=== PATIENT | female | born 1970 | race Caucasian/White ===

== ENCOUNTER → 2020-04-07 15:33 | Outpatient (CLI) | payer MEDICARE, MEDICAID, SELFPAY ==
--- NOTE | ~2020-04-07 | MM_ITS ---
EXAMINATION: MM screening andrew BI w cristine HISTORY: Screening mammogram TECHNIQUE: Craniocaudal and mediolateral oblique 3-D tomosynthesis images were obtained and synthetic 2-D images were generated. CAD analysis was submitted and interpreted. COMPARISON: 12/15/2018, 09/2017 bilateral digital screening mammogram examinations BREAST PARENCHYMAL COMPOSITION: There are scattered areas of fibroglandular density. FINDINGS: There are bilateral calcified microhematomas. There is no evidence of suspicious mass, hema cification, or architectural distortion to suggest malignancy in either breast. There has been no sarika picious interval change. IMPRESSION: 1. No mammographic evidence of malignancy. 2. Recommend routine screening mammography in one year. BI-RADS Category 2: Benign finding(s). Reviewed, dictated and finalized at location A.
== END ==
PROVIDERS: PCP Internal Medicine; Visit Provider Obstetrics & Gynecology
DX: Z12.31 Encounter for screening mammogram for malignant neoplasm of breast (principal)
CPT/HCPCS: 77063; 77067

== ENCOUNTER → 2021-05-31 14:22 | Outpatient (CLI) | payer MEDICARE, SELFPAY ==
--- NOTE | ~2021-05-31 | DEXA_ITS ---
Bone Density Report Name: JALEESA FELIZ Age: 50 Sex: Female Ethnicity: White Date of : 1970 Indication: monitoring treatment; height loss; history of glucocorticoids; prior fracture; asthma or emphysema; hysterectomy; Referring Provider: LAUREL, MAGALYS Study: Bone densitometry was performed. Exam Date: May 31, 2021 Accession number: [id number] Bone Density: Region BMD T-score Z-score Classification AP Spine (L1-L4) 0.970 -0.7 0.1 Normal Femoral Neck (Left) 0.696 -1.4 -0.5 Osteopenia Total Hip (Left) 0.857 -0.7 -0.2 Normal Femoral Neck (Right) 0.687 -1.5 -0.6 Osteopenia Total Hip (Right) 0.824 -1.0 -0.4 Normal Total Hip Mean 0.841 -0.9 -0.3 Normal World Health Organization criteria for BMD impression classify patients as: Normal (T-score at or above -1.0), Osteopenia (T-score between -1.0 and -2.5), or Osteoporosis (T-score at or below -2.5). 10-year Fracture Risk: FRAX not reported because: Treated for osteoporosis Previous Exams: Region Exam Age BMD T-score BMD Change BMD Change Date g/cm2 vs Baseline vs Previous AP Spine(L1-L4) 05/31/2021 50 0.970 -0.7 -0.029* -0.029* 09/18/2017 46 0.998 -0.4 Total Hip(Left) 05/31/2021 50 0.857 -0.7 -0.072* -0.072* 09/18/2017 46 0.929 -0.1 Total Hip(Right) 05/31/2021 50 0.824 -1.0 -0.086* -0.086* 09/18/2017 46 0.909 -0.3 *Denotes significance at 95% confidence level, LSC for AP Spine = 0.022 g/cm2, LSC for Total Hip = 0.027 g/cm2 Clinical Information Provided by Patient: Has had a low trauma fracture Has taken Glucocorticoids Is being treated for osteoporosis Has used the following medications: Vitamin D, Calcium Has the following medical conditions: Asthma or Emphysema, Hysterectomy Patient maximum height was 63 Menopause Age: 26 No regular weight bearing exercise Drinks caffeinated beverages Onset of menses at age 11 Number of children 2 Impression: The patient has low bone mass, based on the Right Femoral Neck T-score. The patient has risk factors, including: previous fracture, history of glucocorticoid therapy. The BMD for the AP Spine(L1-L4) decreased, changing by -0.029 since the last DXA exam. The BMD for the Total Hip(Left) decreased, changing by -0.072 since the last DXA exam. The BMD for the Total Hip(Right) decreased, changing by -0.086 since the last DXA exam. Discussion: SIGNIFICANT BONE LOSS OBSERVED. Adh
--- NOTE | ~2021-05-31 | MM_ITS ---
EXAMINATION: MM screening andrew BI w cristine HISTORY: Screening mammogram TECHNIQUE: Craniocaudal and mediolateral oblique 3-D tomosynthesis images were obtained and synthetic 2-D images were generated. CAD analysis was submitted and interpreted. COMPARISON: 04/07/2020, 12/15/2018, 09/18/2017 bilateral screening mammogram examinations BREAST PARENCHYMAL COMPOSITION: There are scattered areas of fibroglandular density. FINDINGS: There are scattered bilateral benign calcifications. There is no evidence of suspicious mas s, calcification, or architectural distortion to suggest malignancy in either breast. There has been no suspicious interval change. IMPRESSION: 1. No mammographic evidence of malignancy. 2. Recommend routine screening mammography in one year. BI-RADS Category 2: Benign finding(s). Reviewed, dictated and finalized at location A. 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
== END ==
PROVIDERS: PCP Internal Medicine; Visit Provider Nurse Practitioner
DX: Z12.31 Encounter for screening mammogram for malignant neoplasm of breast (principal); Z78.0 Asymptomatic menopausal state; M85.851 Other specified disorders of bone density and structure, right thigh; M85.852 Other specified disorders of bone density and structure, left thigh
CPT/HCPCS: 77063; 77067; 77080

== ENCOUNTER 2021-06-16 13:54 | Emergency (ER) | payer MEDICARE, MEDICAID, SELFPAY ==
--- NOTE | 2021-06-16 13:59 | ED.URI ---
HPI - URI/Sore Throat General Chief Complaint: Upper Respiratory Infection Stated Complaint: Flu sx Time Seen by Provider: 06/16/21 14:00 Source: patient and RN notes reviewed History of Present Illness HPI Narrative: Patient is a 50-year-old female who presents the urgent care with complaints of flulike symptoms that started last night at 8 PM. Patient denies of any known exposures to Covid, flu or strep. States that she has had the Covid vaccine. Patient has been taking DayQuil and NyQuil for her symptoms. Patient denies of any nausea or vomiting. Denies of any chest pain or shortness of breath. No other acute complaints. No acute distress noted. Patient aware of the plan of care. Some parts of this dictation were generated by voice recognition software and may contain typographical and/or grammatical inaccuracies. Related Data Home Medications Medication Instructions Recorded Confirmed Tums 2 tab-cap PO HS 06/16/21 06/16/21 Vitamin B-12 1 tab-cap PO DAILY 06/16/21 06/16/21 Vitamin D3 2,000 units PO DAILY 06/16/21 06/16/21 Women's Daily Multivitamin 1 tablet PO DAILY 06/16/21 06/16/21 albuterol sulfate 2 puff INHALATION HS 06/16/21 06/16/21 aspirin [Adult Low Dose Aspirin] 81 mg PO DAILY 06/16/21 06/16/21 bimatoprost [Lumigan] 1 drp EACH EYE HS 06/16/21 06/16/21 citalopram 40 mg PO DAILY 06/16/21 06/16/21 diltiazem HCl 120 mg PO DAILY 06/16/21 06/16/21 estradiol 0.5 mg PO DAILY 06/16/21 06/16/21 fluticasone propion-salmeterol 1 inh INHALATION BID 06/16/21 06/16/21 [Wixela Inhub] gabapentin 300 mg PO BID 06/16/21 06/16/21 hydrocodone-acetaminophen 1 tablet PO Q4-6H PRN 06/16/21 06/16/21 linaclotide [Linzess] 145 mcg PO DAILY 06/16/21 06/16/21 lorazepam 1 mg PO TID 06/16/21 06/16/21 magnesium 500 mg PO DAILY 06/16/21 06/16/21 medroxyprogesterone 2.5 mg PO DAILY 06/16/21 06/16/21 montelukast 10 mg PO DAILY 06/16/21 06/16/21 omeprazole 40 mg PO DAILY 06/16/21 06/16/21 prednisone 2.5 mg PO EVERY OTHER DAY 06/16/21 06/16/21 simvastatin 40 mg PO DAILY 06/16/21 06/16/21 spironolactone 50 mg PO DAILY 06/16/21 06/16/21 trazodone 50 mg PO DAILY 06/16/21 06/16/21 Allergies Allergy/AdvReac Type Severity Reaction Status Date / Time Quinolones Allergy Mild NIGHT Verified 06/16/21 14:06 SWEATS, ANXIETY, SLEEPLESSNESS Review of Systems Review of Systems: CONSTITUTIONAL: Reports of chills and sweats with subjective fever EYES: Denies visual changes, redness, or discharge. ENT: Denies rhinorrhea, congestion, otalgia. Reports of sore throat CARDIOVASCULAR: Denies chest pain, palpitations, or edema. RESPIRATORY: Denies cough or dyspnea. GASTROINTESTINAL: Reports of suprapubic pressure GENITOURINARY: Denies dysuria or hematuria. SKIN: Denies rash or itching. MUSCULOSKELETAL: Denies back pain, joint pain, or myalgia. NEUROLOGIC: Denies headache, numbness, or weakness. All other systems reviewed are negative, except as documented in HPI. [facility] Family History Family History (Updated 01/13/16 @ 23:19 by DOCTOR UNKNOWN) Mother Depression Hypertension Family history of elevated blood lipids Family history of chronic obstructive pulmonary disease Sibling Depression Family history of diabetes mellitus in first degree relative Family history of renal failure Father Family history of diabetes mellitus in first degree relative Family history of emphysema Family history of renal failure Family history of heart disease in male family member before age 55 Other Cerebrovascular accident Family history of allergic disorder Social History Social History Smoking status: Former smoker Smoking end date: 06/17/90 Alcohol intake: never Comments At the time of my signature, I reviewed and agree with the nursing past medical, surgical, social, and family history. There is no relevant family history pertinent to the patient complaint. Exam Narrative: GENERAL: This is a well-nourished, well-develo
[2021-06-16 14:09] VITALS: BP 97/57; PULSE 86; RESP 16; TEMP 35.7; O2SAT 100
== END 2021-06-16 14:58 | disposition home or self-care (01) ==
PROVIDERS: Emergency Provider Nurse Practitioner Family; PCP Internal Medicine
DX: J06.9 Acute upper respiratory infection, unspecified (principal); Z87.891 Personal history of nicotine dependence
CPT/HCPCS: 81003; 87804; 99213; G0463

== ENCOUNTER 2022-03-14 14:10 | Outpatient (CLI) | payer MEDICARE, MEDICAID, SELFPAY ==
--- NOTE | ~2022-03-14 | US_ITS ---
EXAMINATION: US pelvic complete DATE: 03/14/2022 14:43 INDICATION: Pelvic pain Comparison:No prior studies for comparison. TECHNIQUE: Multiple transabdominal and endovaginal sonographic images of the pelvis performed. FINDINGS: The uterus is surgically absent. The ovaries are not visualized. There is no free fluid in the pelvis. There are no abnormal masses seen on either side. IMPRESSION: 1. Unremarkable pelvic ultrasound status post hysterectomy. Reviewed, dictated and finalized at location B.
== END 2022-03-14 14:11 | disposition home or self-care (01) ==
PROVIDERS: PCP Internal Medicine; Visit Provider Obstetrics & Gynecology Gynecology
DX: R10.2 Pelvic and perineal pain (principal)
CPT/HCPCS: 76856

== ENCOUNTER 2023-06-27 10:16 | Outpatient (CLI) | payer MEDICARE, MEDICAID, SELFPAY ==
[2023-06-27 11:05] LABS: Alanine Aminotransferase 49 U/L (6-35); Alkaline Phosphatase 72 U/L (38-126); Anion Gap 7 mmol/L (8-16); Aspartate Amino Transferase 58 U/L (14-36); Bilirubin,Total 0.9 mg/dL (0.2-1.3); Blood Urea Nitrogen 15 mg/dL (7-17); Calcium 9.9 mg/dL (8.4-10.2); Carbon Dioxide 29 mmol/L (22-30); Chloride 100 mmol/L (98-107); Estimated Glomerular Filt Rate > 60; Glucose 90 mg/dL (65-110); Potassium 3.9 mmol/L (3.4-5.0); Sodium 136 mmol/L (137-145)
[2023-06-27 11:34] LABS: Cortisol Baseline 7.94 ug/dL
[2023-06-27 11:42] LABS: Vitamin D 25 Hydroxy 73.8 ng/mL
[2023-06-30 12:06] LABS: DHEA-Sulfate <2 mcg/dL (8-188)
[2023-07-02 14:41] LABS: Z Score Female 0.4 SD (-2.0 - +2.0)
== END 2023-06-27 10:17 | disposition home or self-care (01) ==
PROVIDERS: PCP Internal Medicine; Visit Provider Internal Medicine Endocrinology, Diabetes & Metabolism
DX: E27.49 Other adrenocortical insufficiency (principal); E16.1 Other hypoglycemia; R79.89 Other specified abnormal findings of blood chemistry; E55.9 Vitamin D deficiency, unspecified
CPT/HCPCS: 36415; 80053; 82306; 82533; 82627; 84305; 96372; J0834

== ENCOUNTER 2023-09-16 10:11 | Outpatient (CLI) | payer MEDICARE, MEDICAID, SELFPAY ==
--- NOTE | 2023-09-16 11:46 | ECG_ITS ---
Measurements Intervals [place] Rate: 76 P: 10 IN: 161 QRS: -14 QRSD: 86 T: 7 QT: 375 QTc: 423 Interpretive Statements SINUS RHYTHM VOLTAGE CRITERIA FOR LVH [MEETS CRITERIA IN ONE OF: R(aVL), S(V1), R(V5), R(V5/V6)+S(V1)] POOR R-WAVE PROGRESSION ABNORMAL ECG NO PREVIOUS ECG AVAILABLE FOR COMPARISON Electronically Signed On 09-16-2023 13:18:41 CDT by Michele Arauz M.D.
[2023-09-16 12:43] LABS: Basophils Absolute Auto 0.1 K/mm3 (0.0-0.1); Basophils Percent Auto 0.9 % (0.2-1.2); Eosinophils Absolute Auto 0.2 K/mm3 (0-0.3); Eosinophils Percent Auto 2.3 % (0-4.4); Hematocrit 42.4 % (37.0-47.0); Hemoglobin 13.5 g/dL (12.0-15.0); Immature Granulocyte Absolute 0.03 K/mm3 (0.00-0.031); Immature Granulocyte Percent A 0.5 % (0-0.5); Lymphocytes Absolute Auto 1.23 K/mm3 (0.9-3.2); Lymphocytes Percent Auto 18.6 % (18.3-44.2); Mean Corpuscular HGB Conc 31.8 g/dl (32-36); Mean Corpuscular Hemoglobin 29.5 pg (26-34); Mean Corpuscular Volume 92.6 fl (80-100); Mean Platelet Volume 10.6 fl (7.4-10.4); Monocytes Absolute Auto 0.5 K/mm3 (0.1-0.6); Monocytes Percent Auto 7.1 % (2.6-8.5); Neutrophils Absolute Auto 4.7 K/mm3 (1.3-6.7); Neutrophils Percent Auto 70.6 % (45.5-73.1); Platelet Count Result 186 k/mm3 (150-375); Red Blood Count 4.58 M/mm3 (4.2-5.4); Red Cell Distribution Width 13.6 % (11.5-14.5); White Blood Count 6.6 K/mm3 (4.5-10.0)
[2023-09-16 12:50] LABS: Albumin Level 4.4 g/dL (3.5-5.1)
[2023-09-16 12:54] LABS: Anion Gap 4 mmol/L (4-12); Blood Urea Nitrogen 11 mg/dL (7-17); Calcium 9.8 mg/dL (8.4-10.2); Carbon Dioxide 29 mmol/L (22-30); Chloride 102 mmol/L (98-107); Estimated Glomerular Filt Rate > 60; Glucose 80 mg/dL (65-110); Potassium 4.1 mmol/L (3.4-5.0); Sodium 135 mmol/L (137-145)
[2023-09-16 12:57] LABS: Urine Cotinine NEGATIVE
[2023-09-16 13:42] LABS: Hemoglobin A1C 4.8 % (<5.7)
== END 2023-09-16 10:12 | disposition home or self-care (01) ==
PROVIDERS: Anesthesiology; PCP Internal Medicine; Visit Provider Orthopaedic Surgery
DX: M87.051 Idiopathic aseptic necrosis of right femur (principal); Z51.81 Encounter for therapeutic drug level monitoring; Z01.818 Encounter for other preprocedural examination; Z79.899 Other long term (current) drug therapy
CPT/HCPCS: 36415; 80048; 80307; 82040; 83036; 85025; 93005

== ENCOUNTER 2023-09-17 09:54 | Outpatient (CLI) | payer MEDICARE, SELFPAY ==
--- NOTE | ~2023-09-17 | MR_ITS ---
MRI of the right hip Clinical history: Avascular necrosis Technique: Coronal T1-weighted, T2-weighted, and proton-density fat-sat images, and axial T1-weighted and proton-density fat-sat images were acquired through the pelvis. Coronal T2-weighted images and c oronal, axial, and sagittal proton-density fat-sat images were acquired through the right hip. Findings: There are small focal areas of radiographic signal abnormality in the bilateral femoral hea ds, compatible small areas of avascular necrosis of the bilateral femoral heads. No subchondral fract ure articular surface collapse, or secondary osteoarthritis seen. Joint spaces are relatively well-pr eserved, probable mild diffuse chondral thinning. No joint effusion. SI joints are unremarkable. No d efinite right acetabular labral tear. Visualized musculature about the pelvis and right hip is unremarkable. No muscle atrophy or edema. Vi sually tendons are intact. No soft tissue mass or fluid collection seen. IMPRESSION: Small areas of avascular necrosis of the bilateral femoral heads. No subchondral fracture, articular surface collapse, or secondary osteoarthritis. Reviewed, dictated and finalized at location M. IMPRESSION: Small areas of avascular necrosis of the bilateral femoral heads. No subchondra l fracture, articular surface collapse, or secondary osteoarthritis.
== END 2023-09-17 09:55 ==
PROVIDERS: PCP Internal Medicine; Visit Provider Orthopaedic Surgery
DX: M87.051 Idiopathic aseptic necrosis of right femur (principal)
CPT/HCPCS: 73721

== ENCOUNTER 2023-10-01 14:20 | Observation (INO) | payer MEDICARE, MEDICAID, SELFPAY ==
--- NOTE | 2023-09-16 10:16 | PC.NURSE ---
Addendum entered by Chelsi Rowe RN 09/16/23 11:28: PATIENT INSTRUCTED TO HOLD ASPIRIN 5 DAYS PRE-OP PER DR GREER, LAST DOSE 09/24/23. SHE RELAYS UNDERSTANDING. Original Note: Report to the Outpatient Waiting Room, entrance under the green pavilion located off [facility], at time __6:00AM on date ___09/30/23____. Planned Procedure Time: ___7:30AM . Time changes happen often and if your time is changed the preop area will call you the afternoon before. - You and your visitor will be asked to self-screen and do not enter if you have any COVID symptoms. - A mask is optional within the hospital at this time. Patients may have clear liquids (water, carbonated beverages, clear teas, apple juice) until 3 hours prior to surgery with a maximum of 20 ounces. - No food from midnight until time of surgery. Take the following medications with a SIP of water the morning of surgery: ____DILTIAZEM, ADVAIR DISKUS INHALER, GABAPENTIN, LORAZEPAM, PREDNISONE. HYDROCODONE NEEDED FOR PAIN. ALBUTEROL INHALER NEEDED FOR SHORTNESS OF BREATH. ZOFRAN NEEDED FOR NAUSEA DO NOT STOP ANY OF YOUR OTHER PRESCRIPTION MEDICATIONS PRIOR TO SURGERY ?EXCEPT THE FOLLOWING Medications to discontinue per physician ___HOLD ALL VITAMINS/SUPPLEMENTS 3 DAYS PRE-OP PER ANESTHESIA Date to take last dose 06/27/23 Please no make-up, nail estonian, hairspray, perfume, deodorant, or body powder the day of surgery. No jewelry (including any body piercings) or valuables the day of surgery, leave them at home. Please take a shower or bath the night before, or the morning of, surgery with an antibacterial soap. Wear comfortable, loose fitting clothing. - Jewelry must be removed prior to entering the operating room. Rings and piercings that are not removed may be cut off. - The hospital will not accept responsibility for valuables. - Please leave all valuables, including medications, at home the day of surgery. If you are going home after surgery, a licensed solid waste truck driver must drive you home. - NO public transportation without another adult if you receive anesthesia. - We recommend that an adult stay with you for 24 hours following discharge. - We also recommend that you do not drive, make important decision, drink alcoholic beverages, or take any drugs that were not prescribed by your health care provider for at least 24 hours after your discharge time. Follow any additional instructions given to you from your surgeon. If you or anyone in your household have experienced Covid symptoms in the past week, please notify your surgeon or the nurse liaison at the phone number below for possible testing. Telephone instructions given to ____PATIENT and asked if any additional questions and then verbalized understanding. Patient advised to call surgeon office or pre surgery nurse liaison [phone] if any additional questions.
[2023-09-16 10:40] VITALS: BP 133/79; PULSE 77; RESP 16; TEMP 36.2; O2SAT 99; BMI 34.7
--- NOTE | 2023-09-19 12:47 | PM.IMHP ---
H&P: HPI History of Present Illness Date/Time: 09/19/23 12:47 Chief Complaint: Patient has complaints of right hip pain unresponsive to conservative treatment. She has pain with any manipulation and pain with daily activities of daily living. She has failed conservative treatment like to consider total hip arthroplasty on the right. Review of Systems Musculoskeletal: Musculoskeletal: Reports arthralgias and Reports joint swelling PMFSH Past Medical History Medical History (Updated 09/11/23 @ 10:56 by Leroy Workman MD) Adrenal insufficiency Anxiety Arthritis Asthma Diabetes GERD (gastroesophageal reflux disease) Glaucoma Hypertension Migraine Petit neuroma MORROW (nonalcoholic steatohepatitis) Osteoporosis Raynaud disease Sarcoidosis Stroke Surgical History Surgical History (Updated 09/11/23 @ 10:42 by Caro Tobin CMA) History of breast biopsy History of cholecystectomy History of dilatation and curettage History of eye surgery History of gastric bypass History of hemorrhoidectomy History of liver biopsy History of partial hysterectomy History of surgical removal of skin lesion History of tubal ligation Family History Family History Mother Depression Hypertension Sibling Depression Diabetes mellitus Hypertension Cerebrovascular accident Father Diabetes mellitus Hypertension Heart disease Cerebrovascular accident Grandparent Heart disease Depression Hypertension Other Family history of allergic disorder Social History Social History Smoking packs per day: 0.75 Smoking cigarettes per day: 15.0 Years smoked: 5 Smoking pack-years: 3.75 Smoking status: Former smoker Tobacco type: cigarettes Smoking end date: 12/15/90 Alcohol intake: never Do You Feel Safe in your Home?: Yes Lack of Transportation: No Lack of Food: Never True Current Housing: I Have Housing Concerned About Future Housing: No Difficulty Paying Gas/Electric Bills: No Difficulty Paying for Meds: No Currently Unemployed: No Education: High School Diploma/GED Difficulty w/ Childcare or Family Care: No Living arrangements: alone Spiritual care concerns: No Agree to blood products: Yes Meds Home Medications and Allergies Home Medications Medication Instructions Recorded Confirmed Type Vitamin B-12 1 tab-cap PO DAILY 06/16/21 09/16/23 History Vitamin D3 2,000 units PO DAILY 06/16/21 09/16/23 History Women's Daily Multivitamin 1 tablet PO DAILY 06/16/21 09/16/23 History albuterol sulfate 90 mcg/actuation 2 puff inhalation HS PRN Shortness 06/16/21 09/16/23 History aerosol inhaler Of Breath Or Wheezing bimatoprost 0.01 % eye drops 1 drp EACH EYE HS 06/16/21 09/16/23 History (Roz) citalopram 40 mg tablet 40 mg PO HS 06/16/21 09/16/23 History diltiazem HCl 120 mg 120 mg PO QAM 06/16/21 09/16/23 History capsule,extended release 24 hr estradiol 0.5 mg tablet 0.5 mg PO DAILY 06/16/21 09/16/23 History gabapentin 300 mg capsule 300 mg PO BID 06/16/21 09/16/23 History linaclotide 145 mcg capsule 145 mcg PO DAILY 06/16/21 09/16/23 History (Charlie) lorazepam 1 mg tablet 1 mg PO TID 06/16/21 09/16/23 History magnesium 500 mg tablet 500 mg PO DAILY 06/16/21 09/16/23 History montelukast 10 mg tablet 10 mg PO HS 06/16/21 09/16/23 History omeprazole 40 mg capsule,delayed 40 mg PO QAM 06/16/21 09/16/23 History release simvastatin 40 mg tablet 40 mg PO HS 06/16/21 09/16/23 History spironolactone 50 mg tablet 50 mg PO QAM 06/16/21 09/16/23 History flash glucose sensor (FreeStyle 05/23/23 05/23/23 History Caridad 2 Sensor kit) mirabegron 50 mg tablet,extended 50 mg PO DAILY 05/23/23 09/16/23 History release 24 hr (Myrbetriq) fluticasone 250 mcg-salmeterol 50 1 inh inhalation BID 09/11/23 09/16/23 History mcg/dose blistr powdr for inhala
--- NOTE | 2023-09-26 07:34 | PM.IMHP ---
H&P: HPI History of Present Illness Date/Time: 09/26/23 07:35 Chief Complaint: Patient has right hip pain with avascular necrosis. She has been unable to get relief from conservative treatment today. Her MRI demonstrates AVN. She has quite limited motion of her hips with internal rotation is 0 and external rotation to 20. Review of Systems Musculoskeletal: Musculoskeletal: Reports arthralgias and Reports joint swelling PMF Past Medical History Medical History (Updated 09/26/23 @ 07:37 by Leroy Workman MD) Adrenal insufficiency Anxiety Arthritis Asthma Diabetes GERD (gastroesophageal reflux disease) Glaucoma Hypertension Migraine Petit neuroma MORROW (nonalcoholic steatohepatitis) Osteoporosis Raynaud disease Sarcoidosis Stroke Surgical History Surgical History (Updated 09/11/23 @ 10:42 by Caro Tobin CMA) History of breast biopsy History of cholecystectomy History of dilatation and curettage History of eye surgery History of gastric bypass History of hemorrhoidectomy History of liver biopsy History of partial hysterectomy History of surgical removal of skin lesion History of tubal ligation Family History Family History Mother Depression Hypertension Sibling Depression Diabetes mellitus Hypertension Cerebrovascular accident Father Diabetes mellitus Hypertension Heart disease Cerebrovascular accident Grandparent Heart disease Depression Hypertension Other Family history of allergic disorder Social History Social History Smoking packs per day: 0.75 Smoking cigarettes per day: 15.0 Years smoked: 5 Smoking pack-years: 3.75 Smoking status: Former smoker Tobacco type: cigarettes Smoking end date: 12/15/90 Alcohol intake: never Do You Feel Safe in your Home?: Yes Lack of Transportation: No Lack of Food: Never True Current Housing: I Have Housing Concerned About Future Housing: No Difficulty Paying Gas/Electric Bills: No Difficulty Paying for Meds: No Currently Unemployed: No Education: High School Diploma/GED Difficulty w/ Childcare or Family Care: No Living arrangements: alone Spiritual care concerns: No Agree to blood products: Yes Meds Home Medications and Allergies Home Medications Medication Instructions Recorded Confirmed Type Vitamin B-12 1 tab-cap PO DAILY 06/16/21 09/16/23 History Vitamin D3 2,000 units PO DAILY 06/16/21 09/16/23 History Women's Daily Multivitamin 1 tablet PO DAILY 06/16/21 09/16/23 History albuterol sulfate 90 mcg/actuation 2 puff inhalation HS PRN Shortness 06/16/21 09/16/23 History aerosol inhaler Of Breath Or Wheezing bimatoprost 0.01 % eye drops 1 drp EACH EYE HS 06/16/21 09/16/23 History (Roz) citalopram 40 mg tablet 40 mg PO HS 06/16/21 09/16/23 History diltiazem HCl 120 mg 120 mg PO QAM 06/16/21 09/16/23 History capsule,extended release 24 hr estradiol 0.5 mg tablet 0.5 mg PO DAILY 06/16/21 09/16/23 History gabapentin 300 mg capsule 300 mg PO BID 06/16/21 09/16/23 History linaclotide 145 mcg capsule 145 mcg PO DAILY 06/16/21 09/16/23 History (Charlie) lorazepam 1 mg tablet 1 mg PO TID 06/16/21 09/16/23 History magnesium 500 mg tablet 500 mg PO DAILY 06/16/21 09/16/23 History montelukast 10 mg tablet 10 mg PO HS 06/16/21 09/16/23 History omeprazole 40 mg capsule,delayed 40 mg PO QAM 06/16/21 09/16/23 History release simvastatin 40 mg tablet 40 mg PO HS 06/16/21 09/16/23 History spironolactone 50 mg tablet 50 mg PO QAM 06/16/21 09/16/23 History flash glucose sensor (FreeStyle 05/23/23 05/23/23 History Caridad 2 Sensor kit) mirabegron 50 mg tablet,extended 50 mg PO DAILY 05/23/23 09/16/23 History release 24 hr (Myrbetriq) fluticasone 250 mcg-salmeterol 50 1 inh inhalation BID 09/11/23 09/16/23 History mcg/dose blistr powdr for inhalation (Advair D
[2023-09-30] VITALS (17 sets, daily range): BP systolic 99–133; BP diastolic 41–87; PULSE 70–103; RESP 16–20; TEMP 36.1–36.9; O2SAT 94–100
[2023-09-30] MEDS: VANCOMYCIN 1,250 MG/NS 250 ML BAG 166.67 MG IVPB (06:30)
[2023-09-30] MEDS: LACTATED RINGERS 1,000 ML 30 ML IV CONT ×3 (06:30→10:20)
[2023-09-30] MEDS: TRANEXAMIC ACID 1,000MG/ISO100 1,000 MG/100 ML BAG 200 MG IVPB (06:35)
[2023-09-30] MEDS: ACETAMINOPHEN 500 MG TABLET 1000 MG PO (06:40)
[2023-09-30 06:51] LABS: INR 0.9; Partial Thromboplastin Time 27.7 Seconds (22.3-36.8); Prothrombin Time 12.2 Seconds (11.1-14.7)
[2023-09-30 06:51] LABS: Glucose Point of Care 88 mg/dl (65-105)
[2023-09-30] MEDS: HYDROCORTISONE SODIUM SUCCINATE 100 MG/2 ML VIAL IV PUSH (06:59)
--- NOTE | 2023-09-30 07:00 | WPDHPUPDATE1 ---
History and Physical Update Update Date/Time: 09/30/23 07:00 History and Physical has been reviewed, including an updated exam of the patient. There are NO changes in the patient's condition. Risks, benefits, and alternatives have been discussed and questions answered. Patient agrees to proceed with procedure. Discussed options again. Pain is significant. Strongly desires NIKITA.
--- NOTE | 2023-09-30 07:14 | WPDANESEPPF ---
Anes - Initial Pre Proc Eval Procedure: Operation Date: 09/30/23 07:30 Proposed Procedures p Right Total Hip Arthroplasty - Leroy Workman MD Date/Time: 09/30/23 07:14 Surgeon: Leroy Workman MD Pre Op Diagnosis: avn right hip Patient Data Age: 52 Gender: F Height: 1.52 m Weight: 80.4 kg Last Vital Signs Temp 36.2 C L 09/16/23 10:40 Pulse 77 09/16/23 10:40 Resp 16 09/16/23 10:40 BP 133/79 09/16/23 10:40 Pulse Ox 99 09/16/23 10:40 O2 Del Method Room Air 09/16/23 10:40 Allergies Allergy/AdvReac Type Severity Reaction Status Date / Time cephalexin [From Keflex] Allergy FACIAL Verified 09/30/23 07:07 SWELLING ofloxacin [From Floxin] AdvReac Mild INSOMNIA, Verified 09/30/23 07:07 SWEATING, SHAKINESS Home Medications Medication Instructions Recorded Confirmed Type Vitamin B-12 1 tab-cap PO DAILY 06/16/21 09/30/23 History Vitamin D3 2,000 units PO DAILY 06/16/21 09/30/23 History Women's Daily Multivitamin 1 tablet PO DAILY 06/16/21 09/30/23 History albuterol sulfate 90 mcg/actuation 2 puff inhalation HS PRN Shortness 06/16/21 09/30/23 History aerosol inhaler Of Breath Or Wheezing bimatoprost 0.01 % eye drops 1 drp EACH EYE HS 06/16/21 09/30/23 History (Lumigan) citalopram 40 mg tablet 40 mg PO HS 06/16/21 09/30/23 History diltiazem HCl 120 mg 120 mg PO QAM 06/16/21 09/30/23 History capsule,extended release 24 hr estradiol 0.5 mg tablet 0.5 mg PO DAILY 06/16/21 09/30/23 History gabapentin 300 mg capsule 300 mg PO BID 06/16/21 09/30/23 History linaclotide 145 mcg capsule 145 mcg PO DAILY 06/16/21 09/30/23 History (Charlie) lorazepam 1 mg tablet 1 mg PO TID 06/16/21 09/30/23 History magnesium 500 mg tablet 500 mg PO DAILY 06/16/21 09/30/23 History montelukast 10 mg tablet 10 mg PO HS 06/16/21 09/30/23 History omeprazole 40 mg capsule,delayed 40 mg PO QAM 06/16/21 09/30/23 History release simvastatin 40 mg tablet 40 mg PO HS 06/16/21 09/30/23 History spironolactone 50 mg tablet 50 mg PO QAM 06/16/21 09/30/23 History flash glucose sensor (FreeStyle 05/23/23 05/23/23 History Caridad 2 Sensor kit) mirabegron 50 mg tablet,extended 50 mg PO DAILY 05/23/23 09/30/23 History release 24 hr (Myrbetriq) fluticasone 250 mcg-salmeterol 50 1 inh inhalation BID 09/11/23 09/30/23 History mcg/dose blistr powdr for inhalation (Advair Diskus) hydrocodone 10 mg-acetaminophen 1 tablet PO Q4H PRN Pain 09/11/23 09/30/23 History 325 mg tablet prednisone 5 mg tablet 5 mg PO DAILY 09/11/23 09/30/23 History trazodone 50 mg tablet 150 mg PO HS 09/11/23 09/30/23 History aspirin 81 mg tablet,delayed 81 mg PO DAILY 09/16/23 09/30/23 History release (Adult Low Dose Aspirin) azelastine 137 mcg (0.1 %) nasal 2 spray intranasal BID PRN Nasal 09/16/23 09/16/23 History spray aerosol Congestion fluticasone propionate 50 1 spray intranasal BID PRN Nasal 09/16/23 09/30/23 History mcg/actuation nasal Congestion spray,suspension ondansetron HCl 4 mg tablet 4 mg PO BID PRN Nausea And Vomiting 09/16/23 09/30/23 History rivaroxaban 10 mg tablet (Xarelto) 10 mg PO DAILY PE prophylaxis s/p 09/27/23 Rx joint replacement surgery 21 days #21 tabs Laboratory Tests 09/30/23 09/30/23 06:26 06:34 PT 12.2 Seconds (11.1-14.7) INR 0.9 APTT 27.7 Seconds (22.3-36.8) POC Capillary Glucose 88 mg/dl (65-105) Patient hx anesthesia problems: none Family hx anesthesia problems: none Results Review: All pre-operative results and documents have been reviewed as part of the pre-operative evaluation. [facility] Past Medical History Medical History Adrenal insufficiency Anxiety Arthritis Asthma Diabetes GERD (gastroesophageal reflux disease) Glaucoma Hypertension Migraine Petit neuroma MORROW (nonalcoholic steatohepatitis) Osteoporosis Raynaud disease Sarcoidosis S
[2023-09-30] MEDS: CLINDAMYCIN 900 MG/D5W 50 ML 900 MG/50 ML PIGGYBACK 50 MG IVPB (07:28)
[2023-09-30] MEDS: ceFAZolin SODIUM 1 GM VIAL 2 GM IV PUSH (08:09)
[2023-09-30] MEDS: ceFAZolin SODIUM 1 GM VIAL IV PUSH (09:27)
--- NOTE | 2023-09-30 09:28 | W.PM.PROC2 ---
Procedure Note - Detailed Date of Procedure 09/30/23 Pre-op Diagnosis AVN right hip with osteoarthriti Post-op Diagnosis Same Procedure Performed RIGHT total hip arthroplasty Surgeon Leroy Workman MD Anesthesia General Description of Procedure Patient was brought to the operating room #9, and an anesthetic was administered. The patient was placed with the RIGHT side up and steriley prepped and draped in the usual manner. Longitudinal incision was done, dissection carried down to the fascia. A Hardinge type approach was used and the femoral head was dislocated anteriorly. Femoral head was removed a finger breath above the lesser trochanter. The acetabulum was serially reamed to accept a 48mm component. This was impacted into place and secured with 2 25mm screws. A high wall liner was placed. The femur was reamed and broached to accept a 7 component which was impacted into place. A minus 3 head and neck were placed and the hip was put through full range of motion. The hip was noted to be stable. The wounds were then closed in a layered fashion using #5 ethibond, 2 vicryl, 2-0 vicryl and tiburcio. Patient left the operating room in satisfactory condition. Of note the patient had more degenerative change than seen on x-ray. Implants Biomet Femur Flaco Multihole cup Estimated Blood Loss 600 Drains No Packing No Pathology None sent Complications No immediate complications Condition Stable Disposition PACU [facility] Billing Surgery - Charge Forward: Surgery Billing ([id number] Total Hip)
[2023-09-30] MEDS: TRANEXAMIC ACID 1,000 MG/10 ML AMPUL 1000 MG IV PUSH (09:34)
[2023-09-30] MEDS: fentaNYL CITRATE INJ (*CRX) 100 MCG/2 ML VIAL 25 MCG IV PUSH ×8 (10:13→10:42)
[2023-09-30 10:43] LABS: Glucose Point of Care 128 mg/dl (65-105)
[2023-09-30 10:44] LABS: Hematocrit 37.3 % (37.0-47.0); Hemoglobin 11.9 g/dL (12.0-15.0)
[2023-09-30] MEDS: HYDROmorphone HCL INJ (*CRX) 1 MG/ML SYR 0.5 MG IV PUSH ×4 (10:48→11:14)
[2023-09-30] MEDS: HYDROcodone/acetaminophen (*CRX) 10-325 MG TABLET 1 TAB PO ×3 (13:53→23:31)
[2023-09-30] MEDS: CYCLOBENZAPRINE HCL 10 MG TABLET PO (13:54)
--- NOTE | 2023-09-30 15:12 | PM.IMCN ---
Assessment and Plan Assessment and plan (1) Osteoarthritis of right hip: Code(s): M16.11 - Unilateral primary osteoarthritis, right hip Status: Acute Assessment and Plan: Patient underwent right total hip arthroplasty on 09/30/23. Pain medication, DVT prophylaxis, and PT/OT per orthopedic team. (2) Avascular necrosis of bone of right hip: Code(s): M87.051 - Idiopathic aseptic necrosis of right femur Status: Acute Assessment and Plan: See above. (3) Hypertension: Code(s): I10 - Essential (primary) hypertension Status: Acute Assessment and Plan: Continue home medication. (4) Reactive hypoglycemia: Code(s): E16.1 - Other hypoglycemia Status: Acute Assessment and Plan: Hypoglycemia protocol initiated. Not currently on diabetic medication. Order HgbA1C (5) Hyperlipemia: Code(s): E78.5 - Hyperlipidemia, unspecified Status: Acute Assessment and Plan: Simvastatin 40 mg discontinued due to interaction with Coreg. Pravastatin 20 mg started (does not interact) HPI Date of Consult Consult date: 09/30/23 Requesting Physician: Leroy Workman MD Primary Care Provider: Nacho Oglesby, Consult Narrative Reason for consult: Medical Management Narrative: Leelee Medina is a 52 year old female with a PMH of avascular necrosis of right hip, CVA, Raynaud disease, Sarcoidosis, MORROW, HTN, DMII, adrenal insufficiency, and glaucoma. patient has avascular necrosis of the right hip due to over use of steroids. Patient use of steroids from her sarcoidosis. Patient also has diabetes due to adrenal insufficiency but does not need medication to control it. Patient underwent elective right total hip arthroplasty. Patient underwent surgery on 09/30/23. Patient tolerated surgery well. Pre op labs with H&H of 13.5/42.4. Post op labs H&H 11.9/37.3. Hospitalist team consulted for medical management. [facility] Past Medical History Medical History (Updated 09/30/23 @ 15:52 by Yamilet Castillo PA-C) Adrenal insufficiency Anxiety Arthritis Asthma Diabetes GERD (gastroesophageal reflux disease) Glaucoma Hypertension Migraine Petit neuroma MORROW (nonalcoholic steatohepatitis) Osteoporosis Raynaud disease Sarcoidosis Stroke Surgical History Surgical History History of breast biopsy History of cholecystectomy History of dilatation and curettage History of eye surgery History of gastric bypass History of hemorrhoidectomy History of liver biopsy History of partial hysterectomy History of surgical removal of skin lesion History of tubal ligation Family History Family History Mother Depression Hypertension Sibling Depression Diabetes mellitus Hypertension Cerebrovascular accident Father Diabetes mellitus Hypertension Heart disease Cerebrovascular accident Grandparent Heart disease Depression Hypertension Other Family history of allergic disorder Social History Social History Smoking packs per day: 0.5 Smoking cigarettes per day: 10.0 Years smoked: 5 Smoking pack-years: 2.50 Smoking status: Former smoker Alcohol intake: never Substance use: never Do You Feel Safe in your Home?: Yes Lack of Transportation: YES Lack of Food: Never True Current Housing: I Have Housing Concerned About Future Housing: No Difficulty Paying Gas/Electric Bills: No Difficulty Paying for Meds: No Currently Unemployed: No Education: High School Diploma/GED Difficulty w/ Childcare or Family Care: No Living arrangements: alone Spiritual care concerns: No Agree to blood products: Yes Meds Home Medications and Allergies Home Medications Medication Instructio
--- NOTE | 2023-09-30 15:14 | PCOTNOTE ---
Attempted to see pt. for occupational therapy evaluation. Pt. in bed and drowsy, falling asleep while speaking, and requesting to sleep at this time. Nursing aware all needs met.
[2023-09-30] MEDS: DEXTROSE 5%/0.45% SOD CHL 1,000 ML 80 ML IV CONT (17:28)
[2023-09-30] MEDS: ceFAZolin 2 GM/D5W 50 ML 2 GM/50 ML BAG IVPB ×2 (17:29→23:30)
[2023-09-30] MEDS: RIVAROXABAN 10 MG TABLET PO (17:29)
[2023-09-30] MEDS: SENNA/DOCUSATE SODIUM TABLET 2 TAB PO (17:29)
[2023-09-30] MEDS: ONDANSETRON INJ 4 MG/2 ML VIAL IV PUSH (17:41)
[2023-09-30 17:49] LABS: Glucose Point of Care 119 mg/dl (65-105)
[2023-09-30] MEDS: FAMOTIDINE 20 MG TABLET PO (19:51)
[2023-09-30] MEDS: MONTELUKAST SODIUM 10 MG TABLET PO (19:51)
[2023-09-30] MEDS: traZODone HCL 50 MG TABLET 150 MG PO (19:51)
[2023-09-30] MEDS: ALBUTEROL SULFATE (*SP) AEROSOL 1 PUFF 2 PUFF INHALATION (20:07)
[2023-09-30] MEDS: FLUTICASONE/SALMETEROL 115-21 MCG INHALER 1 PUFF 2 PUFF INHALATION (20:08)
[2023-09-30 21:01] LABS: Glucose Point of Care 166 mg/dl (65-105)
[2023-09-30] MEDS: MORPHINE SULFATE (*CRX) 4 MG/ML INJ 3 MG IV PUSH (21:21)
[2023-10-01] VITALS (9 sets, daily range): BP systolic 114–129; BP diastolic 56–69; PULSE 85–113; RESP 14–18; TEMP 36.3–37.5; O2SAT 91–99
--- NOTE | ~2023-10-01 | XR_ITS ---
EXAMINATION: XR surgery orthopedic DATE: 09/30/2023 09:33 INDICATION: Left hip arthroplasty TECHNIQUE: 4 views left hip FINDINGS: There is a left total hip arthroplasty in expected position. Subcutaneous gas with soft ti ssue swelling are consistent with recent surgery. IMPRESSION: 1. Recent left total hip arthroplasty. Reviewed, dictated and finalized at location A.
[2023-10-01] MEDS: MORPHINE SULFATE (*CRX) 4 MG/ML INJ 3 MG IV PUSH ×2 (00:38→03:34)
[2023-10-01] MEDS: HYDROcodone/acetaminophen (*CRX) 10-325 MG TABLET 1 TAB PO ×4 (05:15→17:55)
[2023-10-01 05:55] LABS: Basophils Percent Auto 0.3 % (0.2-1.2); Eosinophils Absolute Auto 0.1 K/mm3 (0-0.3); Eosinophils Percent Auto 0.7 % (0-4.4); Hematocrit 31.8 % (37.0-47.0); Immature Granulocyte Absolute 0.03 K/mm3 (0.00-0.031); Immature Granulocyte Percent A 0.4 % (0-0.5); Lymphocytes Absolute Auto 1.14 K/mm3 (0.9-3.2); Lymphocytes Percent Auto 16.2 % (18.3-44.2); Mean Corpuscular HGB Conc 31.4 g/dl (32-36); Mean Corpuscular Hemoglobin 29.8 pg (26-34); Mean Corpuscular Volume 94.6 fl (80-100); Mean Platelet Volume 10.9 fl (7.4-10.4); Monocytes Absolute Auto 0.8 K/mm3 (0.1-0.6); Monocytes Percent Auto 11.1 % (2.6-8.5); Neutrophils Percent Auto 71.3 % (45.5-73.1); Platelet Count Result 124 k/mm3 (150-375); Red Blood Count 3.36 M/mm3 (4.2-5.4); Red Cell Distribution Width 14.2 % (11.5-14.5)
[2023-10-01 06:09] LABS: Anion Gap 1 mmol/L (4-12); Blood Urea Nitrogen 9 mg/dL (7-17); Calcium 8.5 mg/dL (8.4-10.2); Carbon Dioxide 31 mmol/L (22-30); Chloride 101 mmol/L (98-107); Estimated CRCL calculation 102 ml/min; Estimated Glomerular Filt Rate > 60; Glucose 126 mg/dL (65-110); Potassium 3.5 mmol/L (3.4-5.0); Sodium 133 mmol/L (137-145)
[2023-10-01 06:25] LABS: Hemoglobin A1C 4.9 % (<5.7)
--- NOTE | 2023-10-01 06:36 | PM.PNORT ---
Progress Note: A&P Assessment and Plan (1) Osteoarthritis of right hip: Code(s): M16.11 - Unilateral primary osteoarthritis, right hip Status: Acute (2) History of right hip replacement: Code(s): Z96.641 - Presence of right artificial hip joint Status: Acute Assessment and Plan: patient is S/P Right NIKITA for AVN and osteoarthritis. Doing well. Will Ambulate and dismiss is doing well. Subjective Subjective Date/Time Seen: 10/01/23 06:36 Post Op day: 1 Principal diagnosis: Right Total Hip Review of Systems Musculoskeletal: Musculoskeletal: Reports arthralgias and Reports joint swelling Exam Narrative: Wiggles toes. Dressing intact. Objective Data Vital Signs Vital Signs: Vital Signs - 24 hr 09/30/23 10:03 09/30/23 10:30 09/30/23 10:45 Temperature 97.0 F L Pulse Rate 88 89 81 Respiratory Rate 20 18 18 Blood Pressure 99/41 L 99/49 L 105/65 Pulse Oximetry 100 98 100 Oxygen Delivery Simple Face Mask Simple Face Mask Simple Face Mask Oxygen Flow Rate 6 6 6 09/30/23 11:00 09/30/23 10:15 09/30/23 11:15 Temperature Pulse Rate 79 88 78 Respiratory Rate 18 18 18 Blood Pressure 112/65 103/80 115/78 Pulse Oximetry 95 100 94 Oxygen Delivery Nasal Cannula Simple Face Mask Nasal Cannula Oxygen Flow Rate 2 6 2 09/30/23 11:30 09/30/23 12:11 09/30/23 12:26 Temperature 97.1 F L 97.1 F L Pulse Rate 80 71 72 Respiratory Rate 16 16 16 Blood Pressure 108/65 100/50 L 118/74 Pulse Oximetry 96 99 96 Oxygen Delivery Nasal Cannula Oxygen Flow Rate 2 09/30/23 12:56 09/30/23 13:47 09/30/23 13:56 Temperature 97.6 F 98.0 F Pulse Rate 72 74 Respiratory Rate 16 18 Blood Pressure 113/48 L 133/55 L Pulse Oximetry 98 98 Oxygen Delivery Room Air Oxygen Flow Rate 09/30/23 17:50 09/30/23 12:00 09/30/23 19:39 Temperature 98.4 F Pulse Rate 90 Respiratory Rate 18 Blood Pressure 118/51 L Pulse Oximetry 96 97 Oxygen Delivery Nasal Cannula Room Air Oxygen Flow Rate 2 09/30/23 19:58 09/30/23 20:08 10/01/23 01:28 Temperature 98.0 F 98.3 F Pulse Rate 103 H 74 108 H Respiratory Rate 18 16 18 Blood Pressure 126/66 127/69 Pulse Oximetry 98 97 Oxygen Delivery Oxygen Flow Rate 10/01/23 05:17 09/30/23 12:41 Temperature 97.7 F Pulse Rate 113 H 72 Respiratory Rate 17 Blood Pressure 114/62 118/74 Pulse Oximetry 95 96 Oxygen Delivery Oxygen Flow Rate Intake/Output Intake/Output: Intake & Output 09/28/23 09/29/23 09/30/23 10/01/23 23:59 23:59 23:59 23:59 Intake Total 970 1246.7 Balance 970 1246.7 Meds/Results Medications: Active Medications Generic Name Dose Route Start Last Admin Trade Name Freq PRN Reason Stop Dose Admin Hydrocodone Bitart/Acetaminophen 1 tab 09/30/23 11:43 10/01/23 05:15 Hydrocodone/Acetaminophen (*Crx) 10-325 Mg Tablet PO 1 tab Q4H PRN Administration Pain Rated 4-6 Albuterol 2 puff 09/30/23 20:00 09/30/23 20:07 Albuterol Sulfate (*Sp) Aerosol 1 Puff INHALATION 2 puff DAILY@2000 [facility] Administration Albuterol 2 puff 09/30/23 11:51 Albuterol Sulfate (*Sp) Aerosol 1 Puff INHALATION Q6H PRN Shortness Of Breath Aspirin 81 mg 10/01/23 09:00 Aspirin 81 Mg Enteric Tablet PO DAILY [facility] Cyclobenzaprine HCl 10 mg 09/30/23 11:43 09/30/23 13:54 Cyclobenzaprine Hcl 10 Mg Tablet PO 10 mg Q8H PRN Administration Muscle Spasm Dextrose 12.5 gm 09/30/23 15:18 Dextrose 50% 25 Gm/50 Ml Syringe IV PUSH PRN PRN Hypoglycemia Protocol Diltiazem HCl 120 mg 10/01/23 09:00 Diltiazem Hcl Cd 120 Mg Cap.24hr PO QAM [facility] Estradiol 0.5 mg 10/01/23 09:00 Estradiol 0.5 Mg Tablet PO DAILY [facility] Famotidine 20 mg 09/30/23 21:00 09/30/23 19:51 Famotidine 20 Mg Tablet PO 20 mg Q12HR MANNY Administration Glucagon 1 mg 09/30/23 15:18 Glucagon For Inj 1 Mg Vial IM PRN PRN Hypoglycemi
[2023-10-01] MEDS: FLUTICASONE/SALMETEROL 115-21 MCG INHALER 1 PUFF 2 PUFF INHALATION ×2 (07:00→20:36)
[2023-10-01 08:21] LABS: Glucose Point of Care 131 mg/dl (65-105)
--- NOTE | 2023-10-01 08:25 | PM.DS ---
DS: Admitting Diagnosis Discharge Date 10/01/2023 Admitting Diagnosis Arthritis right hip with avascular necrosis DS: Discharge Diagnosis Discharge Diagnosis (1) History of right hip replacement: Code(s): Z96.641 - Presence of right artificial hip joint Status: Acute Assessment and Plan: Patient underwent Total Hip for arthroplasty for AVN and arthritis of the right hip. (2) Osteoarthritis of right hip: Code(s): M16.11 - Unilateral primary osteoarthritis, right hip Status: Acute DS: Summary Hospital Course Hospital Course: Patient went total hip arthroplasty right. She has done reasonably well postoperatively. We will dismiss her today pending therapy. If she has any changes or problems she will call discussed. Time Spent with Patient Time attestation: Total time spent providing and/or coordinating discharge services: DS: Data Data Completed and Pending Labs on day of discharge: Labs from last 24 hours 10/01/23 10/01/23 09/30/23 08:11 04:57 19:55 WBC 7.0 RBC 3.36 L Hgb 10.0 L Hct 31.8 L MCV 94.6 MCH 29.8 MCHC 31.4 L RDW 14.2 Plt Count 124 L MPV 10.9 H Immature Gran % (Auto) 0.4 Neut % (Auto) 71.3 Lymph % (Auto) 16.2 L [place] % (Auto) 11.1 H Eos % (Auto) 0.7 Baso % (Auto) 0.3 Lymph # (Auto) 1.14 [place] # (Auto) 0.8 H Eos # (Auto) 0.1 Baso # (Auto) 0.0 Abs Immat Gran (auto) 0.03 Absolute Neuts (auto) 5.0 Absolute Nucleated RBC 0.000 Nucleated RBC % 0.0 Sodium 133 L Potassium 3.5 Chloride 101 Carbon Dioxide 31 H Anion Gap 1 L BUN 9 Creatinine 0.50 L Estim Creat Clear Calc 102 Estimated GFR > 60 Glucose 126 H POC Capillary Glucose 131 H 166 H Hemoglobin A1c 4.9 Calcium 8.5 Blood Type Antibody Screen 09/30/23 09/30/23 09/30/23 17:46 10:37 10:36 WBC RBC Hgb 11.9 L Hct 37.3 MCV MCH MCHC RDW Plt Count MPV Immature Gran % (Auto) Neut % (Auto) Lymph % (Auto) [place] % (Auto) Eos % (Auto) Baso % (Auto) Lymph # (Auto) [place] # (Auto) Eos # (Auto) Baso # (Auto) Abs Immat Gran (auto) Absolute Neuts (auto) Absolute Nucleated RBC Nucleated RBC % Sodium Potassium Chloride Carbon Dioxide Anion Gap BUN Creatinine Estim Creat Clear Calc Estimated GFR Glucose POC Capillary Glucose 119 H 128 H Hemoglobin A1c Calcium Blood Type Antibody Screen 09/30/23 07:14 WBC RBC Hgb Hct MCV MCH MCHC RDW Plt Count MPV Immature Gran % (Auto) Neut % (Auto) Lymph % (Auto) [place] % (Auto) Eos % (Auto) Baso % (Auto) Lymph # (Auto) [place] # (Auto) Eos # (Auto) Baso # (Auto) Abs Immat Gran (auto) Absolute Neuts (auto) Absolute Nucleated RBC Nucleated RBC % Sodium Potassium Chloride Carbon Dioxide Anion Gap BUN Creatinine Estim Creat Clear Calc Estimated GFR Glucose POC Capillary Glucose Hemoglobin A1c Calcium Blood Type O Negative Antibody Screen Negative Discharge Plan Discharge Patient Disposition: Home Health Service Discharge Instructions: Dr. Leroy Workman M.D [address] [address] POST-OPERATIVE DISCHARGE INSTRUCTIONS TOTAL HIP ARTHROPLASTY 1. Move toes/feet up and down every hour while awake. 2. Be up walking every hour while awake. 3. Use walker computer trainer if instructed to use walker computer trainer.When you are allowed to use the cane, use the cane in the opposite hand. 4. When resting, do not rest in the chair. Rather, lie on your back, with back flat, and the leg elevated above heart to minimize swelling. You may put a pillow under your head. Do not rest in a chair. Resting in the chair results in swelling in the leg. Significant swelling could indicate a blood clot and if this occurs, call the office (or go to the
[2023-10-01] MEDS: HYDROCORTISONE SODIUM SUCCINATE 100 MG/2 ML VIAL IV PUSH (08:39)
[2023-10-01] MEDS: CYCLOBENZAPRINE HCL 10 MG TABLET PO (08:46)
[2023-10-01] MEDS: ceFAZolin 2 GM/D5W 50 ML 2 GM/50 ML BAG IVPB (08:46)
[2023-10-01] MEDS: polyethylene glycoL 3350 17 GM POWD.PACK PO (08:47)
[2023-10-01] MEDS: dilTIAZem HCL CD 120 MG CAP.24HR PO (08:47)
[2023-10-01] MEDS: estradioL 0.5 MG TABLET PO (08:47)
[2023-10-01] MEDS: MIRABEGRON 50 MG ER TABLET PO (08:47)
[2023-10-01] MEDS: SENNA/DOCUSATE SODIUM TABLET 2 TAB PO ×2 (08:47→17:55)
[2023-10-01] MEDS: PRAVASTATIN SODIUM 20 MG TABLET PO (08:47)
[2023-10-01] MEDS: SPIRONOLACTONE 50 MG TABLET PO (08:47)
[2023-10-01] MEDS: ASPIRIN 81 MG ENTERIC TABLET PO (08:47)
[2023-10-01] MEDS: FAMOTIDINE 20 MG TABLET PO ×2 (08:47→20:15)
[2023-10-01 11:52] LABS: Glucose Point of Care 139 mg/dl (65-105)
--- NOTE | 2023-10-01 12:10 | PM.IMPN ---
Progress Note: A&P Assessment and Plan (1) Osteoarthritis of right hip: Code(s): M16.11 - Unilateral primary osteoarthritis, right hip Status: Acute Assessment and Plan: Patient underwent right total hip arthroplasty on 09/30/23. Pain medication, DVT prophylaxis, and PT/OT per orthopedic team. PT/OT recommending one more day in the hospital before discharge. Hemoglobin dropped from 13.5 on 09/16/23 to 10.0 postoperatively. Continue to monitor H&H (2) Avascular necrosis of bone of right hip: Code(s): M87.051 - Idiopathic aseptic necrosis of right femur Status: Acute Assessment and Plan: Due to over use of steroids. See above. (3) Hypertension: Code(s): I10 - Essential (primary) hypertension Status: Acute Assessment and Plan: Continue home medication. (4) Reactive hypoglycemia: Code(s): E16.1 - Other hypoglycemia Status: Acute Assessment and Plan: Hypoglycemia protocol initiated. Not currently on diabetic medication. Order HgbA1C (5) Hyperlipemia: Code(s): E78.5 - Hyperlipidemia, unspecified Status: Acute Assessment and Plan: Simvastatin 40 mg discontinued due to interaction with Coreg. Pravastatin 20 mg started (does not interact) Subjective Date/time seen: 10/01/23 12:10 Interval history: Patient doing well today and pain is well controlled. Discussed with PT and OT and they recommended patient stable more day in hospital. Exam Narrative: GENERAL: Comfortable, no acute distress HENMT: moist mucous membranes EYES: EOM intact b/l NECK: no lymphadenopathy RESPIRATORY: clear to auscultation, no increased respiratory effort CARDIO: Regular rate and rhythm GI: soft, nontender, bowel sounds present SKIN/EXTREMITIES: right hip Tegaderm dry and intact. No hematoma noted. NEURO: PROM intact, answers questions appropriately, A&O x4 Objective Data Vital Signs Vital Signs: Vital Signs - 24 hr 09/30/23 12:11 09/30/23 12:26 09/30/23 12:56 Temperature 97.1 F L 97.1 F L 97.6 F Pulse Rate 71 72 72 Respiratory Rate 16 16 16 Blood Pressure 100/50 L 118/74 113/48 L Pulse Oximetry 99 96 98 Oxygen Delivery 09/30/23 13:47 09/30/23 13:56 09/30/23 17:50 Temperature 98.0 F 98.4 F Pulse Rate 74 90 Respiratory Rate 18 18 Blood Pressure 133/55 L 118/51 L Pulse Oximetry 98 96 Oxygen Delivery Room Air 09/30/23 19:39 09/30/23 19:58 09/30/23 20:08 Temperature 98.0 F Pulse Rate 103 H 74 Respiratory Rate 18 16 Blood Pressure 126/66 Pulse Oximetry 98 Oxygen Delivery Room Air 10/01/23 01:28 10/01/23 05:17 10/01/23 07:00 Temperature 98.3 F 97.7 F Pulse Rate 108 H 113 H 105 H Respiratory Rate 18 17 18 Blood Pressure 127/69 114/62 Pulse Oximetry 97 95 91 Oxygen Delivery Room Air 10/01/23 07:00 10/01/23 08:46 10/01/23 08:00 Temperature 99.5 F Pulse Rate 105 H 108 H Respiratory Rate 18 14 Blood Pressure 129/65 Pulse Oximetry 96 Oxygen Delivery Room Air 09/30/23 12:41 Temperature Pulse Rate 72 Respiratory Rate Blood Pressure 118/74 Pulse Oximetry 96 Oxygen Delivery Intake/Output Intake/Output: Intake & Output 09/28/23 09/29/23 09/30/23 10/01/23 23:59 23:59 23:59 23:59 Intake Total 970 1606.7 Balance 970 1606.7 Meds/Results Medications: Active Medications Generic Name Dose Route Start Last Admin Trade Name Freq PRN Reason Stop Dose Admin Hydrocodone Bitart/Acetaminophen 1 tab 09/30/23 11:43 10/01/23 08:46 Hydrocodone/Acetaminophen (*Crx) 10-325 Mg Tablet PO 1 tab Q4H PRN Administration Pain Rated 4-6 Albuterol 2 puff 09/30/23 20:00 09/30/23 20:07 Albuterol Sulfate (*Sp) Aerosol 1 Puff INHALATION 2 puff DAILY@2000 MANNY Administration Albuterol 2 puff 09/30/23 11:51 Albuterol Sulfate (*Sp) Aerosol 1 Puff INHALATION Q6H PRN Shortness Of
--- NOTE | 2023-10-01 12:24 | P.PNAN_ITS ---
Anes - Prog Note Post-Op Date/Time: 10/01/23 12:24 Cardiovascular status: normal Respiratory status: normal Airway patency: baseline Mental status: baseline Post-Op hydration status: normal Vital Signs: Last Vital Signs Temp 37.5 C 10/01/23 08:46 Pulse 108 H 10/01/23 08:46 Resp 14 10/01/23 08:46 BP 129/65 10/01/23 08:46 Pulse Ox 96 10/01/23 08:46 O2 Del Method Room Air 10/01/23 08:00 O2 Flow Rate 2 09/30/23 12:00 Pain Score (VAS): 09/24 I/O: Intake & Output 09/30/23 10/01/23 10/01/23 23:59 07:59 15:59 Intake Total 570 1246.7 360 Balance 570 1246.7 360 Laboratory Tests 10/01/23 04:57 10/01/23 04:57 09/30/23 09/30/23 10/01/23 17:46 19:55 04:57 WBC 7.0 RBC 3.36 L Hgb 10.0 L Hct 31.8 L MCV 94.6 MCH 29.8 MCHC 31.4 L RDW 14.2 Plt Count 124 L MPV 10.9 H Immature Gran % (Auto) 0.4 Neut % (Auto) 71.3 Lymph % (Auto) 16.2 L [place] % (Auto) 11.1 H Eos % (Auto) 0.7 Baso % (Auto) 0.3 Lymph # (Auto) 1.14 [place] # (Auto) 0.8 H Eos # (Auto) 0.1 Baso # (Auto) 0.0 Abs Immat Gran (auto) 0.03 Absolute Neuts (auto) 5.0 Absolute Nucleated RBC 0.000 Nucleated RBC % 0.0 Sodium 133 L Potassium 3.5 Chloride 101 Carbon Dioxide 31 H Anion Gap 1 L BUN 9 Creatinine 0.50 L Estim Creat Clear Calc 102 Estimated GFR > 60 Glucose 126 H POC Capillary Glucose 119 H 166 H Hemoglobin A1c 4.9 Calcium 8.5 10/01/23 10/01/23 08:11 11:50 WBC RBC Hgb Hct MCV MCH MCHC RDW Plt Count MPV Immature Gran % (Auto) Neut % (Auto) Lymph % (Auto) [place] % (Auto) Eos % (Auto) Baso % (Auto) Lymph # (Auto) [place] # (Auto) Eos # (Auto) Baso # (Auto) Abs Immat Gran (auto) Absolute Neuts (auto) Absolute Nucleated RBC Nucleated RBC % Sodium Potassium Chloride Carbon Dioxide Anion Gap BUN Creatinine Estim Creat Clear Calc Estimated GFR Glucose POC Capillary Glucose 131 H 139 H Hemoglobin A1c Calcium Post-procedural complaints: none Patient Feedback: Patient satisfied with anesthetic care.
[2023-10-01] MEDS: HYDROCORTISONE SODIUM SUCCINATE 100 MG/2 ML VIAL 50 MG IV PUSH ×2 (13:59→20:15)
[2023-10-01 16:56] LABS: Glucose Point of Care 131 mg/dl (65-105)
[2023-10-01] MEDS: RIVAROXABAN 10 MG TABLET PO (17:55)
[2023-10-01] MEDS: MONTELUKAST SODIUM 10 MG TABLET PO (20:15)
[2023-10-01] MEDS: traZODone HCL 50 MG TABLET 150 MG PO (20:15)
[2023-10-01] MEDS: ALBUTEROL SULFATE (*SP) AEROSOL 1 PUFF 2 PUFF INHALATION (20:36)
[2023-10-01 21:11] LABS: Glucose Point of Care 139 mg/dl (65-105)
[2023-10-02] MEDS: HYDROcodone/acetaminophen (*CRX) 10-325 MG TABLET 1 TAB PO ×2 (05:02→09:06)
[2023-10-02] MEDS: HYDROCORTISONE SODIUM SUCCINATE 100 MG/2 ML VIAL 50 MG IV PUSH (05:03)
[2023-10-02 05:07] LABS: Hematocrit 29.6 % (37.0-47.0); Hemoglobin 9.4 g/dL (12.0-15.0); Immature Platelet Fraction Pct 3.8 % (0.9-11.2); Mean Corpuscular HGB Conc 31.8 g/dl (32-36); Mean Corpuscular Volume 94.6 fl (80-100); Mean Platelet Volume 10.4 fl (7.4-10.4); Platelet Count Result 120 k/mm3 (150-375); Red Blood Count 3.13 M/mm3 (4.2-5.4); Red Cell Distribution Width 14.2 % (11.5-14.5)
[2023-10-02 05:12] VITALS: BP 125/56; PULSE 86; RESP 17; TEMP 37; O2SAT 97
[2023-10-02 05:14] LABS: Anion Gap -1 mmol/L (4-12); Blood Urea Nitrogen 7 mg/dL (7-17); Calcium 9.3 mg/dL (8.4-10.2); Carbon Dioxide 34 mmol/L (22-30); Chloride 104 mmol/L (98-107); Estimated CRCL calculation 124 ml/min; Estimated Glomerular Filt Rate > 60; Glucose 108 mg/dL (65-110); Potassium 3.6 mmol/L (3.4-5.0); Sodium 137 mmol/L (137-145)
[2023-10-02] MEDS: FLUTICASONE/SALMETEROL 115-21 MCG INHALER 1 PUFF 2 PUFF INHALATION (08:16)
[2023-10-02 08:17] VITALS: O2SAT 95
[2023-10-02 08:20] LABS: Glucose Point of Care 151 mg/dl (65-105)
[2023-10-02] MEDS: SENNA/DOCUSATE SODIUM TABLET 2 TAB PO (09:05)
[2023-10-02] MEDS: FAMOTIDINE 20 MG TABLET PO (09:05)
[2023-10-02] MEDS: ASPIRIN 81 MG ENTERIC TABLET PO (09:05)
[2023-10-02] MEDS: MIRABEGRON 50 MG ER TABLET PO (09:05)
[2023-10-02] MEDS: SPIRONOLACTONE 50 MG TABLET PO (09:05)
[2023-10-02] MEDS: dilTIAZem HCL CD 120 MG CAP.24HR PO (09:05)
[2023-10-02] MEDS: estradioL 0.5 MG TABLET PO (09:05)
[2023-10-02] MEDS: PRAVASTATIN SODIUM 20 MG TABLET PO (09:05)
[2023-10-02] MEDS: polyethylene glycoL 3350 17 GM POWD.PACK PO (09:06)
[2023-10-02] MEDS: ONDANSETRON INJ 4 MG/2 ML VIAL IV PUSH (09:09)
[2023-10-02] MEDS: ONDANSETRON HCL ODT 4 MG TABLET PO (09:45)
[2023-10-02 12:13] LABS: Glucose Point of Care 80 mg/dl (65-105)
== END 2023-10-02 13:10 | disposition home or self-care (01) ==
LOC: ANHSURGERY 14:59 → ANH2MED 14:59
PROVIDERS: Anesthesiology; Internal Medicine Critical Care Medicine; Admitting Provider Orthopaedic Surgery; PCP Internal Medicine; Visit Provider Orthopaedic Surgery
PROC: (CPT 27130; principal; 2023-09-30 07:30)
DX: M87.051 Idiopathic aseptic necrosis of right femur (principal); M16.11 Unilateral primary osteoarthritis, right hip; F41.9 Anxiety disorder, unspecified; J45.909 Unspecified asthma, uncomplicated; E11.649 Type 2 diabetes mellitus with hypoglycemia without coma; E27.40 Unspecified adrenocortical insufficiency; K75.81 Nonalcoholic steatohepatitis (NASH); K21.9 Gastro-esophageal reflux disease without esophagitis; I10 Essential (primary) hypertension; E16.1 Other hypoglycemia; M81.0 Age-related osteoporosis without current pathological fracture; H40.9 Unspecified glaucoma; Z90.49 Acquired absence of other specified parts of digestive tract; Z98.84 Bariatric surgery status; Z87.891 Personal history of nicotine dependence; Z79.51 Long term (current) use of inhaled steroids; Z79.82 Long term (current) use of aspirin; Z79.52 Long term (current) use of systemic steroids; Z79.891 Long term (current) use of opiate analgesic; Z79.890 Hormone replacement therapy; Z79.899 Other long term (current) drug therapy
CPT/HCPCS: 27130; 36415; 80048; 80307; 82040; 82948; 83036; 85014; 85018; 85025; 85027; 85055; 85610; 85730; 86850; 86900; 86901; 93005; 94640; 97110; 97161; 97166; 97530; 97535; 99199; A9270; C1713; C1776; G0378; J0171; J0690; J1170; J1200; J1596; J1720; J2250; J2270; J2371; J2405; J2704; J3010; J3370; J7120

== ENCOUNTER 2024-05-26 17:15 | Emergency (ER) | payer MEDICARE, MEDICAID, SELFPAY ==
--- NOTE | 2024-05-26 17:37 | ED_ITS ---
HPI - Wound/Laceration General Chief Complaint: Skin/Abscess/Foreign Body <Janey Parson PA-C - Last Filed: 05/27/24 12:27> Stated Complaint: neck wound <Janey Parson PA-C - Last Filed: 05/27/24 12:27> Time Seen by Provider: 05/26/24 17:37 <Janey Parson PA-C - Last Filed: 05/27/24 12:27> Focused HPI: This is a 53 year old female that presents to the ER for an area of redness and swelling to the left side her neck. Reports she has had a cyst there for a while, but it started to become inflamed last night. The area is painful. Denies fevers or drainage. GENERAL: Well-appearing, well-nourished, and in no acute distress. HEAD: Normocephalic, atraumatic. CHEST: Clear to auscultation. ?No respiratory distress. HEART: Regular rate and rhythm.? NEURO: ?Alert and oriented x3. Patient screened in triage and initial orders placed.? ?Additional care and disposition to be based upon?diagnostic testing and treatment. <Janey Parson PA-C - Last Filed: 05/27/24 12:27> History of Present Illness HPI narrative: Agree with the HPI above <Florin Capellan MD - Last Filed: 05/26/24 20:04> Related Data Home Medications: Home Medications ?Medication ?Instructions ?Recorded ?Confirmed ?Last Taken ?Type Vitamin B-12 1 tab-cap PO DAILY 06/16/21 11/12/23 09/24/23 History Vitamin D3 2,000 units PO DAILY 06/16/21 11/12/23 09/24/23 History Women's Daily Multivitamin 1 tablet PO DAILY 06/16/21 11/12/23 09/24/23 History albuterol sulfate 90 mcg/actuation 2 puff inhalation HS PRN Shortness 06/16/21 11/12/23 Unknown History aerosol inhaler Of Breath Or Wheezing bimatoprost 0.01 % eye drops 1 drp EACH EYE HS 06/16/21 11/12/23 Unknown History (Roz) citalopram 40 mg tablet 40 mg PO HS 06/16/21 11/12/23 Unknown History diltiazem HCl 120 mg 120 mg PO QAM 06/16/21 11/12/23 Unknown History capsule,extended release 24 hr estradiol 0.5 mg tablet 0.5 mg PO DAILY 06/16/21 11/12/23 09/29/23 History gabapentin 300 mg capsule 300 mg PO BID 06/16/21 11/12/23 Unknown History linaclotide 145 mcg capsule 145 mcg PO DAILY 06/16/21 11/12/23 Unknown History (Linzesroxann) lorazepam 1 mg tablet 1 mg PO TID 06/16/21 11/12/23 09/30/23 History magnesium 500 mg tablet 500 mg PO DAILY 06/16/21 11/12/23 09/24/23 History montelukast 10 mg tablet 10 mg PO HS 06/16/21 11/12/23 09/29/23 History omeprazole 40 mg capsule,delayed 40 mg PO QAM 06/16/21 11/12/23 09/29/23 History release simvastatin 40 mg tablet 40 mg PO HS 06/16/21 11/12/23 09/29/23 History spironolactone 50 mg tablet 50 mg PO QAM 06/16/21 11/12/23 09/29/23 History flash glucose sensor (FreeStyle 05/23/23 11/12/23 Unknown History Caridad 2 Sensor kit) mirabegron 50 mg tablet,extended 50 mg PO DAILY 05/23/23 11/12/23 09/29/23 History release 24 hr (Myrbetriq) fluticasone 250 mcg-salmeterol 50 1 inh inhalation BID 09/11/23 11/12/23 Unknown History mcg/dose blistr powdr for inhalation (Advair Diskus) hydrocodone 10 mg-acetaminophen 1 tablet PO Q4H PRN Pain 09/11/23 11/12/23 Unknown History 325 mg tablet prednisone 5 mg tablet 5 mg PO DAILY 09/11/23 11/12/23 09/30/23 History trazodone 50 mg tablet 150 mg PO HS 09/11/23 11/12/23 09/29/23 History aspirin 81 mg tablet,delayed 81 mg PO DAILY 09/16/23 11/12/23 Unknown History release (Adult Low Dose Aspirin) azelastine 137 mcg (0.1 %) nasal 2 spray intranasal BID PRN Nasal 04/01/24 05/28/24 Unknown History spray Congestion fluticasone propionate 50 1 spray intranasal BID PRN Nasal 09/16/23 11/12/23 Unknown History mcg/actuation nasal Congestion spray,suspension ondansetron HCl 4 mg tablet 4 mg PO BID PRN Nausea And Vomiting 09/16/23 11/12/23 09/30/23 History <Janey Parson PA-C - Last Filed: 05/27/24 12:27> Allergies/Adverse Reactions: Allergies Allergy/AdvReac Type Severity Reaction Status Date / Time cephalexin (From Keflex) Allergy FACIAL Verified 05/26/24 19:29 SWELLING ofloxacin (From Floxin) AdvReac Mild INSOMNIA, Verified 05/26/24 19:29 SWEATING, SHAKINESS <Janey Parson PA-C - Last Filed: 05/27/24 12:27> Review of Systems Review of Systems: As reviewed above in the HPI <Florin Capellan MD - Last Filed: 05/26/24 20:04> [facility] Past Medical History Medical History: Medical History Adrenal insufficiency Glaucoma Petit neuroma Raynaud disease Sarcoidosis Stroke Osteoporosis Hypertension MORROW (nonalcoholic steatohepatitis) Migraine GERD (gastroesophageal reflux disease) Diabetes Arthritis Anxiety Asthma <Janey Parson PA-C - Last Filed: 05/27/24 12:27> Surgical History Surgical History: Surgical History History of liver biopsy History of cholecystectomy History of surgical removal of skin lesion History of gastric bypass History of hemorrhoidectomy History of eye surgery History of breast biopsy History of partial hysterectomy History of tubal ligation History of dilatation and curettage <Janey Parson PA-C - Last Filed: 05/27/24 12:27> Family History Family History: Family History Mother Depression Hypertension Sibling Depression Diabetes mellitus Hypertension Cerebrovascular accident Father Diabetes mellitus Hypertension Heart disease Cerebrovascular accident Grandparent Heart disease Depression Hypertension Other Family history of allergic disorder <Janey Parson PA-C - Last Filed: 05/27/24 12:27> Social History Social History: Social History Smoking packs per day: 0.5 Smoking cigarettes per day: 10.0 Years smoked: 5 Smoking pack-years: 2.50 Smoking status: Former smoker Alcohol intake: never Substance use: never Do You Feel Safe in your Home?: Yes Lack of Transportation: No Lack of Food: Never True Current Housing: I Have Housing Concerned About Future Housing: No Difficulty Paying Gas/Electric Bills: No Difficulty Paying for Meds: No Currently Unemployed: No Education: High School Diploma/GED Difficulty w/ Childcare or Family Care: No Living arrangements: alone Occupation/Education: unemployed Additional occupation/education comments: disabled Spiritual care concerns: No Agree to blood products: Yes <Janey Parson PA-C - Last Filed: 05/27/24 12:27> Exam Narrative: GENERAL: [Well-appearing, well-nourished, and in no acute distress.] HEAD: [Normocephalic, atraumatic.] EYES: [PERRLA and EOMI.] ENT: Nares clear, no rhinorrhea or epistaxis. Mucous membranes moist. NECK: On the left side lateral aspect of the neck there is a area of induration with pustule formation with indurated skin. Some tenderness with palpation and movement. Mild fluctuance with palpation. Does not cross the midline. No cervical spinal tenderness. No bruit on auscultation CHEST: [Clear to auscultation. No respiratory distress.] HEART: [Regular rate and rhythm]. No murmur heard. [Normal peripheral pulses.] ABDOMEN: [Soft, nondistended], [nontender], [No rigidity or guarding] EXTREMITIES: Normal range of motion. [No edema.] SKIN: Warm, dry, no rash. NEURO: [No focal deficits]. Alert and oriented [x3.] PSYCH: [Normal mood and affect.] <Florin Capellan MD - Last Filed: 05/26/24 20:04> Course Vital Signs Vital signs: Vital Signs Temperature 97.9 F 05/26/24 17:40 Pulse Rate 88 05/26/24 17:40 Respiratory Rate 18 05/26/24 17:40 Blood Pressure 127/76 05/26/24 17:40 Pulse Oximetry 98 05/26/24 17:40 Oxygen Delivery Room Air 05/26/24 17:40 Temperature 98.0 F 05/26/24 20:34 Pulse Rate 66 05/26/24 20:34 Respiratory Rate 14 05/26/24 20:34 Blood Pressure 130/89 05/26/24 19:27 Pulse Oximetry 99 05/26/24 20:34 Oxygen Delivery Room Air 05/26/24 17:40 <Janey Parson PA-C - Last Filed: 05/27/24 12:27> Vital Signs Temperature 97.9 F 05/26/24 17:40 Pulse Rate 88 05/26/24 17:40 Respiratory Rate 18 05/26/24 17:40 Blood Pressure 127/76 05/26/24 17:40 Pulse Oximetry 98 05/26/24 17:40 Oxygen Delivery Room Air 05/26/24 17:40 Temperature 98.0 F 05/26/24 20:34 Pulse Rate 66 05/26/24 20:34 Respiratory Rate 14 05/26/24 20:34 Blood Pressure 130/89 05/26/24 19:27 Pulse Oximetry 99 05/26/24 20:34 Oxygen Delivery Room Air 05/26/24 17:40 <Florin Capellan MD - Last Filed: 05/26/24 20:04> Procedures Abscess I/D neck: Date of Incision: 05/26/24 <Florin Capellan MD - Last Filed: 05/26/24 20:04> Time of Incision: 19:58 <Florin Capellan MD - Last Filed: 05/26/24 20:04> Side (if applicable): left <Florin Capellan MD - Last Filed: 05/26/24 20:04> Sedation/analgesia: none <Florin Capellan MD - Last Filed: 05/26/24 20:04> Local Anesthetic: lidocaine 2% <Florin Capellan MD - Last Filed: 05/26/24 20:04> Amount of anesthesia used (mL): 2 <Florin Capellan MD - Last Filed: 05/26/24 20:04> Technique: incised with #11 blade <Florin Capellan MD - Last Filed: 05/26/24 20:04> Amount of fluid expressed (mL): 5 <Florin Capellan MD - Last Filed: 05/26/24 20:04> Irrigation: Yes <Florin Capellan MD - Last Filed: 05/26/24 20:04> Packing used?: none <Florin Capellan MD - Last Filed: 05/26/24 20:04> I&D Results: Pus and Blood <Florin Capellan MD - Last Filed: 05/26/24 20:04> Abcess I&D Additional Comments: No complications, used US guidance. <Florin Capellan MD - Last Filed: 05/26/24 20:04> MDM - Wound/Laceration MDM Narrative Medical decision making narrative: 53-year-old female presenting for a potential cyst on her left side posterior neck. Has been bothering her for several days and today became more inflamed and red. She does have a pustule in this area that is irritated indurated with some fluctuance concerning for an abscess but very superficial. Given the sensitive nature of the area in close proximity to the vessels in her neck as well as her spine we did do an ultrasound to confirm our suspicions of a cutaneous abscess versus cutaneous cyst. Ultrasound bedside with linear probe shows clear pocket of fluid and debris that measures approximately 1 cm x 1.5 cm in size and does not extend down into the deep musculature and definitely avoid any of the vessels in the more proximal anterior area of the neck. At this time will use ultrasound guidance for incision and drainage for relief of her cutaneous abscess. Patient agreed in verbally consented to procedure. Lidocaine 2% was used to instill and anesthetized the area with success. A single stab incision with an 11 blade was used with immediate return of pus and blood/debris. Was able to express a total of 5 cc of purulent material mixed in with creamy sebaceous type material and some blood. Patient had immediate relief of her pain in this area after the procedure and she tolerated well without any complications. A sterile bandage was applied over top and she was prescribed Bactrim and given a tetanus update here in the emergency department. Prescription of Bactrim sent to her preferred local pharmacy and she was given return precautions including developing any fevers, worsening pain in this area, persistent drainage or bleeding and she was instructed to get repeat evaluation otherwise she can safely see her PCP on outpatient basis. She was counseled on the possibility of recurrence given the cystic structure and signs to watch out for that time. <Florin Capellan MD - Last Filed: 05/26/24 20:04> Medical Records Attestation: I reviewed the patient's medical records. <Florin Capellan MD - Last Filed: 05/26/24 20:04> Critical Care Time Critical Care Time Critical Care Time: No <Janey Parson PA-C - Last Filed: 05/27/24 12:27> Discharge Plan Discharge Clinical Impression: Abscess of skin of neck <Janey Parson PA-C - Last Filed: 05/27/24 12:27> Patient Disposition: Home, Self-Care <Janey Parson PA-C - Last Filed: 05/27/24 12:27> Condition: Stable <Janey Parson PA-C - Last Filed: 05/27/24 12:27> Instructions: Antibiotic Form, Abscess (ED) <Janey Parson PA-C - Last Filed: 05/27/24 12:27> Additional Instructions: Continue taking the antibiotics that we prescribed to you. Keep area covered and dry. Return with any new or worsening concerns at any time. Follow-up with regular doctor outpatient. <Janey Parson PA-C - Last Filed: 05/27/24 12:27> Patient Language: Eritrean <Janey Parson PA-C - Last Filed: 05/27/24 12:27> Prescriptions: New sulfamethoxazole-trimethoprim [Bactrim DS] 800-160 mg tablet 1 tablet PO Q12H Qty: 14 0RF No Action magnesium 500 mg Tablet 500 mg PO DAILY citalopram 40 mg tablet 40 mg PO HS omeprazole 40 mg capsule,delayed release(DR/EC) 40 mg PO QAM simvastatin 40 mg tablet 40 mg PO HS gabapentin 300 mg capsule 300 mg PO BID diltiazem HCl 120 mg capsule,extended release 24hr 120 mg PO QAM montelukast 10 mg tablet 10 mg PO HS estradiol 0.5 mg tablet 0.5 mg PO DAILY lorazepam 1 mg tablet 1 mg PO TID albuterol sulfate 90 mcg/actuation HFA aerosol inhaler 2 puff INHALATION HS PRN (Reason: Shortness Of Breath Or Wheezing) Rx Instructions: TAKES HS AND PRN spironolactone 50 mg tablet 50 mg PO QAM Lumigan 0.01 % drops 1 drp EACH EYE HS Linzess 145 mcg capsule 145 mcg PO DAILY Vitamin B-12 1 tab-cap PO DAILY Vitamin D3 2,000 units PO DAILY Women's Daily Multivitamin 1 tablet PO DAILY trazodone 50 mg tablet 150 mg PO HS Myrbetriq 50 mg tablet extended release 24 hr 50 mg PO DAILY (DME) FreeStyle Caridad 2 Sensor Kit See Rx Instructions .Route Rx Instructions: As directed fluticasone propion-salmeterol [Advair Diskus] 250-50 mcg/dose blister with device 1 inh inhalation BID hydrocodone-acetaminophen 10-325 mg tablet 1 tablet PO Q4H PRN (Reason: Pain) prednisone 5 mg tablet 5 mg PO DAILY azelastine 137 mcg (0.1 %) aerosol,spray 2 spray INTRANASAL BID PRN (Reason: Nasal Congestion) fluticasone propionate 50 mcg/actuation spray,suspension 1 spray intranasal BID PRN (Reason: Nasal Congestion) ondansetron HCl 4 mg tablet 4 mg PO BID PRN (Reason: Nausea And Vomiting) aspirin [Adult Low Dose Aspirin] 81 mg Tablet,Delayed Release (Dr/Ec) 81 mg PO DAILY hydrocodone-acetaminophen 10-325 mg tablet 1 tablet PO Q4H PRN (Reason: pain) Qty: 40 0RF <Janey Parson PA-C - Last Filed: 05/27/24 12:27> Follow-up/Referrals: Mendel,Nacho Barrera MD [Primary Care Provider] - <Janey Parson PA-C - Last Filed: 05/27/24 12:27> Time of Disposition: 20:02 <Janey Parson PA-C - Last Filed: 05/27/24 12:27> 20:02 <Florin Capellan MD - Last Filed: 05/26/24 20:04>
[2024-05-26 17:40] VITALS: BP 127/76; PULSE 88; RESP 18; TEMP 36.6; O2SAT 98
[2024-05-26 19:27] VITALS: BP 130/89; PULSE 80; RESP 20; O2SAT 100
[2024-05-26] MEDS: TETANUS,DIPHTHERIA,AC PERTUSSIS ADULT (0.5 ML) BOOSTRIX IM (20:02)
[2024-05-26] MEDS: SULFAMETHOXAZOLE/TRIMETHOPRIM 800/160 MG DS TABLET 1 TAB PO (20:02)
[2024-05-26 20:34] VITALS: PULSE 66; RESP 14; TEMP 36.7; O2SAT 99
== END 2024-05-26 20:35 | disposition home or self-care (01) ==
LOC: ANHED 20:07
PROVIDERS: Emergency Provider Student in an Organized Health Care Education/Training Program; PCP Internal Medicine
DX: L02.11 Cutaneous abscess of neck (principal); I73.00 Raynaud's syndrome without gangrene; M81.0 Age-related osteoporosis without current pathological fracture; I10 Essential (primary) hypertension; K21.9 Gastro-esophageal reflux disease without esophagitis; E11.9 Type 2 diabetes mellitus without complications; J45.909 Unspecified asthma, uncomplicated; K75.81 Nonalcoholic steatohepatitis (NASH); Z87.891 Personal history of nicotine dependence; Z23 Encounter for immunization
CPT/HCPCS: 10060; 90471; 90715; 99283; A9270

== ENCOUNTER 2024-07-07 14:58 | Outpatient (CLI) | payer MEDICARE, MEDICAID, SELFPAY ==
--- NOTE | ~2024-07-07 | XR_ITS ---
EXAMINATION: XR chest 2V 07/07/2024 15:25 INDICATION: Cough PROCEDURE: 2 view chest COMPARISON: 11/03/2005 FINDINGS: The lungs are clear. The cardiomediastinal silhouette is within normal limits. There are no pleural effusions. There is no pneumothorax suspected. There is a skinfold overlying the right l ateral chest. Mild thoracic spondylosis with accentuated kyphosis. IMPRESSION: 1: NO ACUTE CARDIOPULMONARY DISEASE. Reviewed, dictated and finalized at location [facility]
--- OUTSIDE RECORDS SUMMARY | 2024-07-09 19:27 | XMS_ITS | Data Portability ---
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 She is miserable states she needs something done. We talked about total hip arthroplasty in detail today this is really only her last option she has had previous cortisone injections into the hip joints which did not give her much relief. Today I brought in the model and went over in detail the surgical procedure itself including postoperative recovery what to expect and risks benefits limitations and alternatives. She would like to see Dr. Leija in the near future we will get her set up to see him for consideration of total hip arthroplasty. She was given a booklet on total hip arthroplasty as well today. She is aware that she is at increased risk of infection and complications due to the fact that she has adrenal insufficiency and issues with her blood sugars. This would have to be managed carefully preop and postoperatively as well. Today we talked about managing her pain she was wondering about a walker we will get her prescription for rolling walker to help limit her weight particular on the right hip as this is causing her a lot of pain. She voiced understanding agrees above plan she will call for any further problems difficulties or questions. [email or web address] Not available 09/03/2023 15:43:12 Plan of Treatment Reminders Order Date Submit Date Provider Last Modified By Organization Details Last Modified Time Details Appointments None recorded. Lab None recorded. Referral None recorded. Procedures None recorded. Surgeries None recorded. Imaging XR, hip + pelvis, unilateral 2023 024 [email or web address] [facility], [address], [place], [address], 16:09:44 Medication Orders None recorded. Patient TargetsNo targets recorded. Patient Instructions Encounter Date Encounter Id Patient Instructions Last Modified By Organization Details Last Modified Time 05/02/2023 [id number] Essential hypertension, hyperlipidemia, type 2 diabetes, adrenal cortical insufficiency and sarcoidosis. Plan to continue on current Rx recheck back in four months. Is scheduled to see a new food service supervisor in several weeks. Will hold off on doing any blood work at this time will allow them to perform most of those diagnostic studies. Portions of the record may have been created with voice recognition software. Occasional wrong-word or ? cucfa-f-qzzi? substitutions may have occurred due to the inherent limitations of voice recognition software. Read the chart carefully and recognize, using context, where substitutions have occurred. [email or web address] Not available 05/02/2023 12:30:11 08/28/2023 [id number] Follow-up hypertension, adrenal cortical hypofunction, GERD, type 2 diabetes and sarcoidosis all clinically stable. Instructed patient on the reflux symptomatology to raise the head of her bed or get a foam wedge so he she can raise the chest tired see if there is improvement. Is bothered by persistent discomfort at nighttime particularly in the retrosternal area as well as the throat area. She is on so many medications how much of these may be aggravating situations very difficult to assess. Is scheduled to see Endocrinology in the next few weeks. Will let them perform any additional testing. Continue on current Rx follow-up in four months. Instruct patient to increase the trazodone to 150 mg HS by taking 1/2 tablets. This seems work will give 150 mg tablet one refill. Portions of the record may have been created with voice recognition software. Occasional wrong-word or ? cjfjm-j-jrjl? substitutions may have occurred due to the inherent limitations of voice recognition software. Read the chart carefully and recognize, using context, where substitutions have occurred. [email or web address] Not available 08/28/2023 12:33:27 01/01/2024 [id number] dementia rating scale-2* [email or web address] Not available 01/01/2024 12:36:34 alcohol misuse* Not available 01/01/2024 12:36:34 depression screening* [email or web address] Not available 01/01/2024 12:36:34 Timed Up and Go test (TUG)* Not available 01/01/2024 12:36:34 multi-dimensiona l health assessment questionnaire* [email or web address] Not available 01/01/2024 12:36:34 Personalized Hea lt Plan and Screening Recommendations Advance Directives - Do you have one? Advance Directives - Do we have your advance directive on file in your health record? Primary Prevention/Interven tion (prevents or decreases the chance of common diseases from occurring) Smoking Risk: Non Smoker Alcohol Misuse Screening: Negative Weight: Appropriate Overwei ght continue your current weight loss efforts try to lose 5% of your body weight try to lose 10% of your body weight Physical activity: Nutrition: Good Average Fall Risk (screened today): Low Vaccines Pneumococcal: Ordered Recommended today Recommended today, but you have declined No further needed Influenza: Chronic Disease Risks Stroke: Low Risk Intermediate Risk I have no recommendations Act keke diagnosis, Continue current treatment plan Heart Attack: Low risk Intermediate Risk I have no recommendations Act keke diagnosis, Continue current treatment plan Clogging of the Arteries: Low risk Intermediate Risk I have no recommendations Act keke diagnosis, Continue current treatment plan Diabetes: Low Risk Intermediate Risk Secondary Prevention/Interven tion (detects treatable diseases before they may cause symptoms, disability, or ) Breast Cancer Screening with mammogram: Cervical/Uterine/Ov bobby Cancer Screening: Osteoporosis Screening: Date Screening Last Performed: Colon Cancer Screening: Colonoscopy Date Screening Last Performed: __2021____ Eye Disease Screening: Dementia Risk: Low I have no recommendations Depression Screening: Negative Not available 01/01/2024 12:25:10 [facility] risk assessment stable. Follow-up for hypertension, hypopituitarism, type 2 diabetes, GERD all clinically stable at this time although has had several bouts of hypoglycemia probably more resulting from her adrenal insufficiency. He is currently on no medications per se for diabetic status. Is clinically doing well otherwise. Is followed on a regular basis by endocrinology. See no reason doing any other testing at this time since all other screening studies up-to-date. Will follow-up in four months Next Appointment: 4 Months Approximate Date: 04/30/2024 Portions of the record may have been created with voice recognition software. Occasional wrong-word or ? iprru-y-jpbf? substitutions may have occurred due to the inherent limitations of voice recognition software. Read the chart carefully and recognize, using context, where substitutions have occurred. [email or web address] Not available 01/01/2024 12:36:14 05/04/2024 [id number] Follow-up essent ial hypertension, hypopituitarism, hyperlipidemia, type 2 diabetes, sarcoidosis and obesity all clinically stable. No need for additional blood work at this time since being followed by Endocrinology on a regular basis. Will continue on current Rx stay on medications the same way. Recheck back in four months Follow Up: 4 Months Approximate Date: 09/01/2024 [email or web address] Not available 05/04/2024 15:07:27 Reason for Referral None Reported. Results Created Date Observation Date Name Description Value Unit Range Abnormal Flag Note LastModifiedBy Organization Detail LastModifiedTime 09/03/19 24 XR, hip + pelvi s, unila teral No observ ation record ed. [email or web address] [facility] [address] [facility] [address], [place], [address], 09/03/2023 15:42:32 09/17/19 24 09/17/2023 MRI, hip, w/wo contr ast No observ ation record ed. [address], [place], [address], 09/17/2023 14:31:03 09/19/19 24 09/17/2023 MRI, pitui tary, w/wo contr ast No observ ation record ed. [address], [place], [address], 09/20/2023 07:48:29 09/30/19 24 09/30/2023 XR, hip + pelvi s, unila teral No observ ation record ed. [address], [place], [address], 09/30/2023 12:16:20 12/30/19 24 12/30/2023 DEXA, axial skele ton [facility] [address] [facility] [place] [address] Patien t Name: LEELEE MCCALL ion #: [id number] Sex: F : 1970 3 Dictat ed By: Laine Baer Attend ing Physic kevin: JAILENE OGLESBY CE Orderi Physic kevin: JAILENE OGLESBY CE Exam Date: 2023 14:23 PM Exam Name: XR DEXA-H IPS PELVIS SPINE Admitt ing Diagno sis(es ): INDICA TION: Encoun ter for osteop enia. Postme nopaus al osteop orosis . TECHNI QUE: DEXA SCAN BONE DENSIT Y REPORT : AP SPINE (L1-L4 ) : T Score: -0.6 LEFT HIP TOTAL : T Score: -1.3 IMPRES PIERCE: Osteop enia left hip ------ ------ ------ ------ ------ ------ ------ ------ ----- *FRAX versio n 3.08. Fractu re probab ility calcul ated for an untrea anita patien t. Fractu re probab ility may be lower if the patien t has receiv ed treatm ent. T-scor e: compar sakshi by lashae leong deviat ion (SD) to a young adult popula tion, matche d for sex and ethnic ity (used for postme nopaus al women and men >50 years) and classi fied by WHO criter ia. -1.0: normal <-1.0 to >-2.5: osteop enia -2.5: osteop orosis -2.5 plus fragil ity fractu re: severe osteop orosis Z-scor e: compar ed by SD to an age, sex, and ethnic ity popula tion (used for Page 1 [facility] [address] [place] [address] Patien t Name: LEELEE MCCALL Access ion #: [id number] Sex: F : 1970 3 Dictat ed By: Laine Baer Attend ing Physic kevin: RODRIGUEZ MEDEL Orderi ng Physic kevin: JAILENE OGLESBY Exam Date: 2023 14:23 PM Exam Name: XR DEXA-H IPS PELVIS SPINE Admitt ing Diagno sis(es ): premen opausa l women, men <50 years, and childr en instea d of T-scor e WHO criter ia 4) <-2.0: below expect ed range/ low bone densit y for age, and a cause should be sought Electr onical ly Signed by: Laine Baer at 2023 14:46: 11 PM Page [email or web address] [place] [address] (Imaging) [address] [place], [place], [facility], 12/30/2023 17:50:12 12/30/19 24 12/30/2023 scree rip breelmer t sherry, bilat [facility] [address] [place] [address] Patien t Name: LEELEE MCCALL Access ion #: [id number] Sex: F : 1970 3 Dictat ed By: Brooklyn Menon Attend ing Physic kevin: JAILENE OGLESBY Orderi ng Physic kevin: JAILENE OGLESBY Exam Date: 2023 14:06 PM Exam Name: MG SCRN BREAST SHERRY BILAT Admitt ing Diagno sis(es ): SCREEN ING MAMMOG NARESH WITH TOMOSY NTHESI S: REASON FOR EXAM: Encoun ter screen ing for malign ant neopla sm COMPAR SAKSHI: MG SCRN BREAST SHERRY BILAT 3D on DOS: 3 TECHNI QUE: Bilate ral CC and MLO views obtain ed. Images were obtain ed using a Digita l Tomosy nthesi s Unit. Standa rd 2D and 3D Tomosy nthesi s images were review ed. FINDIN GS: BREAST COMPOS ITION: There are scatte red areas of fibrog landul ar densit y in the bilate ral breast s. In the right breast , no asymme trical parenc hymal patter n, kristopher ectura l distor tion, pleomo rphic microc alcifi cation s or masses . In the left breast , no asymme trical parenc hymal patter n, kristopher ectura l distor tion, pleomo rphic microc alcifi cation s or masses . IMPRES PIERCE: No findin gs of malign melo. FOLLOW UP RECOMM ENDATI ON: Recomm end annual mammog naresh. BIRADS : 2 - Benign Electr onical ly Signed by: Brooklyn Menon at 2023 15:14: 46 PM Page 1 [email or web address] [facility] (Imaging) [address] [place], [address], 12/30/2023 17:50:31 01/22/20 24 12/30/2023 DEXA, axial skele ton [facility] [address] [place] [address] Patien t Name: LEELEE MCCALL [facility] ion #: [id number] Sex: F : 1970 3 Dictat ed By: Laine Baer Attend ing Physic kevin: JAILENE OGLESBY CE Orderi Physic kevin: JAILENE OGLESBY CE Exam Date: 2023 14:23 PM Exam Name: XR DEXA-H IPS PELVIS SPINE Admitt ing Diagno sis(es ): ADDEND UM # 1 INDICA TION: Encoun ter for osteop enia. Postme nopaus al osteop orosis . TECHNI QUE: DEXA SCAN BONE DENSIT Y REPORT : AP SPINE (L1-L4 ) : T Score: -0.6 LEFT FEMORA L NECK : T Score: -1.3 LEFT HIP TOTAL : T Score: -1.3 IMPRES PIERCE: Osteop enia left femora l neck and left hip ------ ------ ------ ------ ------ ------ ------ ------ ----- *FRAX versio n 3.08. Fractu re probab ility calcul ated for an untrea anita patien t. Fractu re probab ility may be lower if the patien t has receiv ed treatm ent. T-scor e: compar sakshi by standa rd deviat ion (SD) to a young adult popula tion, matche d for sex and ethnic ity (used for postme nopaus al women and men >50 years) and classi fied by WHO criter ia. -1.0: normal <-1.0 to >-2.5: osteop enia -2.5: osteop orosis Page 1 [facility] [address] [place] [address] Patien t Name: LEELEE MCCALL Access ion #: [id number] Sex: F : 1970 3 Dictat ed By: Laine Baer Attend ing Physic kevin: RODRIGUEZ [facility]EL[facility] Physic kevin: JAILENE OGLESBY Exam Date: 2023 14:23 PM Exam Name: XR DEXA-H IPS PELVIS SPINE Admitt ing Diagno sis(es ): -2.5 plus fragil ity fractu re: severe osteop orosis Z-scor e: compar ed by SD to an age, sex, and ethnic ity popula tion (used for premen opausa l women, men <50 years, and childr en instea d of T-scor e WHO criter ia 4) <-2.0: below expect ed range/ low bone densit y for age, and a cause should be sought Electr onical ly Signed by: Laine Baer at 2023 11:54: 32 AM ORIGIN AL REPORT INDICA TION: Encoun ter for osteop enia. Postme nopaus al osteop orosis . TECHNI QUE: DEXA SCAN BONE DENSIT Y REPORT : AP SPINE (L1-L4 ) : T Score: -0.6 LEFT HIP TOTAL : T Score: -1.3 IMPRES PIERCE: Osteop enia left hip ------ ------ ------ ------ ------ ------ ------ ------ ----- *FRAX versio n 3.08. Fractu re probab ility calcul ated for an untrea anita patien t. Fractu re probab ility may be lower if the patien t has receiv ed treatm ent. T-scor e: compar sakshi by lashae leong deviat ion (SD) to a young adult popula tion, matche d for sex and ethnic ity (used for postme nopaus al women and men >50 years) and classi fied by WHO criter ia. -1.0: normal <-1.0 to >-2.5: osteop enia -2.5: osteop orosis -2.5 plus fragil ity fractu re: severe osteop orosis Z-scor e: compar ed by SD to an age, sex, and ethnic ity popula tion (used for premen opausa l women, men <50 years, and childr en instea d of T-scor e WHO criter ia 4) <-2.0: below expect ed range/ low bone densit y for age, and a cause should be Page 2 [facility] [address] [place] [address] Patien t Name: LEELEE MCCALL Access ion #: [id number] Sex: F : 1970 3 Dictat ed By: Laine Baer Attend [facility] Physic kevin: RODRIGUEZ MEDEL [facility] Physic kevin: JAILENE OGLESBY Exam Date: 2023 14:23 PM Exam Name: XR DEXA-H IPS PELVIS SPINE Admitt ing Diagno sis(es ): sought Electr onical ly Signed by: Laine Baer at 2023 11:54: 32 AM Page [address] (Imaging) [address], [place], [address], 01/22/2024 13:57:36 07/07/19 25 07/07/2024 XR, chest , 2 view No observ ation record ed. [address] [facility] [address], [place], [address], 07/07/2024 16:53:59 Result Notes None recorded. Problems Name Problem SNOMED Code Status Onset Date Resolution Date Notes Provider Name and Address Organization Details Recorded Time Edema of lower extremity 167842501 Active 2021 Not Available [facility] 3 06:47:55 Renewal of prescript ion Active 2021 Not Available [facility] 3 06:47:55 Acute bronchiti s 52333607 Active Ann Dar, CCM null, [place] [facility] 4 11:35:03 Closed fracture of fifth metacarpa l bone of right hand 21538014056 151606 Active 2021 Ann Dar, CCM null[place] [facility] 4 11:35:03 Closed fracture of neck of fifth metacarpa l bone of right hand 37868009215 188532 Active 2021 Ann Dar, CCM null[place] [facility] 4 11:35:03 Bilateral trochante brigitte bursitis 60618766671 080837 Active 2022 Not Available [facility] 3 06:47:55 Bilateral hip joint pain 54048091528 825772 Active 2022 Ann Dar, CCM null[place] [facility] 4 11:36:42 Hyperchol esterolem ia 97205151 Active Not Available [facility] 3 06:47:55 Senile osteoporo sis 33713022 Active 2021 Ann Dodge, CCM null[place] [facility] 4 11:36:42 Asthma 101859909 Active Ann Galindot, CCM [place] [facility] 4 11:36:42 Osteonecr osis of head of femur 346526504 Active 2022 Ann Dodge, CCM null[place] [facility] 4 11:36:42 Abdominal pain 91578457 Active 2022 Not Available [facility] 3 06:47:55 Gastroeso phageal reflux disease 591489219 Active 2016 Ann Dodge, CCM null[place] [facility] 4 11:36:42 Morbid obesity 067625043 Active Not Available [facility] 3 06:47:55 Glaucoma 70641293 Active Ann Dodge, CCM null[place] [facility] 4 11:36:42 Screening mammograp hy Active 2021 Not Available [facility] 3 06:47:55 Esophagea l reflux finding 739804846 Completed Not Available [facility] 3 02:53:31 Transient cerebral ischemia 023195309 Active Not Available [facility] 3 06:47:55 Gastroeso phageal reflux disease without esophagit is 486335458 Active 2021 Not Available [facility] 3 06:47:55 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 9108 Active 2019 Not Available [facility] 3 06:47:55 Petit's neuroma of left foot 88695147628 9105 Active 2019 Not Available [facility] 3 06:47:56 Sarcoidos is 85011380 Active 2018 Not Available [facility] 3 06:47:56 Pain in right foot 95029550058 9107 Active 2018 Not Available [facility] 3 06:47:56 Pain in right hand 91405932016 9109 Active 2021 Not Available [facility] 3 06:47:56 Depressiv e disorder 26875469 Active 2018 Ann Dodge CCM null[place] [facility] 4 11:36:42 Sinusitis 74940137 Active 2017 Not Available [facility] 3 06:47:56 Chronic pain syndrome 719027460 Active 2019 Ann Dodge CCM null[place] [facility] 4 11:36:42 Migraine 34583854 Active Not Available [facility] 3 06:47:56 Hypertens keke disorder 78820957 Completed Not Available [facility] 3 02:53:32 Chronic sinusitis 45959705 Active 2019 Ann Dodge CCM null[place] [facility] [place] [facility] 4 11:36:42 Obesity 244010123 Active Not Available [facility] 3 06:47:56 Insomnia with sleep apnea 55641152 Active 2018 Not Available [facility] 3 06:47:56 Type 2 diabetes mellitus 95060673 Active Not Available [facility] 3 06:47:56 Nonalcoho lic steatohep atitis 754618162 Active Not Available [facility] 3 06:47:56 Long-term current use of opiate analgesic drug 22592740841 4108 Active 2021 Ann Dodge CCM null[place] [facility] 4 11:36:42 Foot pain 17717322 Active 2021 Not Available [facility] 3 06:47:56 Anxiety 98230657 Active 2016 Ann Dodge CCM null[place] [facility] 4 11:36:42 Talipes planus 42023492 Active 2018 Not Available [facility] 3 06:47:56 Acute upper respirato ry infection 95379750 Active 2021 Ann Dar, CCM null[place] [facility] 4 11:35:03 Essential hypertens ion 42783129 Active Ann Dodge, CCM null[place] [facility] 4 11:36:42 Liver enzymes level above reference range 680224603 Active 2021 Not Available [facility] 3 06:47:56 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 98283043 Active 2021 Ann Galindot, CCM null[place] [facility] 4 11:35:03 Diabetes mellitus 65091903 Active Ann Dodge, CCM null[place] [facility] 4 11:36:42 Obstructi ve sleep apnea syndrome 75855999 Active 2018 Ann Dodge, CCM null[place] [facility] 4 11:36:42 Congestio n of nasal sinus 75102957 Active 2021 Not Available [facility] 3 06:47:56 Fatigue 25785764 Active Not Available [facility] 3 06:47:56 Cough 90002574 Active 2022 Ann Dodge, CCM null[place] [facility] 4 11:35:03 Trochante rbigitte bursitis of right hip 22920869901 9100 Active 2022 Not Available [facility] 3 06:47:56 Hypoglyce padmini 801734057 Active 2022 Not Available [facility] 3 06:47:56 Type 2 diabetes mellitus without complicat ion 836585504 Active 2022 Not Available [facility] 3 06:47:56 Hypopitui tarism 36616100 Active 2022 Ann Galindot, CCM null[place] [facility] 4 11:36:42 Acute adrenal insuffici ency 615134983 Active 2022 Not Available [facility] 3 06:47:56 Severe adrenal insuffici ency 66422870 Active 2022 Not Available [facility] 3 06:47:55 Adrenal cortical hypofunct ion 861611063 Active 2022 Ann Dodge CCM null[place] [facility] 4 11:36:42 Insomnia 381309582 Active 2022 Not Available [facility] 3 06:47:55 Iatrogeni c adrenal insuffici ency 157192065 Active 2022 nAn Dodge CCM null[place] [facility] 4 11:36:42 Pituitary function test outside reference range 115588727 Active 2022 Not Available [facility] 3 06:47:55 Reactive hypoglyce padmini 567167 Active 2022 Not Available [facility] 3 06:47:56 Skin lesion 64380749 Active 2022 Not Available [facility] 3 06:47:56 Epidermoi d cyst of skin of neck 991187280 Active 2022 Not Available [facility] 3 06:47:56 Sebaceous cyst of skin 668245225 Active 2022 Not Available [facility] 3 06:47:56 Epidermoi d cyst of skin 327904831 Active 2022 Not Available [facility] 3 06:47:56 Pituitary adenoma 931132438 Active 2022 Not Available [facility] 3 06:47:55 Osteoarth ritis of hip 899735168 Active 2022 Ann Dodge CCM null[place] [facility] 4 11:36:42 Acute sinusitis 03805067 Active 2024 Shreya Oglesby MD [address] [place] [address], [address] , [place] [facility] 5 12:10:45 Notes:Some problems listed i n Documents: #[id number], #[id number] could not be added to this patient's chart. Please review these documents and add these problems to the patient's chart manually as needed. Problem Notes None recorded. Procedures Surgical History Date Name Laterality Status Provider Name and Address Organization Details Recorded Time 01/01/20 24 Medicare Wellness CPT Code, subsequent completed Antonella Clark RN [place] [facility] [employer] 01/01/2024 12:17:16 12/26/19 23 Excision Cyst Multilayer completed Will pearl MD [address] [address], [place], [address], [employer] 12/25/2022 13:34:53 12/21/19 23 Medicare Wellness CPT Code, subsequent completed Antonella Clark RN [place] [employer] 12/20/2022 12:10:47 06/21/19 21 panniculectomy completed Not Available [facility] 08/15/2022 02:47:46 05/25/20 14 Most Recent Bone Density completed Not Available [facility] 08/15/2022 02:47:44 Imaging Results Imaging Date Name Status LastModified by Organiz ation Details LastModified Time 09/03/2023 XR, hip + pelvis, unilateral completed [id number] [place] [address] [facility] [address], [place], [address], 09/03/2023 15:42:32 09/17/2023 MRI, hip, w/wo contrast completed [address] [place] [address], [address], 09/17/2023 14:31:03 09/17/2023 MRI, pituitary, w/wo contrast completed [address], [place], [address], 09/20/2023 07:48:29 09/30/2023 XR, hip + pelvis, unilateral completed [address], [place], [address], 09/30/2023 12:16:20 12/30/2023 DEXA, axial skeleton completed [address] (Imaging) [address] [place], [address], 12/30/2023 17:50:12 12/30/2023 screening breast sherry, bilat completed [address] (Imaging) [address] [place], [address], 12/30/2023 17:50:31 12/30/2023 DEXA, axial skeleton completed [address] (Imaging) [address] [place], [address], 01/22/2024 13:57:36 07/07/2024 XR, chest, 2 view completed [place] [id number] [facility] [address], [place], [address], 07/07/2024 16:53:59 Procedure Notes None recorded. Medical Equipment None Reported. Allergies Allergen ID Allergen Name Allergen Category Reaction Reaction Severity Criticality Documentation Date Start Date Code Code System Note Provider Name and Address Organization Details Recorded Time 4797 Floxin medicatio n other Not available Not available 08/15/202254641 8 [facility] Medications Name Sig Start Date Stop Date Status Note LastModified by Organization Details LastModified Time multivita min tablet Take 1 tablet every day by oral route. 02/01 completed Not Available Not Available Not Available hydrocort isone 5 mg tablet Take 1 tablet every day by oral route at dinner. 11/07 completed Not Available Not Available Not Available fluoxetin e 40 mg capsule Take 1 capsule every day by oral route. 12/05 completed Not Available Not Available Not Available amoxicill in 500 mg capsule Take 1 capsule 3 times a day by oral route for 10 days. 2024 active Not Available Not Available Not Avai lable latanopro st 0.005 % eye drops active Not Available Not Available Not Available fluticaso ne 250 mcg-salme terol 50 mcg/dose blistr powdr for inhalatio n INHALE 1 PUFF BY MOUTH TWICE DAILY. RINSE MOUTH WITH WATER AFTER USE. DO NOT SWALLOW active Not Available Not Available No t Available prednison e 10 mg tablet Take 1 tablet every day by oral route. 10/03 completed Not Available Not Available Not Available clindamyc in HCl 300 mg capsule TAKE 1 CAPSULE BY MOUTH EVERY 8 HOURS FOR 7 DAYS 04/25 completed Not Available Not Available Not Available albuterol sulfate 2.5 mg/3 mL (0.083 %) solution for nebulizat ion INHALE 3 ML THREE TIMES DAILY A DAY BY NEBULIZA TION FOR 90 DAYS. active Not Available Not Available No t Available Glucophag e 500 mg tablet Take 1 tablet twice a day by oral route. 2012 active Not Available Not Available Not Avai lable citalopra m 40 mg tablet TAKE 1 TABLET BY MOUTH DAILY 2023 active Not Available Not Available Not Avai lable trazodone 50 mg tablet TAKE 1 TABLET BY MOUTH EVERY DAY 11/29 completed Not Available Not Available Not Available azithromy marielena 250 mg tablet TAKE 2 TABLETS (500 MG) BY ORAL ROUTE ONCE DAILY FOR 1 DAY THEN 1 TABLET (250 MG) BY ORAL ROUTE ONCE DAILY FOR 4 DAYS active Not Available Not Available No t Available ofloxacin 0.3 % eye drops INSTILL 1 DROP INTO AFFECTED EYES TID UTD. BEGIN 2 DAYS PRIOR TO SURGERY 12/11 completed Not Available Not Available Not Available fluconazo le 150 mg tablet Take 1 tablet every day by oral route. active Not Available Not Available No t Available benzonata te 200 mg capsule TAKE 1 CAPSULE BY MOUTH THREE TIMES DAILY active Not Available Not Available No t Available ampicilli n 500 mg capsule TAKE ONE CAPSULE BY MOUTH FOUR TIMES DAILY UNTIL ALL TAKEN 03/15 completed Not Available Not Available Not Available valacyclo vir 1 gram tablet TK 1 T PO BID FOR 3 DAYS PRN 10/14 completed Not Available Not Available Not Available medroxypr ogesteron e 2.5 mg tablet TAKE 1 TABLET BY MOUTH EVERY DAY 03/15 completed Not Available Not Available Not Available ondansetr on HCl 4 mg tablet TAKE 1 TABLET BY MOUTH EVERY 8 HOURS active Not Available Not Available No t Available prednison e 20 mg tablet TAKE 1 TABLET BY MOUTH TWICE DAILY FOR 5 DAYS 01/30 completed Not Available Not Available Not Available Prilosec 20 mg capsule,d elayed release qd active Not Available Not Available Not Available prednison e 5 mg tablet TAKE 1 TABLET BY MOUTH DAILY active Not Available Not Available No t Available acarbose 50 mg tablet TAKE 1 TABLET BY MOUTH THREE TIMES DAILY BEFORE MEALS active Not Available Not Available No t Available clobetaso l 0.05 % topical cream APPLY TO THE AFFECTED AREA NEEDED 11/07 completed Not Available Not Available Not Available Lantus U-100 Insulin 100 unit/mL subcutane ous solution 45 untis at bedtime 10/02 completed Not Available Not Available Not Available clindamyc in HCl 150 mg capsule 08/27 completed Not Available Not Available Not Available cyanocoba kristie (vit B-12) 1,000 mcg tablet Take by oral route. 02/01 completed Not Available Not Available Not Available promethaz ine 6.25 mg-codein e 10 mg/5 mL syrup Take 5 ML EVERY 6 HOURS by oral route PRN for cough 06/19 completed Not Available Not Available Not Available valacyclo vir 500 mg tablet TAKE 1 TABLET BY MOUTH DAILY active Not Available Not Available No t Available estradiol -norethin drone acet 1 mg-0.5 mg tablet TK 1 T PO EVERY DAY 03/15 completed Not Available Not Available Not Available ciproflox acin 500 mg tablet TAKE 1 TABLET BY MOUTH EVERY 12 HOURS FOR 7 DAYS 03/15 completed Not Available Not Available Not Available sulfameth oxazole 800 mg-trimet hoprim 160 mg tablet TAKE 1 TABLET BY MOUTH EVERY 12 HOURS FOR 5 DAYS active Not Available Not Available No t Available hydrocodo ne 10 mg-acetam inophen 325 mg tablet ONE TABLET FOUR TIMES A DAY NEEDED FOR MIGRAINE S AND HIP AND LEG PAIN 2024 active Not Available Not Available Not Avai lable omeprazol e 40 mg capsule,d elayed release TAKE 1 CAPSULE BY MOUTH EVERY DAY active Not Available Not Available No t Available aspirin 81 mg tablet,de layed release Take 1 tablet every day by oral route. 02/01 completed Not Available Not Available Not Available amoxicill in 500 mg tablet 06/29 completed Not Available Not Available Not Available diazoxide 50 mg/mL oral suspensio n TAKE 1 ML BY MOUTH EVERY 8 HOURS active Not Available Not Available No t Available simvastat in 40 mg tablet TAKE 1 TABLET BY MOUTH EVERY NIGHT AT BEDTIME active Not Available Not Available No t Available ketorolac 0.5 % eye drops 12/06 completed Not Available Not Available Not Available Nexium 20 mg capsule,d elayed release Take 1 capsule every day by oral route. active Not Available Not Available No t Available oxycodone -acetamin ophen 5 mg-325 mg tablet TK 1 T PO Q 4 TO 6 H PRN 06/27 completed Not Available Not Available Not Available prednisol one acetate 1 % eye drops,sarika pension 06/29 completed Not Available Not Available Not Available lorazepam 0.5 mg tablet Take 2 tablets 3 times a day by oral route. 06/29 completed Not Available Not Available Not Available Aldactone 25 mg tablet Take 1 tablet every day by oral route. 2012 active Not Available Not Available Not Avai lable Diflucan 100 mg tablet Take 1 tablet every day by oral route for 3 days. 06/05 completed Not Available Not Available Not Available oxycodone -acetamin ophen 10 mg-325 mg tablet Take 1 tablet every 6 hours by oral route. active Not Available Not Available No t Available trazodone 100 mg tablet TAKE 1 TABLET BY MOUTH EVERY DAY AT BEDTIME 09/18 completed Not Available Not Available Not Available OneTouch Ultra Test strips TEST BLOOD SUGAR DAILY active Not Available Not Available No t Available Kenalog 10 mg/mL suspensio n for injection In office injectio n administ ered by the provider 12/20 completed [facility]: [id number] 10-04 Not Available Not Available Not Available benzonata te 100 mg capsule TAKE 1 CAPSULE BY MOUTH EVERY 8 HOURS NEEDED FOR COUGH AND CONGESTI ON 01/30 completed Not Available Not Available Not Available hydrocodo ne 7.5 mg-acetam inophen 325 mg tablet TAKE 1 TABLET BY MOUTH FOUR TIMES DAILY 06/06 completed Not Available Not Available Not Available bisacodyl 10 mg rectal supposito ry UNW AND I 1 SUP REC ONCE D PRF CONSTIPA TION active Not Available Not Available No t Available prednison e 2.5 mg tablet TAKE 1 TABLET BY MOUTH DAILY active Not Available Not Available No t Available cephalexi n 500 mg capsule TAKE 1 CAPSULE BY MOUTH FOUR TIMES DAILY 04/25 completed Not Available Not Available Not Available trazodone 150 mg tablet TAKE 1 TABLET BY MOUTH EVERY DAY AT BEDTIME 2024 active Not Available Not Available Not Avai lable metformin 1,000 mg tablet one twice a day active Not Available Not Available No t Available esomepraz ole magnesium 40 mg capsule,d elayed release Take 1 capsule every day by oral route. 08/09 completed Not Available Not Available Not Available clotrimaz ole-betam ethasone 1 %-0.05 % topical cream APPLY TO THE AFFECTED AND SURROUND ING AREAS OF SKIN BY TOPICAL ROUTE 2 TIMES PER DAY IN THE MORNING AND EVENING FOR 2 WEEKS 06/27 completed Not Available Not Available Not Available lisinopri l 10 mg tablet once daily 2012 active on hold per kidney doctor Not Available Not Available Not Available glimepiri de 4 mg tablet one twice a day active Not Available Not Available No t Available prednison e 50 mg tablet Take 1 tablet every day by oral route as directed for 5 days. active Not Available Not Available No t Available ursodiol 300 mg capsule Take by oral route. 03/15 completed Not Available Not Available Not Available hydrocort isone 20 mg tablet Take 1 tablet every day by oral route in the morning. 11/07 completed Not Available Not Available Not Available nystatin- triamcino lone 100,000 unit/g-0. 1 % topical cream APPLY TO AFFECTED AREA TWICE DAILY IN THE MORNING AND EVENING active Not Available Not Available No t Available Advair Diskus 500 mcg-50 mcg/dose powder for inhalatio n Inhale 1 puff twice a day by inhalati on route. 10/14 completed Not Available Not Available Not Available magnesium 500 mg (as magnesium oxide) tablet Take 1 tablet every day by oral route. active Not Available Not Available No t Available gabapenti n 300 mg capsule TAKE 1 CAPSULE BY MOUTH TWICE DAILY active Not Available Not Available No t Available diclofena c sodium 75 mg tablet,de layed release Take 1 tablet twice a day by oral route. 11/07 completed Not Available Not Available Not Available diltiazem CD 120 mg capsule,e xtended release 24 hr TAKE 1 CAPSULE BY MOUTH EVERY NIGHT 2023 active Not Available Not Available Not Avai lable monteluka st 10 mg tablet TAKE 1 TABLET BY MOUTH EVERY DAY DIRECTED active Not Available Not Available No t Available hydroxyzi ne HCl 25 mg tablet active Not Available Not Available No t Available magnesium 250 mg tablet Take by oral route. 02/01 completed Not Available Not Available Not Available aspirin 81 mg tablet Take by oral route. 09/08 completed Not Available Not Available Not Available Levaquin 500 mg tablet Take 1 tablet every 24 hours by oral route. 10/16 completed Not Available Not Available Not Available gabapenti n 100 mg capsule TK 2 CS PO TID 11/17 completed Not Available Not Available Not Available estradiol 0.5 mg tablet TAKE 1 TABLET BY MOUTH EVERY DAY active Not Available Not Available No t Available lorazepam 1 mg tablet TAKE 1 TABLET BY MOUTH THREE TIMES DAILY NEEDED DX: F41.9 active Not Available Not Available No t Available azelastin e 137 mcg (0.1 %) nasal spray USE 2 SPRAYS IN EACH NOSTRIL TWICE DAILY DIRECTED active Not Available Not Available No t Available Cheratuss in AC 10 mg-100 mg/5 mL oral liquid Take 10 mL every 4 hours by oral route. 10/16 completed Not Available Not Available Not Available ibuprofen 600 mg tablet active Not Available Not Available Not Available zolpidem 10 mg tablet TAKE 1 TABLET BY MOUTH EVERY NIGHT AT BEDTIME 08/09 completed Not Available Not Available Not Available methylpre dnisolone 4 mg tablets in a dose pack FOLLOW PACKAGE DIRECTIO NS 10/17 completed Not Available Not Available Not Available albuterol sulfate HFA 90 mcg/actua tion aerosol inhaler INHALE 2 PUFFS BY MOUTH EVERY 6 HOURS NEEDED FOR WHEEZING active Not Available Not Available No t Available oxybutyni n chloride 5 mg tablet TAKE 1 TABLET BY MOUTH DAILY 12/27 completed Not Available Not Available Not Available ondansetr on 4 mg disintegr ating tablet Place 1 tablet twice a day by translin gual route. 11/07 completed Not Available Not Available Not Available cefdinir 300 mg capsule Take 1 capsule every 12 hours by oral route for 10 days. active Not Available Not Available No t Available fluticaso ne propionat e 50 mcg/actua tion nasal spray,sarika pension SHAKE LIQUID AND USE 2 SPRAYS IN EACH NOSTRIL DAILY active Not Available Not Available No t Available fludrocor tisone 0.1 mg tablet TAKE 1 TABLET BY MOUTH EVERY DAY IN THE MORNING 02/19 completed Not Available Not Available Not Available Ambien 5 mg tablet Take 1 tablet every day by oral route. 03/28 completed Not Available Not Available Not Available doxycycli ne hyclate 100 mg tablet TAKE 1 TABLET BY MOUTH DAILY active Not Available Not Available No t Available phentermi ne 37.5 mg capsule TK ONE C PO ONCE A DAY 09/16 completed Not Available Not Available Not Available spironola ctone 50 mg tablet TAKE 1 TABLET BY MOUTH EVERY DAY active Not Available Not Available No t Available amoxicill in 875 mg-potass ium clavulana te 125 mg tablet Take 1 tablet every 12 hours by oral route as directed for 7 days. active Not Available Not Available No t Available acarbose 25 mg tablet 08/27 completed Not Available Not Available Not Available magnesium 200 mg tablet Take 2 tablets twice a day by oral route. 02/19 completed Not Available Not Available Not Available azithromy marielena 500 mg tablet TAKE 1 TABLET BY MOUTH DAILY UNTIL ALL TAKEN 05/04 completed Not Available Not Available Not Available cyclobenz aprine 5 mg tablet active Not Available Not Available No t Available clobetaso l-emollie nt 0.05 % topical cream active Not Available Not Available Not Available Spiriva with HandiHale r 18 mcg and inhalatio n capsules INHALE 1 CAPSULE BY MOUTH VIA HANDIHAL ER EVERY DAY 06/27 completed Not Available Not Available Not Available nitrofura ntoin monohydra te/macroc rystals 100 mg capsule 06/27 completed Not Available Not Available Not Available magnesium 08/27 completed Not Available Not Available Not Available lancets 02/01 completed Not Available Not Available Not Available prednison e 7.5 mg daily 05/22 completed decrease to 5mg q day 05/22/13 Not Available Not Available Not Available Vitamin D3 1 softgel daily active Not Available Not Available No t Available multivita min once daily 02/19 completed Not Available Not Available Not Available Lumigan one drop each eye hs 10/02 completed Not Available Not Available Not Available Prilosec OTC once daily 2012 active Not Available Not Available Not Avai lable Horizon Nasal Cpap System 14cm 2012 active Provider Plus Not Available Not Available Not Available Spiriva with [employer]iH[employer] r one inhalati on daily 10/02 completed Not Available Not Available Not Available OneTouch Ultra2 Meter kit 2022 active Not Available Not Available Not Avai lable Travatan Z one drop each eye at bedtime 2012 active Not Available Not Available Not Avai lable Lantus Solostar U-100 Insulin 100 unit/mL (3 mL) subcutane ous pen active Not Available Not Available Not Available Vitamin D3 50 mcg (2,000 unit) tablet Take 1 tablet every day by oral route. 02/01 completed Not Available Not Available Not Available BD Ultra-Fin e Roseanne Pen Needle 32 gauge x active Not Available Not Available Not Available Dulera 200 mcg-5 mcg/actua tion HFA aerosol inhaler INHALE 2 PUFFS BY MOUTH TWICE DAILY active Not Available Not Available No t Available Lumigan 0.01 % eye drops INSTILL 1 DROP IN BOTH EYES AT BEDTIME active Not Available Not Available No t Available Vitamin D3 50 mcg (2,000 unit) capsule Take by oral route. 10/14 completed Not Available Not Available Not Available Xarelto 10 mg tablet TAKE 1 TABLET BY MOUTH DAILY FOR 21 DAYS BEGINNIN G DAY AFTER SURGERY active Not Available Not Available No t Available ropivacai ne (PF) 5 mg/mL (0.5 %) injection solution In office injectio n administ ered by the provider 12/20 completed [facility] [address]-39 09-15 Not Available Not Available Not Available Myrbetriq 50 mg tablet,ex tended release TAKE 1 TABLET BY MOUTH EVERY DAY active Not Available Not Available No t Available Linzess 145 mcg capsule TAKE 1 CAPSULE BY MOUTH DAILY active Not Available Not Available No t Available Multi Vitamin 12/06 completed Not Available Not Available Not Available Levemir FlexTouch U-100 Insulin 100 unit/mL (3 mL) subcutane ous pen Inject 15 units every day by subcutan eous route at bedtime. active Not Available Not Available No t Available Trulicity 1.5 mg/0.5 mL subcutane ous pen injector ADMINIST ER 1.5 MG UNDER THE SKIN EVERY WEEK AT DINNER active Not Available Not Available No t Available Trulicity 0.75 mg/0.5 mL subcutane ous pen injector ADMINIST ER 0.75 MG UNDER THE SKIN EVERY WEEK AT DINNER 02/19 completed Not Available Not Available Not Available Lopreeza 0.5 mg-0.1 mg tablet Take 1 tablet every day by oral route. 03/15 completed Not Available Not Available Not Available Incruse Ellipta 62.5 mcg/actua tion powder for inhalatio n Inhale 1 puff every day by inhalati on route. 06/27 completed Not Available Not Available Not Available Vitamin B12 1,000mcg tablets active Not Available Not Available No t Available OneTouch Ultra Blue Test Strip USE TO TEST DAILY 02/19 completed Not Available Not Available Not Available Imvexxy Maintenan ce Pack 10 mcg vaginal insert INSERT 1 INSERT VAGINALL Y TWICE A WEEK active Not Available Not Available No t Available OneTouch Ultra2 Meter USE DIRECTED active Not Available Not Available No t Available OneTouch Delica Plus Lancet 33 gauge USE 1 LANCET ONCE DAILY active Not Available Not Available No t Available Gvoke HypoPen 2-Pack 1 mg/0.2 mL subcutane ous auto-inje ctor INJECT 1 MG UNDER THE SKIN ONCE NEEDED FOR SUGARS UNDER 50 MG/DL WHEN UNABLE TO TAKE GLUCOSE BY MOUTH active Not Available Not Available No t Available FreeStyle Caridad 2 Sensor kit 08/27 completed Not Available Not Available Not Available Afluria Qd 2019- (36 mos up)(PF)60 mcg (15 mcg x4)/0.5 mL IM syringe ADM 0.5ML IM UTD 10/26 completed Not Available Not Available Not Available Sutab 1.479-0.1 88-0.225 gram tablet DIRECTED 02/19 completed Not Available Not Available Not Available BinaxNOW COVID-19 Ag Self Test kit TEST DIRECTED TODAY 09/17 completed Not Available Not Available Not Available Wegovy 0.25 mg/0.5 mL subcutane ous pen injector Inject by subcutan eous route for 30 days. 02/19 completed Not Available Not Available Not Available Wegovy 0.5 mg/0.5 mL subcutane ous pen injector Inject by subcutan eous route for 84 days. 02/19 completed Not Available Not Available Not Available Mounjaro 5 mg/0.5 mL subcutane ous pen injector INJECT 5 MG UNDER THE SKIN ONCE A WEEK active Not Available Not Available No t Available Mounjaro 2.5 mg/0.5 mL subcutane ous pen injector ADMINIST ER 2.5 MG UNDER THE SKIN 1 TIME A WEEK active Not Available Not Available No t Available Vitals Date Recorded Body height Body mass index (BMI) Body weight Heart rate Body temperature Oxygen saturation Oxygen saturation in Arterial blood by Pulse oximetry Systolic blood pressure Diastolic blood pressure Provider Name and Address Organization Details Last Updated DateTime 3 154.94 cm 33.6 kg/m2 15811.4 4 g 94 /min 97 [degF] 98 % 98 % 124 mm[Hg] 80 mm[Hg] Elisha [employer] 3 12:23:47 Date Recorded Body height Body mass index (BMI) Body weight Heart rate Body temperature Oxygen saturation Oxygen saturation in Arterial blood by Pulse oximetry Systolic blood pressure Diastolic blood pressure Provider Name and Address Organization Details Last Updated DateTime 4 160.02 cm 31.4 kg/m2 68321.8 5 g 94 /min 97 [degF] 96 % 96 % 124 mm[Hg] 84 mm[Hg] Elisha [employer] 4 12:20:34 Date Recorded Body height Body mass index (BMI) Body weight Provider Name and Address Organization Details Last Updated DateTime 09/03/2023 154.94 cm 33.3 kg/m2 23011.26 g 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 [employer] 09/03/2023 15:00:52 Date Recorded Body height Body mass index (BMI) Body weight Heart rate Body temperature Oxygen saturation Oxygen saturation in Arterial blood by Pulse oximetry Systolic blood pressure Diastolic blood pressure Provider Name and Address Organization Details Last Updated DateTime 4 160.02 cm 32.9 kg/m2 73313.1 8 g 78 /min 97.4 [degF] 97 % 97 % 120 mm[Hg] 80 mm[Hg] Yun Sauer Francisco J [facility] [employer] [facility] 4 12:11:01 Date Recorded Body height Body weight Heart rate Body temperature Oxygen saturation Oxygen saturation in Arterial blood by Pulse oximetry Systolic blood pressure Diastolic blood pressure Provider Name and Address Organization Details Last Updated DateTime 4 160.02 cm 87915.4 g 96 /min 97 [degF] 97 % 97 % 128 mm[Hg] 82 mm[Hg] Yun Sauer Francisco J [facility] [employer] [facility] 4 14:40:29 Social History Question Answer Notes LastModified by Organizat ion Details LastModified Time Tobacco Smoking Status Former Smoker [facility] [employer] [facility] 05/02/2023 12:07:58 Do You Have An Advance Directive? No [id number] Information not available 08/15/2022 What Is Your Level Of Alcohol Consumption? None [id number] Information not available 08/15/2022 What Is Your Level Of Caffeine Consumption? Moderate [id number] Information not available 08/15/2022 How Much Tobacco Do You Chew? None [id number] Information not available 08/15/2022 In The 14 Days Before Symptom Onset, Have You Had Close Contact With A Laboratory-confir med COVID-19 While That Case Was Ill? No [email or web address] Information not available 05/02/2023 In The 14 Days Before Symptom Onset, Have You Had Close Contact With A Person Who Is Under Investigation For COVID-19 While That Person Was Ill? No [email or web address] Information not available 05/02/2023 What Type Of Diet Are You Following? DIABETIC [id number] Information not available 08/15/2022 Do You Or Have You Ever Used E-cigarettes Or Vape? Never Used Electronic Cigarettes [email or web address] Information not available 05/02/2023 Do You Have An Electrostatic Air Filter? No [email or web address] Information not available 05/02/2023 What Is Your Occupation? Disabled [email or web address] Information not available 05/02/2023 Have There Been Any Changes To Your Family Or Social Situation? No Information no t available 05/02/2023 What Is The Fluoride Status Of Your Home? Unknown [email or web address] Information not available 05/02/2023 When Did You Quit Smoking? 16+yearssincel astcigarette [email or web address] Information not available 05/02/2023 Are There Any Guns Present In Your Home? No [email or web address] Information not available 05/02/2023 Do You Have A Humidifier? No [email or web address] Information not available 05/02/2023 Do You Use Insect Repellent Routinely? Yes [email or web address] Information not available 05/02/2023 Where Do You Live? [address]ld[address] Information not available 01/01/2024 Guns Present In The Home? No [email or web address] Information not available 12/20/2022 Are You Able To Care For Yourself? Yes Information not available 12/20/2022 Are You Blind Or Do Yo Have Difficulty Seeing? Yes [email or web address] Information not available 12/20/2022 Are You Deaf Or Do You Have Serious Difficulty Hearing? No [email or web address] Information not available 12/20/2022 Live Alone Of With Others? Alone [email or web address] Information not available 12/20/2022 Do You Have A Medical Power Of Parker? No [email or web address] Information not available 05/02/2023 Do You Have Moisture Problems In Your Home? No [email or web address] Information not available 05/02/2023 What Was The Date Of Your Most Recent Tobacco Screening? 01/01/2024 [email or web address] Information not available 01/01/2024 How Many Children Do You Have? 2 [email or web address] Information not available 05/02/2023 Do You Have Any Pets? No [email or web address] Information not available 05/02/2023 Do You Use Your Seat Belt Or Car Seat Routinely? Yes [email or web address] Information not available 05/02/2023 Do You Have Smoke And Carbon Monoxide Detectors In Your Home? Yes Information not available 05/02/2023 At What Age Did You Start Smoking Tobacco? 15 [email or web address] Information not available 05/02/2023 Are You Passively Exposed To Smoke? No [email or web address] Information no t available 05/02/2023 Do You Or Have You Ever Used Smokeless Tobacco? Never Used Smokeless Tobacco [id number] Information not available 08/15/2022 Are There Any Smokers In Your House? No Information not available 05/02/2023 Do You Use Any Illicit Or Recreational Drugs? No [email or web address] Information not available 05/02/2023 Do You Use Sunscreen Routinely? Yes [email or web address] Information not available 05/02/2023 Have You Recently Traveled Abroad? No [email or web address] Information not available 05/02/2023 Do You Have Any Dietary Restrictions? Yes [email or web address] Information not available 05/02/2023 Sex: Female Functional Status Question Answer Note LastModified by Organization D etails LastModified Time What is your exercise level? None [email or web address] Information not available 01/01/2024 Mental Status None recorded. Family History Relationship Description Onset Age of this Age Resolved Age Notes LastModified by Organization Details LastModified Time Father No current problems or disability [email or web address] Not available 09/02 14:57:54 Father Family history of stroke [email or web address] Not available 2023 14:57:54 Father Heart disease [id number] Not available 08/15/2022 02:47:50 Father Hypertensive disorder [id number] Not available 08/15/2022 02:47:50 Mother No current problems or disability Mother Living 76 years old Father Deceas ed 64 years old 6 Sister s 6 Living Mother Hx HTN Father Hx CRF, ASHD, COPD, DM, HTN Sister Hx CRF (1) , DM (1) , HTN (2), MS [email or web address] Not available 09/03/2023 14:57:54 Mother Hypertensive disorder [id number] Not available 08/15/2022 02:47:50 Sister Diabetes mellitus [id number] Not available 08/15/2022 02:47:50 Medical History Condition Response NERVE DISEASE N BLINDNESS N RHEUMATIC FEVER N KIDNEY STONES N BLADDER PROBLEMS N MRSA N OTHER # 1 N POLIO N LUNG DISEASE/DISORDER N HISTORY OF DRUG ABUSE N COPD N RADIATION / CHEMOTHERAPY N Other # 2 N BLOOD DISEASES N SURGERY N EAR OR HEARING PROBLEMS N MUMPS N SHINGLES N BOWEL PROBLEMS N DEPRESSION (INCLUDING POST ) N STROKE/TIA Y ULCERS N BENIGN PROSTATIC HYPERPLASIA N MEASLES N HYPOTENSION N MYOCARDIAL INFARCTION N OBESITY N GERD/NAUSEA N ANEURYSM N URINARY/BLADDER/KIDNEY PROBLEMS N CORONARY ARTERY DISEASE (CAD) N ADDICTION CONCERNS N ENDOMETRIOSIS N Impotence N USE OF BLOOD THINNERS N SKIN PROBLEMS N GASTROINTESTINAL DISORDER N PARATHYROID DISEASE N PERIPHERAL VASCULAR DISEASE N MUSCLE,JOINT OR BONE PROBLEMS N GASTROINTESTINAL BLEEDING N BLOOD CLOTS N ASTHMA Y CATARACTS N ERECTILE DYSFUNCTION N VARICOSITIES N GI PROBLEMS N CHF N Low Testosterone N INFERTILITY N AIDS/HIV N FRACTURES N CHEMOTHERAPY / RADIATION N LIVER DISEASE N MALE HYPOGONADISM N HYPERTENSION Y Deficiency N TOURETTE'S N ANXIETY DISORDER N BLOOD TRANSFUSION N ANEMIA/BLOOD DISORDER N CHRONIC EAR INFECTIONS N BRONCHITIS N TUBERCULOSIS N GLAUCOMA N FOOT PROBLEM N DIVERTICULITIS N CHICKENPOX N SLEEP APNEA N ALLERGIES/HAYFEVER N INFECTIOUS DISEASE N HEART ARRHYTHMIA N PROSTATE N INSOMNIA N HIGH CHOLESTEROL / HYPERLIPIDEMIA Y HYPERTHYROIDISM N EYE PROBLEMS N NEUROLOGICAL PROBLEMS N EDEMA N CHRONIC PAIN SYNDROME N HYPOTHYROIDISM N CAROTID BLOCKAGE N CONSTIPATION N BACK / NECK PROBLEMS N HAVE YOU BEEN HOSPITALIZED OR SEEN IN [facility] IN THE PAST YEAR ? N ATHEROSCLEROSIS N BREAST PROBLEMS N DIALYSIS N ECZEMA N HISTORY WITH COMPLICATIONS WITH ANESTHES IA ? N OSTEOPOROSIS N ARTHRITIS Y NO SIGNIFICANT PAST MEDICAL HISTORY N APPENDICITIS N DIABETES, TYPE Y BAD TEETH N ENT N SEASONAL ALLERGIES Y HEARTBURN / REFLUX Y AUTISM SPECTRUM DISORDER (ASD) N HEPATITIS / LIVER DISEASE Y GOUT N SLEEP DISORDER N ALZHEIMER'S DISEASE N Brain Problems N HERPES N DEMENTIA N HEADACHES/MIGRAINES N SEIZURES/EPILEPSY N VASCULAR DISEASE N PACEMAKER N Blood Disorder N DIZZINESS N HEART DISEASE/HEART PROBLEMS N KIDNEY DISEASE N MULTIPLE SCLEROSIS N CARDIAC ARRHYTHMIA N CANCER: SPECIFY N ANESTHESIA COMPLICATIONS N ATRIAL FIBRILLATION N Gall Stones N PULMONARY EMBOLISM N AUTOIMMUNE DISEASE N Gynecological History Statement/Question Response Date of Last Mammogram 05/31/2021 Most Recent Bone Density 05/25/2014 Obstetrics History GPAL:G 0 P 0 0 0 0 Immunizations Vaccine Type Date Status Note Provider Nam e and Address Organization Details Recorded Time Influenza, split virus, trivalent, preservative 4 completed Not Available [facility] 05/23/2023 06:47:57 Influenza, split virus, trivalent, preservative 3 completed Not Available [facility] 05/23/2023 06:47:57 COVID-19, mRNA, LNP-S, PF, 30 mcg/0.3 mL dose 1 completed Not Available [facility] 05/23/2023 06:47:57 COVID-19, mRNA, LNP-S, PF, 30 mcg/0.3 mL dose 1 completed Not Available [facility] 05/23/2023 06:47:57 Influenza, split virus, quadrivalent, preservative 8 completed Not Available [facility] 05/23/2023 06:47:57 Influenza, split virus, quadrivalent, preservative 2 completed Not Available [facility] 05/23/2023 06:47:57 Influenza, split virus, quadrivalent, preservative 1 completed Not Available [facility] 05/23/2023 06:47:57 SARS-COV-2 (COVID-19) vaccine, UNSPECIFIED 1 completed Not Available [facility] 05/23/2023 06:47:57 pneumococcal polysaccharide PPV23 6 completed Not Available [facility] 05/23/2023 06:47:57 Influenza, split virus, quadrivalent, PF 7 completed Not Available [facility] 05/23/2023 06:47:57 pneumococcal polysaccharide PPV23 6 completed Not Available [facility] 05/23/2023 06:47:57 Influenza, split virus, quadrivalent, PF 6 completed Not Available [facility] 05/23/2023 06:47:57 Influenza, split virus, quadrivalent, preservative 8 completed Not Available [facility] 05/23/2023 06:47:57 Influenza, split virus, quadrivalent, preservative 5 completed Not Available [facility] 05/23/2023 06:47:57 Pneumococcal conjugate PCV 13 4 completed Not Available [facility] 05/23/2023 06:47:57 Influenza, split virus, quadrivalent, PF 3 completed ZUNILDA Jacobson [facility] 05/02/2023 12:31:40 Past Encounters Encounter ID Performer Location Encounter Start Date Encounter Closed Date Diagnosis/Indication Diagnosis SNOMED-CT Code Diagnosis ICD10 Code Diagnosis Note [id number] [facility] [place] [address] [place] [address] 09/08/2020 00:00:00 09/08/2020 12:55:33 [id number] [facility] Pulmon[facility] [place] [address] [facility] [address] [place] [address] 10/14/2020 00:00:00 10/14/2020 16:27:09 [id number] [facility] Internal Med [facility] 24 2043 [facility] [address] [place] [address] 10/26/2020 00:00:00 10/26/2020 15:18:21 [id number] _ATHENA_M IGRATION_ DEFAULT_1 _1 , 12/02/2020 00:00:00 12/08/2020 09:42:26 [id number] [facility] Pul[facility] [place] [address] [place] [address] 02/09/2021 00:00:00 02/09/2021 17:13:53 [id number] [facility]iat[facility] [place] [address] [facility] [address] [place] [address] 03/13/2021 00:00:00 03/13/2021 15:06:10 [id number] [facility] Internal Med [facility] [address] [address] 03/15/2021 00:00:00 03/15/2021 11:59:06 [id number] [facility] [place] [address] [place] [address] 07/24/2021 00:00:00 07/24/2021 17:07:16 [id number] [facility] Internal Med [facility] [address] [address] 08/09/2021 00:00:00 08/09/2021 15:03:24 [id number] [facility] [place] [address] [place] [address] 11/21/2021 00:00:00 11/21/2021 16:55:22 [id number] [facility] Internal Med [place] [address], [facility] [address] [place] [address] 12/06/2021 00:00:00 12/06/2021 15:27:21 [id number] [facility] [place] [address] [place] [address] 12/07/2021 00:00:00 12/07/2021 15:35:05 [id number] _ATHENA_M IGRATION_ DEFAULT_1 _1 , 12/27/2021 00:00:00 12/27/2021 12:18:10 [id number] [facility] [address] [address] 01/30/2022 00:00:00 01/30/2022 10:10:47 [id number] [facility] [address] [address] 02/06/2022 00:00:00 02/06/2022 10:09:48 [id number] [facility] [address] [address] 02/20/2022 00:00:00 02/20/2022 11:26:33 [id number] [facility] [address] [address] 03/06/2022 00:00:00 03/06/2022 10:38:13 [id number] [facility] [place] [address] [place] [address] 03/23/2022 00:00:00 03/23/2022 16:36:53 [id number] [facility] [address] [address] 03/27/2022 00:00:00 03/27/2022 09:50:13 [id number] [facility] Internal Med [address] [place], [facility] [address] [place] [address] 04/25/2022 00:00:00 04/25/2022 15:05:22 [id number] [facility] [place] [address] [place] [address] 04/26/2022 00:00:00 04/26/2022 11:46:55 [id number] [facility] Internal Med [facility] [address] [place] [address] [address] 07/19/2022 00:00:00 07/19/2022 11:48:05 [id number] [facility] [address] [address] 07/31/2022 00:00:00 07/31/2022 14:01:11 [id number] [facility] Orth[facility] [place] [address] [place] [address] 08/07/2022 00:00:00 08/07/2022 15:54:29 [id number] Leroy Workman MD [facility] [address] [address] 09/11/2022 09:25:15 09/11/2022 09:45:00 Trochanteric bursitis of right hip [id number] 74771 M70.61 Osteonecro sis of head of femur 933718973 M87.859 [id number] Shreya Oglesby MD [facility] Internal Med [facility] [address] [place] [address] [address] 09/13/2022 10:56:55 09/13/2022 17:45:14 Abdominal pain 87559140 R10.0 Essential hypertension 52068083 I10 Sarcoidosis 05254909 D86 .9 Hypoglycemia 145938789 E 16.2 Hypercholesterolemia 136 80078 E78.00 [id number] Shreya Oglesby MD [facility] Internal Med [facility] [address] [address] 10/17/2022 15:17:19 10/17/2022 15:55:42 Adrenal cortical hypofunction 948004571 E27.40 Asthma 244965407 J45.90 9 Essential hypertension 82334118 I10 Hypercholesterolemia 136 48149 E78.00 Sarcoidosis 50105533 D86 .9 [id number] [facility] [place] [place] [address] [place] [address] 11/02/2022 14:28:08 11/02/2022 16:25:41 Sarcoidosis 77933248 D86.9 On no prednisone PFT 09/2022 WNLCT chest results 03/23/21 with NADHas not repeatedSh e has the order and will scheduleYe oneal eye and cardiology exam, she is aware to schedule thisDiscus sed reportable signs and symptoms Obstructiv e sleep apnea syndrome 36370342 G47.33 Mild on home study with AHI 5.Does not qualify for Inspire.No need for CPAP use. Congestion of nasal sinus 28770005 R09.81 Continue Azelastine [id number] Jessie Barney MD [facility] [place] [place] [address] [place] [address] 11/07/2022 16:00:43 11/07/2022 17:02:44 Iatrogenic adrenal insufficiency 229075798 E27.3 Patient on prednisone for over 15 years for management of sarcoidosi s. 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 ACTH is also low secondary to pituitary suppressio n. She is not tolerating hydrocorti sone as this is causing increased bloating and GI upset along with facial swelling. will transition back to prednisone 7.5 mg daily as this is equivalent to hydrocorti sone 25 mg daily. Continue florinef for now but patient recently started on spironolac tone- may need to stop florinef if potassium levels elevated. She is complainin g of leg and facial swelling. Mineraloco rticoid replacemen t necessary in addisons disease but typically mineraloco rticoid axis spared in iatrogenic causes. She was advised to get a medic alert bracelet to notate his diagnosis of adrenal insufficie ncy to protect and advise medical providers/ first alert responders of her diagnosis so she can be given adequate support in initial resuscitat keke measures that may be necessary to maintain life. She voiced understand ing. Reminded patient of stress dosing on sick days, procedures days etc which means to double up on all dosing to avoid hypotensio n/adrenal crisis. Pituitary function test outside reference range 395929884 R94.7 Send for full pituitary panel to screen for any underlying thyroid disorder and to assess growth hormone / prolactin and hormones. Reactive hypoglycemia 31 7006 E16.1 Patient appears to be having an element of reactive hypoglycem ia especially following gastric bypass surgery. She is having a cup of coffee only in the morning and is not really eating for 3-4 hours after her first intake. This is typical of reactive hypoglycem ia and coffee with creamer is a simple sugar so broken down metabolica lly leading to risk of hypoglycem ia. She was encouraged to add protein with her coffee along with a dairy or fruit for a total intake of 15-20 grams of carbs. She was advised to eat 5 to 6 small meals a day consisting of adequate protein and nonstarchy carbs and to attempt to avoid simple sugars such as sweet beverages, candies, pastries and try to take in low fat dairy, beans, nuts, meats and greens. Will also send in ACTH and cortisol just to screen for adrenal insufficie ncy. Will send for A1C and fasting insulin to assess for resistance in which at that point an insulin acrylic fabricator may be of benefit for patient. Spent up to 45 minutes preparing to see the patient (eg, review of tests), obtaining and/or reviewing separately obtained history, performing a medically appropriat e examinatio n and evaluation , counseling and educating the patient, ordering medication s, tests, along with documentin g clinical informatio n in the electronic health record, independen tly interpreti ng results and communicat ing results to the patient. RTC in 2-3 months. Patient was provided a handwritte n lab order which contains our fax number. If she chooses to go outside of the [facility] system to obtain labwork she was advised to provide our fax number and my informatio n to the lab she will be obtaining labwork from in order to have her labs properly forwarded over for me to review so there is no loss of follow up due to use of outside network. She was also advised to contact our clinic informing us that she has completed her labwork so we are aware we will need to reach out to the appropriat e laboratory to request her results be forwarded to us so I might have the ability to review and make further medical decision making in her case. She voiced understand ing. Thank you for this consultati on. [id number] Shreya Oglesby MD [facility] Internal Med [facility] 2043 [facility], [address] [address] 12/20/2022 11:51:04 12/20/2022 12:32:02 Adult health examination 296225100 Z00.00 Screening for disorder 639082812 Z13.9 Acute adre nal insufficiency 060697382 E27.2 Essential hypertension 84802777 I10 Gastroesop hageal reflux disease 188637896 K21.9 Nonalcohol ic steatohepatitis 348021728 K75.81 Sarcoidosis 68228606 D86 .9 [id number] Will gale MD [facility] General Surgery 2043 [facility]., [address] [address] 12/20/2022 12:35:28 12/20/2022 15:27:09 Epidermoid cyst of skin of neck 099304132 L72.0 [id number] Will gale MD [facility] General Surgery 2043 [facility]., [address] [address] 12/25/2022 12:49:42 12/25/2022 14:28:24 Sebaceous cyst of skin 800256957 L72.3 post neck [id number] Will gale MD [facility] General Surgery 2043 [facility]., [address] [address] 01/01/2023 11:35:48 01/02/2023 15:25:00 Removal of suture 54311043 Z48.02 Epidermoid cyst of skin 874381364 L72.0 post neck [id number] Jessie Barney MD [facility]o [place] [address] [place] [address] 01/29/2023 14:04:51 01/29/2023 14:54:21 Iatrogenic adrenal insufficiency 625240403 E27.3 Patient on prednisone for over 15 years for management of sarcoidosi s. Patient recently failed a cortrosyn stimulatio n test on 09/28 as she did not raise at all on cortisol and actually dropped at 60 minute lilian- this indicates overt adrenal insufficie ncy secondary to nursing home glucocorti coid administra tion not addisons disease. ACTH is also low secondary to pituitary suppressio n. Since her last visit patient has weaned down to 2.5 mg of prednisone daily- she is aware to continue to wean off slowly over the next 4-6 weeks as tolerated. Recommende d she repeat another cortrosyn stimulatio n test 2-3 months off therapy to reassess HPA axis. She was advised to get a medic alert bracelet to notate his diagnosis of adrenal insufficie ncy to protect and advise medical providers/ first alert responders of her diagnosis so she can be given adequate support in initial resuscitat keke measures that may be necessary to maintain life. She voiced understand ing. Reminded patient of stress dosing on sick days, procedures days etc which means to double up on all dosing to avoid hypotensio n/adrenal crisis. Refer to endocrinol ogy per request and will need repeat cortrosyn stimulatio n testing. Reactive hypoglycemia 31 3616 E16.1 Patient appears to be having an element of reactive hypoglycem ia especially following gastric bypass surgery. Recommende d acarbose for postprandi al hypoglycem ia. She was encouraged to add protein with her coffee along with a dairy or fruit for a total intake of 15-20 grams of carbs. She was advised to eat 5 to 6 small meals a day consisting of adequate protein and nonstarchy carbs and to attempt to avoid simple sugars such as sweet beverages, candies, pastries and try to take in low fat dairy, beans, nuts, meats and greens. Will also send in ACTH and cortisol just to screen for adrenal insufficie ncy. Will send for A1C and fasting insulin to assess for resistance in which at that point an insulin acrylic fabricator may be of benefit for patient. Spent up to 25 minutes preparing to see the patient (eg, review of tests), obtaining and/or reviewing separately obtained history, performing a medically appropriat e examinatio n and evaluation , counseling and educating the patient, ordering medication s, tests, along with documentin g clinical informatio n in the electronic health record, jing persaud interpreti ng results and communicat ing results to the patient. Patient can be followed by PCP - she/he is aware of my resignatio n and last day of March 29. If needed his/her PCP can refer patient to another endocrinol ogist in the area. All questions /concerns answered and refills necessary at visit today. [id number] Leroy Workman MD [facility] [place] [address] [place] [address] 02/19/2023 09:50:16 02/19/2023 10:28:40 Trochanteric bursitis of right hip 7219246986 86034 M70.61 M70.62 Osteonecro sis of head of femur 586533987 M87.859 Osteoarthritis of hip 23 1278343 M16.0 M16.10 M16.11 M16.12 [id number] Janey Ochoa, [facility] [place] [place] [address] [place] [address] 04/05/2023 14:30:26 04/05/2023 15:37:04 Sarcoidosis 08871628 D86.9 supervisor intermediates prednisone , this is now managed by endocrinol ogyPFT 09/2022 WNLCT chest results 03/23/21 with NADHas not repeated, she has the order and will scheduleYe oneal eye and cardiology exam, she has had these appointmen ts.Nati burger follow up as appropriat eDiscussed reportable signs and symptoms Obstructiv e sleep apnea syndrome 34167131 G47.33 Mild on home study with AHI 5.Does not qualify for Inspire.No need for CPAP use at that timeRecent weight gainEncour aged repeat study, she will consider. Congestion of nasal sinus 09973997 R09.81 Continue Azelastine Asthma 128757325 J45.90 9 Continue current inhaled therapyDis cussed reportable signs and symptoms [id number] Shreya Oglesby MD [facility] [place] [address] [facility], [place] [address] [place] [address] 05/02/2023 12:07:20 05/02/2023 12:34:11 Administration of influenza vaccine 37383850 Z23 Adrenal co rtical hypofunction 369834724 E27.40 Diabetes mellitus 195279 09 E11.9 Essential hypertension 87436432 I10 Hypercholesterolemia 136 83328 E78.00 Sarcoidosis 94718425 D86 .9 [id number] Shreya Oglesby MD [facility] Internal Med [facility] [address] [address] 08/28/2023 12:08:37 08/28/2023 12:45:54 Essential hypertension 74733446 I10 Gastroesop hageal reflux disease without esophagitis 645163719 K21.9 Adrenal co rtical hypofunction 412786601 E27.40 Type 2 edwin betes mellitus 50499857 E11.9 Sarcoidosis 03262580 D86 .9 [id number] YOHAN Hernández [facility] [place] 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 Diabetes mellitus 549905 09 E11.9 Gastroesop hageal reflux disease 683326812 K21.9 [id number] Shreya Oglesby MD [facility] [place] Med [facility] [address] [address] 05/04/2024 14:29:00 05/04/2024 15:11:01 Essential hypertension 96379358 I10 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 Hypercholesterolemia 136 04594 E78.00 Type 2 edwin betes mellitus without complication 287324087 E11.9 Sarcoidosis 51200425 D86 .9 Obesity 129686450 E66.9 Health Concerns Section Related Observation LastModified by Organization Detai ls LastModified Time None Recorded Concern Status LastModified by Organization Details LastModified Time None Recorded Advance Directives Directive N: Payers Encounter Date Sequence Insurance Name Policy Number Policy Liang Covered Member ID Liang Member ID Guarantor Name 05/02/2023 1 [facility] (MEDICARE REPLACEMENT/A DVANTAGE - PPO) [id number] Leelee Maki [id number] Leelee Maki 05/02/2023 2 [place] [facility] Leelee Maki [id number] Leelee Maki 08/28/2023 1 [facility] (MEDICARE REPLACEMENT/A DVANTAGE - PPO) [id number] Leelee Maki [id number] Leelee Maki 08/28/2023 2 [place] [facility] Leelee Maki [id number] Leelee Maki 09/03/2023 1 [facility] (MEDICARE REPLACEMENT/A DVANTAGE - PPO) [id number] Leelee Maki [id number] Leelee Maki 09/03/2023 2 [place] [facility] Leelee Maki [id number] Leelee Maki 01/01/2024 1 [facility] (MEDICARE REPLACEMENT/A DVANTAGE - PPO) [id number] Leelee Maki [id number] Leelee Maki 05/04/2024 1 [facility] (MEDICARE REPLACEMENT/A DVANTAGE - PPO) [id number] Leelee Maki [id number] Leelee Maki Notes Date Note Type Note Provider Name and Address Organization Details Recorded Time 3 text/html Patient Name: Leelee Hamiltonate Of Service: April ( 05.02.2023 ): 1970 Age: 52 There has been approximately a 6.5 lb weight loss since 12/20/2022. This represents approximately a 3.5% change in weight. Weight change attributable to lifestyle changes. Vital Signs:Blood Pressure: Sitting Rt. Arm 124/80Pulse: Sitting 94 /min and RegularRespiratory Rate: 12Height 63 in or 1.6 mWeight 178 lb or 80.7 kgBMI 31.5Temperature: 97 F or 36.1 CPulse Oximetry: 98 % at rest on no oxygen Chief Complaint: Addressed in HPI Problems or conditions discussed in the HPI were the only ones reviewed during the encounter.Only social and family history addressed in the HPI were reviewed during this encounter. Attendant(s): NoneConstitutional and Systemic Symptoms:none Medication Reconciliation: from medication list. Nhmsrjjiwap24/03/2023: CT scan of abdomen and pelvis.Postoperative changes from cholecystectomy, gastric bypass and hysterectomy. Increase interstitial infiltrates in the left lung base may be due to pneumonia or more likely secondary to underlying sarcoidosis. Splenic and bilateral renal cysts are noted. Mild hepatosplenomegaly.Fecal retention suggesting constipation. 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 Small pericardial effusion. Small nonobstructing left renal calculus. No other acute findings noted02/01/2023: Echocardiogram demonstrated an estimated ejection fraction of 60%. Normal systolic function is noted of the left ventricle. Tricuspid valve is normal in appearance and function. There is trace physiological tricuspid regurgitation.02/14/2023: Holter monitor demonstrated sinus rhythm with rare ventricular ectopic beats. Give average heart rate was 83 beats per minute with a maximum 141 beats per minute and minimum of 63 beats per minute. SVE documented as couplets and isolated beats History of Present Illness #1. Essential Hypertension: Stage: Stage I Interval Neurological Complaints no headaches, dizziness, weakness, visual changes, ataxia, aphasia and apraxia. No shortness of breath, orthopnea or cardiovascular symptoms. No other symptoms related to end organ damage. Pressure has been under excellent control. Currently normal. No other end organ symptoms or findings. Therapy reviewed regarding management of hypertension and includes salt restriction and Aldactone and Cartia Xt. #2. Type II Hypercholesterolaemia: Currently taking medication and tolerating well. No interval complaints of any muscle pain or arthralgia. No significant liver changes with medications. Last lipid panel: fair control. Therapy reviewed regarding treatment of cholesterol management and include diet and Zocor. #3. Type II Diabetes: Has had no polyuria polyphagia or polydipsia. Has had Several likely secondary to her adrenal insufficiency hypoglycemic like responses. No new history of any numbness, tingling, weakness or visual problems. No nausea, anorexia or other constitutional symptoms. There has been no foot problems or non healing lesions. The last HAIC was done by food service supervisor. Average blood sugars 100-115 mg%. Checking sugars : approximately twice daily Medication Types Include: GLP-1 Secondary complications include none. Macro-vascular complications include none. Therapy reviewed regarding diabetic management and include Medication Compliance: good Renal Protection: calcium blockers Lipid management: statins Urinary microalbumin: not performed recently . Ophthalmological: has seen eye doctor within the last year #4. History of adrenal insufficiency likely secondary to sarcoid involvement of the adrenal glands. Currently is stable is being followed on a regular basis by endocrinology.: #5. Sarcoidosis: Hx of sarcoidosis. Involvement: lung, liver and brain There has been no interval deterioration in exercise tolerance or problems with shortness of breath. No constitutional symptoms. Denies any history of headache, nausea, vomiting or other gastrointestinal symptoms.Medication List Reviewed and Reconciled 3Ativan 1 MG (TABLET - ORAL) One Tid Prn For AnxietyAldactone 50 MG (TABLET - ORAL) DailyNorco 325; 10 MG; MG TABLET One Four Times DailyZocor 40 MG (TABLET - ORAL) One DailyPrednisone 5 MG TABLET Once Daily Along With A 2.5mg Total 7.5 MgPrednisone 2.5 MG TABLET Once Daily Along With A 5 Mg Total 7.5 MgMyrbetriq 50 MG TABLET, FILM COATED, EXTENDED RELEASE Once DailyAzelastine Hydrochloride 1.5 MG/ML SPRAY, METERED 2 Sparys Each Nostril DailyAdvair Diskus 0.5 MG/INH- 0.05 MG /INH (POWDER - INHALATION) One Puff BidVitamin D 2000 UNITS One Daily For Vitamin D ReplacementTrazodone 100 MG (TABLET - ORAL) One HsVitamin B12 500 MCG DailyMultivitamin DailyProventil-hfa 2 Puffs Four Times A DayMagnesium Oxide 500 MGQ Once DailySingulair 10 MG (TABLET - ORAL) Once DailyOmeprazole 40 MG (CAPSULE, DELAYED REL PELLETS - ORAL) Once DailyAspirin 81 MG Once DailyFlonase 2 Puffs Each Nostril DailyCartia Xt 120 MG (CAPSULE, EXTENDED RELEASE - ORAL) One DailyLumigan 0.01% (SOLUTION/DROPS - OPHTHALMIC) DailyNeurontin 300 MG (CAPSULE - ORAL) One Twice A DayLinzess 145MCG (CAPSULE - ORAL) DailyCelexa 40 MG (TABLET - ORAL) Once DailyFludrocortisone Acetate .1 MG TABLET One DailyADRs List Reviewed 05/02/2023Floxin AnxietyVaccination and Oriaeqdpbwri0495-93 Kzqpkdhig2144-83 Covid Booster Opsnxo2043-44 Covid Aafvft4038-31 Oxqf0154-16 Ruorezjbv7041-53 Prevnar 13 GcSurgical HistoryFat Apron Surgery, Lap Cholecystectomy, Gastric Bypass, Left Cataract, Renal Stone Removal, Partial Hysterectomy, Tubal LigationPreventative Testing Confirmed by Our Xbaenoh3907/19/2022 ALBUMIN 4.2 G/DL N107/02/2021 DEXA SCAN01/01/2022 UPPER CRQYWUAIV72/18/2022 COLONOSCOPY ( 10 YEARS ) / HAIC08/01/2021 LETTER WMEZOJXLVVPZT98/15/2021 MAMMOGRAM / MICRO ALBUMIN 6.4 MG/L N1 CT THORAXSocial HistoryDoes not smoke cigarettes. 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 She is having severe groin pain right worse than left she has had a previous MRI scan which showed early avascular necrosis. She has severe pain on the right but a 9 on a scale 1-10 about half that on the left. Her x-rays and MRI scan show worse problems on the right than the left she has been on chronic steroids due to adrenal insufficiency she also has diabetes and sarcoidosis. She states she has gotten medical clearance from her primary doctor about total hip arthroplasty she is to the point where she is so miserable all the time she could hardly get around she walks with severe limp. She cannot sleep at night she has aching pain worse with activity and even at rest. She notes any motion or weight-bearing particularly the right hip causes severe groin pain. She has limited motion and function she would like to talk about total hip arthroplasty for right hip today. YOHAN Hernández [address] [facility], [address], [place], [address], [place] - [facility] 09/03/2023 15:43:32 4 text/html Patient Name: Leelee Guzman Of Service: Saturday ( 01.01.2024 ): 1970 Age: 53 There has been approximately a 9 lb weight gain since 08/28/2023. This represents approximately a 5.1% change in weight. Weight change attributable to lifestyle changes. Vital Signs:Blood Pressure: Sitting Rt. Arm 120/80Pulse: Sitting 78 /min and RegularRespiratory Rate: 14Height 63 in or 1.6 mWeight 186 lb or 84.4 kgBMI 32.9Temperature: 97.4 F or 36.3 CPulse Oximetry: 97 % at rest on no oxygen Chief Complaint: Addressed in HPI Problems or conditions discussed in the HPI were the only ones reviewed during the encounter.Only social and family history addressed in the HPI were reviewed during this encounter. A significant, separate E/M service was performed to evaluate the current and new problems. Attendant(s): NoneConstitutional and Systemic Symptoms:none Medication Reconciliation: from medication list. Qwfzyvlghvv05/03/2023: CT scan of abdomen and pelvis.Postoperative changes from cholecystectomy, gastric bypass and hysterectomy. Increase interstitial infiltrates in the left lung base may be due to pneumonia or more likely secondary to underlying sarcoidosis. Splenic and bilateral renal cysts are noted. Mild hepatosplenomegaly.Fecal retention suggesting constipation. 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 08/16/2022: Arterial Doppler lower extremity showed no evidence of any vascular obstruction. 01/01/2023: CT scan of the abdomen pelvis revealed hepatic steatosis -subcentimeter low-attenuation lesions in the liver likely small cysts. Small pericardial effusion. Small nonobstructing left renal calculus. No other acute findings noted 02/01/2023: Echocardiogram demonstrated an estimated ejection fraction of 60%. Normal systolic function is noted of the left ventricle. Tricuspid valve is normal in appearance and function. There is trace physiological tricuspid regurgitation. 02/14/2023: Holter monitor demonstrated sinus rhythm with rare ventricular ectopic beats. Give average heart rate was 83 beats per minute with a maximum 141 beats per minute and minimum of 63 beats per minute. SVE documented as couplets and isolated beats History of Present Illness Reviewed the findings of the preventative health visit. Addressed all areas with the patient, patient's family or caregivers. Preventative examinations and testing immunizations - vaccinations, colonic neoplasm screening and mammograms all reviewed and ordered where patient was amenable to the recommendations. Cognitive function was normal. Depression addressed and where necessary medications were adjusted or instituted. End of life and living will briefly discussed with patient and where these can be filled out and legally executed. Other blood and imaging studies were ordered if considered necessary. Other recommendations may be found in the encounter note. #1. Essential Hypertension: Stage: Stage I Interval Neurological Complaints no headaches, dizziness, weakness, visual changes, ataxia, aphasia and apraxia. No shortness of breath, orthopnea or cardiovascular symptoms. No other symptoms related to end organ damage. Pressure has been under excellent control. Currently normal. No other end organ symptoms or findings. Therapy reviewed regarding management of hypertension and includes salt restriction and Cartia Xt. #2. Type II Hypercholesterolaemia: Currently taking medication and tolerating well. No interval complaints of any muscle pain or arthralgia. No significant liver changes with medications. Last lipid panel: fair control. Therapy reviewed regarding treatment of cholesterol management and include diet and Zocor. #3. Hx of hypothyroidism currently stable. Heat intolerance: no Fatigue: no Weight gain: no Difficulty concentrating: no Muscle Symptoms: none Skin Texture: normal Skin Color: normal Currently taking synthroid. #4. Hx of esophageal reflux currently stable. Hx of Complications: none The severity, duration and intensity of symptoms have improved. Frequency: most meals Treatment consists medications taken on intermittent basis. Current therapy includes Omeprazole. There has been no nausea, vomiting, hematemesis, dysphagia, velopharyngeal insufficiency and odynophagia. No change in he frequency or intensity of symptoms. Has had no melena. Has had no . Discussed use of H2 antagonists and the possibility of trying to reduce the frequency of the use of any PPI inhibitors and try H2 antagonists to see if symptoms can be controlled with lease intensive therapy since a number of complications are associated with chronic prolonged use of PPI inhibitors. Active Medication ListAtivan 1 MG (TABLET - ORAL) One Tid Prn For AnxietyAldactone 50 MG (TABLET - ORAL) DailyNorco 325; 10 MG; MG TABLET One Four Times DailyZocor 40 MG (TABLET - ORAL) One DailyPrednisone 5 MG TABLET Once Daily Along With A 2.5mg Total 7.5 MgPrednisone 2.5 MG TABLET Once Daily Along With A 5 Mg Total 7.5 MgMyrbetriq 50 MG TABLET, FILM COATED, EXTENDED RELEASE Once DailyAzelastine Hydrochloride 1.5 MG/ML SPRAY, METERED 2 Sparys Each Nostril DailyAdvair Diskus 0.5 MG/INH- 0.05 MG /INH (POWDER - INHALATION) One Puff BidVitamin D 2000 UNITS One Daily For Vitamin D ReplacementTrazodone 150 MG TABLET One HsVitamin B12 500 MCG DailyMultivitamin DailyProventil-hfa 2 Puffs Four Times A DayMagnesium Oxide 500 MGQ Once DailySingulair 10 MG (TABLET - ORAL) Once DailyOmeprazole 40 MG (CAPSULE, DELAYED REL PELLETS - ORAL) Once DailyAspirin 81 MG Once DailyFlonase 2 Puffs Each Nostril DailyCartia Xt 120 MG (CAPSULE, EXTENDED RELEASE - ORAL) One DailyLumigan 0.01% (SOLUTION/DROPS - OPHTHALMIC) DailyNeurontin 300 MG (CAPSULE - ORAL) One Twice A DayLinzess 145MCG (CAPSULE - ORAL) DailyCelexa 40 MG (TABLET - ORAL) Once DailyFludrocortisone Acetate .1 MG TABLET One Daily Adverse Drug Reactions ReviewedFloxin Anxiety Vaccination and Otuxtkxcdkfl9957-12 Ukttzetkw6037-08 Covid Booster Lfxids8870-18 Covid Xlwatn2286-05 Ylsn3254-96 Twzhmhetx6090-65 Prevnar 13 Gc Surgical Exxibvo2124-55 Rt. BCU2931-27 Fat Apron Mreduoy3592-04 Lap Mxzktlxdnbyprsr5016-88 Gastric Uprpol9636-36 Left Nyyofdhv7152-20 Renal Stone Dpdhlyw1253-84 Partial Tukjfbqrrpxo0166-35 Tubal Ligation Preventative Qwwslqv3312/30/2023 MAMMOGRAM 5012/30/2023 DEXA SCAN07/19/2022 ALBUMIN 4.2 G/DL N001/01/2022 UPPER TCXHTRCLM07/18/2022 COLONOSCOPY ( 10 YEARS ) / HAIC08/01/2021 JRLZUMPGISVKJ55/16/2019 MICRO ALBUMIN 6.4 MG/L N1 CT THORAX Social HistoryDoes not smoke cigarettes. 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 This represents approximately a 1.6% change in weight. Weight change attributable to lifestyle changes. Vital Signs:Blood Pressure: Sitting Rt. Arm 128/82Pulse: Sitting 96 /min and RegularRespiratory Rate: 16Height 63 in or 1.6 mWeight 183 lb or 83.0 kgBMI 32.4Temperature: 97 F or 36.1 CPulse Oximetry: 97 % at rest on no oxygen Chief Complaint: Addressed in HPI Problems or conditions discussed in the HPI were the only ones reviewed during the encounter.Only social and family history addressed in the HPI were reviewed during this encounter. Attendant(s): NoneConstitutional and Systemic Symptoms:none Medication Reconciliation: by patient. Sqirtxoelmq70/03/2023: CT scan of abdomen and pelvis.Postoperative changes from cholecystectomy, gastric bypass and hysterectomy. Increase interstitial infiltrates in the left lung base may be due to pneumonia or more likely secondary to underlying sarcoidosis. Splenic and bilateral renal cysts are noted. Mild hepatosplenomegaly.Fecal retention suggesting constipation. 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 08/16/2022: Arterial Doppler lower extremity showed no evidence of any vascular obstruction. 01/01/2023: CT scan of the abdomen pelvis revealed hepatic steatosis -subcentimeter low-attenuation lesions in the liver likely small cysts. Small pericardial effusion. Small nonobstructing left renal calculus. No other acute findings noted 02/01/2023: Echocardiogram demonstrated an estimated ejection fraction of 60%. Normal systolic function is noted of the left ventricle. Tricuspid valve is normal in appearance and function. There is trace physiological tricuspid regurgitation. 02/14/2023: Holter monitor demonstrated sinus rhythm with rare ventricular ectopic beats. Give average heart rate was 83 beats per minute with a maximum 141 beats per minute and minimum of 63 beats per minute. SVE documented as couplets and isolated beats History of Present Illness #1. Essential Hypertension: Stage: Stage I Interval Neurological Complaints no headaches, dizziness, weakness, visual changes, ataxia, aphasia and apraxia. No shortness of breath, orthopnea or cardiovascular symptoms. No other symptoms related to end organ damage. Pressure has been under excellent control. Currently normal. No other end organ symptoms or findings. Therapy reviewed regarding management of hypertension and includes salt restriction and Aldactone. #2. Type II Hypercholesterolaemia: Currently taking medication and tolerating well. No interval complaints of any muscle pain or arthralgia. No significant liver changes with medications. Last lipid panel: fair control. Therapy reviewed regarding treatment of cholesterol management and include diet and Zocor. #3. Type II Diabetes: Has had no polyuria polyphagia or polydipsia. Has had no hypoglycemic like responses. No new history of any numbness, tingling, weakness or visual problems. No nausea, anorexia or other constitutional symptoms. There has been no foot problems or non healing lesions. The last HAIC was done by food service supervisor. CGM: No. Average blood sugars 100-115 mg%. Checking sugars : several times a week. Medication Types Include: diet Secondary complications include none. Macro-vascular complications include none. Therapy reviewed regarding diabetic management and include diet only Compliance: good Renal Protection: not required at this stage Lipid management: statins Urinary microalbumin: A1 . Ophthalmological: has seen eye doctor within the last year. 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 No interval complaints of any headaches, dizziness, visual disturbances or any other cerebrovascular symptomatology. Currently is doing well from this standpoint. Is followed by endocrinology on a regular basis: #5. Sarcoidosis: Hx of sarcoidosis. Involvement: lung, heart and brain There has been no interval deterioration in exercise tolerance or problems with shortness of breath. No constitutional symptoms. Denies any history of headache, nausea, vomiting or other gastrointestinal symptoms. #6. Hx of obesity. Currently Class 1 Obesity BMI 30-34.99. Has tried numerous dietary support and supplements with no benefit. Instructed on the health consequences of the obese status particularly cancer - diabetes and heart disease. Discussed other modalities of weight loss no . Potential candidate for bariatric surgery: No. Wishes to be evaluated by Dietary: No and was offered to be evaluated and instructed by nuisance wildlife specialist on weight loss diet. Active Medication ListAtivan 1 MG (TABLET - ORAL) One Tid Prn For AnxietyAldactone 50 MG (TABLET - ORAL) DailyNorco 325; 10 MG; MG TABLET One Four Times DailyZocor 40 MG (TABLET - ORAL) One DailyPrednisone 5 MG TABLET Once Daily Along With A 2.5mg Total 7.5 MgPrednisone 2.5 MG TABLET Once Daily Along With A 5 Mg Total 7.5 MgMyrbetriq 50 MG TABLET, FILM COATED, EXTENDED RELEASE Once DailyAzelastine Hydrochloride 1.5 MG/ML SPRAY, METERED 2 Sparys Each Nostril DailyAdvair Diskus 0.5 MG/INH- 0.05 MG /INH (POWDER - INHALATION) One Puff BidVitamin D 2000 UNITS One Daily For Vitamin D ReplacementTrazodone 150 MG TABLET One HsVitamin B12 500 MCG DailyMultivitamin DailyProventil-hfa 2 Puffs Four Times A DayMagnesium Oxide 500 MGQ Once DailySingulair 10 MG (TABLET - ORAL) Once DailyOmeprazole 40 MG (CAPSULE, DELAYED REL PELLETS - ORAL) Once DailyAspirin 81 MG Once DailyFlonase 2 Puffs Each Nostril DailyCartia Xt 120 MG (CAPSULE, EXTENDED RELEASE - ORAL) One DailyLumigan 0.01% (SOLUTION/DROPS - OPHTHALMIC) DailyNeurontin 300 MG (CAPSULE - ORAL) One Twice A DayLinzess 145MCG (CAPSULE - ORAL) DailyCelexa 40 MG (TABLET - ORAL) Once Daily Adverse Drug Reactions ReviewedFloxin Anxiety Vaccination and Immunization(X) 2022- INFLUENZA( ) 2013- PREVNAR 13 GC(X) 2015-06 PNEUMOVAX PREVNAR 20 Needed( ) 2015-06 TDAP( ) 2020- COVID PFIZER(X) 2020- COVID BOOSTER PFIZER Surgical Zrdfhit1946-66 Rt. RUB2011-27 Fat Apron Cxxetui8220-09 Lap Jajfafyjiywqslo0969-48 Gastric Alafdv8229-18 Left Kttnvhdt9198-33 Renal Stone Mplqvkz1771-34 Partial Kprmhthaulwd2801-35 Tubal Ligation Preventative Testing( ) 12/30/2023 Mammogram 12/29/2024( ) 12/30/2023 DEXA Scan 12/29/2025( ) 07/19/2022 Albumin 4.2 G/DL N( ) 01/01/2022 Upper Endoscopy( ) 01/01/2022 Colonoscopy ( 10 Years ) 01/02/2032( ) 08/09/2021 HAIC( ) 08/01/2021 Ophthalmology( ) 10/30/2018 Micro Albumin 6.4 MG/L N( ) 06/14/2017 CT Thorax Social HistoryDoes not smoke cigarettes. 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
--- OUTSIDE RECORDS SUMMARY | 2024-07-09 19:27 | XMS_ITS | Data Portability ---
Author Organization [facility]uel[facility] Address [address] [place] [address] Assessment No assessment recorded. Plan of Treatment Reminders Order Date Submit Date Provider Last Modified By Organization Details Last Modified Time Details Appointments None recorded. Lab urinalysi s, dipstick 2015 Nicki mckeon In-Office Order, Internal Use Only DO Not Attach Compendium DO Not Attach Compendium, Do Not Delete/merge, [id number] 16:27:45 FSH (follicle -stimulat ing hormone), serum 2015 016 [facility], [facility] [facility], [address], [place], [address], 6 07:11:51 estradiol , serum 2015 016 [facility], [address] [facility], [address], [place], [address], 6 07:11:51 Referral None recorded. Procedures None recorded. Surgeries None recorded. Imaging None recorded. Medication Orders Activella 1 mg-0.5 mg tablet 2015 016 [id number], [address] , [place], [place], [id number], 6 16:29:06 Patient TargetsNo targets recorded. Patient Instructions Encounter Date Encounter Id Patient Instructions Last Modified By Organization Details Last Modified Time 12/06/2015 [id number] learning about menopause linda Not available 12/06/2015 16:27:46 Reason for Referral None Reported. Results Created Date Observation Date Name Description Value Unit Range Abnormal Flag Note LastModifiedBy Organization Detail LastModifiedTime 12/06/19 16 12/06/2015 urina lysis , dipst ick Leukocytes Negati ve Not Available In-Office Order Internal Use Only DO Not Attach Compendium DO Not Attach Compendium, Do Not Delete/merge, [id number] 12/06/2015 16:08:52 12/06/19 16 12/06/2015 urina lysis , dipst ick Nitrite negati ve Not Available In-Office Order Internal Use Only DO Not Attach Compendium DO Not Attach Compendium, Do Not Delete/merge, [id number] 12/06/2015 16:08:52 12/06/19 16 12/06/2015 urina lysis , dipst ick Urobilinogen 1 Not Available In-Of fice Order Internal Use Only DO Not Attach Compendium DO Not Attach Compendium, Do Not Delete/merge, 12/06/2015 16:08:52 12/06/19 16 12/06/2015 urina lysis , dipst ick Protein Negati ve Not Available In-Office Order Internal Use Only DO Not Attach Compendium DO Not Attach Compendium, Do Not Delete/merge, 12/06/2015 16:08:52 12/06/19 16 12/06/2015 urina lysis , dipst ick pH 6.5 Not Available In-Office Order Internal Use Only DO Not Attach Compendium DO Not Attach Compendium, Do Not Delete/merge, 12/06/2015 16:08:52 12/06/19 16 12/06/2015 urina lysis , dipst ick Blood Negati ve Not Available In-Office Order Internal Use Only DO Not Attach Compendium DO Not Attach Compendium, Do Not Delete/merge, 12/06/2015 16:08:52 12/06/19 16 12/06/2015 urina lysis , dipst ick Specific [place] 1.010 Not Available In-Off ice Order Internal Use Only DO Not Attach Compendium DO Not Attach Compendium, Do Not Delete/merge, 12/06/2015 16:08:52 12/06/19 16 12/06/2015 urina lysis , dipst ick Ketone Negati ve Not Available In-Office Order Internal Use Only DO Not Attach Compendium DO Not Attach Compendium, Do Not Delete/merge, [id number] 12/06/2015 16:08:52 12/06/19 16 12/06/2015 urina lysis , dipst ick Bilirubin Negati ve Not Available In-Office Order Internal Use Only DO Not Attach Compendium DO Not Attach Compendium, Do Not Delete/merge, 12/06/2015 16:08:52 12/06/19 16 12/06/2015 urina lysis , dipst ick Glucose Negati ve Not Available In-Office Order Internal Use Only DO Not Attach Compendium DO Not Attach Compendium, Do Not Delete/merge, 12/06/2015 16:08:52 12/06/19 16 12/07/2015 FSH (foll icle- stimu latin g hormo ne), serum FSH 10.4 mIU/m L FOLLI CULAR PHASE 3.5 - 12.5 OVULA TION PHASE 4.7 - 21.5 LUTEA L PHASE 1.7 - 7.7 POSTM ENOPA USAL 25.8 - 134.8 Not Available [facility] ([facility]) [address], [place], [address], 12/07/2015 07:11:51 12/06/19 16 12/07/2015 estra diol, serum estradiol 36.1 pg/mL ADULT FEMAL E: FOLLI CULAR PHASE 12.5 - 166.0 OVULA TION PHASE 85.8 - 498.0 LUTEA L PHASE 43.8 - 211.0 POSTM ENOPA USAL <6.0 - 54.7 PREGN ROSEMARY 1ST TRIME STER 215.0 - >4300 .0 GIRLS (1-10 YEARS ) 6.0 - 27.0 TISH ECLIA METHO DOLOG Y Not Available [facility] ([facility]) [address], [place], [address], 12/07/2015 07:11:51 12/07/19 16 11/23/2015 ultra sound , pelvi c trans vagin al No observ ation record ed. [facility] Not Available 2015 17:05:28 Result Notes None recorded. Problems Name Problem SNOMED Code Status Onset Date Resolution Date Notes Provider Name and Address Organization Details Recorded Time Perimenopausal disorder 418767281 Active Mendel dumont, [facility] 6 16:27:45 Cyst of ovary 58664754 Active Mendel dumont, [facility] 6 16:27:45 Problem Notes None recorded. Procedures Surgical History Date Name Laterality Status Provider Name and Address Organization Details Recorded Time 11/16/19 15 Most Recent Mammogram completed Maren Condon MA [facility] 12/06/2015 15:51:31 06/17/19 14 Date of Last Pap Smear completed Maren Condon MA [facility] 12/06/2015 15:43:44 Other completed Maren Condon [facility] 12/06/2015 15:39:55 Gastric Bypass completed Maren Condon [facility] 12/06/2015 15:39:55 Hysterectomy completed Maren Condon [facility] 12/06/2015 15:39:55 Other completed Maren Condon [facility] 12/06/2015 15:51:31 Tubal Ligation completed Maren Condon [facility] 12/06/2015 15:51:31 Other completed Maren Condon [facility] 12/06/2015 15:51:31 Breast Biopsy completed Maren Condon [facility] 12/06/2015 15:51:31 Imaging Results Imaging Date Name Status LastModified by Organization Details LastModified Time 11/23/2015 ultrasound, pelvic transvaginal completed [facility] Information not available 12/07/2015 17:05:28 Procedure Notes None recorded. Medical Equipment None Reported. Allergies Allergen ID Allergen Name Allergen Category Reaction Reaction Severity Criticality Documentation Date Start Date Code Code System Note Provider Name and Address Organization Details Recorded Time [id number] ciproflox acin medicatio n other moderate Not available 12/06/2015 2551 RxNorm The shake s, insom shahab, sweat s Not Available Not Available Not Available Medications Name Sig Start Date Stop Date Status Note LastModified by Organization Details LastModified Time citalopram 40 mg tablet active Not Available Not Available Not Available azithromycin 250 mg tablet active Not Available Not Available No t Available fluconazole 150 mg tablet active Not Available Not Available No t Available prednisone 5 mg tablet active Not Available Not Available Not Available hydrocodone 10 mg-acetaminophen 325 mg tablet active Not Available Not Availabl e Not Available omeprazole 40 mg capsule,delayed release active Not Available Not Available Not Available simvastatin 40 mg tablet active Not Available Not Available No t Available Cartia XT 120 mg capsule,extended release active Not Available Not Available Not Available ursodiol 300 mg capsule active Not Available Not Available Not Available Advair Diskus 250 mcg-50 mcg/dose powder for inhalation active Not Available Not Availab le Not Available nystatin-triamci nolone 100,000 unit/g-0.1 % topical cream active Not Available Not Availabl e Not Available montelukast 10 mg tablet active Not Available Not Available No t Available gabapentin 100 mg capsule active Not Available Not Available N ot Available lorazepam 1 mg tablet active Not Available Not Available Not Available zolpidem 10 mg tablet active Not Available Not Available Not Available fluticasone propionate 50 mcg/actuation nasal spray,suspension active Not Available Not Avail able Not Available spironolactone 50 mg tablet active Not Available Not Available Not Available Ventolin HFA 90 mcg/actuation aerosol inhaler active Not Available Not Availa ble Not Available Spiriva with HandiHaler 18 mcg and inhalation capsules active Not Available Not Available Not Available Lumigan 0.01 % eye drops active Not Available Not Available No t Available Lopreeza 1 mg-0.5 mg tablet TAKE 1 TABLET BY MOUTH EVERY DAY active Not Available Not Available No t Available Vitals Date Recorded Body weight Body height Body mass index (BMI) Provider Name and Address Organization Details Last Updated DateTime 12/06/2015 10975.79428 g 160.02 cm 30.3 kg/m2 Maren Condon MA [facility] 12/06/2015 15:47:52 Date Recorded Systolic blood pressure Diastolic blood pressure Provider Name and Address Organization Details Last Updated DateTime 12/06/2015 116 mm[Hg] 72 mm[Hg] Maren Condon MA [facility] 12/06/2015 15:57:54 Social History Question Answer Notes LastModified by Organizat ion Details LastModified Time Tobacco Smoking Status Never Smoker Maren Condon MA null, [facility] 12/06/2015 15:56:30 Do You Have An Advance Directive? No Information not available 12/06/2015 What Is Your Level Of Alcohol Consumption? None Information not available 12/06/2015 Is Blood Transfusion Acceptable In An Emergency? Yes Information not available 12/06/2015 What Is Your Level Of Caffeine Consumption? Moderate Information not available 12/06/2015 How Much Tobacco Do You Chew? None Information not available 12/06/2015 Are You Currently Employed? No Information not available 12/06/2015 What Type Of Diet Are You Following? DIABETIC Information not available 12/06/2015 Education 12 Information no t available 12/06/2015 What Is Your Occupation? Disabled Information not available 12/06/2015 Live Alone Or With Others? Alone Information not available 12/06/2015 How Many Children Do You Have? 2 Information not available 12/06/2015 Performs Monthly Self-breast Exam? Yes Information no t available 12/06/2015 Do You Use Protection During Sex? No Information not available 12/06/2015 What Is Your Relationship Status? Information not available 12/06/2015 Seat Belts Used Routinely Yes Information not available 12/06/2015 Are You Sexually Active? Yes Information not available 12/06/2015 How Much Tobacco Do You Smoke? No Information not available 12/06/2015 General Stress Level High Information not available 12/06/2015 Do You Use Sunscreen Routinely? Yes Information not available 12/06/2015 How Many Years Have You Smoked Tobacco? 0 [email or web address] Information not available 12/06/2015 Sex: Unknown Functional Status Question Answer Note LastModified by Organizat ion Details LastModified Time What is your exercise level? Occasional Information not available 12/06/2015 Mental Status None recorded. Family History Nothing Reported. Medical History Condition Response Other N High Blood Pressure Y MRSA N Breast Cancer N Hernia N Head Trauma/Injury N Lung Disease N Depression Y Blood Clots N Breast Problem N Anesthesia Complications N Headaches/Migraines Y Anxiety Disorder N Muscle, Joint, or Bone Problems Y Autoimmune disease Y Head Injury/Concussion N Infertility N Polyps N Acid Reflux (GERD) Y Hematuria N Cancer N Leg or Foot Ulcers N ADHD N Endometriosis N High Cholesterol N Liver Disease Y Headaches Y Abdominal Aortic Aneurysm Repair N Heart Problems N Hyperparathyroidism N Migraines Y Thyroid Problems N Kidney or Bladder Problems Y GI Problems N Acne N Eating Disorder N Anemia N Diabetes Y Ovarian Cancer N Blood Transfusions N Heart Problems/Murmur N Seizures/Epilepsy N AIDS/HIV N Abuse/Domestic Violence N Asthma N Hepatitis B N Hepatitis Y Heart Disease N Pre-Eclampsia N Osteoporosis N Hematologic Disease N Gynecological History Statement/Question Response Abnormal Pap N On BCP's at Conception? N STIs/STDs N HPV Vaccine N Most Recent Mammogram 11/15/2014 Age at Menarche 11 Current Control Method Tubal Ligat ion Age at First Child 18 Sexually Active? Y Menses Monthly N Date of Last Pap Smear 06/17/2013 Sexual Problems? 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) [address] [place] [address] 12/06/2015 14:55:05 12/06/2015 17:07:26 Perimenopausal disorder 206094383 N95.9 Cyst of ovary 87758803 N 83.20 Menopausal syndrome 1237 37253 N95.9 Health Concerns Section Related Observation LastModified by Organization Detai ls LastModified Time None Recorded Concern Status LastModified by Organization Details LastModified Time None Recorded Advance Directives Directive N: Payers Encounter Date Sequence Insurance Name Policy Number Policy Liang Covered Member ID Liang Member ID Guarantor Name 12/06/2015 2 [place] WHEN MEDICARE OR MEDICARE REPLACEMENT PRIMARY) Leelee Maki [id number] Leelee Maki 12/06/2015 2 [place] Leelee Maki [id number] Leelee Maki Notes Date Note Type Note Provider Name and Address Organization Details Recorded Time 12/06/2015 text/html Menopausal SymptomsReported bypatient.Quality:no change in libido; no problems with sleep; normal menses;hot flashes >8 times/day;night sweats >8 times/night;mood changes;affects quality of life Aggravating Factors:none Associated Symptoms:no abdominal pain; no pelvic pain; no abnormal bleeding; no vaginal discharge; no dysuria; no dyspareunia; no changes in bowel function; no fever; no vaginal dryness; no irritability; no depression; no anxiety; no skin changes; no loss of libido; no changes in urination Mendel dumont [place] - [place] 12/06/2015 17:06:59 OBGyn Episode Ob Episode Information Episode Created Date Number of Fetuses Patient Bloodtype Patient rh Status Prepregnancy Weight lbs Domestic Partner Domestic Partner Phone Father Name Devulcanizer Loader Status 12/06/19 16 1 CLOSED Fetus Data First Name Last Name Admitted to NICU Weight (g) Sex Living Outcome Pediatric Complications Fetus ID Race Codes Race Delivery Type 2721.55 2 F Full Term [id number] Vaginal Wili Calculation Initial Wili Date Initial Exam Date Initial Exam Provider Initial Ultrasound Date Last Menstrual Period Date Ultra Sound Weeks Gestation 0 Eighteen To Twenty Week Wili Update Ultra Sound Date Fundal Height At Umbil Quickening Date Ultra Sound Latest Weeks Gestation Final Wili Confirmed By Final Wili Confirmed Date Final Wili Date Ultra Sound Latest Days Gestation 0 0 Menstrual History Last Menstrual Date Menses Monthly On Bcp Conception Prior Menses Frequency Hcg Plus Date Menarche Onset Age Delivery Information Delivery Date Delivery Type Labor Anesthesia Weeks Gestation Incision Type Labor Labor Length Hrs Delivered By Post Complications Tubal Sterilization Discharge Date Comments 6 [facility] idural 37 24 Discharge Information Feeding Method Contraceptive Method Maternal HG B and HCT Levels Ob Episode Information Episode Created Date Number of Fetuses Patient Bloodtype Patient rh Status Prepregnancy Weight lbs Domestic Partner Domestic Partner Phone Father Name Devulcanizer Loader Status 12/06/19 16 1 CLOSED Fetus Data First Name Last Name Admitted to NICU Weight (g) Sex Living Outcome Pediatric Complications Fetus ID Race Codes Race Delivery Type 3288.54 2 F Full Term [id number] Vaginal Wili Calculation Initial Wili Date Initial Exam Date Initial Exam Provider Initial Ultrasound Date Last Menstrual Period Date Ultra Sound Weeks Gestation 0 Eighteen To Twenty Week Wili Update Ultra Sound Date Fundal Height At Umbil Quickening Date Ultra Sound Latest Weeks Gestation Final Wili Confirmed By Final Wili Confirmed Date Final Wili Date Ultra Sound Latest Days Gestation 0 0 Menstrual History Last Menstrual Date Menses Monthly On Bcp Conception Prior Menses Frequency Hcg Plus Date Menarche Onset Age Delivery Information Delivery Date Delivery Type Labor Anesthesia Weeks Gestation Incision Type Labor Labor Length Hrs Delivered By Post Complications Tubal Sterilization Discharge Date Comments 0 None 42 false 29 Discharge Information Feeding Method Contraceptive Method Maternal HG B and HCT Levels
--- OUTSIDE RECORDS SUMMARY | 2024-07-09 19:28 | XMS_ITS | Continuity of Care Document ---
Author Organization [facility] Address [address] [place] [address] Phone Care Team Providers Care Church Worker Name Role Phone Nacho Coleman MD, FACS Unavailable Unavailab le Procedures Procedure Date Special Reports Or Forms Special Reports Or Forms Special Reports Or Forms Vision Svcs Frames Purchases SV Plastic Sph D[place] To +/- 4 0 Scratch Resistant Coating Eye Exam, New Patient Refraction Advance Directives Directive Yes / No Effective Date File Name No Information Encounters Encounter Description Practice Location Reason(s) For Visit Diagnoses Date Provider Providers Copied on Encounter [facility], [address], [place], [place], [id number], [place] tel:[phone] SEC Shannan Archer No Information 1 Jared Griffith. [address], [address], [place], [place], [id number], [place]. tel:[phone] [facility], [address], [place], [place], [id number], [place] tel:[phone] SEC [facility] No Information 1 Joao Gann. [address] , [address], [place], [address], [place]. tel:[phone] [facility], [address], [place], [place], [id number], [place] tel:[phone] [facility] No Information 1 Joao Gann. [address] , [address], [place], [address], . tel:[phone] [facility], [address], [place], [place], [address], [place] tel:[phone] [facility] No Information 0 [facility] . [address], [address], [place], [place], [address], [place]. tel:[phone] Referring Provider: Azeem Marx, [address] [place], [place] [address]ate [place] [address], [place], [place], [facility]. tel:[phone] [facility], [address], [place], [place], [address], [place] tel:[phone] [facility] No Information 0 Joao Gann. [address] [place] [address] , [address], [place], [address], . tel:[phone] Family History Family Member Type Diagnosis Age At Onset No Information Payers Payer name Insurance type Covered republican ID Authoriza tion(s) No Information Social History Type Description Quantity Date Captured Comments Sex Female Smoking Status No Information Chief Complaint And Reason For Visit No Information Reason For Referral Reason For Referral No Information History Of Present Illness Encounter Date Complaint History Of Prese nt Illness No Information Functional Status Date Functional Assessmen t No Information Instructions Date Instruction Additional Infor mation No Information Assessments Type Assessment Date No Information Patient Care Teams Name Effective Dates (start - stop) Status Members No Information
--- OUTSIDE RECORDS SUMMARY | 2024-07-09 19:28 | XMS_ITS | Referral Summary ---
Author Organization [facility] Address [address] [place] [address] Care Team Providers Care Copier Repair Technician Name Role Phone Nacho Oglesby MD Primary Care Provider Janey Ochoa OPTOMETRY PROFESSOR Unavailable [phone] Encounters Date Type Department Care Team Description 07/08/2024 Telephone [facility] Pulmonary at [address] [place] [phone] Yaquelin French LPN Lab Results 07/08/2024 11:30 AM SENIOR FORMULATION SCIENTIST Lab [address] Pulmonary sarcoidosis (HCC) 07/08/2024 Orders Only [facility] Pulmonary at [address] [place] [phone] Janey Ochoa NP Pulmonary sarcoidosis (HCC) (Primary Dx) 07/08/2024 11:00 AM SENIOR FORMULATION SCIENTIST Office Visit [facility] Pulmonary at [address] [place] [phone] Janey Ochoa NP Viral upper respiratory tract infection (Primary Dx); Pulmonary sarcoidosis (HCC); Mild intermittent asthma without complication 07/07/2024 3:20 PM SENIOR FORMULATION SCIENTIST Ancillary Procedure [facility] Outside Films Arrived 07/07/2024 Telephone [facility] Pulmonary at [address] [place] [phone] Yareli Raphael LPN F/U CXR 05/22/2024 11:00 AM SENIOR FORMULATION SCIENTIST Infusion [facility] - Infusion [address] [facility] Floor [address] [place] [address] Iron deficiency anemia, unspecified iron deficiency anemia type (Primary Dx) 05/19/2024 Orders Only [facility] Hematology [address] [place] [address] Bambi Gutierrez RN Iron deficiency anemia, unspecified iron deficiency anemia type (Primary Dx) 05/12/2024 1:45 PM SENIOR FORMULATION SCIENTIST Lab [facility] - Lab Collection [address] [facility] Floor 6 [place] [address] Iron deficiency anemia, unspecified iron deficiency anemia type 05/12/2024 2:00 PM SENIOR FORMULATION SCIENTIST Lab [facility] Oncology Lab [address] [facility] Floor 6 [place] [address] 05/12/2024 1:00 PM SENIOR FORMULATION SCIENTIST Office Visit [facility] Hematology [facility] 6 [place] [address] Deena David MD Iron deficiency anemia, unspecified iron deficiency anemia type (Primary Dx); Other iron deficiency anemia; Bariatric surgery status; Other specified intestinal malabsorption 05/05/2024 Telephone [facility] Hematology [facility] Floor [address] [place] [address] Una Small from Last 3 Months Allergies Active Allergy Reactions Criticality Noted Date Comments Ciprofloxacin Other (See comments) Medium 12/03/2023 Floxin I.V. In D5w Unknown 11/16/2009 Sweats and irritability, nervous Ofloxacin Agitation,Other (See comments) Low 03/26/2008 Reaction: Other Reaction: shaky, sweaty Floxin Medications aspirin (ASPIR-81) 81 mg tabletIndication s:prevention of thrombosis Take 1 tablet (81 mg total) by mouth every morning Active cyanocobalamin (Vitamin B-12) 1,000 mcg tabletIndication s:Prevention of Vitamin B12 Deficiency Take 0.5 tablets (500 mcg total) by mouth daily Active dilTIAZem CD/XR/XT (CARTIA XT) 120 mg 24 hr capsuleIndicatio ns:hypertension Take 1 capsule (120 mg total) by mouth every morning Active gabapentin (NEURONTIN) 300 mg capsuleIndicatio ns:Neuropathic Pain Take 1 capsule (300 mg total) by mouth 2 (two) times a day Active LORazepam (ATIVAN) 1 mg tablet Take 1 tablet (1 mg total) by mouth 3 (three) times a day 0 8 Active bimatoprost (LUMIGAN) 0.01 % ophthalmic dropsIndications :ocular hypertension Administer 1 drop into both eyes nightly Active magnesium oxide (MAG-OX) 400 mg (241.3 mg elemental magnesium) tabletIndication s:hypomagnesemia Take 500 mg by mouth nightly 500mg every day Active multivitamin tabletIndication s:Vitamin Deficiency Prevention Take 1 tablet by mouth telecom specialist before breakfast Active omeprazole (PriLOSEC) 40 mg capsuleIndicatio ns:gerd Take 1 capsule (40 mg total) by mouth every morning Active simvastatin (ZOCOR) 40 mg tabletIndication s:hyperlipidemia Take 1 tablet (40 mg total) by mouth nightly 0 Active spironolactone (ALDACTONE) 50 mg tabletIndication s:hypertension Take 1 tablet (50 mg total) by mouth telecom specialist before breakfast Active calcium carbonate (TUMS) 500 mg calcium (200 mg of elemental calcium) chewable tabletIndication s:Hypocalcemia Prevention Take 2 tablet/chew tab (1,000 mg total) by mouth nightly Active cholecalciferol (VITAMIN D-3) 2,000 unit tabletIndication s:Vitamin D Deficiency Take 1 tablet (2,000 Units total) by mouth every morning Active citalopram (CeleXA) 40 mg tabletIndication s:Anxiety with Depression Take 1 tablet (40 mg total) by mouth nightly 8 Active LINZESS 145 mcg capsuleIndicatio ns:chronic idiopathic constipation Take 1 capsule (145 mcg total) by mouth every morning 8 Active estradioL (ESTRACE) 0.5 mg tabletIndication s:hormone replacement Take 1 tablet (0.5 mg total) by mouth telecom specialist before breakfast 0 Active valACYclovir (VALTREX) 500 mg tabletIndication s:herpes Take 1 tablet (500 mg total) by mouth as needed 0 Active HYDROcodone-acet aminophen (HYCET) 10-325 mg/15 mL(15 mL) solutionIndicati ons:Pain Take 1 tablet by mouth every 6 (six) hours as needed for pain Active docusate sodium (COLACE) 100 mg capsuleIndicatio ns:constipation Take 1 capsule (100 mg total) by mouth 2 (two) times a day 20 capsule 1 Active predniSONE (DELTASONE) 2.5 mg tablet Take 3 tablets (7.5 mg) by mouth every other day Saturday and Saturday07/08/2024Pati ent says that she is taking 2.5mg daily at this time. TC 1 Active SPO Medical Ultra Blue Test Strip strip USE TO TEST DAILY 1 Active fluticasone propionate (FLONASE) 50 mcg/actuation nasal spray Administer into each nostril daily 1 Active azelastine (ASTELIN) 137 mcg (0.1 %) nasal spray 2 sprays daily as needed Active Myrbetriq 50 mg tablet extended release 24 hr Take 1 tablet (50 mg total) by mouth daily Active predniSONE (DELTASONE) 5 mg tablet Take 1 tablet (5 mg) by mouth daily 3 Active fluticasone propion-salmeter oL (ADVAIR DISKUS) 250-50 mcg/dose diskus inhalerIndicatio ns:Maintenance Therapy for Asthma Inhale 1 puff 2 (two) times a day Rinse mouth with water after use. Do not swallow. 60 each 4 Active albuterol HFA (Proventil HFA) 90 mcg/actuation inhaler Inhale 2 puffs every 6 (six) hours as needed for wheezing 1 each 4 Active montelukast (Singulair) 10 mg tabletIndication s:Maintenance Therapy for Asthma Take 1 tablet (10 mg total) by mouth nightly 90 tablet 3 4 Active Mounjaro 5 mg/0.5 mL pen injector INJECT 5 MG UNDER THE SKIN ONCE A WEEK 4 Active traZODone (DESYREL) 150 mg tablet Take 1 tablet (150 mg total) by mouth nightly at bedtime 5 Active Imvexxy Maintenance Pack 10 mcg insert vaginal insert INSERT 1 INSERT VAGINALLY TWICE A WEEK 4 Active ondansetron (ZOFRAN) 4 mg tablet Take 1 tablet (4 mg total) by mouth every 8 (eight) hours 4 Active amoxicillin 500 mg capsule Take 1 capsule 3 times a day by oral route for 10 days. 5 Active benzonatate (TESSALON) 200 mg capsule Take 1 capsule (200 mg total) by mouth 3 (three) times a day as needed for cough 30 capsule 1 5 025 Active levoFLOXacin (LEVAQUIN) 750 mg tablet Take 1 tablet (750 mg total) by mouth daily for 7 days 7 tablet 5 025 Active albuterol-budeso nide 90-80 mcg/actuation HFA aerosol inhaler Inhale 2 puffs 2 (two) times a day 1 g 3 5 Active traZODone (DESYREL) 100 mg tablet Take 1 tablet (100 mg total) by mouth nightly 025 Discontin ued(Alter onelia therapy) azithromycin (ZITHROMAX) 250 mg tablet Take 1 tablet (250 mg total) by mouth daily 4 025 Discontin ued(Thera py completed ) Active Problems Problem Noted Date Diagnosed Date Viral upper respiratory tract infection 07/08/19 25 Assessment & Plan (07/08/2024 3:09 PM SENIOR FORMULATION SCIENTIST): Chest x-ray does not demonstrate any acute infiltrate or consolidation. It is likely that despite negative testing she did contract COVID around the same time her mother was positive We have discussed viral illness and supportive therapies We will change her antibiotics today I have ordered airsupra for rescue therapy and benzonatate to use with her Robitussin for persistent coughing She has a history of sarcoidosis I will check a CT chest Iron deficiency anemia 05/12/2024 Pulmonary sarcoidosis 04/02/2024 Assessment & Plan (07/08/2024 3:09 PM SENIOR FORMULATION SCIENTIST): Previous chest imaging does not demonstrate any concerns for active disease She has had sick symptoms that wax and wane since April, I will check a CT chest Assessment & Plan (04/02/2024 4:06 PM CDT): Chest imaging does not demonstrate any concerns for active disease Mild intermittent asthma without complication Assessment & Plan (07/08/2024 3:10 PM SENIOR FORMULATION SCIENTIST): Continue Wixela 250 twice daily at this time Albuterol or airsupra as needed only, we have discussed indications for use We have discussed signs and symptoms that would require earlier evaluation or change to her plan of care Assessment & Plan (04/02/2024 4:07 PM CDT): Continue Wixela 250 twice daily at this time I would consider repeat PFT in deescalation to Wixela 100 at her next office visit, she is currently weaning her prednisone Albuterol as needed only, we have discussed indications for use Abnormal LFTs 12/10/2022 Assessment & Plan (12/13/2022 7:11 PM CDT): Most likely secondary to non-alcoholic steatohepatitis. The gastric bypass surgery led to significant weight loss, however, her subsequent weight gain has likely resulted in an increase in hepatic steatosis and hepatic inflammation. The evidence of hepatic fibrosis on the FibroSure study is not overly surprising, however, I am not convinced this is at a high level. I ordered an ultrasound to see if there is any evidence of liver nodularity to suggest advanced hepatic fibrosis. Clearly weight loss will stabilize and even lead to a decrease in hepatic steatosis, decreasing the risk of progressive hepatic fibrosis. I suggested ongoing efforts at weight loss. Obviously, her medical comorbidities may make this a challenge. Exercise will also be difficult in light of her painful hips. She will return in 1 year or when clinically indicated. BEVERLEY (obstructive sleep apnea) 11/17/2020 Overview (11/17/2020): Added automatically from request for surgery [id number] Abdominal pannus 05/11/2020 Overview (05/11/2020): Added automatically from request for surgery [id number] Status post bariatric surgery 03/06/2019 Immunizations Name Administration Dates Next Due Influenza, Quadrivalent, Spl it, Intramuscular 04/04/2022,04/16/2021,03/19/2018,03/12,04/04/2015 Influenza, Quadrivalent, Spl it, Preservative Free, Intramuscular 05/02/2023,03/11/2020,04/18/2017,04/18 Influenza, Trivalent, IM (MDV) 4,04/12/2014,03/25/2013,03/25 Pneumococcal Conjugate PCV 13 05/03/2014, 014 Pneumococcal Polysaccharide PPV23 06/22/2015,11/2015,06/21/2015 Sars-CoV-2, Unspecified 03/11/2021 Social History Tobacco Use Types Packs/Day Years Used Date Smoking Tobacco: Former Cigarettes 1 5 1 986 - 1990 Smokeless Tobacco: Never Tobacco Cessation:Counseling Given: Not Answered Alcohol Use Standard Drinks/Week Comments Not Currently 0 (1 standard drink = 0.6 oz pur e alcohol) AUDIT-C Answer Date Recorded Q1: How often do you have a drink containing alc ohol? Never 11/29/2020 Average Number of Drinks Not on file 021 Q3: How often do you have si x or more drinks on one occasion? Never 11/29/2020 Comments No Sex and Gender Information Value Date Recorded Sex Assigned at Not on file Legal Sex Female 3:21 AM SENIOR FORMULATION SCIENTIST Gender Identity Female 04/09/2021 10:59 PM CDT Sexual Orientation Straight 03/01/2020 2: 52 PM CDT Last Filed Vital Signs Vital Sign Reading Time Taken Comments Blood Pressure 102/90 07/08/2024 11:06 AM SENIOR FORMULATION SCIENTIST Pulse 74 07/08/2024 11:06 AM SENIOR FORMULATION SCIENTIST Temperature 35.6 ??C (96.1 ??F) 07/08/2024 11:[address] Respiratory Rate 18 05/22/2024 10:55 AM SENIOR FORMULATION SCIENTIST Oxygen Saturation 97% 07/08/2024 11:06 AM SENIOR FORMULATION SCIENTIST Inhaled Oxygen Concentration - - Weight 81.8 kg (180 lb 4.8 oz) 07/08/2024 11:06 AM SENIOR FORMULATION SCIENTIST Height 154.9 cm (5' 1 ) 07/08/2024 11:06 AM SENIOR FORMULATION SCIENTIST Body Mass Index 34.07 07/08/2024 11:06 AM SENIOR FORMULATION SCIENTIST Plan of Treatment Not on file Medical Devices Implanted Type Area Drapery Examiner Device Identifier Shelf Expiration Date Model / Serial / Lot Shunt Left: Eye Procedures Procedure Name Priority Date/Time Associated Diagnosis Comments EGFR Routine 07/08/2024 10:54 AM SENIOR FORMULATION SCIENTIST Pulmonary sarcoidosis (HCC) DIFFERENTIAL AUTO Routine 07/08/2024 10: 54 AM SENIOR FORMULATION SCIENTIST Pulmonary sarcoidosis (HCC) CBC WITH AUTO DIFFERENTIAL Routine 07/08/2024 10:54 AM SENIOR FORMULATION SCIENTIST Pulmonary sarcoidosis (HCC) BASIC METABOLIC PANEL Routine 07/08/2024 10:54 AM SENIOR FORMULATION SCIENTIST Pulmonary sarcoidosis (HCC) PRO B-TYPE NATRIURETIC PEPTIDE Routine 07/08/2024 10:54 AM SENIOR FORMULATION SCIENTIST Pulmonary sarcoidosis (HCC) XR TRANSFER OF OUTSIDE FILMS Routine 07/07/2024 3:20 PM SENIOR FORMULATION SCIENTIST DIFFERENTIAL AUTO Routine 05/12/2024 2:0 7 PM SENIOR FORMULATION SCIENTIST Iron deficiency anemia, unspecified iron deficiency anemia type CBC WITH AUTO DIFFERENTIAL Routine 05/12/2024 2:07 PM SENIOR FORMULATION SCIENTIST Iron deficiency anemia, unspecified iron deficiency anemia type RETICULOCYTES Routine 05/12/2024 2:07 PM SENIOR FORMULATION SCIENTIST Iron deficiency anemia, unspecified iron deficiency anemia type FERRITIN Routine 05/12/2024 2:03 PM SENIOR FORMULATION SCIENTIST Iron deficiency anemia, unspecified iron deficiency anemia type IRON PROFILE W/ IBC Routine 05/12/2024 2 :03 PM SENIOR FORMULATION SCIENTIST Iron deficiency anemia, unspecified iron deficiency anemia type VITAMIN B12 Routine 05/12/2024 2:03 PM SENIOR FORMULATION SCIENTIST Iron deficiency anemia, unspecified iron deficiency anemia type from Last 3 Months Results * eGFR (07/08/2024 10:54 AM SENIOR FORMULATION SCIENTIST) eGFR >90 >=60 mL/min/1. 73 m2 Comment: Interpretive Data Reference Interval Normal ?>/= 90 mL/min/1.73m2 Mildly decreased* ? 60 - 89 mL/min/1.73m2 Mildly to moderately decreased ?45 - 59 mL/min/1.73m2 Moderately to severely decreased ??30 - 44 mL/min/1.73m2 Severely decreased ?15 - 29 mL/min/1.73m2 Kidney Failure ?< 15 ??mL/min/1.73m2 *Relative to young adult level Estimated glomerular filtration rate is determined by the 2020 CKD-EPI equation recommended by the National Kidney Foundation (A Unifying Approach to GFR Estimation: Recommendations of the NKF-ASK Task Force on Reassessing the Inclusion of Race in Diagnosing Kidney Disease, JASN 2020). The CKD-EPI equation should not be used for patients with unstable renal function and has not been validated in children and those over 70. Current interpretive data was last reviewed 2021. Blood 07/08/2024 10:5 4 AM SENIOR FORMULATION SCIENTIST 07/08/2024 1:33 PM SENIOR FORMULATION SCIENTIST us Janey Ochoa OPTOMETRY PROFESSOR LAB BLOOD ORDERABLES Final Result [facility] ([place]) 1 [facility] Department [place] [address] * Differential, auto (07/08/2024 10:54 AM SENIOR FORMULATION SCIENTIST) Neutrophil abs 3.5 1.5 - 6.5 K/cumm Imm gran abs 0.0 0.0 - 0.1 K/cumm [facility] ([place]) Lymphocyte abs 1.1 0.8 - 3.3 K/cumm [facility] ([place]) Monocyte abs 0.4 0.2 - 0.8 K/cumm [facility] ([place]) Eosinophil abs 0.1 0.0 - 0.5 K/cumm [facility] ([place]) Basophil abs 0.0 0.0 - 0.1 K/cumm [facility] ([place]) Neutrophil pct 67.7 % [facility] ([place]) Comment: Interpretive Data Percent cell count reference ranges are not reported, since discordance with absolute values may lead to misinterpretation of CBC data. Current Interpretive Data was last revised on 2017. Imm gran pct 0.4 % [facility] ([place]) Comment: Interpretive Data Percent cell count reference ranges are not reported, since discordance with absolute values may lead to misinterpretation of CBC data. Current Interpretive Data was last revised on 2017. Lymphocyte pct 21.2 % [facility] ([place]) Comment: Interpretive Data Percent cell count reference ranges are not reported, since discordance with absolute values may lead to misinterpretation of CBC data. Current Interpretive Data was last revised on 2017. Monocyte pct 7.6 % [facility] ([place]) Comment: Interpretive Data Percent cell count reference ranges are not reported, since discordance with absolute values may lead to misinterpretation of CBC data. Current Interpretive Data was last revised on 2017. Eosinophil pct 2.3 % [facility] ([place]) Comment: Interpretive Data Percent cell count reference ranges are not reported, since discordance with absolute values may lead to misinterpretation of CBC data. Current Interpretive Data was last revised on 2017. Basophil pct 0.8 % [facility] ([place]) Comment: Interpretive Data Percent cell count reference ranges are not reported, since discordance with absolute values may lead to misinterpretation of CBC data. Current Interpretive Data was last revised on 2017. Blood 07/08/2024 10:5 4 AM SENIOR FORMULATION SCIENTIST 07/08/2024 1:33 PM SENIOR FORMULATION SCIENTIST us Janey Ochoa OPTOMETRY PROFESSOR LAB BLOOD ORDERABLES Final Result [facility] ([place]) 1 [facility] Department [place] [address] * Pro B-type natriuretic peptide (07/08/2024 10:54 AM SENIOR FORMULATION SCIENTIST) NT-proBNP <36 <=300 pg/mL Comment: Interpretive Comments: A. Dyspnea in Acute Care Setting All Ages: ?< 300 pg/ml, acute heart failure unlikely. < 50 yrs: ?300 - 450 pg/ml, further investigation warranted. ? > 450 pg/ml, acute heart failure likely. 50 - 74 yrs: ? 300 - 900 pg/ml, further investigation warranted. ? > 900 pg/ml, acute heart failure likely . > or = 75 yrs: ? 450 - 1800 pg/ml, further investigation warranted. ? > 1800 pg/ml, acute heart failure likely. B. Non-acute Setting < 75 yrs ? < 125 pg/ml, rules out heart failure. ? > or = 125 pg/ml, further investigation warranted. > or = 75 yrs ?< 450 pg/ml, rules out heart failure. ? > or = 450 pg/ml, further investigation warranted. - Knowledge of each individual patient's NT-proBNP range may be more useful than using similar cut-points for every patient. Please note that marked elevations in NT-proBNP levels may be observed in state other than Left Ventricular Congestive Failure, including: acute coronary syndromes, right heart strain/failure (including pulmonary embolism and cor pulmonale), critical illness, renal failure, as well as advanced age. - References: 1. Franc ESTRELLA et.al. Eur Heart J. 2006:27:330-337. 2. Simon RW, Esperanza AM. J. AM Maurilio Cardiol: Cardiovasc Imag. 2009;2: 216- 225. Interpretive Data Last Revised Date: 2018. Blood 07/08/2024 10:5 4 AM SENIOR FORMULATION SCIENTIST 07/08/2024 1:33 PM SENIOR FORMULATION SCIENTIST us Janey Ochoa OPTOMETRY PROFESSOR LAB BLOOD ORDERABLES Final Result [facility] ([place]) 1 [facility] [place] [address] * (ABNORMAL) CBC with auto differential (07/08/2024 10:54 AM SENIOR FORMULATION SCIENTIST) [facility] WBC 5.2 3.8 - 9.9 K/cumm Hgb 12.0 11.9 - 15.5 g/dL [facility] ([place]) Hct 37.9 35.6 - 45.5 % [facility] ([place]) Plt 144(L) 150 - 400 K/cumm [facility] ([place]) MPV 11.2 9.1 - 12.3 fL [facility] ([place]) RBC 4.21 3.90 - 5.20 M/cumm [facility] ([place]) MCV 90.0 81.3 - 96.4 fL [facility] ([place]) MCH 28.5 27.1 - 33.3 pg [facility] ([place]) MCHC 31.7(L) 32.3 - 35.7 g/dL [facility] ([place]) RDW CV 18.8(H) 11.1 - 14.9 % [facility] ([place]) RDW SD 62.4(H) 35.7 - 48.1 fL [facility] ([place]) NRBC abs 0.00 0.00 - 0.01 K/cumm [facility] ([place]) Blood 07/08/2024 10:5 4 AM SENIOR FORMULATION SCIENTIST 07/08/2024 1:33 PM SENIOR FORMULATION SCIENTIST us Janey Ochoa OPTOMETRY PROFESSOR LAB BLOOD ORDERABLES Final Result [facility] ([place]) 1 [facility] [place] [address] * (ABNORMAL) Basic metabolic panel (07/08/2024 10:54 AM SENIOR FORMULATION SCIENTIST) [facility] Sodium 134(L) 135 - 145 mmol/L Potassium, pl 3.7 3.3 - 4.9 mmol/L [facility] ([place]) Chloride 98 97 - 110 mmol/L [facility] ([place]) CO2 25 22 - 32 mmol/L [facility] ([place]) Anion gap 11 2 - 15 mmol/L [facility] ([place]) BUN 10 6 - 25 mg/dL [facility] ([place]) Creatinine 0.65 0.60 - 1.10 mg/dL [facility] ([place]) Glucose 132 70 - 199 mg/dL [facility] ([place]) Comment: Interpretive Data Fasting glucose >/= 126 mg/dl is diagnostic for diabetes. ?? Fasting is defined as no caloric intake for at least 8 hours. Fasting glucose between 100 mg/dl to 125 mg/dl is diagnostic of prediabetes. In a patient with classic symptoms of hyperglycemia or hyperglycemic crisis, a random glucose >/= 200 mg/dl is diagnostic for diabetes. In the absence of unequivocal hyperglycemia, results should be confirmed by repeat testing. The classification and Diagnosis of Diabetes Diabetes Care 2021; 46: S19-S40. Current interpretive data was last revised 2022. Calcium 9.7 8.5 - 10.3 mg/dL [facility] ([place]) Blood 07/08/2024 10:5 4 AM SENIOR FORMULATION SCIENTIST 07/08/2024 1:33 PM SENIOR FORMULATION SCIENTIST us Janey Ochoa OPTOMETRY PROFESSOR LAB BLOOD ORDERABLES Final Result [facility] ([place]) 1 [facility] Department [place] [address] * XR Outside Reference (07/07/2024 3:20 PM SENIOR FORMULATION SCIENTIST) Narrative [facility] - 07/08/2024 9:28 AM SENIOR FORMULATION SCIENTIST This order has been auto-finalized and does not contain a result. us Not In File Miscellaneous IMG XR PROCEDURES Lynn l Result [facility] * Differential, auto (05/12/2024 2:07 PM SENIOR FORMULATION SCIENTIST) Neutrophil abs 4.4 1.5 - 6.5 K/cumm Comment:Testing performed by : [facility], [address] [place] [phone] Lymphocyte abs 1.4 0.8 - 3.3 K/cumm [facility] Comment:Testing performed by : [facility], [address] [place] [phone] Monocyte abs 0.4 0.2 - 0.8 K/cumm [facility] Comment:Testing performed by : [facility], [address] [place] [phone] Eosinophil abs 0.1 0.0 - 0.5 K/cumm [facility] Comment:Testing performed by : [facility], [address] [place], [place] [phone] Basophil abs 0.1 0.0 - 0.1 K/cumm [facility] Comment:Testing performed by : [facility], [address] [place] [phone] Neutrophil pct 69.1 % [facility] Comment: Interpretive Data Percent cell count reference ranges are not reported, since discordance with absolute values may lead to misinterpretation of CBC data. Current Interpretive Data was last revised on 2017. Testing performed by: [facility], [address] [place] [phone] Lymphocyte pct 21.6 % [facility] Comment: Interpretive Data Percent cell count reference ranges are not reported, since discordance with absolute values may lead to misinterpretation of CBC data. Current Interpretive Data was last revised on 2017. Testing performed by: [facility], [address] [place] [phone] Monocyte pct 6.5 % [facility] Comment: Interpretive Data Percent cell count reference ranges are not reported, since discordance with absolute values may lead to misinterpretation of CBC data. Current Interpretive Data was last revised on 2017. Testing performed by: [facility], [address] [place] [phone] Eosinophil pct 1.9 % [facility] Comment: Interpretive Data Percent cell count reference ranges are not reported, since discordance with absolute values may lead to misinterpretation of CBC data. Current Interpretive Data was last revised on 2017. Testing performed by: [facility], [address] [place] [address] Basophil pct 0.9 % DARINEL SANDERS Comment: Interpretive Data Percent cell count reference ranges are not reported, since discordance with absolute values may lead to misinterpretation of CBC data. Current Interpretive Data was last revised on 2017. Testing performed by: [facility], [address] [place] [address] Blood 05/12/2024 2:07 PM SENIOR FORMULATION SCIENTIST 05/12/2024 2:08 PM SENIOR FORMULATION SCIENTIST us Deena David MD LAB BLOOD ORDERABLES Final Result [facility] [place] [address] * (ABNORMAL) CBC with auto differential (05/12/2024 2:07 PM SENIOR FORMULATION SCIENTIST) WBC 6.3 3.8 - 9.9 K/cumm Comment:Testing performed by : [facility], [address] [place] [address] Hgb 11.8(L) 11.9 - 15.5 g/dL DARINEL SANDERS Comment:Testing performed by : [facility], [address] [place] [address] Hct 37.9 35.6 - 45.5 % DARINEL SANDERS Comment:Testing performed by : [facility], [address] [place] [address] Plt 208 150 - 400 K/cumm DARINEL SANDERS Comment:Testing performed by : [facility], [address] [place] [address] MPV 8.8 6.8 - 10.4 fL DARINEL SANDERS Comment:Testing performed by : [facility], [address] [place] [address] RBC 4.77 3.90 - 5.20 M/cumm DARINEL SANDERS Comment:Testing performed by : [facility], [address] [place], [place] [phone] MCV 79.5(L) 81.3 - 96.4 fL DARINEL SANDERS Comment:Testing performed by : [facility], [address] [place] [address] MCH 24.8(L) 27.1 - 33.3 pg DARINEL [facility] Comment:Testing performed by : [facility], [address] [place] [address] MCHC 31.1(L) 32.3 - 35.7 g/dL DARINEL [facility] Comment:Testing performed by : [facility], [address] [place] [address] RDW CV 17.4(H) 11.1 - 14.9 % DARINEL [facility] Comment:Testing performed by : [facility], [address] [place] [address] NRBC abs 0.00 0.00 - 0.01 K/cumm DARINEL [facility] Comment:Testing performed by : [facility], [address] [place] [address] Blood 05/12/2024 2:07 PM SENIOR FORMULATION SCIENTIST 05/12/2024 2:08 PM SENIOR FORMULATION SCIENTIST us Deena David MD LAB BLOOD ORDERABLES Final Result [facility] Department [place] [address] * (ABNORMAL) Reticulocyte Count (05/12/2024 2:07 PM SENIOR FORMULATION SCIENTIST) Retics, absolute 0.118(H) 0.020 - 0.100 M/cumm Comment:Testing performed by : [facility], [address] [place] [address] Retics 2.5(H) 0.5 - 1.8 % DARINEL [facility] Comment:Testing performed by : [facility], [address] [place] [phone] Blood 05/12/2024 2:07 PM SENIOR FORMULATION SCIENTIST 05/12/2024 2:08 PM SENIOR FORMULATION SCIENTIST Deena David MD LAB BLOOD ORDERABLES Final Result [facility] [place] [address] * (ABNORMAL) Iron profile w/ IBC (05/12/2024 2:03 PM SENIOR FORMULATION SCIENTIST) Iron 59 35 - 145 mcg/dL TIBC >509(H) 250 - 400 mcg/dL [facility] Transferrin saturation <12(L) 20 - 50 % [facility] Blood 05/12/2024 2:03 PM SENIOR FORMULATION SCIENTIST 05/12/2024 2:14 PM SENIOR FORMULATION SCIENTIST Deena David MD LAB BLOOD ORDERABLES Edited Result - Final [facility] [place] [address] * Ferritin (05/12/2024 2:03 PM SENIOR FORMULATION SCIENTIST) Ferritin 13 13 - 150 ng/mL Blood 05/12/2024 2:03 PM SENIOR FORMULATION SCIENTIST 05/12/2024 2:14 PM SENIOR FORMULATION SCIENTIST Deena David MD LAB BLOOD ORDERABLES [place] [address] * Vitamin B12 (05/12/2024 2:03 PM SENIOR FORMULATION SCIENTIST) Vitamin B12 851 230 - 1,250 pg/mL Blood 05/12/2024 2:03 PM SENIOR FORMULATION SCIENTIST 05/12/2024 3:08 PM SENIOR FORMULATION SCIENTIST us Deena David MD LAB BLOOD ORDERABLES Final Result [facility] Department [place] [address] from Last 3 [place] [address] MED[employer]ARE [employer] MED[employer] [place] [address] Care Teams Copier Repair Technician Relationship Specialty Start Date End Date Nacho Oglesby MD PCP - General 02/08/17 Janey Ochoa NP Nurse Practitioner Nurse Practitioner 11/23/20
--- OUTSIDE RECORDS SUMMARY | 2024-07-09 19:28 | XMS_ITS | Referral Summary ---
Author Organization [facility] Address [address] [place] [address] Care Team Providers Care Acid Conditioner Name Role Phone Nacho Oglesby MD Primary Care Provider [phone] Source Comments [facility],non-owned Affiliates and Associated Physician Practices is amultiple site organization consisting of ambulatory clinics and hospital sitesin [place], [place], [place]. This disclosure is being madepursuant to the Care Everywhere program and may not contain all information available regarding this patient. Last updated 18.[facility] Allergies Active Allergy Reactions Criticality Noted Date Comments Ocuflox Other Low 02/12/2012 Nervous sweating could not sleep. Ofloxacin Other Low 03/26/2008 Reaction: shaky, sweaty Floxin Medications * Be aware that medications may not be up to date on this document. Alwaysverify current medications with the patient. Medication Sig Dispensed Refills Start Date End Date Status aspirin EC (Ecotrin) 81 MG tablet Take 1 (one) tablet by mouth every morning Active azelastine (Astelin) 0.1 % nasal spray Debary 2 (two) sprays into each nostril 2 times daily Active bimatoprost (Lumigan) 0.01 % ophth solution Instill 1 (one) drop into both eyes at bedtime Active calcium carbonate (Calci-Chew) 1250 (500 Ca) MG chew tablet Take 2 (two) tablets by mouth at bedtime Active Cholecalciferol 50 MCG (1999 UT) Take 1 (one) tablet by mouth every morning Active citalopram (CeleXA) 40 MG tablet Take 1 (one) tablet by mouth once daily 03/23/2022 Active vitamin B-12 (Cyanocobalamin) 500 MCG tablet Take 1 (one) tablet by mouth at bedtime Active estradiol (Estrace) 0.5 MG tablet Take 1 (one) tablet by mouth once daily 02/25/2022 Active gabapentin (Neurontin) 300 MG capsule Take 1 (one) capsule by mouth 2 times daily 03/29/2022 Active HYDROcodone-acetamino phen (Natural Bridge) 7.5-325 MG tablet Take 1 (one) tablet by mouth 4 times daily 04/01/2022 Active Linzess 145 MCG capsule Take 1 (one) capsule by mouth once daily 01/22/2022 Active LORazepam (Ativan) 1 MG tablet Take 1 (one) tablet by mouth 3 times daily 03/26/2022 Active magnesium oxide (Mag-Ox) 400 MG tablet Take 1.5 (one and one-half) tablets by mouth at bedtime Active montelukast (Singulair) 10 MG tablet Take 1 (one) tablet by mouth once daily as directed. 02/25/2022 Active Multiple Vitamin (Multi-Vitamins) TABS Take 1 (one) tablet by mouth once daily Active nystatin-triamcinolon e (Mycolog) 631485-3.1 UNIT/GM-% cream 4 times daily Active omeprazole (PriLOSEC) 40 MG capsule Take 1 (one) capsule by mouth once daily 01/23/2022 Active predniSONE (Deltasone) 2.5 MG tablet Take 1 (one) tablet by mouth every 2 days 03/23/2022 Active simvastatin (Zocor) 40 MG tablet Take 1 (one) tablet by mouth at bedtime 03/23/2022 Active spironolactone (Aldactone) 50 MG tablet Take 1 (one) tablet by mouth once daily 03/23/2022 Active traZODone (Desyrel) 100 MG tablet Take 1 (one) tablet by mouth at bedtime Active fluticasone-salmetero l (Wixela Inhub) 100-50 MCG/ACT inhaler Inhale 1 (one) puff by mouth 2 times daily Active albuterol HFA (Ventolin HFA) 108 (90 Base) MCG/ACT inhaler Inhale 2 (two) puffs by mouth nightly as needed Active dilTIAZem coated beads 24hr (Cartia XT) 120 MG capsule Take 1 (one) capsule by mouth once daily Do not crush or chew. Active mirabegron ER 24hr (Myrbetriq) 50 MG tablet Take 1 (one) tablet by mouth once daily 28 tablet 04/14/2022 Active Active Problems Problem Noted Date Diagnosed Date Acute bronchitis 04/14/2022 Chest pain, unspecified 04/14/2022 Fatigue 04/14/2022 Migraine 04/14/2022 Nonalcoholic steatohepatitis 04/14/2022 Transient ischemic attack 04/14/2022 Congestion of nasal sinus 03/23/2022 Closed fracture of neck of f ifth metacarpal bone of right hand 01/30/2022 Pain in right hand 01/30/2022 Edema of lower extremity 12/06/2021 Candidiasis of vagina 10/09/2021 Encounter for medication refill 08/18/2021 Long-term current use of opiate analgesic 2021 Abdominal pannus 05/11/2020 Overview (04/14/2022): Added automatically from request for surgery [id number] Petit's neuroma of left foot 12/17/2019 Chronic pain disorder 08/05/2019 Status post bariatric surgery 03/06/2019 Pain in right foot 11/20/2018 Pes planus 11/20/2018 Cardiac arrhythmia, unspecified 07/17/2018 Iron deficiency 07/17/2018 Overview (04/14/2022): folate ok and b12 ok on rx Neuropathy 07/17/2018 Overview (04/14/2022): b12 ok on rx Raynaud's syndrome 07/17/2018 Renal stone 07/17/2018 Screening for other and unsp ecified cardiovascular conditions 07/17/2018 Insomnia with sleep apnea 06/30/2018 Chronic sinusitis 08/09/2017 Anxiety 10/17/2016 Hepatomegaly, not elsewhere classified 3 Overview (09/16/2017): MRI 06/24/12: hepatosplenomegaly, severe steatosis, multiple arterially enhancing liver lesions and spleen lesions c/w sarcoidosis Fatty (change of) liver, not elsewhere classifie d 08/25/2012 Overview (09/16/2017): 07/15/12 liver biopsy: NAFLD with ballooning, dense zone 3 PSF, stage 2, scattered portal granulomas Glaucoma 08/25/2012 Overview (09/16/2017): No useful vision in left eye Uncomplicated asthma 06/23/2012 Obstructive sleep apnea 06/23/2012 Gastro-esophageal reflux disease without esophag itis 06/23/2012 Sarcoidosis 06/23/2012 Overview (09/16/2017): Requiring steroids since 2009, positive lung biopsy Involving joints, lungs and peripheral nerves causing numbness Received azathioprine and MTX in 2010 but stopped because of elevated LFTs Chronic kidney disease, stage II (mild) 06/23/19 13 Cataract 06/23/2012 Hyperlipidemia 06/23/2012 Major depressive disorder, single episode 2012 Type 2 diabetes mellitus without complications 0 06/23/2012 Essential (primary) hypertension 06/23/2012 Obesity 06/23/2012 Cataracts, bilateral 06/23/2012 Depression 06/23/2012 NAFLD (nonalcoholic fatty liver disease) 013 Overview (04/14/2022): Overview: 07/15/12 liver biopsy: NAFLD with ballooning, dense zone 3 PSF, stage 2, scattered portal granulomas Resolved Problems Problem Noted Date Diagnosed Date Resolved Date Acute upper respiratory infection 11/21/2021 04/28/2022 Social History Tobacco Use Types Packs/Day Years Used Date Smoking Tobacco: Former Cigarettes Q uit: 1989 Smokeless Tobacco: Never Tobacco Cessation:Counseling Given: Not Answered Alcohol Use Standard Drinks/Week Comments Not Currently 0 (1 standard drink = 0.6 oz pur e alcohol) Sex and Gender Information Value Date Recorded Sex Assigned at Not on file Gender Identity Not on file Sexual Orientation Not on file Last Filed Vital Signs Vital Sign Reading Time Taken Comments Blood Pressure 100/70 04/09/2022 1:47 PM CDT Pulse - - Temperature 36.2 ??C (97.2 ??F) 04/09/2022 1:47 PM CD T Respiratory Rate - - Oxygen Saturation - - Inhaled Oxygen Concentration - - Weight 71.2 kg (157 lb) 04/09/2022 1:47 PM CDT Height 154.9 cm (5' 1 ) 04/09/2022 1:47 PM CDT Body Mass Index 29.66 04/09/2022 1:47 PM CDT Plan of Treatment Not on file Procedures Procedure Name Priority Date/Time Associated Diagnosis Comments COMPREHENSIVE METABOLIC PANEL Routine 06/23/2012 11:32 AM CERTIFIED PHYSICIAN ASSISTANT HEPATITIS C ANTIBODY Routine 06/23/2012 11:32 AM CERTIFIED PHYSICIAN ASSISTANT from Last 3 Months or Most Recently Relevant to Health Maintenance Results * (ABNORMAL) COMPREHENSIVE METABOLIC PANEL (06/23/2012 11:32 AM CERTIFIED PHYSICIAN ASSISTANT) BUN 13 7 - 26 mg/dL [facility] Creatinine 0.6 0.6 - 1.2 mg/dL [facility] eGFR by MDRD > 60 ML/MIN [facility] Comment: Chronic kidney disease: ??<60 ml/min Kidney failure: ?<15 ml/min Based on BSA of 1.73m2. Sodium 139 136 - 145 mmol/L [facility] Potassium 4.1 3.5 - 4.5 mmol/L [facility] Chloride 102 98 - 107 mmol/L [facility] CO2 22 22 - 29 mmol/L [facility] Glucose 127(H) 70 - 115 mg/dL [facility] Calcium 9.4 8.4 - 10.2 mg/dL [facility] Protein Total 7.1 6.0 - 8.3 g/dL [facility] Albumin 4.2 3.4 - 5.0 g/dL [facility] Bilirubin Total 1.5(H) 0.2 - 1.2 mg/dL [facility] Alkaline Phosphatase 65 40 - 150 Units/L [facility] ALT 89(H) 0 - 55 Units/L [facility] AST 56(H) 5 - 34 Units/L [facility] Anion Gap 19(H) 8 - 18 [facility] BUN/Creatinine Ratio 21 7 - 23 [facility] Osmolality Calculation 275 270 - 300 mOsm/kg [facility] Albumin/Globulin Ratio 1.4 1.1 - 2.3 [facility] Serum 06/23/2012 11:3 2 AM CERTIFIED PHYSICIAN ASSISTANT 06/23/2012 12:18 PM CERTIFIED PHYSICIAN ASSISTANT Gary Gilmore MD LAB - [place] [address], [facility] [phone] * HEPATITIS C ANTIBODY (06/23/2012 11:32 AM CERTIFIED PHYSICIAN ASSISTANT) Hepatitis C Antibody NONREACTIVE NONREACTIVE [facility] Comment: Anti-HCV screen indicates no serologic evidence of past or current infection with Hepatitis C Virus. Patients with unexplained liver disease who are immunocompromised or suspected of having acute Hepatitis C infection may benefit from Nucleic Acid Test (LIANNE) for Hepatitis C Viral RNA to confirm Hepatitis C status. 06/23/2012 11:3 2 AM CERTIFIED PHYSICIAN ASSISTANT 06/23/2012 12:19 PM CERTIFIED PHYSICIAN ASSISTANT Gary Gilmore MD LAB - [place] [address], [facility] [phone] from Last 3 Months or Most Recently Relevant to Health Maintenance Care Teams Acid Conditioner Relationship Specialty Start Date End Date Nacho Oglesby MD [address] [place] [address] [address] [place] [address] [facility] - General 01/25/12
--- OUTSIDE RECORDS SUMMARY | 2024-07-09 19:28 | XMS_ITS | Clinical Summary ---
Author Organization [facility] Address [address] [place] [address] Care Team Providers Care Parts Counter Representative Name Role Phone Nacho Oglesby MD Primary Care Provider Janey Ochoa NP Unavailable [phone] Allergies Active Allergy Reactions Criticality Noted Date [...] Deficiency Prevention Take 1 tablet by mouth custom garment designer before breakfast Active omeprazole (PriLOSEC) 40 mg capsuleIndicatio ns:gerd Take 1 capsule (40 mg total) by mouth every morning Active simvastatin (ZOCOR) 40 mg tabletIndication s:hyperlipidemia Take 1 tablet (40 mg total) by mouth nightly 0 Active spironolactone (ALDACTONE) 50 mg tabletIndication s:hypertension Take 1 tablet (50 mg total) by mouth custom garment designer before breakfast Active calcium carbonate (TUMS) 500 [...] 1 tablet (0.5 mg total) by mouth custom garment designer before breakfast 0 Active valACYclovir (VALTREX) 500 [...] by mouth every other day Saturday and Anjel 01/22/2025Pati ent says that she is taking 2.5mg daily at this time. TC 1 Active OneTouch Ultra Blue Test Strip strip USE TO [...] hours as needed for wheezing 1 each 11 4 Active montelukast (Singulair) 10 mg tabletIndication [...] daily for 7 days 7 tablet 5 Active albuterol-budeso nide 90-80 mcg/actuation HFA aerosol inhaler Inhale 2 puffs 2 (two) times a day 1 g 3 5 Active traZODone (DESYREL) 100 mg tablet Take 1 tablet (100 mg total) by mouth nightly Discontin ued(Alter onelia therapy) azithromycin (ZITHROMAX) 250 mg tablet Take 1 tablet (250 mg total) by mouth daily 4 Discontin ued(Thera py completed ) Active Problems Problem Noted Date Diagnosed Date Viral upper respiratory tract infection 07/08/19 25 Assessment & Plan (07/08/2024 3:09 PM MOLTEN IRON POURER): Chest x-ray does not demonstrate any acute [...] 04/02/2024 Assessment & Plan (07/08/2024 3:09 PM MOLTEN IRON POURER): Previous chest imaging does not demonstrate any concerns for active disease She has had sick symptoms that wax and wane since April, I will check a CT chest Assessment & Plan (04/02/2024 4:06 PM CDT): Chest imaging does not demonstrate any concerns for active disease Mild intermittent asthma without complication Assessment & Plan (07/08/2024 3:10 PM MOLTEN IRON POURER): Continue Wixela 250 twice daily at this [...] (11/17/2020): Added automatically from request for surgery [id number] Abdominal pannus 05/11/2020 Overview (05/11/2020): Added automatically from request for surgery [id number] Status post bariatric surgery 03/06/2019 Encounters Date Type Department Care Team Description 07/08/2024 11:30 AM MOLTEN IRON POURER Lab [address] Pulmonary sarcoidosis (HCC) 07/08/2024 11:00 AM MOLTEN IRON POURER Office Visit [facility] Pulmonary at [address] [place] [phone] Janey Ochoa NP Viral upper respiratory tract infection (Primary Dx); Pulmonary sarcoidosis (HCC); Mild intermittent asthma without complication 07/08/2024 Telephone [facility] Pulmonary at [address] [place] [phone] Yaquelin French LPN Lab Results 07/08/2024 Orders Only [facility] Pulmonary at [address] [place] [phone] Janey Ochoa NP Pulmonary sarcoidosis (HCC) (Primary Dx) 07/07/2024 3:20 PM MOLTEN IRON POURER Ancillary Procedure [facility] Arrived 07/07/2024 Telephone [facility] Pulmonary at [address] [place] [phone] Yareli Raphael LPN F/U CXR 05/22/2024 11:00 AM MOLTEN IRON POURER Infusion [facility] - Infusion [address] [place] [address] Iron deficiency anemia, unspecified iron deficiency anemia type (Primary Dx) 05/19/[address] [facility] Hematology [address] 2nd [address] [place] [address] Bambi Gutierrez RN Iron deficiency anemia, unspecified iron deficiency anemia type (Primary Dx) 05/12/2024 2:00 PM MOLTEN IRON POURER Lab [facility] Oncology Lab [address] [facility] Floor [address] [place] [address] 05/12/2024 1:45 PM MOLTEN IRON POURER Lab [facility] - Lab Collection [address] [facility] Floor [address] [place] [address] Iron deficiency anemia, unspecified iron deficiency anemia type 05/12/2024 1:00 PM MOLTEN IRON POURER Office Visit [facility] Hematology [address] [facility] Floor 6 [place] [address] Deena David MD Iron deficiency anemia, unspecified iron deficiency anemia type (Primary Dx); Other iron deficiency anemia; Bariatric surgery status; Other specified intestinal malabsorption 05/05/[address] [facility] Hematology [address] [facility] Floor [address] [place] [address] Una Small from Last 3 Months Immunizations Name Administration Dates Next Due Influenza, Quadrivalent, Spl it, Intramuscular 04/04/2022,04/16/2021,03/19/2018,03/12,04/04/2015 Influenza, Quadrivalent, Spl it, Preservative Free, Intramuscular 05/02/2023,03/11/2020,04/18/2017,04/18 Influenza, Trivalent, IM (MDV) 4,04/12/2014,03/25/2013,03/25 Pneumococcal Conjugate PCV 13 05/03/2014, 014 Pneumococcal Polysaccharide PPV23 06/22/2015,11/2015,06/21/2015 Sars-CoV-2, Unspecified 03/11/2021 Surgical History Surgery Date Site/Laterality Comments NC [facility] INCL FLUOR GDNCE DX W/CELL WASHG SPX Bronchoscopy (Diagnostic) - (Added by TW Conv) [place] ESOPHAGOGASTRODUODENOSCOP Y TRANSORAL DIAGNOSTIC Diagnostic Esophagogastroduodenoscopy - (Added by TW Conv) NC TOTAL ABDOMINAL HYSTERECT W/WO RMVL TUBE OVARY Hysterectomy - (Added by TW Conv) NC LIG/TRNSXJ FLP TUBE ABDL/ VAG APPR UNI/BI Tubal Ligation - (Added by TW Conv) NC LITHOTRIPSY XTRCORP SHOCK WAVE Lithotripsy - Whole Body (Extracorporeal Shock Wave) - 2006 (Added by TW Conv) HYSTERECTOMY CHOLECYSTECTOMY BREAST SURGERY GASTRIC BYPASS NOSE SURGERY Medical History Medical History Date Comments Personal history of arthritis Ar thritis - (Added by TW Conv) Personal history of urinary calculi Nephrolithiasis - (Added by TW Conv) Anxiety disorder Anxiety - (Adde d by TW Conv) Personal history of other di seases of the nervous system and sense organs History of glaucoma - (Added by TW Conv) Personal history of other di seases of the circulatory system History of hypertension - (A dded by TW Conv) Personal history of other di seases of the digestive system History of esophageal reflux - (Added by TW Conv) Personal history of other endocrine, nutritional and metabolic disease History of hyperlipidemia - (Added by TW Conv) Personal history of other me ntal and behavioral disorders History of depression - (Add ed by TW Conv) Personal history of other di seases of the respiratory system Personal history of asthma - (Added by TW Conv) Personal history of other sp ecified conditions History of shortness of delvis th - (Added by TW Conv) Obstructive sleep apnea Obstruct keke sleep apnea - (Added by TW Conv) Stroke (HCC) 2012 mini Pulmonary sarcoidosis (HCC) 04/02/2024 Viral upper respiratory trac t infection 07/08/2024 Family History Medical History Relation Name Comments Diabetes Father FHx: diabetes m ellitus - (Added by TW Conv) Heart disease Father Family history of cardiovascular disease - (Added by TW Conv) Hypertension Father Family history of hypertension - (Added by TW Conv)/Hypertension - (Added by TW Conv) Hypertension Mother Family history of hypertension - (Added by TW Conv) Hypertension Sister 1 Hypertension - (Added by TW Conv) Multiple sclerosis Sister 2 Multiple Sclerosis - (Added by TW Conv) Diabetes Sister 3 FHx: diabetes m ellitus - (Added by TW Conv) Anesthesia problems Neg Hx Relation Name Status Comments Father Mother Sister 1 Sister 2 Sister 3 Social History Tobacco Use Types Packs/Day Years Used Date Smoking Tobacco: Former Cigarettes 1 1990 Smokeless Tobacco: Never Tobacco Cessation:Counseling Given: [...] on file Legal Sex Female 3:21 AM MOLTEN IRON POURER Gender Identity Female 04/09/2021 10:59 PM CDT Sexual Orientation Straight 03/01/2020 2: 52 PM CDT Obstetrics History Last Filed Vital Signs Vital Sign Reading Time Taken Comments Blood Pressure 102/90 07/08/2024 11:06 AM MOLTEN IRON POURER Pulse 74 07/08/2024 11:06 AM MOLTEN IRON POURER Temperature 35.6 ??C (96.1 ??F) 07/08/2024 11:[address] Respiratory Rate 18 05/22/2024 10:55 AM MOLTEN IRON POURER Oxygen Saturation 97% 07/08/2024 11:06 AM MOLTEN IRON POURER Inhaled Oxygen Concentration - - Weight 81.8 kg (180 lb 4.8 oz) 07/08/2024 11:06 AM MOLTEN IRON POURER Height 154.9 cm (5' 1 ) 07/08/2024 11:06 AM MOLTEN IRON POURER Body Mass Index 34.07 07/08/2024 11:06 AM MOLTEN IRON POURER Plan of Treatment Health Maintenance Due Date Last Done Comments Breast Cancer Screening-Mammogram 1969 Colon Cancer Screening-Colonoscopy 1969 Depression Screening 1969 Hepatitis C Screening 1969 DTaP/Tdap/Td Vaccine (1 - Tdap) 1980 Hepatitis B Screening 12/20/1987 Regular Well Visit/Exam 18-64 12/20/1987 Zoster Vaccine (1 of 2) 12/20/2019 Covid-19 Vaccine (4 - 2023-2 5 season) 2024 03/11/2021, 09/08/2020, 08/18/2020 Pneumococcal vaccine <65 (3 of 3 - PPSV23 or PCV20) 2034 06/22/2015, 06/22/2015, 06/21/2015, Additional history exists Influenza Vaccine Completed 05/04/2024, , 04/04/2022, Additional history exists Medical Devices Implanted Type Area Automatic Nailing Machine Operator Device Identifier Shelf Expiration Date Model / Serial / Lot Shunt Left: Eye Procedures Procedure Name Priority Date/Time Associated Diagnosis Comments EGFR Routine 07/08/2024 10:54 AM MOLTEN IRON POURER Pulmonary sarcoidosis (HCC) DIFFERENTIAL AUTO Routine 07/08/2024 10: 54 AM MOLTEN IRON POURER Pulmonary sarcoidosis (HCC) CBC WITH AUTO DIFFERENTIAL Routine 07/08/2024 10:54 AM MOLTEN IRON POURER Pulmonary sarcoidosis (HCC) BASIC METABOLIC PANEL Routine 07/08/2024 10:54 AM MOLTEN IRON POURER Pulmonary sarcoidosis (HCC) PRO B-TYPE NATRIURETIC PEPTIDE Routine 07/08/2024 10:54 AM MOLTEN IRON POURER Pulmonary sarcoidosis (HCC) XR TRANSFER OF OUTSIDE FILMS Routine 07/07/2024 3:20 PM MOLTEN IRON POURER DIFFERENTIAL AUTO Routine 05/12/2024 2:0 7 PM MOLTEN IRON POURER Iron deficiency anemia, unspecified iron deficiency anemia type CBC WITH AUTO DIFFERENTIAL Routine 05/12/2024 2:07 PM MOLTEN IRON POURER Iron deficiency anemia, unspecified iron deficiency anemia type RETICULOCYTES Routine 05/12/2024 2:07 PM MOLTEN IRON POURER Iron deficiency anemia, unspecified iron deficiency anemia type FERRITIN Routine 05/12/2024 2:03 PM MOLTEN IRON POURER Iron deficiency anemia, unspecified iron deficiency anemia type IRON PROFILE W/ IBC Routine 05/12/2024 2 :03 PM MOLTEN IRON POURER Iron deficiency anemia, unspecified iron deficiency anemia type VITAMIN B12 Routine 05/12/2024 2:03 PM MOLTEN IRON POURER Iron deficiency anemia, unspecified iron deficiency anemia type from Last 3 Months Results * eGFR (07/08/2024 10:54 AM MOLTEN IRON POURER) eGFR >90 >=60 mL/min/1. 73 m2 Comment: [...] reviewed 2021. Blood 07/08/2024 10:5 4 AM MOLTEN IRON POURER 07/08/2024 1:33 PM MOLTEN IRON POURER us Janey Ochoa PHARMACEUTICAL ENGINEER LAB BLOOD ORDERABLES Final Result DARINEL AMAYA ([place]) 1 [facility] Department [place] [address] * Differential, auto (07/08/2024 10:54 AM MOLTEN IRON POURER) Neutrophil abs 3.5 1.5 - 6.5 K/cumm Imm gran abs 0.0 0.0 - 0.1 K/cumm [facility] ([place]) Lymphocyte abs 1.1 0.8 - 3.3 K/cumm [facility] ([place]) Monocyte abs 0.4 0.2 - 0.8 K/cumm [facility] ([place]) Eosinophil abs 0.1 0.0 - 0.5 K/cumm [facility] ([place]) Basophil abs 0.0 0.0 - 0.1 K/cumm [facility] ([place]) Neutrophil pct 67.7 % [facility]NE R [facility] ([place]) Comment: Interpretive Data Percent cell count reference [...] revised on 2017. Basophil pct 0.8 % DARINEL AMAYA ([place]) Comment: Interpretive Data Percent cell count reference ranges are not reported, since discordance with absolute values may lead to misinterpretation of CBC data. Current Interpretive Data was last revised on 2017. Blood 07/08/2024 10:5 4 AM MOLTEN IRON POURER 07/08/2024 1:33 PM MOLTEN IRON POURER us Janey Ochoa PHARMACEUTICAL ENGINEER LAB BLOOD ORDERABLES Final Result DARINEL AMAYA ([place]) 1 [facility] Department [place] [address] * Pro B-type natriuretic peptide (07/08/2024 10:54 AM MOLTEN IRON POURER) NT-proBNP <36 <=300 pg/mL Comment: Interpretive Comments: [...] Heart J. 2006:27:330-337. 2. Simon RW, Esperanza BARROS. J. AM Maurilio Cardiol: Cardiovasc Imag. 2009;2: 216- 225. Interpretive Data Last Revised Date: 2018. Blood 07/08/2024 10:5 4 AM MOLTEN IRON POURER 07/08/2024 1:33 PM MOLTEN IRON POURER Janey Ochoa PHARMACEUTICAL ENGINEER LAB BLOOD ORDERABLES Final Result [facility] ([place]) 1 [facility] Department [place] [address] * (ABNORMAL) CBC with auto differential (07/08/2024 10:54 AM MOLTEN IRON POURER) WBC 5.2 3.8 - 9.9 K/cumm Hgb [...] [facility] ([place]) Blood 07/08/2024 10:5 4 AM MOLTEN IRON POURER 07/08/2024 1:33 PM MOLTEN IRON POURER us Janey Ochoa PHARMACEUTICAL ENGINEER LAB BLOOD ORDERABLES Final Result [facility] ([place]) 1 [facility] Department [place] [address] * (ABNORMAL) Basic metabolic panel (07/08/2024 10:54 AM MOLTEN IRON POURER) Sodium 134(L) 135 - 145 mmol/L Potassium, pl 3.7 3.3 - 4.9 mmol/L [facility] ([place]) Chloride 98 97 - 110 mmol/L [facility] ([place]) CO2 25 22 - 32 mmol/L [facility] ([place]) Anion gap 11 2 - 15 mmol/L [facility] ([place]) BUN 10 6 - 25 mg/dL [facility] ([place]) Creatinine 0.65 0.60 - 1.10 mg/dL [facility] ([place]) Glucose 132 70 - 199 mg/dL [facility] ([place]) Comment: Interpretive Data Fasting glucose [...] classification and Diagnosis of Diabetes Diabetes Care 202; 46: S19-S40. Current interpretive data was last revised 2022. Calcium 9.7 8.5 - 10.3 mg/dL [facility] ([place]) Blood 07/08/2024 10:5 4 AM MOLTEN IRON POURER 07/08/2024 1:33 PM MOLTEN IRON POURER us Janey Ochoa PHARMACEUTICAL ENGINEER LAB BLOOD ORDERABLES Final Result DARINEL AMAYA ([place]) 1 [facility] Department [place] [address] * XR Outside Reference (07/07/2024 3:20 PM MOLTEN IRON POURER) Narrative [facility]_PACS_[facility] - 07/08/2024 9:28 AM MOLTEN IRON POURER This order has been auto-finalized and does not contain a result. us Not In File Miscellaneous IMG XR PROCEDURES Lynn l Result Performing Organization Address City/[facility] Co de Phone Number [facility] * Differential, auto (05/12/2024 2:07 PM MOLTEN IRON POURER) Neutrophil abs 4.4 1.5 - 6.5 K/cumm Comment:Testing performed by : [facility], [address] [place], [place] [phone] Lymphocyte abs 1.4 0.8 - 3.3 K/cumm [facility] Comment:Testing performed by : [facility], [address] [place] [phone] Monocyte abs 0.4 0.2 - 0.8 K/cumm [facility] Comment:Testing performed by : [facility], [address] [place], [place] [phone] Eosinophil abs 0.1 0.0 - 0.5 K/cumm [facility] Comment:Testing performed by : [facility], [address] [place] [phone] Basophil abs 0.1 0.0 - 0.1 K/cumm [facility] Comment:Testing performed by : [facility], [address] [place] [phone] Neutrophil pct 69.1 % [facility] Comment: Interpretive Data Percent cell count reference ranges are not reported, since discordance with absolute values may lead to misinterpretation of CBC data. Current Interpretive Data was last revised on 2017. Testing performed by: [facility], [address] [place] [phone] Lymphocyte pct 21.6 % CERNER [facility] Comment: Interpretive Data Percent cell count reference ranges are not reported, since discordance with absolute values may lead to misinterpretation of CBC data. Current Interpretive Data was last revised on 2017. Testing performed by: [facility], [address] [place] [phone] Monocyte pct 6.5 % CERNER [facility] Comment: Interpretive Data Percent cell count reference ranges are not reported, since discordance with absolute values may lead to misinterpretation of CBC data. Current Interpretive Data was last revised on 2017. Testing performed by: [facility], [address] [place] [phone] Eosinophil pct 1.9 % CERNER [facility] Comment: Interpretive Data Percent cell count reference ranges are not reported, since discordance with absolute values may lead to misinterpretation of CBC data. Current Interpretive Data was last revised on 2017. Testing performed by: [facility], [address] [place] [phone] Basophil pct 0.9 % [facility] Comment: Interpretive Data Percent cell count reference ranges are not reported, since discordance with absolute values may lead to misinterpretation of CBC data. Current Interpretive Data was last revised on 2017. Testing performed by: [facility], [address] [place] [phone] Blood 05/12/2024 2:07 PM MOLTEN IRON POURER 05/12/2024 2:08 PM MOLTEN IRON POURER us Deena David MD LAB BLOOD ORDERABLES Final Result DARINEL SANDERS [facility] Department [place] [address] * (ABNORMAL) CBC with auto differential (05/12/2024 2:07 PM MOLTEN IRON POURER) WBC 6.3 3.8 - 9.9 K/cumm Comment:Testing performed by : [facility], [address] [place] [address] Hgb 11.8(L) 11.9 - 15.5 g/dL CERNER [facility] Comment:Testing performed by : [facility], [address] [place], [place] [phone] Hct 37.9 35.6 - 45.5 % CERNER [facility] Comment:Testing performed by : [facility], [address] [place], [place] [phone] Plt 208 150 - 400 K/cumm C[facility]ER [facility] Comment:Testing performed by : [facility], [address] [place], [place] [phone] MPV 8.8 6.8 - 10.4 fL CERNER [facility] Comment:Testing performed by : [facility], [address] [place], [place] [phone] RBC 4.77 3.90 - 5.20 M/cumm CERNER [facility] Comment:Testing performed by : [facility], [address] [place] [address] MCV 79.5(L) 81.3 - 96.4 fL CERNER [facility] Comment:Testing performed by : [facility], [address] [place], [place] [phone] MCH 24.8(L) 27.1 - 33.3 pg CERNER [facility] Comment:Testing performed by : [facility], [address] [place] [address] MCHC 31.1(L) 32.3 - 35.7 g/dL CERNER [facility] Comment:Testing performed by : [facility], [address] [place] [address] RDW CV 17.4(H) 11.1 - 14.9 % CERNER [facility] Comment:Testing performed by : [facility], [address] [place] [address] NRBC abs 0.00 0.00 - 0.01 K/cumm CERNER [facility] Comment:Testing performed by : [facility], [address] [place] [phone] Blood 05/12/2024 2:07 PM MOLTEN IRON POURER 05/12/2024 2:08 PM MOLTEN IRON POURER Result [facility] Deena David MD LAB BLOOD ORDERABLES Final Result Performing Organization Address [facility]/ZIP Co de Phone Number [facility] [place] [address] * (ABNORMAL) Reticulocyte Count (05/12/2024 2:07 PM MOLTEN IRON POURER) Retics, absolute 0.118(H) 0.020 - 0.100 M/cumm Comment:Testing performed by : [facility], [address] [place] [phone] Retics 2.5(H) 0.5 - 1.8 % [facility] Comment:Testing performed by : [facility], [address] [place] [phone] Blood 05/12/2024 2:07 PM MOLTEN IRON POURER 05/12/2024 2:08 PM MOLTEN IRON POURER Result [facility] Deena David MD LAB BLOOD ORDERABLES Final Result Performing Organization Address [facility] Co de Phone Number [facility] [place] [address] * (ABNORMAL) Iron profile w/ IBC (05/12/2024 2:03 PM MOLTEN IRON POURER) Iron 59 35 - 145 mcg/dL TIBC >509(H) 250 - 400 mcg/dL [facility] Transferrin saturation <12(L) 20 - 50 % [facility] Blood 05/12/2024 2:03 PM MOLTEN IRON POURER 05/12/2024 2:14 PM MOLTEN IRON POURER Deena David MD LAB BLOOD ORDERABLES Edited Result - [facility] [place] [address] * Ferritin (05/12/2024 2:03 PM MOLTEN IRON POURER) Ferritin 13 13 - 150 ng/mL Blood 05/12/2024 2:03 PM MOLTEN IRON POURER 05/12/2024 2:14 PM MOLTEN IRON POURER Deena David MD LAB BLOOD ORDERABLES Edited Result - Final Performing Organization Address [facility] Co de Phone Number [facility] [place] [address] * Vitamin B12 (05/12/2024 2:03 PM MOLTEN IRON POURER) Vitamin B12 851 230 - 1,250 pg/mL Blood 05/12/2024 2:03 PM MOLTEN IRON POURER 05/12/2024 3:08 PM MOLTEN IRON POURER Deena David MD LAB BLOOD ORDERABLES Final Result Performing Organization Address [facility] de Phone Number [facility] [place] [address] from Last 3 Months Insurance IDPA [employer] [facility] Address: [place] [address] [employer] [facility] [facility] [employer] Address: [place] [address] [employer] [facility] [employer] Address: [place] [address] IDPA Care Teams Parts Counter Representative Relationship Specialty Start Date End Date Nacho Oglesby MD PCP - General 02/08/17 Janey Ochoa NP Nurse Practitioner Nurse Practitioner 11/23/20
--- OUTSIDE RECORDS SUMMARY | 2024-07-09 19:28 | XMS_ITS | Clinical Summary ---
Author Organization [facility] Address [address] [place] [address] Care Team Providers Care Business Solutions Director Name Role Phone Nacho Oglesby MD Primary Care Provider [phone] Source Comments [facility],non-owned Affiliates and Associated Physician Practices is amultiple site organization consisting of ambulatory clinics and hospital sitesin [place], [place], [place] and [place]. This disclosure is being madepursuant to the Care Everywhere program and may not contain all information available regarding this patient. 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 Chronic [...] Date Acute upper respiratory infection 11/21/2021 04/28/2022 Family History Medical History Relation Name Comments CAD (Coronary Artery Disease) Father CVA Father Diabetes - Type 2 Father Glaucoma Father Heart Failure Father High Cholesterol Father Hypertension Father Status: d Cancer - Breast Maternal Aunt Depression Mother Glaucoma Mother High Cholesterol Mother Hypertension Mother Status: Alive CAD (Coronary Artery Disease) Paternal Grandfather Cancer Paternal Grandfather of lung cancer Cancer - Lung Paternal Grandfather Hypertension Paternal Grandfather Cancer Paternal Grandmother of brain cancer Cancer - Other Paternal Grandmother brain CAD (Coronary Artery Disease) Sister CVA Sister Cancer - Other Sister cervical Diabetes - Type 2 Sister Heart Failure Sister High Cholesterol Sister Hypertension Sister Osteoporosis Sister Cancer - Colon Neg Hx Colon polyps Neg Hx Relation Name Status Comments Father Maternal Aunt Alive Mother Paternal Grandfather Paternal Grandmother Sister Social History Tobacco Use Types Packs/Day Years [...] 04/09/2022 1:47 PM CDT Plan of Treatment Health Maintenance Due Date Last Done Comments COLOGUARD (AGES 45-75) - COLON CA SCREENING 1969 COLON MONITORING 1969 COLONOSCOPY - COLON CA SCREENING 1969 CT COLONOGRAPHY - COLON CA SCREENING 1969 Colorectal Cancer Screening 1969 FIT - COLON CA SCREENING 1969 FLEX SIG - COLON CA SCREENING 1969 MAMMOGRAM 1969 PAP SMEAR 1969 HIV SCREENING 1984 DTAP/TDAP/TD VACCINES (1 - Tdap) 1988 HEPATITIS B VACCINE (1 of 3 - 19+ 3-dose series) 1988 PNEUMOCOCCAL VACCINE 50+ (1 of 2 - PCV) 1988 PNEUMOCOCCAL VACCINE (1 of 2 - PCV) 1988 DIABETES-SERUM CREATININE 06/23/2013 06/23/2012 ZOSTER VACCINE (1 of 2) 12/20/2019 DIABETES RETINOPATHY SCREENING 04/09/2022 02/12/2012, 02/12/2012 DIABETES-FOOT EXAM WITH MONOFILAMENT 04/09/2022 DIABETES-HGB A1C 04/09/2022 COVID-19 VACCINE (3 - 2023- season) 2024 09/08/2020, 08/18/2020 INFLUENZA VACCINE (#1) 2024 1, 03/11/2020, 03/19/2018, Additional history exists DEPRESSION SCREENING 06/17/2024 DIABETES - URINE PROTEIN SCREENING 06/17/2024 MEDICARE AWV ? CALENDAR YEAR 2024 HEPATITIS C SCREENING Completed 06/23/2012 HIB VACCINE Aged Out No longer eligi ble based on patient's age to complete this topic HPV VACCINE Aged Out No longer eligi ble based on patient's age to complete this topic MENINGOCOCCAL (Group B) VACCINE Aged Out No longer eligible based on patient's age to complete this topic MENINGOCOCCAL VACCINE Aged Out No ramy kirsten eligible based on patient's age to complete this topic Procedures Procedure Name Priority Date/Time Associated Diagnosis Comments COMPREHENSIVE METABOLIC PANEL Routine 06/23/2012 11:32 AM STAFF ATTORNEY HEPATITIS C ANTIBODY Routine 06/23/2012 11:32 AM STAFF ATTORNEY from Last 3 Months or Most Recently Relevant to Health Maintenance Results * (ABNORMAL) COMPREHENSIVE METABOLIC PANEL (06/23/2012 11:32 AM STAFF ATTORNEY) BUN 13 7 - 26 mg/dL [facility] Creatinine 0.6 0.6 - 1.2 mg/dL [facility] eGFR by MDRD > 60 ML/MIN [facility] Comment: Chronic kidney disease: ??<60 ml/min Kidney failure: ?<15 ml/min Based on BSA of 1.73m2. Sodium 139 136 - 145 mmol/L [facility] Potassium 4.1 3.5 - 4.5 mmol/L [facility] Chloride 102 98 - 107 mmol/L [facility] CO2 22 22 - 29 mmol/L [facility] Glucose 127(H) 70 - 115 mg/dL [facility] Calcium 9.4 8.4 - 10.2 mg/dL [facility] Protein Total 7.1 6.0 - 8.3 g/dL [facility] Albumin 4.2 3.4 - 5.0 g/dL [facility] Bilirubin Total 1.5(H) 0.2 - 1.2 mg/dL [facility] Alkaline Phosphatase 65 40 - 150 Units/L [facility] ALT 89(H) 0 - 55 Units/L [facility] AST 56(H) 5 - 34 Units/L [facility] Anion Gap 19(H) 8 - 18 [facility] BUN/Creatinine Ratio 21 7 - 23 [facility] Osmolality Calculation 275 270 - 300 mOsm/kg [facility] Albumin/Globulin Ratio 1.4 1.1 - 2.3 [facility] Serum 06/23/2012 11:3 2 AM STAFF ATTORNEY 06/23/2012 12:18 PM STAFF ATTORNEY Gary Gilmore MD LAB - CHEM ISTRY ORDERABLES [address] [phone] * HEPATITIS C ANTIBODY (06/23/2012 11:32 AM STAFF ATTORNEY) Hepatitis C Antibody NONREACTIVE NONREACTIVE [facility] Comment: Anti-HCV screen indicates no serologic evidence of past or current infection with Hepatitis C Virus. Patients with unexplained liver disease who are immunocompromised or suspected of having acute Hepatitis C infection may benefit from Nucleic Acid Test (LIANNE) for Hepatitis C Viral RNA to confirm Hepatitis C status. 06/23/2012 11:3 2 AM STAFF ATTORNEY 06/23/2012 12:19 PM STAFF ATTORNEY Gary Gilmore MD LAB - CHEM ISTRY ORDERABLES [address] [phone] from Last 3 Months or Most Recently Relevant to Health Maintenance Care Teams Business Solutions Director Relationship Specialty Start Date End Date Nacho Oglesby MD [address] [place] [address] [address] [place] [address] PCP - General 01/25/12
--- OUTSIDE RECORDS SUMMARY | 2024-07-09 19:28 | XMS_ITS | Patient Health Summary ---
Author Organization [facility] Address [address] [place] [address] Care Team Providers Care Fisher Eel Name Role Phone Nacho Oglesby MD Primary Care Provider [phone] Note from [facility],non-owned Affiliates and Associated Physician Practices is amultiple site organization consisting of ambulatory clinics and hospital sitesin [place], [place], [place] and [place]. This disclosure is being madepursuant to the Care Everywhere program and may not contain all information available regarding this patient. Last updated 18.[facility] Allergies * Ocuflox(Other) -Low Criticality * Ofloxacin(Other) -Low Criticality Medications * Be aware that medications may not be up to date on this document. Alwaysverify current medications with the patient. * aspirin EC (Ecotrin) 81 MG tablet Take 1 (one) tablet by mouth every morning * azelastine (Astelin) 0.1 % nasal spray Homeland 2 (two) sprays into each nostril 2 times daily * bimatoprost (Lumigan) 0.01 % ophth solution Instill 1 (one) drop into both eyes at bedtime * calcium carbonate (Calci-Chew) 1250 (500 Ca) MG chew tablet Take 2 (two) tablets by mouth at bedtime * Cholecalciferol 50 MCG (2000 UT) Take 1 (one) tablet by mouth every morning * citalopram (CeleXA) 40 MG tablet(Started 03/23/2022) Take 1 (one) tablet by mouth once daily * vitamin B-12 (Cyanocobalamin) 500 MCG tablet Take 1 (one) tablet by mouth at bedtime * estradiol (Estrace) 0.5 MG tablet(Started 02/25/2022) Take 1 (one) tablet by mouth once daily * gabapentin (Neurontin) 300 MG capsule(Started 03/29/2022) Take 1 (one) capsule by mouth 2 times daily * HYDROcodone-acetaminophen (Ensign) 7.5-325 MG tablet(Started 04/01/2022) Take 1 (one) tablet by mouth 4 times daily * Linzess 145 MCG capsule(Started 01/22/2022) Take 1 (one) capsule by mouth once daily * LORazepam (Ativan) 1 MG tablet(Started 03/26/2022) Take 1 (one) tablet by mouth 3 times daily * magnesium oxide (Mag-Ox) 400 MG tablet Take 1.5 (one and one-half) tablets by mouth at bedtime * montelukast (Singulair) 10 MG tablet(Started 02/25/2022) Take 1 (one) tablet by mouth once daily as directed. * Multiple Vitamin (Multi-Vitamins) TABS Take 1 (one) tablet by mouth once daily * nystatin-triamcinolone (Mycolog) 338005-8.1 UNIT/GM-% cream 4 times daily * omeprazole (PriLOSEC) 40 MG capsule(Started 01/23/2022) Take 1 (one) capsule by mouth once daily * predniSONE (Deltasone) 2.5 MG tablet(Started 03/23/2022) Take 1 (one) tablet by mouth every 2 days * simvastatin (Zocor) 40 MG tablet(Started 03/23/2022) Take 1 (one) tablet by mouth at bedtime * spironolactone (Aldactone) 50 MG tablet(Started 03/23/2022) Take 1 (one) tablet by mouth once daily * traZODone (Desyrel) 100 MG tablet Take 1 (one) tablet by mouth at bedtime * fluticasone-salmeterol (Wixela Inhub) 100-50 MCG/ACT inhaler Inhale 1 (one) puff by mouth 2 times daily * albuterol HFA (Ventolin HFA) 108 (90 Base) MCG/ACT inhaler Inhale 2 (two) puffs by mouth nightly as needed * dilTIAZem coated beads 24hr (Cartia XT) 120 MG capsule Take 1 (one) capsule by mouth once daily Do not crush or chew. * mirabegron ER 24hr (Myrbetriq) 50 MG tablet(Started 04/14/2022) Take 1 (one) tablet by mouth once daily Active Problems Problem Noted Date Diagnosed Date [...] of opiate analgesic 2021 Abdominal pannus 05/11/2020 Petit's neuroma of left foot 12/17/2019 Chronic pain disorder 08/05/2019 Status post bariatric surgery 03/06/2019 Pain in right foot 11/20/2018 Pes planus 11/20/2018 Cardiac arrhythmia, unspecified 07/17/2018 Iron deficiency 07/17/2018 Neuropathy 07/17/2018 Raynaud's syndrome 07/17/2018 Renal stone 07/17/2018 Screening for other and unsp ecified cardiovascular conditions 07/17/2018 Insomnia with sleep apnea 06/30/2018 Chronic sinusitis 08/09/2017 Anxiety 10/17/2016 Hepatomegaly, not elsewhere classified 3 Fatty (change of) liver, not elsewhere classifie d 08/25/2012 Glaucoma 08/25/2012 Uncomplicated asthma 06/23/2012 Obstructive sleep apnea 06/23/2012 Gastro-esophageal reflux disease without esophag itis 06/23/2012 Sarcoidosis 06/23/2012 Chronic kidney disease, stage II (mild) 06/23/19 13 Cataract 06/23/2012 Hyperlipidemia 06/23/2012 Major depressive disorder, single episode 2012 Type 2 diabetes mellitus without complications 0 06/23/2012 Essential (primary) hypertension 06/23/2012 Obesity 06/23/2012 Cataracts, bilateral 06/23/2012 Depression 06/23/2012 NAFLD (nonalcoholic fatty liver disease) 013 Resolved Problems Problem Noted Date Diagnosed Date [...] Mass Index 29.66 04/09/2022 1:47 PM CDT Procedures * URINALYSIS AUTO - POINT OF CARE (AMB) [facility](Performed 04/09/2022) Performed for Mixed stress and urge urinary incontinence * NM INSERT NON-INDWELLING BLADDER(Performed 04/09/2022) Performed for Mixed stress and urge urinary incontinence * GLUCOSE ACCUCHECK(Performed 07/15/2012) * MRI ABDOMEN WWO CONTRAST(Performed 06/24/2012) * CREATININE BLOOD - POCT (IP) [facility](Performed 06/24/2012) * [id number] BLOOD PHENOTYPING PANEL(Performed 06/23/2012) * MITOCHONDRIAL ANTIBODY SCREEN(Performed 06/23/2012) * ROSA BLOOD SCREEN(Performed 06/23/2012) * SMOOTH MUSCLE ANTIBODY(Performed 06/23/2012) * HEPATITIS C ANTIBODY(Performed 06/23/2012) * HEPATITIS B SURFACE ANTIBODY(Performed 06/23/2012) * HEPATITIS B CORE ANTIBODY TOTAL(Performed 06/23/2012) * HEPATITIS B SURFACE ANTIGEN W RFLX CONFIRMATION(Performed 06/23/2012) * CBC W AUTO DIFFERENTIAL(Performed 06/23/2012) * COMPREHENSIVE METABOLIC PANEL(Performed 06/23/2012) * PT-INR [facility](Performed 06/23/2012) Results * URINALYSIS AUTO - POINT OF CARE (AMB) [facility] (04/09/2022 2:15 PM CDT) Glucose UA neg Bilirubin UA POCT neg Ketones UA POCT neg Specific [place] UA 1.010 Blood Urine POCT neg pH UA 7.5 Protein UA neg Urobilinogen UA neg Nitrite UA neg WBC UA neg Urine URINE / Unknown 04/09/2022 2 :15 PM CDT Leidy Iqbal MD LAB - POINT OF CARE ORDERABLES * NM INSERT NON-INDWELLING BLADDER (04/09/2022 2:03 PM CDT) Narrative Leidy Iqbal MD - 04/09/2022 2:03 PM CDT Leidy Iqbal MD ? 04/14/2022 ??4:34 PM Procedure note: Straight catheterization was performed after swabbing the urethra with betadine. A 14 Fr urethral catheter was inserted without difficulty and the bladder was drained for 20 mL. The patient tolerated the procedure well. ?? Leidy Iqbal MD PROCEDURE/MINOR JORDAN GICAL ORDERABLES * (ABNORMAL) GLUCOSE ACCUCHECK (07/15/2012 1:12 PM CARE AID) Glucose, Fingerstick 175(H) 70 - 110 MG/DL [facility] Comment:PERFORMED BY: JALEESA RODRIGUEZ 07/15/2012 1:12 PM CARE AID 07/15/2012 1:26 PM CARE AID Gary Gilmore MD LAB - CHEM ISTRY ORDERABLES [facility] [address] [place] [address] * MRI ABDOMEN WWO CONTRAST (06/24/2012 11:27 AM CARE AID) Anatomical Region Laterality Modality Abdomen Other Impressions 06/24/2012 3:22 PM CARE AID Impression: 1. Hepatosplenomegaly with severe diffuse steatosis. 2. Multiple mildly arterial enhancing lesions throughout the liver as described above. These are nonspecific but most likely represent hepatic sarcoidosis. Needle biopsy could be considered for confirmation. 3. Multiple splenic granulomas consistent with sarcoidosis. 4. No significant abdominal lymphadenopathy. This report was approved ??by Benjie Ladd M.D. ?? on 06/24/2012 3:22 PM . I, Dr. SHERRELL LEO M.D. have personally reviewed and interpreted this examination/study. This report was electronically signed by SHERRELL LEO M.D. ??on 06/24/2012 3:22 PM . Narrative 06/24/2012 3:22 PM CARE AID MRI abdomen with and without contrast History: ??Sarcoidosis, hepatomegaly, elevation of hepatic function tests Technique: Single shot fast spin-echo T2: Coronal, axial. Single shot fast spin-echo T2 fat-sat: Axial. Diffusion: Axial. In phase and out of phase: Axial. Dynamic axial. Contrast: 20 ml Multihance Findings: The liver is markedly enlarged measuring 29 cm craniocaudally at its greatest dimension. There is marked diffuse hepatic steatosis. The intrahepatic and extrahepatic bile ducts are not dilated. There is a 1.1 cm arterial enhancing focus in hepatic segment 4A (image 14 series 9) which fades to isointensity on delayed sequences. There is a 1.4 x 1.8 cm in hepatic segment 5 (image 51 series 9) T1 hyperintense lesion with mild enhancement that persists throughout the delayed sequences. There is a 9 mm focus of arterial enhancement in hepatic segment 5 adjacent to the gallbladder (image 76 series 9) which fades to isointensity on 10 minute delayed sequence. There is a 2.2 x 1.5 cm T1 heterogeneous focus in the hepatic segment 5 (image 84 series 9) which partially enhances. There are numerous other small T1 hyperintense foci throughout the liver which enhance in a similar manner to the liver parenchyma. The portal vein and its major branches are patent. The gallbladder is unremarkable without evidence of wall thickening, pericholecystic fluid or stones. The pancreas has normal signal intensity without evidence of peripancreatic fluid. The spleen is enlarged. Numerous small T1 hypointensities which enhance likely represent sarcoid granulomas. The adrenal glands are normal. Multiple bilateral renal cysts are seen. Otherwise, the kidneys are normal in size, shape, position and contour. The bowel loops are normal. No significant abdominal lymphadenopathy is seen. No free intraperitoneal fluid is visible. The vascular structures are normal. Cysts are seen in the bilateral adnexa which are normal for a premenopausal woman. A hemangioma is seen in L3. Procedure Note Benjie Ladd MD - 09/15/2017 MRI abdomen with and without contrast History: Sarcoidosis, hepatomegaly, elevation of hepatic function tests Technique: Single shot fast spin-echo T2: Coronal, axial. Single shot fast spin-echo T2 fat-sat: Axial. Diffusion: Axial. In phase and out of phase: Axial. Dynamic axial. Contrast: 20 ml Multihance Findings: The liver is markedly enlarged measuring 29 cm craniocaudally at itsgreatest dimension. There is marked diffuse hepatic steatosis. Theintrahepatic and extrahepatic bile ducts are not dilated. There is a 1.1 cm arterial enhancing focus in hepatic segment 4A (image 14series 9) which fades to isointensity on delayed sequences. There is a 1.4 x 1.8 cm in hepatic segment 5 (image 51 series 9) F7kwelcdcvyrew lesion with mild enhancement that persists throughout thedelayed sequences. There is a 9 mm focus of arterial enhancement in hepatic segment 5adjacent to the gallbladder (image 76 series 9) which fades toisointensity on 10 minute delayed sequence. There is a 2.2 x 1.5 cm T1 heterogeneous focus in the hepatic segment 5(image 84 series 9) which partially enhances. There are numerous other small T1 hyperintense foci throughout the liverwhich enhance in a similar manner to the liver parenchyma. The portal vein and its major branches are patent. The gallbladder is unremarkable without evidence of wall thickening,pericholecystic fluid or stones. The pancreas has normal signal intensitywithout evidence of peripancreatic fluid. The spleen is enlarged. Numeroussmall T1 hypointensities which enhance likely represent sarcoid granulomas. The adrenal glands arenormal. Multiple bilateral renal cysts are seen. Otherwise, the kidneys are normalin size, shape, position and contour. The bowel loops are normal. No significant abdominal lymphadenopathy isseen. No free intraperitoneal fluid is visible. The vascular structuresare normal. Cysts are seen in the bilateral adnexa which are normal for apremenopausal woman. A hemangioma is seen in L3. IMPRESSION Impression: 1. Hepatosplenomegaly with severe diffuse steatosis. 2. Multiple mildly arterial enhancing lesions throughout the liver asdescribed above. These are nonspecific but most likely represent hepaticsarcoidosis. Needle biopsy could be considered for confirmation. 3. Multiple splenic granulomas consistent with sarcoidosis. 4. No significant abdominal lymphadenopathy. This report was approved by Benjie Ladd M.D. on 06/24/2012 3:22 PM. I, Dr. SHERRELL LEO M.D. have personally reviewed and interpreted thisexamination/study. This report was electronically signed by SHERRELL LEO M.D. on 06/24/20123:22 PM . Gary Gilmore MD MR ORDERAB LES * CREATININE BLOOD - POCT (IP) [facility] (06/24/2012 11:00 AM CARE AID) Creatinine POCT 0.88 0.3 - 1.3 mg/dL [facility] eGFR POCT 60 60 ml/min [facility] 06/24/2012 11:0 0 AM CARE AID Gary Gilmore MD LAB - POIN T OF CARE ORDERABLES [facility] * PT-INR [facility] (06/23/2012 11:32 AM CARE AID) PT 12.4 12.1 - 14.8 SECONDS [facility] INR 0.9 [facility] Comment: SUGGESTED THERAPEUTIC RANGE FOR LOW-INTENSITY COUMADIN THERAPY FOR VENOUS THROMBOEMBOLISM IS INR 2.0-3.0. ??FOR HIGH RISK PATIENTS (MITRAL VALVE PROSTHESIS, ATRIAL FIBRILLATION, HISTORY OF TIA/STROKE), SUGGESTED THERAPEUTIC RANGE IS INR 2.5-3.5. Plasma specimen (specimen) 06/23/2012 11:32 AM CARE AID 06/23/2012 12:18 PM CARE AID Narrative [facility] - 06/23/2012 1:01 PM CARE AID Is patient on Heparin, Argatroban or Dabigatran?->N Gary Gilmore MD LAB - COAG ULATION ORDERABLES Performing Organization Address City/[facility]/ZIP Co de Phone Number [facility] [address] [phone] * ROSA BLOOD SCREEN (06/23/2012 11:32 AM CARE AID) ROSA NONE DETECTED NONE DETECT [facility] Venous blood specimen (specimen) 06/23/2012 11:32 AM CARE AID 06/23/2012 12:18 PM CARE AID Gary Gilmore MD LAB - CHEM ISTRY ORDERABLES Performing Organization Address [facility] de Phone Number [address] [phone] * (ABNORMAL) MITOCHONDRIAL ANTIBODY SCREEN (06/23/2012 11:32 AM CARE AID) Pathologist [facility] [place] Mitochondrial M2 Antibody 26.8(H) 0.0 - 20 UNITS [facility] Comment: Interpretation/Reference Range Negative: ?< 20.1 Units Equivocal: ?20.1 - 24.9 Units Positive: ?> 24.9 Units 06/23/2012 11:3 2 AM CARE AID 06/23/2012 12:18 PM CARE AID Gary Gilmore MD LAB - CHEM ISTRY ORDERABLES Performing Organization Address [facility] de Phone Number [address] [phone] * [id number] BLOOD PHENOTYPING PANEL (06/23/2012 11:32 AM CARE AID) Pathologist [facility] [place] Xduec-6-Ubdmpxqfin n 93 90 - 200 mg/dL [facility] Cwhma-7-Lkvyszwing n Phenotype MM . [facility] Comment: Phenotype ?? Population ? A-1-AT Concentration* ?Incidence % ? % of MM ??Ref. Range ??Mean MM ?86.5% ?100% ? (90-200) ?145 MS ? 8.0% ? 81% ? (73-162) ?118 MZ ? 3.9% ? 60% ? (54-120) ? 87 FM ? 0.4% ? 97% ? (87-194) ?141 SZ ? 0.3% ? 39% ? (35- 78) ? 57 SS ? 0.1% ? 71% ? (64-142) ?103 ZZ ? 0.05% ? 7% ? ( 6- 14) ? 10 FS ? 0.05% ?66% ? (59-132) ? 96 FZ ?Unknown ? Unknown FF ?Unknown ? Unknown *A-1-AT concentration in the homozygous MM phenotype is taken as the reference normal. ??Deficiency in phenotypes is reported relative to this reference. Performed at: ??CB - [facility] [address] [facility], [place], [place] ??[id number] Apartment Maintenance Manager: Benito Hanley PhD, Phone: ??[phone] Performed at: ??BN - [facility] [address] ??[id number] Apartment Maintenance Manager: Juice Johnson MD, Phone: ??[phone] 06/23/2012 11:3 2 AM CARE AID 06/23/2012 12:18 PM CARE AID Gary Gilmore MD LAB - CHEM ISTRY ORDERABLES Performing Organization Address [facility] de Phone Number [address] [phone] * SMOOTH MUSCLE ANTIBODY (06/23/2012 11:32 AM CARE AID) [facility] Actin Antibody IgG 4.2 0.0 - 19.9 UNITS [facility] Comment: Interpretation/Reference Range Negative: ?< 20.0 Units Weak Positive: ?20.0 - 30.0 Units Moderate to Strong Positive: > 30.0 Units 06/23/2012 11:3 2 AM CARE AID 06/23/2012 12:18 PM CARE AID Gary Gilmore MD LAB - SERO LOGY ORDERABLES Performing Organization Address [facility] de Phone Number [address] [phone] * (ABNORMAL) CBC W AUTO DIFFERENTIAL (06/23/2012 11:32 AM CARE AID) Pathologist [facility] [place] WBC 12.1(H) 3.5 - 10.5 10^3/uL [facility] RBC 4.25 3.90 - 5.00 10^6/uL [facility] Hemoglobin 12.9 12.0 - 15.5 g/dL [facility] Hematocrit 38.9 35.0 - 45.0 % [facility] MCV 91.5 81.0 - 97.0 FL [facility] MCH 30.4 28.0 - 34.0 PG [facility] MCHC 33.2 32.0 - 36.0 G/DL [facility] Platelet 197 150 - 400 10^3/uL [facility] RDW 15.8(H) 11.2 - 14.8 % [facility] RDW-SD 52.8(H) 36 - 50 FL [facility] MPV 10.4 9.3 - 12.8 FL [facility] Differential Type MANUAL [facility] Neutrophils Absolute Manual 9.68(H) 1.7 - 7.0 10^3/uL [facility] Comment:(BANDS AND SEGS) X W BC = NEUT # (ANC) Lymphocytes Absolute Manual 0.85(L) 0.9 - 2.9 10^3/uL [facility] Monocyte Absolute Manual 0.73 0.3 - 0.9 10^3/uL [facility] Eosinophils Absolute Manual 0.36 0.05 - 0.50 10^3/uL [facility] Basophil Manual 0.24(H) 0.00 - 0.10 10^3/uL [facility] Band % Manual 4 0 - 10 % [facility] Neutrophils % manual 76(H) 30 - 60 % [facility] Lymphocytes % manual 7(L) 20 - 45 % [facility] Monocytes % Manual 6 2 - 10 % [facility] Eosinophils % Manual 3 1 - 6 % [facility] Basophil % Manual 2 1 - 6 % [facility] Metamyelocytes % Manual 1(H) 0 % [facility] Myelocytes % Manual 1(H) 0 % [facility] Platelet Estimate ADQ,RBC MORPH NORMAL [facility] Venous blood specimen (specimen) 06/23/2012 11:32 AM CARE AID 06/23/2012 12:18 PM CARE AID Gary Gilmore MD LAB - IRLANDA TOLOGY ORDERABLES [address] [phone] * (ABNORMAL) COMPREHENSIVE METABOLIC PANEL (06/23/2012 11:32 AM CARE AID) BUN 13 7 - 26 mg/dL [facility] Creatinine 0.6 0.6 - 1.2 mg/dL [facility] eGFR by MDRD > 60 ML/MIN [facility] Comment: Chronic kidney disease: ??<60 ml/min Kidney failure: ?<15 ml/min Based on BSA of 1.73m2. Sodium 139 136 - 145 mmol/L [facility] Potassium 4.1 3.5 - 4.5 mmol/L [facility] Chloride 102 98 - 107 mmol/L [facility] CO2 22 22 - 29 mmol/L [facility] Glucose 127(H) 70 - 115 mg/dL [facility] Calcium 9.4 8.4 - 10.2 mg/dL [facility] Protein Total 7.1 6.0 - 8.3 g/dL [facility] Albumin 4.2 3.4 - 5.0 g/dL [facility] Bilirubin Total 1.5(H) 0.2 - 1.2 mg/dL [facility] Alkaline Phosphatase 65 40 - 150 Units/L [facility] ALT 89(H) 0 - 55 Units/L [facility] AST 56(H) 5 - 34 Units/L [facility] Anion Gap 19(H) 8 - 18 [facility] BUN/Creatinine Ratio 21 7 - 23 [facility] Osmolality Calculation 275 270 - 300 mOsm/kg [facility] Albumin/Globulin Ratio 1.4 1.1 - 2.3 [facility] Serum 06/23/2012 11:3 2 AM CARE AID 06/23/2012 12:18 PM CARE AID Gary Gilmore MD LAB - CHEM ISTRY ORDERABLES Performing Organization Address City/State/[facility] Co de Phone Number [address] [phone] * (ABNORMAL) HEPATITIS B SURFACE ANTIBODY (06/23/2012 11:32 AM CARE AID) Hepatitis B Surface Antibody Quantitative 67.85 <8.00 mIU/mL [facility] Hepatitis B Virus Surface Antibody REACTIVE( A) NONREACTIVE [facility] Comment: > 12 mIU/mL anti-HBs. Reactive for anti-HBs and individual is considered immune to HBV infection. Venous blood specimen (specimen) 06/23/2012 11:32 AM CARE AID 06/23/2012 12:19 PM CARE AID Gary Gilmore MD LAB - CHEM ISTRY ORDERABLES Performing Organization Address [facility] Co de Phone Number [address] [phone] * HEPATITIS B CORE ANTIBODY (06/23/2012 11:32 AM CARE AID) Hepatitis B Core Virus Antibody Total NONREACTIVE NONREACTIVE [facility] 06/23/2012 11:3 2 AM CARE AID 06/23/2012 12:19 PM CARE AID Gary Gilmore MD LAB - CHEM ISTRY ORDERABLES Performing Organization Address [facility] Co de Phone Number [address] [phone] * HEPATITIS B SURFACE ANTIGEN W RFLX CONFIRMATION (06/23/2012 11:32 AM CARE AID) Hepatitis B Virus Surface Antigen NONREACTIVE NONREACTIVE [facility] Venous blood specimen (specimen) 06/23/2012 11:32 AM CARE AID 06/23/2012 12:19 PM CARE AID Gary Gilmore MD LAB - CHEM ISTRY ORDERABLES Performing Organization Address [facility] Co de Phone Number [address] [phone] * HEPATITIS C ANTIBODY (06/23/2012 11:32 AM CARE AID) Hepatitis C Antibody NONREACTIVE NONREACTIVE [facility] Comment: Anti-HCV screen indicates no serologic evidence of past or current infection with Hepatitis C Virus. Patients with unexplained liver disease who are immunocompromised or suspected of having acute Hepatitis C infection may benefit from Nucleic Acid Test (LIANNE) for Hepatitis C Viral RNA to confirm Hepatitis C status. 06/23/2012 11:3 2 AM CARE AID 06/23/2012 12:19 PM CARE AID Gary Gilmore MD LAB - CHEM ISTRY ORDERABLES [address] [phone] Care Teams Fisher Eel Relationship Specialty Start Date End Date Nacho Oglesby MD [address] [place] [address] [address] [place] [address] PCP - General 01/25/12
--- OUTSIDE RECORDS SUMMARY | 2024-07-09 19:28 | XMS_ITS | CONTINUITY OF CARE DOCUMENT ---
Author Name mary, mary Address Unknown Organization [facility] Address [address] [place] [address] Phone [phone] Care Team Providers Care Dry House Wheeler Name Role Phone Kevin RUDD, Janelle Unavailable [phone] RODRIGUEZ RUDD, SHREYA Unavailable RODRIGUEZ RUDD, SHREYA Unavailable [phone] PROBLEMS Condition Status Date Provider Notes Palpitations active Artie Felton Adrenal disorder active Artie Felton Non-alcoholic fatty liver active Artie edwards PVD active Artie Felton Raynaud's syndrome active Gopal Trejo MD Asthma active Gopal Trejo MD see lung renal stone active Gopal Trejo MD IRON DEFICIENCY active Gopal Trejo MD fol ate ok and b12 ok on rx Neuropathy active Gopal Trejo MD b12 ok o n rx Arrhythmia;nl tsh active Gopal Trejo MD Sarcoidosis active Gopal Trejo MD Hyperlipidemia active Gopal Trejo MD Screening active Gopal Trejo MD HTN essential;neg duplex active Gopal terry MD OBESITY active Regino Dillon MD SLEEP APNEA;on rx active Gopal Trejo MD HTN-03/23 VIC DUP-NEG completed - Gopal grossman MD CHEST PAIN-03/23 ECHO NEG completed - Gopal leonard MD ENCOUNTERS Date Type Provider Location Encounter Diag nosis - In-person encounter Office Visit Janelle Brown MD [facility] Non-alcoholic fatty liverAdrenal disorderPalpitations - In-person encounter Office Visit Janelle Brown MD [facility] PVDNon-alcoholic fatty liver - In-person encounter Office Visit Janelle Brown MD [facility] - In-person encounter Office Visit Janelle Brown MD [facility] - In-person encounter Office Visit Gopal Trejo MD [facility] CHEST PAIN-03/23 ECHO NEGHTN-03/23 VIC DUP-NEGSLEEP APNEA;on rxHTN essential;neg duplexScreeningHyperlipidem iaSarcoidosisArrhythmia;nl tshNeuropathyIRON DEFICIENCYrenal stoneAsthmaRaynaud's syndrome - In-person encounter Office Visit Regino Dillon MD [facility] SLEEP APNEA;on rxOBESITY VITAL SIGNS Date Observation Value Provider Body Mass Index (Ratio) 32.13 kg/m2 Artie Felton pulse rate 77 /min Veronicayoana Oneill weight E&M 187.2 [lb_av] Veronica Mai respiratory rate E&M 18 /min Veronica Mai blood pressure, diastolic 84 mm[Hg] sobia Mai blood pressure, systolic 116 mm[Hg] She vinnie Oneill oxygen saturation, oximetry 96 % Veronica Oneill blood pressure, cuff size regular eddeiangeles Mai height E&M 64 [in_i] Veronica Mai Body Mass Index (Ratio) 27.46 kg/m2 Artie Felton blood pressure, cuff size large Ke rri Katherynnenfelder blood pressure, diastolic 80 mm[Hg] Ke rri Katherynnenfelder blood pressure, systolic 120 mm[Hg] Sola ri Edwinaelder oxygen saturation, oximetry 96 % Muna Blandelder respiratory rate E&M 14 /min Muna medleyenesalelder pulse rate 71 /min Muna Adame lder weight E&M 160 [lb_av] Muna Edwinae lder height E&M 64 [in_i] Muna Adame er Body Mass Index (Ratio) 26.60 kg/m2 Artie Felton blood pressure, diastolic 78 mm[Hg] Joselyn sue Mejia blood pressure, systolic 111 mm[Hg] Paco rodolfoaurora Mejia oxygen saturation, oximetry 97 % Laurie Mejia pulse rate 79 /min Laurie bee weight E&M 155 [lb_av] Laurie bee respiratory rate E&M 16 /min Rossi Mejia height E&M 64 [in_i] Laurie bee Body Mass Index (Ratio) 28.32 kg/m2 Edward Singh blood pressure, diastolic 91 mm[Hg] To nsha Blake blood pressure, systolic 132 mm[Hg] Ton sha Blake pulse rate 91 /min Tonsha Blake respiratory rate E&M 18 /min Tonsha Blake oxygen saturation, oximetry 98 % Tonsha Blake blood pressure, resting Yes Tons weiner Blake weight E&M 165 [lb_av] Tonsha Blake height E&M 64 [in_i] Tonsha Blake Body Mass Index (Ratio) 30.21 kg/m2 Lenore King blood pressure, cuff size regular Je ssica N Fernando blood pressure, diastolic 60 mm[Hg] Je ssica N Fernando blood pressure, systolic 120 mm[Hg] Valarie kiera N Fernando oxygen saturation, oximetry 99 % Radha N Fernando respiratory rate E&M 18 /min Radha N Fernando pulse rate 79 /min Radha N Wilso n weight E&M 176 [lb_av] Radha N Wilso n Body Mass Index (Ratio) 30.38 kg/m2 Lenore ica N Fernando blood pressure, cuff size regular caitlin Demecs RN blood pressure, diastolic 88 mm[Hg] caitlin Demecs RN blood pressure, systolic 150 mm[Hg] [facility] sta Demsan [facility] RN oxygen saturation, oximetry 97 % Suzy Demecs RN respiratory rate E&M 18 /min Salina Demecs RN pulse rate 111 /min Suzy Demecs R N weight E&M 177 [lb_av] Salina Demecs R N Body Mass Index (Ratio) 30.38 kg/m2 Fátima Trejo MD blood pressure, cuff size regular Ke rri Min blood pressure, diastolic 80 mm[Hg] Ke rri Eugeneueneayanna blood pressure, systolic 136 mm[Hg] Sola ri Min oxygen saturation, oximetry 98 % Muna Copeland respiratory rate E&M 20 /min Muna moses pulse rate 86 /min Muna bonner weight E&M 177 [lb_av] Muna castellanoser height E&M 64 [in_i] Muna bonner blood pressure, diastolic 79 mm[Hg] Te jose r Dye blood pressure, systolic 121 mm[Hg] Kamara pulse rate 67 /min Ema Dye oxygen saturation, oximetry 100 % Ema Dye respiratory rate E&M 20 /min Ema De lyubov weight E&M 228 [lb_av] Ema Dye ALLERGIES Allergy Name Onset Date Reaction Criticality Status FLOXIN Low Criticality active RESULTS Date Observation Value Provider Reference Range Interpretation Location 0 ferritin, serum 447 ng/mL [facility] 15-150 High 0 iron saturation percent, serum 43 % [facility] 15-55 0 iron, serum 146 ug/dL [facility] 27-159 0 iron binding capacity, unsaturated 197 ug/dL [facility] 531-033 6346/03/2 0 iron binding capacity, total 343 ug/dL [facility] 614-765 8208/03/2 0 basophil count, absolute 0.0 x10E3/uL [facility] 0.0-0.2 0 Eosinophil Absolute Count 0.1 X10E3/UL [facility] 0.0-0.4 0 monocyte count, blood, automated 0.3 X10E3/UL [facility] 0.1-0.9 0 lymphocyte count, blood, automated 1.3 X10E3/UL [facility] 0.7-3.1 0 Absolute Neutrophils 4.1 X10E3/UL [facility] 1.4-7.0 0 basophils as percent of blood leukocytes 1 % [facility] Not Estab. 0 eosinophils as percent of blood leukocytes 2 % [facility] Not Estab. 0 monocytes as percent of blood leukocytes 6 % [facility] Not Estab. 0 lymphocytes as percent of blood leukocytes 23 % [facility] Not Estab. 0 neutrophils as percent of blood leukocytes 67 % [facility] Not Estab. 0 platelet count 184 X10E3/UL [facility] 439-333 6036/03/2 0 red blood cell distribution width 16.1 % [facility] 12.3-15.4 High 0 mean corpuscular hemoglobin concentration, RBC 34.0 G/DL [facility] 31.5-35.7 0 mean corpuscular hemoglobin, RBC 30.9 pg [facility] 26.6-33.0 0 mean corpuscular volume, RBC 91 fL [facility] 79-97 0 hematocrit, blood 41.5 % [facility] 34.0-46.6 0 hemoglobin, blood 14.1 g/dL [facility] 11.1-15.9 0 erythrocyte (RBC) count 4.57 X10E6/UL [facility] 3.77-5.28 0 leukocyte count, blood 5.9 X10E3/UL [facility] 3.4-10.8 1 ferritin, serum 16 ng/mL [facility] 15-150 1 rapid plasma reagin antibody screen Non Reactive [facility] Non Reactive 1 iron saturation percent, serum 13 % [facility] 15-55 Low 1 iron, serum 60 ug/dL [facility] 27-159 1 iron binding capacity, unsaturated 390 ug/dL [facility] 739-688 4671/02/0 1 iron binding capacity, total 450 ug/dL [facility] 250-450 HISTORY OF MEDICATION USE Medication Status Instructions Dates Provider Indications Com ments trazodone 100 mg tablet active at bedtime Leidy James NP Adipex-P 37.5 mg capsule completed once a day - Lediy James NP hydrocodone-aceta minophen 7.5-325 mg tablet active 1 every four hours as needed Leidy James NP Flonase Allergy Relief 50 mcg/actuation spray,suspension active as directed Muna Copeland Calcium Antacid 200 mg calcium (500 mg) tablet,chewable active 2 every night Muna Copeland magnesium oxide 400 mg (241.3 mg magnesium) tablet active once a day Muna Copeland MULTIVITAMINS ORAL CAPSULE active 1 tablet once a day Muna Copeland Ambien 10 mg tablet completed Take 1 every night - Leidy James NP LORAZEPAM 1 MG TABS active Take 1 three times a day Muna Copeland prednisone 2.5 mg tablet active every other day Leidy James NP VITAMIN D TABLET active once a day Muna Copeland cyanocobalamin (vitamin B-12) 1,000 mcg tablet active 1 tablet once a day Muna Copeland Cartia XT 120 mg capsule,extended release 24hr active 1 tablet once a day Muna Copeland gabapentin 300 mg capsule active 1 twice a day Leidy James NP spironolactone 50 mg tablet active 1 tablet once a day Muna Copeland Singulair 10 mg tablet active 1 tablet once a day Muna Copeland omeprazole 40 mg capsule,delayed release(DR/EC) active once a day Muna Copeland aspirin 81 mg tablet,delayed release (DR/EC) active 1 tablet by mouth once a day Muna Copeland Linzess 145 mcg capsule active once a day Muna Copeland Lumigan 0.01% drops active 1 drop into both eyes every night Muna Copeland LOPREEZA 1-0.5 MG ORAL TABLET completed once a day - Leidy James NP Ventolin HFA 90 mcg/actuation HFA aerosol inhaler active 2 puff every four to six hours Muna Copeland ADVAIR DISKUS 250-50 MCG/DOSE INHALATION AEROSOL POWDER BREATH ACTIVATED active 1 puff twice a day Muna Copeland TRIAMTERENE-HCTZ 37.5-25 MG ORAL TABLET completed ONE TAB. DAILY - Muna Copeland METOPROLOL TARTRATE 50 MG ORAL TABLET completed one tab daily - Muna Copeland Celexa 40 mg tablet active 1 tablet once a day Maxwell Rosenberg RN simvastatin 40 mg tablet active 1 tablet once a day Muna Min SOCIAL HISTORY Date Observation Value Provider social history E&M Marital Statu s: L gisela with family/friends E thnicity: Smoking History: Gee bergeron has never smoked. Artie Felton social history reviewed E&M revi ewed - no changes required Artie rishi smoking status Never smoker Veronica Oneill social history E&M Marital Statu s: L gisela with family/friends E thnicity: Smoking History: Gee bergeron is a former smoker. Artie Felton social history reviewed E&M revi ewed - no changes required [facility] physical exercise, f requency, days per week no Muna Min caffeine use, averag e drinks per day yes Muna Copeland smoking, year quit 25 Muna Knightagustin malhotra number of years as a smoker 6 a Munajose r Copeland smoking history, tot al pack/day 1 ppd Muna Copeland cigarette use yes Munajose r bain smoking status Former smoker Muna Knightkelby urena physical exercise, f requency, days per week no Laurie Mejia caffeine use, averag e drinks per day yes Laurie Mejia smoking, year quit 25 Laurie Mejia number of years as a smoker 6 a Laurie Mejia smoking history, tot al pack/day 1 ppd Laurie Mejia cigarette use yes Laurie Black nd smoking status Former smoker Laurie valencia number of grandchildren Jake Kevin Singh social history reviewed E&M revi ewed - no changes required Piero Singh physical exercise, f requency, days per week no Tonsha Blake caffeine use, averag e drinks per day yes Tonsha Blake smoking, year quit 25 Tonsha Mo ss number of years as a smoker 6 a Tonsha Blake smoking history, tot al pack/day 1 ppd Tonsha Blake cigarette use yes Tonsha Blake smoking status Former smoker Tonsha Blake social history E&M Marital Statu s: L gisela with family/friends E thnicity: Smoking History: Gee bergeron is a former smoker. Gopal Trejo MD social history reviewed E&M revi ewed - no changes required Gopal Trejo MD number of years as a smoker 6 a Muna Min smoking history, tot al pack/day 1 ppd Muna Knightjuan josé smoking, year quit 25 Muna Cedeño marya cigarette use yes Muna Bland taya smoking status Former smoker Muna Bowen ayanna drug use none Regino Dillon MD social history E&M Marital Statu s: L gisela with family/friends E thnicity: Maxwell Rosenberg RN social history reviewed E&M reviewed Maxwell Rosenberg RN physical exercise, f requency, days per week no [facility] caffeine use, averag e drinks per day yes [facility] alcohol use, average drinks per day none [facility] smoking status Non-smoker [facility] MENTAL STATUS Date Observation Value Provider assessment of judgme nt and insight E&M Alert and oriented to time, place and person. Mood and affect are normal. Maxwell Rosenberg RN FAMILY HISTORY Family Member Condition Mother Family History of Hy pertension: Mother Family History of Hy perlipidemia: Father Family History of Vivar dden Cardiac : Father Family History of Hy pertension: Father Family History of Hy perlipidemia: Father Family History of Di abetes: Father Family History of CV A or Stroke: INSURANCE PROVIDERS Payer name Policy type / Coverage type Preeti red green party ID [facility] CHRONIC COMPLETE ASSURE (PPO C-SNP) Medicare [id number] HEALTHCARE AND FAMILY SERVICES Medicaid 0 [id number] ADVANCE DIRECTIVES Name Date DISCUSSED - NO DECISION MADE TREATMENT PLAN Date Name Performer [id number],C,S he complains of palpitations on occasion, will check holter to assess further [facility] [id number],C,weight loss a dvised [facility] [id number],C, H er updated medication list for this problem includes: Simvastatin 40 Mg Tablet (Simvastatin) ..... 1 tablet once a day [facility] [id number],C,RONALD showed no rmal arterial flow [facility] [id number],C, B P today: 116/84 P rior BP: 120/80 (08/03/2022) [facility] [id number],C,F ollows Endocrine [facility] [id number],S, [facility] i [id number],S, [facility] i [id number],C, B P today: 120/80 P rior BP: 111/78 (02/02/2022) Echo EF 60% from 11/2021 [facility] [id number],C,Has [facility]. [facility] [id number],C,U nderwent MRI which showed reduced flow in her LE arteries, unspecified, do not have results. Will check RONALD to assess for PVD. Artie Teranelenazai [id number],C,follow with P CP Leidy James SHELF DRIER OPERATOR [id number],C,r ecent labs at PCP will have results sent to our office. Leidy James SHELF DRIER OPERATOR [id number],C,n ot on cpap. may need repeat sleep study Leidy James SHELF DRIER OPERATOR [id number],C, B P today: 111/78 P rior BP: 132/91 (01/08/2020) ECHO 11/2021 EF 65%, trace MR, mild TR Leidy James SHELF DRIER OPERATOR [id number],C,w ill have PCP send recent lab results to our office H er updated medication list for this problem includes: Simvastatin 40 Mg Tablet (Simvastatin) ..... 1 tablet once a day Leidy James SHELF DRIER OPERATOR Electrophysiology:Sh e complains of palpitations on occasion, will check holter to assess further Artieluis Scottzai Electrophysiology:weight loss ad vised Artie Parulmedzai Electrophysiology: H er updated medication list for this problem includes: Simvastatin 40 Mg Tablet (Simvastatin) ..... 1 tablet once a day Artie Ahmedzai Electrophysiology:RONALD showed nor mal arterial flow Artie Parulmedzai Electrophysiology: B P today: 116/84 P rior BP: 120/80 (08/03/2022) Artie Ahmedzai Electrophysiology:Fo llows Endocrine Artie Ahmedzai Electrophysiology Artie Ahmedzai Electrophysiology Artie medzai Electrophysiology: B P today: 120/80 P rior BP: 111/78 (02/02/2022) Echo EF 60% from 11/2021 Artie Ahmedzai Electrophysiology:Has [facility]. Artie medzai Electrophysiology:Un derwent MRI which showed reduced flow in her LE arteries, unspecified, do not have results. Will check RONALD to assess for PVD. Artie Teranrishi Electrophysiology:follow with PC Gee James NP Electrophysiology:re cent labs at PCP will have results sent to our office. Leidy James NP Electrophysiology:no t on cpap. may need repeat sleep study Leidy James NP Electrophysiology: B P today: 111/78 P rior BP: 132/91 (01/08/2020) ECHO 11/2021 EF 65%, trace MR, mild TR Leidy James NP Electrophysiology:wi ll have PCP send recent lab results to our office H er updated medication list for this problem includes: Simvastatin 40 Mg Tablet (Simvastatin) ..... 1 tablet once a day Leidy James NP Cardiology:sinus on EKG H er updated medication list for this problem includes: Cartia Xt 120 Mg Oral Capsule Extended Release 24 Hour (Diltiazem hcl coated beads) ..... One tab. daily Aspirin Adult Low Dose 81 Mg Oral Tablet Delayed Release (Aspirin) ..... One tab by mouth daily Piero Singh Cardiology: H er updated medication list for this problem includes: Prednisone 5 Mg Oral Tablet (Prednisone) ..... Once a day Singulair 10 Mg Oral Tablet (Montelukast sodium) ..... One tab. daily Ventolin Hfa 108 (90 Base) Mcg/act Inhalation Aerosol Solution (Albuterol sulfate) ..... 2 puffs every 4-6 hours Advair Diskus 250-50 Mcg/dose Inhalation Aerosol Powder Breath Activated (Fluticasone-salmeterol) ..... 1 puff twice daily Piero Singh Cardiology: B P today: 132/91 P rior BP: 120/60 (08/05/2018) Her updated medication list for this problem includes: Cartia Xt 120 Mg Oral Capsule Extended Release 24 Hour (Diltiazem hcl coated beads) ..... One tab. daily Spironolactone 50 Mg Oral Tablet (Spironolactone) ..... One tab. daily Aspirin Adult Low Dose 81 Mg Oral Tablet Delayed Release (Aspirin) ..... One tab by mouth daily Piero Singh Cardiology: H er updated medication list for this problem includes: Simvastatin 40 Mg Oral Tablet (Simvastatin) ..... One tab. daily Piero Singh Cardiology Follow up Gopal terry MD Cardiology Follow up Gopal terry MD Cardiology Follow up Gopal terry MD Cardiology Follow up Gopal terry MD Cardiology Follow up Gopal terry MD Cardiology Follow up : H er updated medication list for this problem includes: Simvastatin 40 Mg Oral Tablet (Simvastatin) ..... One tab. daily Gopal Trejo MD Cardiology Follow up Gopal terry MD Cardiology Follow up :fu hother neg Gopal Trejo MD Cardiology Follow up :lsot 90 lbs with bypass, will try adepaix Gopal Trejo MD Cardiology Follow up :nml a1c, tsh and echo, neg cath 08, b12 and vit d ok on rx Gopal Trejo MD no med list:WEIGHT LOSS ENCOURAG ED Regino Dillon MD no med list: H er updated medication list for this problem includes: Metoprolol Tartrate 50 Mg Tabs (Metoprolol tartrate) ..... One tab daily Triamterene-hctz 37.5-25 Mg Tabs (Triamterene-hctz) ..... One tab. daily BP today: 121/79 Regino Dillon MD no med list: H er updated medication list for this problem includes: Metoprolol Tartrate 50 Mg Tabs (Metoprolol tartrate) ..... One tab daily Orders: E KG (CPT-50946) BP today: 121/79 Prior BP: / () S HE WAS DIAGNOSED WITH MICROVASULAR ANGINA AND RECEIVED ECP. I T DID HELP FOR A WHILE BUT IT HAS COME BACK RECENTLY. Regino Dillon MD Date Name Monitor - Telemetry (Mobile Cardiac) Complete Echo Arterial Duplex Bi-L ower EX Complete Echo DLCO - 14638 FRC - 82635 FVC - 20569 Mobile Cardiac Tele Complete Echo IRON AND TOTAL IRON BINDING CAPACITY FERRITIN CBC (INCLUDES DIFF/P LT) IRON AND TOTAL IRON BINDING CAPACITY FERRITIN CBC (INCLUDES DIFF/P LT) IRON AND TOTAL IRON BINDING CAPACITY FERRITIN CBC (INCLUDES DIFF/P LT) Arterial Duplex Bi-L ower EX Arterial - SENSILASE CT, Coronary Calcium Score IRON AND TOTAL IRON BINDING CAPACITY FERRITIN RPR (MONITOR) W/REFL TITER Complete Echo Sleep Study HISTORY OF PROCEDURES Procedure Date Procedure Name Provider Procedure Notes S tatus EKG Janelle hackett MD completed Spirometry Janelle hackett MD completed FVC / MVV - 33340 Janelle thompson MD completed FRC - 77956 Janelle hackett MD completed SpO2 w/o 6min walk/titration Janelle Brown MD completed SVC - 76723 Janelle hackett MD completed DLCO - 03955 Janelle hackett MD completed EKG Janelle hakcett MD completed Schedule Followup Janelle Brown 6 months completed EKG Janelle hackett MD completed FVC / MVV - 60003 Janelle thompson MD completed FRC - 78410 Janelle hackett MD completed SpO2 w/o 6min walk/titration Janelle Brown MD completed DLCO - 35602 Janelle hackett MD completed EKG Janelle hackett MD completed Injectafer 750mg Gopal Trejo MD co mpleted Therapeutic IV Infusion up to 1 hour Gopal Treoj MD completed Injectafer 750mg Gopal Trejo MD co mpleted Therapeutic IV Infusion up to 1 hour Gopal Trejo MD completed EKG Gopal Trejo MD complete d MARIA ELENA rTejo MD c ompleted EKG Regino Dillon MD completed
--- OUTSIDE RECORDS SUMMARY | 2024-07-09 19:28 | XMS_ITS | Encounter Summary ---
Author Organization [facility] Address [address] [place] [address] Care Team Providers Care Ride Mechanic Name Role Phone Nacho Oglesby MD Primary Care Provider Janey Ochoa NP Unavailable [phone] Reason for Visit * Reason Onset Date Comments F/U CXR 07/07/2024 Encounter Details Date Type Department Care Team (Late st Contact Info) Description 07/07/2024 Telephone [facility] Pulmonary at [address] [place] [address] Yareli Raphael LPN F/U CXR Social History Tobacco Use Types Packs/Day Years Used Date Smoking Tobacco: Former Cigarettes 1 - 1990 Smokeless Tobacco: Never Alcohol Use Standard Drinks/Week Comments Not Currently [...] on file Legal Sex Female 3:21 AM COMPLIANCE MANAGER Gender Identity Female 04/09/2021 10:59 PM CDT Sexual Orientation Straight 03/01/2020 2: 52 PM CDT documented as of this encounter Miscellaneous Notes * Telephone Encounter - Yareli Raphael LPN - 07/07/2024 2:46 PM COMPLIANCE MANAGER Pt called and left a message that Dr Oglesby is sending her for a chest x-ray, and she is going to [facility], and he wants her to be seen by Janey Ochoa WEIGHT YARDAGE CHECKER immediately. Called pt and she is at [facility] currently to get CXR currently, informed to have them push images and report to [facility] Informed pt to be tested for COVID, and viral panel and would probably have to go to a [facility], pt states she has a COVID test at home. Appt made for tomorrow, and informed to wear a mask to the visit. LIANCE MANAGER documented in this encounter Plan of Treatment Not on file documented as of this encounter Visit Diagnoses Not on filedocumented in this encounter Care Teams Ride Mechanic Relationship Specialty Start Date End Date Nacho Oglesby MD PCP - General 02/08/17 Janey Ochoa NP Nurse Practitioner Nurse Practitioner 11/23/20 documented as of this encounter
== END 2024-07-07 14:59 | disposition home or self-care (01) ==
PROVIDERS: PCP Internal Medicine; Referring Provider Nurse Practitioner; Visit Provider Internal Medicine
DX: R05.9 Cough, unspecified (principal)
CPT/HCPCS: 71046

== ENCOUNTER 2024-07-24 16:26 | Outpatient (CLI) | payer MEDICARE, MEDICAID, SELFPAY ==
--- NOTE | ~2024-07-24 | CT_ITS ---
Clinical indication:Pulmonary sarcoidosis. Cough COMPARISON:06/14/2017 TECHNIQUE: Multiple contiguous axial images of the chest were performed without the administration of intravenous contrast. DLP: 181 mGy-cm FINDINGS: LUNG:The lungs are clear. MEDIASTINUM:No significant mediastinal lymphadenopathy is identified. HEART:The heart is of normal size, without large pericardial effusion. SOFT TISSUES OF THE CHEST: Unremarkable BONES OF THE CHEST: There are bridging endplate osteophytes at multiple levels in the spine, consiste nt with diffuse idiopathic skeletal hyperostosis (DISH). No acute fractures. Trace kyphosis. VISUALIZED PORTION OF THE UPPER ABDOMEN: Well-circumscribed focus of fluid attenuation is identified within spleen measuring 48 x 56 x 56 mm (anterior to posterior x medial to lateral x cranial to cauda l dimension). This splenic cyst has increased in size from previous examination in 2017 when it measu red by 46 x 41 x 41mm (anterior to posterior x medial to lateral x cranial to caudal dimension). IMPRESSION: No significant mediastinal lymphadenopathy. The lungs are clear. Increase in size of a splenic cyst, as detailed above. Reviewed, dictated and finalized at location A. ENT STEAMER
--- OUTSIDE RECORDS SUMMARY | 2024-07-24 16:30 | XMS_ITS | Data Portability ---
Author Organization PALMA Batista SIRex Banuelos Address [address] [place] [address] Assessment No assessment recorded. Plan of Treatment Reminders Order Date Submit Date Provider Last Modified By Organization Details Last Modified Time Details Appointments None recorded. Lab urinalysi s, dipstick 2015 Nicki mckeon In-Office Order, Internal Use Only DO Not Attach Compendium DO Not Attach Compendium, Do Not Delete/merge, [id number] 6 16:27:45 FSH (follicle -stimulat ing hormone), serum 2015 016 [facility], [facility] [facility], [address], [place], [address], 6 07:11:51 estradiol , serum 2015 016 [facility], [address] [facility], [address], [place], [address], 6 07:11:51 Referral None recorded. Procedures None recorded. Surgeries None recorded. Imaging None recorded. Medication Orders Activella 1 mg-0.5 mg tablet 2015 016 [id number], [address] , [place], [place], [id number], 6 16:29:06 Patient TargetsNo targets recorded. Patient Instructions Encounter Date Encounter Id Patient Instructions Last Modified By Organization Details Last Modified Time 12/06/2015 [id number] learning about menopause linda Not available 12/06/2015 16:27:46 Reason for Referral None Reported. Results Created Date Observation Date Name Description Value Unit Range Abnormal Flag Note LastModifiedBy Organization Detail LastModifiedTime 12/06/19 16 12/06/2015 urina lysis , dipst ick Leukocytes Negati ve Not Available In-Office Order Internal Use Only DO Not Attach Compendium DO Not Attach Compendium, Do Not Delete/merge, [id number] 12/06/2015 16:08:52 12/06/19 16 12/06/2015 urina lysis , dipst ick Nitrite negati ve Not Available In-Office Order Internal Use Only DO Not Attach Compendium DO Not Attach Compendium, Do Not Delete/merge, [id number] 12/06/2015 16:08:52 12/06/19 16 12/06/2015 urina lysis [...] 12/06/2015 urina lysis , dipst ick Specific [place] 1.010 Not Available In-Off ice Order Internal Use Only DO Not Attach Compendium DO Not Attach Compendium, Do Not Delete/merge, 12/06/2015 16:08:52 12/06/19 16 12/06/2015 urina lysis , dipst ick Ketone Negati ve Not Available In-Office Order Internal Use Only DO Not Attach Compendium DO Not Attach Compendium, Do Not Delete/merge, [id number] 12/06/2015 16:08:52 12/06/19 16 12/06/2015 urina lysis [...] USAL 25.8 - 134.8 Not Available [facility] ([facility]) [address], [place], [address], 12/07/2015 07:11:51 12/06/19 16 12/07/2015 estra diol, serum estradiol 36.1 pg/mL ADULT FEMAL E: FOLLI CULAR PHASE 12.5 - 166.0 OVULA TION PHASE 85.8 - 498.0 LUTEA L PHASE 43.8 - 211.0 POSTM ENOPA USAL <6.0 - 54.7 PREGN ROSEMARY 1ST TRIME STER 215.0 - >4300 .0 GIRLS (1-10 YEARS ) 6.0 - 27.0 TISH ECLIA METHO DOLOG Y Not Available [facility] ([facility]) [address] [facility] [address] [facility], [place], [address], 12/07/2015 07:11:51 12/07/19 16 11/23/2015 ultra sound , pelvi c trans vagin al No observ ation record ed. BARCODE Not Available 2015 17:05:28 Result Notes None recorded. Problems Name Problem SNOMED Code Status Onset Date Resolution Date Notes Provider Name and Address Organization Details Recorded Time Perimenopausal disorder 490649652 Active Mendel dumont, [facility] 6 16:27:45 Cyst of ovary 12158684 Active Mendel dumont, [facility] 6 16:27:45 Problem Notes None recorded. Procedures Surgical History Date Name Laterality Status Provider Name and Address Organization Details Recorded Time 11/16/19 15 Most Recent Mammogram completed Maren Condon MA [facility] 12/06/2015 15:51:31 06/17/19 14 Date of Last Pap Smear completed Maren Condon MA [facility] 12/06/2015 15:43:44 Other completed Maren Condon [facility] 12/06/2015 15:39:55 Gastric Bypass completed Maren Condon [facility] 12/06/2015 15:39:55 Hysterectomy completed Maren Condon [facility] 12/06/2015 15:39:55 Other completed Maren Condon [facility] 12/06/2015 15:51:31 Tubal Ligation completed Maren Condon [facility] 12/06/2015 15:51:31 Other completed Maren Condon [facility] 12/06/2015 15:51:31 Breast Biopsy completed Maren Condon [facility] 12/06/2015 15:51:31 Imaging Results Imaging Date Name Status LastModified by Organization Details LastModified Time 11/23/2015 ultrasound, pelvic transvaginal completed [facility] Information not available 12/07/2015 17:05:28 Procedure Notes None recorded. Medical Equipment None Reported. Allergies Allergen ID Allergen Name Allergen Category Reaction Reaction Severity Criticality Documentation Date Start Date Code Code System Note Provider Name and Address Organization Details Recorded Time 11819 ciproflox acin medicatio n other moderate Not available 12/06/2015 0489 RxNorm The shake s, insom shahab, sweat [...] weight Body height Body mass index (BMI) Systolic blood pressure Diastolic blood pressure Provider Name and Address Organization Details Last Updated DateTime 12/06/2015 91414.29 527 g 160.02 cm 30.3 kg/m2 116 mm[Hg] 72 mm[Hg] Maren Condon MA [facility] 6 15:57:54 Social History Question Answer Notes LastModified by Organizat ion Details LastModified Time Tobacco Smoking Status Never Smoker Maren oCndon MA null, [facility] 12/06/2015 15:56:30 Do You Have An Advance Directive? No [facility] Information not available 12/06/2015 What Is Your Level Of Alcohol Consumption? None [facility] Information not available 12/06/2015 Is Blood Transfusion [...] How Much Tobacco Do You Smoke? No [email or web address] Information not available 12/06/2015 General Stress Level High Information not available 12/06/2015 Do You Use Sunscreen Routinely? Yes Information not available 12/06/2015 How Many Years Have You Smoked Tobacco? 0 [email or web address] Information not available 12/06/2015 Sex: Unknown Functional Status Question Answer Note LastModified by Organizat ion Details LastModified Time What is your exercise level? Occasional Information not available 12/06/2015 Mental Status None recorded. Family History Nothing Reported. Medical History Condition Response Other N High Blood Pressure Y Breast Cancer N MRSA N Hernia N Head Trauma/Injury N Lung [...] SNOMED-CT Code Diagnosis ICD10 Code Diagnosis Note [id number] Mendel Annie Leal (C[employer] SPECIALIST) [address] [place] [address] 12/06/2015 14:55:05 12/06/2015 17:07:26 Perimenopausal disorder 521891274 N95.9 Cyst of ovary 42642159 N 83.20 Menopausal syndrome 1237 32048 N95.9 Health Concerns Section Related Observation LastModified by Organization Detai ls LastModified Time None Recorded Concern Status LastModified by Organization Details LastModified Time None Recorded Advance Directives Directive N: Payers Encounter Date Sequence Insurance Name Policy Number Policy Liang Covered Member ID Liang Member ID Guarantor Name 12/06/2015 2 [place] WHEN MEDICARE OR MEDICARE REPLACEMENT PRIMARY) Leelee Maki [id number] Leelee Maki 12/06/2015 2 [place] Leelee Maki [id number] Leelee Maki Notes Date Note Type Note [...] loss of libido; no changes in urination PALMA Barrios - SI 12/06/2015 17:06:59 OBGyn Episode Ob Episode Information Episode Created Date Number of Fetuses Patient Bloodtype Patient rh Status Prepregnancy Weight lbs Domestic Partner Domestic Partner Phone Father Name Table Worker Status 12/06/19 16 1 CLOSED Fetus Data First Name Last Name Admitted to NICU Weight (g) Sex Living Outcome Pediatric Complications Fetus ID Race Codes Race Delivery Type 2721.55 2 F Full Term 52982 Vaginal Wili Calculation Initial Wili Date Initial [...] Complications Tubal Sterilization Discharge Date Comments 6 Regional- idural 37 24 Discharge Information Feeding Method Contraceptive Method Maternal HG B and HCT Levels Ob Episode Information Episode Created Date Number of Fetuses Patient Bloodtype Patient rh Status Prepregnancy Weight lbs Domestic Partner Domestic Partner Phone Father Name Table Worker Status 12/06/19 16 1 CLOSED Fetus Data First Name Last Name Admitted to NICU Weight (g) Sex Living Outcome Pediatric Complications Fetus ID Race Codes Race Delivery Type 3288.54 2 F Full Term 33697 Vaginal Wili Calculation Initial Wili Date Initial [...]
--- OUTSIDE RECORDS SUMMARY | 2024-07-24 16:30 | XMS_ITS | CONTINUITY OF CARE DOCUMENT ---
Author Name mary, mary Address Unknown Organization [facility] Address [address] [place] [address] Phone [phone] Care Team Providers Care Management Coordinator Name Role Phone Kevin RUDD, Janelle Unavailable RODRIGUEZ RUDD, SHREYA Unavailable [phone] RODRIGUEZ RUDD, SHREYA Unavailable [phone] PROBLEMS Condition Status Date Provider Notes CHEST PAIN-03/23 ECHO NEG completed - Gopal leonard MD HTN-03/23 VIC DUP-NEG completed - Gopal grossman MD SLEEP APNEA;on rx active Gopal Trejo MD OBESITY active Regino Dillon MD HTN essential;neg duplex active Gopal terry MD Screening active Gopal Trejo MD Hyperlipidemia active Gopal Trejo MD Sarcoidosis active Gopal Trejo MD Arrhythmia;nl tsh active Gopal Trejo MD Neuropathy active Gopal Trejo MD b12 ok o n rx IRON DEFICIENCY active Gopal Trejo MD fol ate ok and b12 ok on rx renal stone active Gopal Trejo MD Asthma active Gopal Trejo MD see lung Raynaud's syndrome active Gopal Trejo MD PVD active rAtie Felton Non-alcoholic fatty liver active Artie edwards Adrenal disorder active Artie Felton Palpitations active Artie Scottzai ENCOUNTERS Date Type Provider Location Encounter Diag nosis - In-person encounter Office Visit Janelle Brown MD [facility] Non-alcoholic fatty liverAdrenal disorderPalpitations - In-person encounter Office Visit Janelle Brown MD [facility] PVDNon-alcoholic fatty liver - In-person encounter Office Visit Janelle Brown MD [facility] - In-person encounter Office Visit Janelle Brown MD [facility] - In-person encounter Office Visit Gopal Trejo MD [facility] CHEST PAIN-03/23 ECHO NEGHTN-03/23 VIC DUP-NEGSLEEP APNEA;on rxHTN essential;neg duplexScreeningHyperlipidem iaSarcoidosisArrhythmia;nl tshNeuropathyIRON DEFICIENCYrenal stoneAsthmaRaynaud's syndrome - In-person encounter Office Visit Regino Dillon MD [facility] SLEEP APNEA;on rxOBESITY VITAL SIGNS Date Observation Value Provider Body Mass Index (Ratio) 32.13 kg/m2 Artie Felton pulse rate 77 /min Veronicayoana Oneill weight E&M 187.2 [lb_av] Veronicayoana Oneill respiratory rate E&M 18 /min Veronica Mai blood pressure, diastolic 84 mm[Hg] sobia Oneill blood pressure, systolic 116 mm[Hg] She [place] Mai oxygen saturation, oximetry 96 % Veronica Oneill blood pressure, cuff size regular [place] Mai height E&M 64 [in_i] Veronica Mai [...] Demecs RN blood pressure, systolic 150 mm[Hg] [facility] oxygen saturation, oximetry 97 % Suzy Demecs RN respiratory rate E&M 18 /min [place] Demecs RN pulse rate 111 /min Suzy Demecs R N weight E&M 177 [lb_av] [place] Demecs R N Body Mass Index (Ratio) [...] iron binding capacity, unsaturated 197 ug/dL [employer] 106-808 9123/03/2 0 iron binding capacity, total 343 ug/dL [employer] 329-387 5622/03/2 0 basophil count, absolute 0.0 x10E3/uL [employer] [...] Estab. 0 platelet count 184 X10E3/UL [employer] 999-340 1065/03/2 0 red blood cell distribution width 16.1 [...] rapid plasma reagin antibody screen Non Reactive [facility] Non Reactive 1 iron saturation percent, serum 13 % [employer] 15-55 Low 1 iron, serum 60 ug/dL [employer] 27-159 1 iron binding capacity, unsaturated 390 ug/dL [employer] 455-953 7505/02/0 1 iron binding capacity, total 450 ug/dL [employer] 250-450 HISTORY OF MEDICATION USE Medication Status Instructions Dates Provider Indications Com ments trazodone 100 mg tablet active at bedtime Leidy James NP Adipex-P 37.5 mg capsule completed once a day - Leidy James NP hydrocodone-aceta minophen 7.5-325 mg tablet [...] E&M revi ewed - no changes required [facility], f requency, days per week [...] Policy type / Coverage type Preeti red alliance party ID [facility]PLETE ASSURE (PPO C-SNP) Medicare [id number] HEALTHCARE AND FAMILY SERVICES Medicaid 0 [id number] ADVANCE DIRECTIVES Name Date DISCUSSED - NO DECISION MADE TREATMENT PLAN Date Name Performer [id number],C,S he complains of palpitations on occasion, will check holter to assess further [facility] [id number],C,weight loss a dvised [facility] [id number],C, H er updated medication list for this problem includes: Simvastatin 40 Mg Tablet (Simvastatin) ..... 1 tablet once a day [facility] [id number],C,RONALD showed no rmal arterial flow [facility] [id number],C, B P today: 116/84 P rior BP: 120/80 (08/03/2022) [facility] [id number],C,F ollows Endocrine [facility] [id number],S, [facility] [id number],S, [facility] [id number],C, B P today: 120/80 P rior BP: 111/78 (02/02/2022) Echo EF 60% from 11/2021 [facility] [id number],C,Has beba [facility] specialists. [facility] [id number],C,U nderwent MRI which showed reduced flow in her LE arteries, unspecified, do not have results. Will check RONALD to assess for PVD. Artie Teranelenazai [id number],C,follow with P CP Leidy James WAREHOUSER [id number],C,r ecent labs at PCP will have results sent to our office. Leidy James WAREHOUSER [id number],C,n ot on cpap. may need repeat sleep study Leidy James WAREHOUSER [id number],C, B P today: 111/78 P rior BP: 132/91 (01/08/2020) ECHO 11/2021 EF 65%, trace MR, mild TR Leidy James WAREHOUSER [id number],C,w ill have PCP send recent lab results to our office H er updated medication list for this problem includes: Simvastatin 40 Mg Tablet (Simvastatin) ..... 1 tablet once a day Leidy James WAREHOUSER Electrophysiology:Sh e complains of palpitations on occasion, [...] Ahmedzai Electrophysiology:Fo llows Endocrine Artie Ahmedzai Electrophysiology Atrie Ahmedzai Electrophysiology Artie medzai Electrophysiology: B P [...] ..... One tab daily Orders: E KG (CPT-63547) BP today: 121/79 Prior BP: / () S HE WAS DIAGNOSED WITH MICROVASULAR ANGINA AND RECEIVED ECP. I T DID HELP FOR A WHILE BUT IT HAS COME BACK RECENTLY. Regino Dillon MD Date Name Monitor - Telemetry (Mobile Cardiac) Complete Echo Arterial Duplex Bi-L ower EX Complete Echo DLCO - 08548 FRC - 17176 FVC - 54010 Mobile Cardiac Tele Complete Echo IRON AND [...] hackett MD completed FVC / MVV - 16630 Janelle thompson MD completed FRC - 31496 Janelle hackett MD completed SpO2 w/o 6min walk/titration Janelle Brown MD completed SVC - 74792 Janelle hackett MD completed DLCO - 16962 Janelle hackett MD completed EKG Janelle hackett MD completed Schedule Followup Janelle Brown 6 months completed EKG Janelle hackett MD completed FVC / MVV - 57182 Janelle thompson MD completed FRC - 01608 Janelle hackett MD completed SpO2 w/o 6min walk/titration Janelle Brown MD completed DLCO - 65025 Janelle hackett MD completed EKG Janelle hackett MD completed Injectafer 750mg Gopal Trejo MD co mpleted Therapeutic IV Infusion up to 1 hour Gopal Trejo MD completed Injectafer 750mg Gopal Trejo MD co mpleted Therapeutic IV Infusion up to 1 hour Gopal Trejo MD completed EKG Gopal Trejo MD complete d MARIA ELENA Trejo MD c ompleted EKG Regino Dillon MD completed
--- OUTSIDE RECORDS SUMMARY | 2024-07-24 16:30 | XMS_ITS | Continuity of Care Document ---
Author Organization [facility] Address [address] [place] [address] Phone Care Team Providers Care Sizing Machine And Drier Operator Name Role Phone Nacho Coleman MD, FACS Unavailable Unavailab le Procedures Procedure Date Special Reports Or Forms Special Reports Or Forms Special Reports Or Forms Vision Svcs Frames Purchases SV Plastic Sph Etlan To +/- 4 0 Scratch Resistant Coating Eye Exam, New Patient Refraction Advance Directives Directive Yes / No Effective Date File Name No Information Encounters Encounter Description Practice Location Reason(s) For Visit Diagnoses Date Provider Providers Copied on Encounter [facility], [address], [place], [place], [address], [place] tel:[phone] SEC Shannan Archer No Information 1 Jared Griffith. [address], [address], [place], [place], [address], [place]. tel:[phone] [facility], [address], [place], [place], [address], [place] tel:[phone] SEC [facility] No Information 1 Joao Gann. [address] , [address], [place], [address], [place]. tel:[phone] [facility], [address], [place], [place], [address], [place] tel:[phone] SEC [facility] No Information 1 Joao Gann. [address] [facility] [facility] , [address], [place], [address], . tel:[phone] [facility], [address], [place], [place], [address], [place] tel:[phone] SEC [facility] No Information 0 [facility] . [address], [address], [place], [place], [address], [place]. tel:[phone] Referring Provider: Azeem Marx, [address] [place], [place] [address], [place], [place], [facility]. tel:[phone] [facility], [address], [place], [place], [address], [place] tel:[phone] SEC [facility] No Information 0 Joao Gann. [address] [place] [address] , [address], [place], [address], . tel:[phone] Family History Family Member Type Diagnosis Age At Onset No Information Payers Payer name Insurance type Covered green party ID Authoriza tion(s) No Information Social History [...]
--- OUTSIDE RECORDS SUMMARY | 2024-07-24 16:31 | XMS_ITS | Data Portability ---
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, [place], [address], 16:09:44 Medication Orders None recorded. Patient TargetsNo targets recorded. Patient Instructions Encounter Date Encounter Id Patient Instructions Last Modified By Organization Details Last Modified Time 05/02/2023 [id number] Essential hypertension, hyperlipidemia, type 2 diabetes, adrenal cortical insufficiency and sarcoidosis. Plan to continue on current Rx recheck back in four months. Is scheduled to see a new ticketing clerk in several weeks. Will hold off on doing any blood work at this time will allow them to perform most of those diagnostic studies. Portions of the record may have been created with voice recognition software. Occasional wrong-word or jgwrw-f-phql substitutions may have occurred due to the inherent limitations of voice recognition software. Read the chart carefully and recognize, using context, where substitutions have occurred. [email or web address] Not available 05/02/2023 12:30:11 08/28/2023 [id number] Follow-up hypertension, adrenal cortical hypofunction, GERD, type [...] with voice recognition software. Occasional wrong-word or exlbb-a-tnfh substitutions may have occurred due to the inherent limitations of voice recognition software. Read the chart carefully and recognize, using context, where substitutions have occurred. [email or web address] Not available 08/28/2023 12:33:27 01/01/2024 [id number] dementia rating scale-2* [email or web address] Not available 01/01/2024 12:36:34 alcohol misuse* Not available 01/01/2024 12:36:34 depression screening* [email or web address] Not available 01/01/2024 12:36:34 Timed Up and Go test (TUG)* [email or web address] Not available 01/01/2024 12:36:34 multi-dimensiona l health assessment questionnaire* [email or web address] Not available 01/01/2024 12:36:34 Personalized Hea lt Plan and Screening Recommendations Advance Directives - Do you have one? No Advance Directives - Do we have your [...] 10% of your body weight Physical activity: Need more exercise/physical activity Nutrition: Good Average Fall Risk (screened today): Low Vaccines Pneumococcal: Ordered Recommended today Recommended today, but you have declined No further needed Influenza: Your next one in the fall of this year Chronic Disease Risks Stroke: Low Risk Intermediate Risk I have no recommendations Act keke diagnosis, Continue current treatment plan Heart Attack: Low risk Intermediate Risk I have no recommendations Act keke diagnosis, Continue current treatment plan Clogging of the Arteries: Low risk Intermediate Risk I have no recommendations Act keke diagnosis, Continue current treatment plan Diabetes: Low Risk Intermediate Risk Active diagnosis, Continue current treatment plan Secondary Prevention/Interven tion (detects treatable diseases before they may cause symptoms, disability, or ) Breast Cancer Screening with mammogram: Cervical/Uterine/Ov bobby Cancer Screening: Osteoporosis Screening: Date Screening Last Performed: Colon Cancer Screening: Colonoscopy Date Screening Last Performed: __2021____ Eye Disease Screening: Dementia Risk: Low I have no recommendations Depression Screening: Negative Active diagnosis, Continue current treatment plan [email or web address] Not available 01/01/2024 12:25:10 Medicare wellnes s evaluation risk assessment stable. Follow-up for [...] with voice recognition software. Occasional wrong-word or onftz-p-lhac substitutions may have occurred due to the inherent limitations of voice recognition software. Read the chart carefully and recognize, using context, where substitutions have occurred. [email or web address] Not available 01/01/2024 12:36:14 05/04/2024 [id number] Follow-up essent ial hypertension, hypopituitarism, hyperlipidemia, type 2 diabetes, sarcoidosis and obesity all clinically stable. No need for additional blood work at this time since being followed by Endocrinology on a regular basis. Will continue on current Rx stay on medications the same way. Recheck back in four months Follow Up: 4 Months Approximate Date: 09/01/2024 [email or web address] Not available 05/04/2024 15:07:27 Reason for Referral None Reported. Results Created Date Observation Date Name Description Value Unit Range Abnormal Flag Note LastModifiedBy Organization Detail LastModifiedTime 09/03/19 24 XR, hip + pelvi s, unila teral No observ ation record ed. [email or web address] [facility] [address] [facility] [address], [place], [address], 09/03/2023 15:42:32 09/17/19 24 09/17/2023 MRI, hip, w/wo contr ast No observ ation record ed. [address], [place], [address], 09/17/2023 14:31:03 09/19/19 24 09/17/2023 MRI, pitui tary, w/wo contr ast No observ ation record ed. [address], [place], [address], 09/20/2023 07:48:29 09/30/19 24 09/30/2023 XR, hip + pelvi s, unila teral No observ ation record ed. [address], [place], [address], 09/30/2023 12:16:20 12/30/19 24 12/30/2023 DEXA, axial skele ton [facility] [address] [facility] [place] [address] Patien t Name: LEELEE MCCALL Access ion #: [id number] Sex: F : 1970 3 Dictat [...] ent. T-scor e: compar sakshi by lashae herediaat ion (SD) to a young adult popula tion, lubna bee for sex and ethnic ity (used for postme nopaus al women and men >50 years) and classi fied by WHO criter ia. -1.0: normal <-1.0 to >-2.5: osteop enia -2.5: osteop orosis -2.5 plus fragil ity fractu re: severe osteop orosis Z-scor e: compar ed by SD to an age, sex, and ethnic ity popula tion (used for Page 1 [facility] [address] [place] [address] Patien t Name: LEELEE MCCALL Access ion #: [id number] Sex: F : 1970 3 Dictat ed By: Laine Baer Attend ing Physic kevin: RODRIGUEZ MEDEL Physic kevin: JAILENE OGLESBY Exam Date: 2023 [...] at 2023 14:46: 11 PM Page 2 [facility] (Imaging) [address] [place], [place], [facility], 12/30/2023 17:50:12 12/30/19 24 12/30/2023 britni wang t sherry, bilat [facility] [address] [place] [address] Patien t Name: LEELEE MCCALL Access ion #: [id number] Sex: F : 1970 3 Dictat ed By: Brooklyn Menon Attend ing Physic kevin: JAILENE OGLESBY Orderi wendy Physic kevin: JAILENE OGLESBY Exam Date: 2023 [...] at 2023 15:14: 46 PM Page 1 [email or web address] [facility] (Imaging) [address] [place], [address], 12/30/2023 17:50:31 01/22/20 24 12/30/2023 DEXA, axial skele ton [facility] [address] [address] Patien t Name: LEELEE MCCALL [facility] ion #: [id number] Sex: F : 1970 3 Dictat [...] ent. T-scor e: compar sakshi by lashae lim ion (SD) to a young adult popula tion, matche d for sex and ethnic ity (used for postme nopaus al women and men >50 years) and classi fied by WHO criter ia. -1.0: normal <-1.0 to >-2.5: osteop enia -2.5: osteop orosis Page 1 [facility] [address] Patien t Name: LEELEE MCCALL Access ion #: [id number] Sex: F : 1970 3 Dictat ed By: Laine Baer Attend ing Physic kevin: RODRIGUEZ MEDEL [facility] Physic kevin: JAILENE OGLESBY Exam Date: [...] and a cause should be Page 2 [facility] [address] [place] [address] [phone] Patien t Name: LEELEE MCCALL Access ion #: [id number] Sex: F : 1970 3 Dictat ed By: Laine Baer Attend ing Physic kevin: JAILENE CE, OGLESBY Orderi ng Physic kevin: JAILENE OGLESBY Exam Date: 2023 14:23 PM Exam Name: XR DEXA-H IPS PELVIS SPINE Admitt ing Diagno sis(es ): sought Electr onical ly Signed by: Laine Baer at 2023 11:54: 32 AM Page [address] (Imaging) [address] [place], [address], 01/22/2024 13:57:36 07/07/1907/07/2024 XR, chest , 2 view No observ ation record ed. [address], [place], [address], 07/07/2024 16:53:59 Result Notes None recorded. Problems Name Problem SNOMED Code Status Onset Date Resolution Date Notes Provider Name and Address Organization Details Recorded Time Edema of lower extremity 519229799 Active 2021 Not Available [facility] 3 06:47:55 Renewal of prescript ion Active 2021 Not Available [facility] 3 06:47:55 Acute bronchiti s 06589053 Active Ann Dar, CCM null[place] [facility] 4 11:35:03 Closed fracture of fifth metacarpa l bone of right hand 60819052293 786860 Active 2021 Ann Dar, CCM null[place] [facility] 4 11:35:03 Closed fracture of neck of fifth metacarpa l bone of right hand 62228525312 718166 Active 2021 Ann Dar, CCM null[place] [facility] 4 11:35:03 Bilateral trochante brigitte bursitis 44183433952 161876 Active 2022 Not Available [facility] 3 06:47:55 Bilateral hip joint pain 94585805771 795775 Active 2022 Ann Dar, CCM null[place] [facility] 4 11:36:42 Hyperchol esterolem ia 86013555 Active Not Available [facility] 3 06:47:55 Senile osteoporo sis 72116265 Active 2021 Ann Galindot, CCM null[place] [facility] [place] [facility] 4 11:36:42 Asthma 286878510 Active Ann Dar, CCM null[place] [facility] 4 11:36:42 Osteonecr osis of head of femur 948118970 Active 2022 Ann Dar, CCM null[place] [facility] 4 11:36:42 Abdominal pain 60553218 Active 2022 Not Available [facility] 3 06:47:55 Gastroeso phageal reflux disease 638231724 Active 2016 Ann Galindot, CCM null[place] [facility] 4 11:36:42 Morbid obesity 526121770 Active Not Available [facility] 3 06:47:55 Glaucoma 89362069 Active Ann Galindot, CCM null[place] [facility] 4 11:36:42 Screening mammograp hy Active 2021 Not Available [facility] 3 06:47:55 Esophagea l reflux finding 095180800 Completed Not Available [facility] 3 02:53:31 Transient cerebral ischemia 631526771 Active Not Available [facility] 3 06:47:55 Gastroeso phageal reflux disease without esophagit is 087468860 Active 2021 Not Available [facility] 3 06:47:55 Petit's neuroma of right foot 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 9108 Active 2019 Not Available [facility] 3 06:47:55 Petit's neuroma of left foot 13183817229 9105 Active 2019 Not Available [facility] 3 06:47:56 Sarcoidos is 88730559 Active 2018 Not Available [facility] 3 06:47:56 Pain in right foot 01733801659 9107 Active 2018 Not Available [facility] 3 06:47:56 Pain in right hand 63106136533 9109 Active 2021 Not Available [facility] 3 06:47:56 Depressiv e disorder 86286302 Active 2018 Ann Dodge CCM null[place] [facility] [place] [facility] 4 11:36:42 Sinusitis 15190528 Active 2017 Not Available [facility] 3 06:47:56 Chronic pain syndrome 119130003 Active 2019 Ann Dodge CCM null[place] [facility] 4 11:36:42 Migraine 69512275 Active Not Available [facility] 3 06:47:56 Hypertens keke disorder 90133666 Completed Not Available [facility] 3 02:53:32 Chronic sinusitis 63461852 Active 2019 Ann Dodge CCM null, [place] [facility] 4 11:36:42 Obesity 205761645 Active Not Available [facility] 3 06:47:56 Insomnia with sleep apnea 63935160 Active 2018 Not Available [facility] 3 06:47:56 Type 2 diabetes mellitus 66587015 Active Not Available [facility] 3 06:47:56 Nonalcoho lic steatohep atitis 687810520 Active Not Available [facility] 3 06:47:56 Long-term current use of opiate analgesic drug 39717521322 4108 Active 2021 Ann Dodge CCM null[place] [facility] 4 11:36:42 Foot pain 52867664 Active 2021 Not Available [facility] 3 06:47:56 Anxiety 23085103 Active 2016 Ann Dodge CCM null[place] [facility] [place] [facility] 4 11:36:42 Talipes planus 66676268 Active 2018 Not Available [facility] 3 06:47:56 Acute upper respirato ry infection 35040422 Active 2021 Ann Galindot, CCM null[place] [facility] 4 11:35:03 Essential hypertens ion 97893754 Active Ann Galindot, CCM null[place] [facility] 4 11:36:42 Liver enzymes level above reference range 839779917 Active 2021 Not Available [facility] 3 06:47:56 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 48737376 Active 2021 Ann Galindot, CCM null[place] [facility] 4 11:35:03 Diabetes mellitus 24100937 Active Ann Galinodt, CCM null[place] [facility] 4 11:36:42 Obstructi ve sleep apnea syndrome 20540051 Active 2018 Ann Galindot, CCM null[place] [facility] 4 11:36:42 Congestio n of nasal sinus 22588780 Active 2021 Not Available [facility] 3 06:47:56 Fatigue 06221321 Active Not Available [facility] 3 06:47:56 Cough 17280104 Active 2022 Ann Galindot, CCM null[place] [facility] 4 11:35:03 Trochante brigitte bursitis of right hip 83328021440 9100 Active 2022 Not Available [facility] 3 06:47:56 Hypoglyce padmini 723644289 Active 2022 Not Available [facility] 3 06:47:56 Type 2 diabetes mellitus without complicat ion 594642099 Active 2022 Not Available [facility] 3 06:47:56 Hypopitui tarism 36415015 Active 2022 Ann Galindot, CCM null[place] [facility] 4 11:36:42 Acute adrenal insuffici ency 577116551 Active 2022 Not Available [facility] 3 06:47:56 Severe adrenal insuffici ency 24835831 Active 2022 Not Available [facility] 3 06:47:55 Adrenal cortical hypofunct ion 476361898 Active 2022 Ann Dodge, CCM null[place] [facility] 4 11:36:42 Insomnia 240059884 Active 2022 Not Available [facility] 3 06:47:55 Iatrogeni c adrenal insuffici ency 112688780 Active 2022 Annlisa Galindot, CCM null[place] [facility] 4 11:36:42 Pituitary function test outside reference range 856531045 Active 2022 Not Available [facility] 3 06:47:55 Reactive hypoglyce padmini 618182 Active 2022 Not Available [facility] 3 06:47:56 Skin lesion 78561878 Active 2022 Not Available [facility] 3 06:47:56 Epidermoi d cyst of skin of neck 847636493 Active 2022 Not Available [facility] 3 06:47:56 Sebaceous cyst of skin 038060055 Active 2022 Not Available [facility] 3 06:47:56 Epidermoi d cyst of skin 435448534 Active 2022 Not Available [facility] 3 06:47:56 Pituitary adenoma 913475353 Active 2022 Not Available [facility] 3 06:47:55 Osteoarth ritis of hip 645134085 Active 2022 Ann Dodge, CCM null[place] [facility] 4 11:36:42 Acute sinusitis 10202772 Active 2024 Shreya Oglesby MD [address] [place] [address], [address] , [place] [facility] 5 12:10:45 Notes:Some problems listed i n Documents: #[id number], #[id number] could not be added to this patient's chart. Please review these documents and add these problems to the patient's chart manually as needed. Problem Notes None recorded. Procedures Surgical History Date Name Laterality Status Provider Name and Address Organization Details Recorded Time 01/01/20 24 Medicare Wellness CPT Code, subsequent completed Antonella Clark RN [facility] 01/01/2024 12:17:16 12/26/19 23 Excision Cyst Multilayer completed Will pearl MD [address] [place] [address], [place] [address], [place], [address], [facility] [employer] 12/25/2022 13:34:53 12/21/19 23 Medicare Wellness CPT Code, subsequent completed Antonella Clark RN [facility] [employer] [facility] 12/20/2022 12:10:47 06/21/19 21 [email or web address] completed Not Available [facility] 08/15/2022 02:47:46 05/25/20 14 Most Recent Bone Density completed Not Available [facility] 08/15/2022 02:47:44 Imaging Results Imaging Date Name Status LastModified by Organiz ation Details LastModified Time 09/03/2023 XR, hip + pelvis, unilateral completed [email or web address] [facility] [address] [facility] [address], [place], [address], 09/03/2023 15:42:32 09/17/2023 MRI, hip, w/wo contrast completed [address] [place] [address], [address], 09/17/2023 14:31:03 09/17/2023 MRI, pituitary, w/wo contrast completed [address] [place] [address], [address], 09/20/2023 07:48:29 09/30/2023 XR, hip + pelvis, unilateral completed [address] [place] [address], [address], 09/30/2023 12:16:20 12/30/2023 DEXA, axial skeleton completed [address] (Imaging) [address] [place], [address], 12/30/2023 17:50:12 12/30/2023 screening breast sherry, bilat completed [address] (Imaging) [address] [place], [address], 12/30/2023 17:50:31 12/30/2023 DEXA, axial skeleton completed [address] (Imaging) [address] [place], [address], 01/22/2024 13:57:36 07/07/2024 XR, chest, 2 view completed [address] [facility] [address], [place], [address], 07/07/2024 16:53:59 Procedure Notes None recorded. Medical Equipment None Reported. Allergies Allergen ID Allergen Name Allergen Category Reaction Reaction Severity Criticality Documentation Date Start Date Code Code System Note Provider Name and Address Organization Details Recorded Time 4797 Floxin medicatio n other Not available Not available 08/15/2022 8 RxNorm Not Available [facility] 03:02:33 Medications Name Sig Start Date Stop [...] Not Available amoxicill in 500 mg capsule TAKE 1 CAPSULE BY MOUTH THREE TIMES DAILY FOR 10 DAYS active Not Available Not Available No t Available latanopro st 0.005 % eye drops active [...] ne 10 mg-acetam inophen 325 mg tablet TAKE 1 TABLET BY MOUTH FOUR TIMES DAILY NEEDED FOR MIGRAINE S OR HIP AND LEG PAIN active Not Available Not Available No t Available omeprazol e 40 mg capsule,d elayed release [...] administ ered by the provider 12/20 completed ND: [id number] Not Available Not Available Not Available benzonata [...] Available Not Available trazodone 150 mg tablet Take 1 tablet every day by oral route at bedtime. 2024 active Not Available Not Available Not [...] TAKE 1 CAPSULE BY MOUTH EVERY NIGHT active Not Available Not Available No t Available monteluka st 10 mg tablet TAKE 1 [...] TABLET BY MOUTH THREE TIMES DAILY NEEDED active Not Available Not Available No t [...] active Not Available Not Available Not Available levofloxa marielena 750 mg tablet active Not Available Not Available No t Available zolpidem 10 mg tablet TAKE 1 [...] administ ered by the provider 12/20 completed [facility] [address]167-14 09-15 Not Available Not Available Not Available [...] Not Available Not Available No t Available Airsupra 90 mcg-80 mcg/actua tion HFA aerosol inhaler INHALE 2 [...] Updated DateTime 3 154.94 cm 33.6 kg/m2 46295.4 4 g 94 /min 97 [degF] 98 % 98 % 124 mm[Hg] 80 mm[Hg] [facility] 3 12:23:47 Date Recorded Body height Body mass index (BMI) Body weight Heart rate Body temperature Oxygen saturation Oxygen saturation in Arterial blood by Pulse oximetry Systolic blood pressure Diastolic blood pressure Provider Name and Address Organization Details Last Updated DateTime 4 160.02 cm 31.4 kg/m2 95543.8 5 g 94 /min 97 [degF] 96 % 96 % 124 mm[Hg] 84 mm[Hg] [facility] 4 12:20:34 Date Recorded Body height Body mass index (BMI) Body weight Provider Name and Address Organization Details Last Updated DateTime 09/03/2023 154.94 cm 33.3 kg/m2 49708.26 g 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 [facility] 09/03/2023 15:00:52 Date Recorded Body height Body mass index (BMI) Body weight Heart rate Body temperature Oxygen saturation Oxygen saturation in Arterial blood by Pulse oximetry Systolic blood pressure Diastolic blood pressure Provider Name and Address Organization Details Last Updated DateTime 4 160.02 cm 32.9 kg/m2 69604.1 8 g 78 /min 97.4 [degF] 97 % 97 % 120 mm[Hg] 80 mm[Hg] Yun Sauer Francisco J [facility] 4 12:11:01 Date Recorded Pain severity - 0-10 verbal numeric rating [Score] - Reported Provider Name and Address Organization Details Last Updated DateTime 01/01/2024 5 Antonella Clark RN [facility] 01/01/2024 12:17:34 Date Recorded Body height Body weight Heart rate Body temperature Oxygen saturation Oxygen saturation in Arterial blood by Pulse oximetry Systolic blood pressure Diastolic blood pressure Provider Name and Address Organization Details Last Updated DateTime 4 160.02 cm 80698.4 g 96 /min 97 [degF] 97 % 97 % 128 mm[Hg] 82 mm[Hg] Yun Sauer Francisco J [facility] 4 14:40:29 Social History Question Answer Notes LastModified by Organizat ion Details LastModified Time Tobacco Smoking Status [facility] 05/02/2023 12:07:58 Do You Have An Advance Directive? No [id number] Information not available 08/15/2022 What Is Your Level Of Alcohol Consumption? None [id number] Information not available 08/15/2022 What Is Your Level Of Caffeine Consumption? Moderate [id number] Information not available 08/15/2022 How Much Tobacco Do You Chew? None [id number] Information not available 08/15/2022 In The 14 Days Before Symptom Onset, Have You Had Close Contact With A Laboratory-confir med COVID-19 While That Case Was Ill? No [email or web address] Information not available 05/02/2023 In The 14 Days Before Symptom Onset, Have You Had Close Contact With A Person Who Is Under Investigation For COVID-19 While That Person Was Ill? No [email or web address] Information not available 05/02/2023 What Type Of Diet Are You Following? DIABETIC [id number] Information not available 08/15/2022 Do You Or Have You Ever Used E-cigarettes Or Vape? Never Used Electronic Cigarettes [email or web address] Information not available 05/02/2023 Do You Have An Electrostatic Air Filter? No [email or web address] Information not available 05/02/2023 What Is Your Occupation? Disabled [email or web address] Information not available 05/02/2023 Have There Been Any Changes To Your Family Or Social Situation? No Information no t available 05/02/2023 What Is The Fluoride Status Of Your Home? Unknown Information not available 05/02/2023 When Did You Quit Smoking? 16+yearssincel astcigarette Information not available 05/02/2023 Are There Any Guns Present In Your Home? No Information not available 05/02/2023 Do You Have A Humidifier? No [email or web address] Information not available 05/02/2023 Do You Use Insect Repellent Routinely? Yes Information not available 05/02/2023 Where Do You Live? Apartment Sr Bldg [email or web address] Information not available 01/01/2024 Guns Present In The Home? No [email or web address] Information not available 12/20/2022 Are You Able To Care For Yourself? Yes [email or web address] Information not available 12/20/2022 Are You Blind Or Do Yo Have Difficulty Seeing? Yes [email or web address] Information not available 12/20/2022 Are You Deaf Or Do You Have Serious Difficulty Hearing? No [email or web address] Information not available 12/20/2022 Live Alone Of With Others? 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 No [email or web address] Information not available 05/02/2023 What Was The Date Of Your Most Recent Tobacco Screening? 01/01/2024 [email or web address] Information not available 01/01/2024 How Many Children Do You Have? 2 Information not available 05/02/2023 Do You Have Any Pets? No [email or web address] Information not available 05/02/2023 Do You Use Your Seat Belt Or Car Seat Routinely? Yes [email or web address] Information not available 05/02/2023 Do You Have Smoke And Carbon Monoxide Detectors In Your Home? Yes [email or web address] Information not available 05/02/2023 At What Age Did You Start Smoking Tobacco? 15 [email or web address] Information not available 05/02/2023 Are You Passively Exposed To Smoke? No Information no t available 05/02/2023 Do You Or Have You Ever Used Smokeless Tobacco? Never Used Smokeless Tobacco [id number] Information not available 08/15/2022 Are There Any Smokers In Your House? No [email or web address] Information not available 05/02/2023 Do You Use Any Illicit Or Recreational Drugs? No [email or web address] Information not available 05/02/2023 Do You Use Sunscreen Routinely? Yes [email or web address] Information not available 05/02/2023 Have You Recently Traveled Abroad? No [email or web address] Information not available 05/02/2023 Do You Have Any Dietary Restrictions? Yes [email or web address] Information not available 05/02/2023 Sex: Female Functional Status Question Answer Note LastModified by Organization D etails LastModified Time What is your exercise level? None [email or web address] Information not available 01/01/2024 Mental Status None recorded. Family History Relationship Description Onset Age of this Age Resolved Age Notes LastModified by Organization Details LastModified Time Father No current problems or disability [email or web address] Not available 09/02 14:57:54 Father Family history of stroke [email or web address] Not available 2023 14:57:54 Father Heart disease [id number] Not available 08/15/2022 02:47:50 Father Hypertensive disorder [email or web address] [id number] Not available 08/15/2022 02:47:50 Mother No current problems or disability Mother Living 76 years old Father Deceas ed 64 years old 6 Sister s 6 Living Mother Hx HTN Father Hx CRF, ASHD, COPD, DM, HTN Sister Hx CRF (1) , DM (1) , HTN (2), MS [email or web address] Not available 09/03/2023 14:57:54 Mother Hypertensive disorder [email or web address].451 [id number] Not available 08/15/2022 02:47:50 Sister Diabetes mellitus MIGRATION.364 [id number] Not available 08/15/2022 02:47:50 Medical History Condition Response BLINDNESS N NERVE DISEASE N RHEUMATIC FEVER N BLADDER PROBLEMS N KIDNEY STONES N MRSA N OTHER # 1 N POLIO N LUNG DISEASE/DISORDER N HISTORY OF DRUG ABUSE N RADIATION / CHEMOTHERAPY N COPD N Other # 2 N BLOOD DISEASES [...] HAVE YOU BEEN HOSPITALIZED OR SEEN IN [facility] IN THE PAST YEAR ? N ATHEROSCLEROSIS [...] preservative 4 completed Not Available [facility] 05/23/2023 06:47:57 Influenza, split virus, trivalent, preservative 3 completed Not Available [facility] 05/23/2023 06:47:57 COVID-19, mRNA, LNP-S, PF, 30 mcg/0.3 mL dose 1 completed Not Available [facility] 05/23/2023 06:47:57 COVID-19, mRNA, LNP-S, PF, 30 mcg/0.3 mL dose 1 completed Not Available [facility] 05/23/2023 06:47:57 Influenza, split virus, quadrivalent, preservative 8 completed Not Available [facility] 05/23/2023 06:47:57 Influenza, split virus, quadrivalent, preservative 2 completed Not Available [facility] 05/23/2023 06:47:57 Influenza, split virus, quadrivalent, preservative 1 completed Not Available [facility] 05/23/2023 06:47:57 SARS-COV-2 (COVID-19) vaccine, UNSPECIFIED 1 completed Not Available [facility] 05/23/2023 06:47:57 pneumococcal polysaccharide PPV23 6 completed Not Available [facility] 05/23/2023 06:47:57 Influenza, split virus, quadrivalent, PF 7 completed Not Available [facility] 05/23/2023 06:47:57 pneumococcal polysaccharide PPV23 6 completed Not Available [facility] 05/23/2023 06:47:57 Influenza, split virus, quadrivalent, PF 6 completed Not Available [facility] 05/23/2023 06:47:57 Influenza, split virus, quadrivalent, preservative 8 completed Not Available [facility] 05/23/2023 06:47:57 Influenza, split virus, quadrivalent, preservative 5 completed Not Available [facility] 05/23/2023 06:47:57 Pneumococcal conjugate PCV 13 4 completed Not Available [facility] 05/23/2023 06:47:57 Influenza, split virus, quadrivalent, PF 3 completed ZUNILDA Jacobson Shanna [place] [employer] 05/02/2023 12:31:40 Past Encounters Encounter ID Performer Location Encounter Start Date Encounter Closed Date Diagnosis/Indication Diagnosis SNOMED-CT Code Diagnosis ICD10 Code Diagnosis Note [id number] [facility] [address] [place] [address] 09/08/2020 00:00:00 09/08/2020 12:55:33 [id number] [facility] Pulmonolo gy [address] [address] 10/14/2020 00:00:00 10/14/2020 16:27:09 [id number] [facility] Internal Med [facility] [address] [place] [address] 10/26/2020 00:00:00 10/26/2020 15:18:21 [id number] _ATHENA_M IGRATION_ DEFAULT_1 _1 , 12/02/2020 00:00:00 12/08/2020 09:42:26 [id number] [facility] Pulmon[facility] [address] [place] [address] 02/09/2021 00:00:00 02/09/2021 17:13:53 [id number] [facility] Podiat[facility] [address] [place] [address] 03/13/2021 00:00:00 03/13/2021 15:06:10 [id number] [facility] Internal Med [address] [address] 03/15/2021 00:00:00 03/15/2021 11:59:06 [id number] [facility] Pul[facility] [place] [address] [place] [address] 07/24/2021 00:00:00 07/24/2021 17:07:16 [id number] [facility] Internal Med [facility] [address], [facility] [address] [place] [address] 08/09/2021 00:00:00 08/09/2021 15:03:24 [id number] [facility] Pulmon[facility] [place] [address] [place] [address] 11/21/2021 00:00:00 11/21/2021 16:55:22 [id number] [facility] Internal Med [facility] [address], [facility] [address] [place] [address] 12/06/2021 00:00:00 12/06/2021 15:27:21 [id number] [facility] [address] [place] [address] 12/07/2021 00:00:00 12/07/2021 15:35:05 [id number] _ATHENA_M IGRATION_ DEFAULT_1 _1 , 12/27/2021 00:00:00 12/27/2021 12:18:10 [id number] [facility] [address] [address] 01/30/2022 00:00:00 01/30/2022 10:10:47 [id number] [facility] [address] [address] 02/06/2022 00:00:00 02/06/2022 10:09:48 [id number] [facility] [address] [address] 02/20/2022 00:00:00 02/20/2022 11:26:33 [id number] [facility] [address] [address] 03/06/2022 00:00:00 03/06/2022 10:38:13 [id number] [facility] Pulmon[facility] [place] [address] [place] [address] 03/23/2022 00:00:00 03/23/2022 16:36:53 [id number] [facility] Ortho [address] [address] 03/27/2022 00:00:00 03/27/2022 09:50:13 [id number] [facility] Internal Med [address] [address] 04/25/2022 00:00:00 04/25/2022 15:05:22 [id number] [facility] Pod[facility] [address] [place] [address] 04/26/2022 00:00:00 04/26/2022 11:46:55 [id number] [facility] Internal Med [address] [address] 07/19/2022 00:00:00 07/19/2022 11:48:05 [id number] [facility] [address] [address] 07/31/2022 00:00:00 07/31/2022 14:01:11 [id number] [facility] [address] [facility] [address] [place] [address] 08/07/2022 00:00:00 08/07/2022 15:54:29 [id number] Leroy Workman MD [facility] [address] [address] 09/11/2022 09:25:15 09/11/2022 09:45:00 Trochanteric bursitis of right hip [id number] 98119 M70.61 Osteonecro sis of head of femur 771018796 M87.859 [id number] Shreya Oglesby MD [facility] Internal Med [address] [address] 09/13/2022 10:56:55 09/13/2022 17:45:14 Abdominal pain 20222077 R10.0 Essential hypertension 78177293 I10 Sarcoidosis 52572985 D86 .9 Hypoglycemia 206276227 E 16.2 Hypercholesterolemia 136 06316 E78.00 [id number] Shreya Oglesby MD 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 Pulmonolo gy [facility] [address] [place] [address] 11/02/2022 14:28:08 11/02/2022 16:25:41 Sarcoidosis 19707205 D86.9 On no prednisone PFT 09/2022 WNLCT chest results 03/23/21 with NADHas not repeatedSh e has the order and will scheduleYe oneal eye and cardiology exam, she is aware to schedule thisDiscus sed reportable signs and symptoms Obstructiv e sleep apnea syndrome 96032722 G47.33 Mild on home study with AHI 5.Does not qualify for Inspire.No need for CPAP use. Congestion of nasal sinus 66592047 R09.81 Continue Azelastine [id number] Jessie Barney MD [facility]o [facility] [address] [place] [address] 11/07/2022 16:00:43 11/07/2022 17:02:44 Iatrogenic adrenal insufficiency 151743581 E27.3 Patient on prednisone for over 15 years for management of sarcoidosi s. Patient recently failed a cortrosyn stimulatio n test on 09/28 as she did not raise at all on cortisol and actually dropped at 60 minute lilian- this indicates overt adrenal insufficie ncy secondary to fci glucocorti coid administra tion not addisons disease. [...] crisis. Pituitary function test outside reference range 874266071 R94.7 Send for full pituitary panel to [...] in which at that point an insulin deputy attorney general may be of benefit for patient. Spent [...] she chooses to go outside of the [facility] to obtain labwork she was [...] ing. Thank you for this consultati on. [id number] Shreya Oglesby MD [facility] Internal Med [facility] [address] [address] 12/20/2022 11:51:04 12/20/2022 12:32:02 Adult health examination 730742017 Z00.00 Screening for disorder 223016740 Z13.9 Acute adre nal insufficiency 698597850 E27.2 Essential hypertension 33529246 I10 Gastroesop hageal reflux disease 353057451 K21.9 Nonalcohol ic steatohepatitis 550848981 K75.81 Sarcoidosis 27292778 D86 .9 [id number] Will gale MD [facility] General Surgery [address] [facility] [address] [address] 12/20/2022 12:35:28 12/20/2022 15:27:09 Epidermoid cyst of skin of neck 385290271 L72.0 [id number] Will gale MD [facility] General Surgery [address] [facility] [address] [address] 12/25/2022 12:49:42 12/25/2022 14:28:24 Sebaceous cyst of skin 491607410 L72.3 post neck [id number] Will gale MD [facility] General Surgery [address] [facility] [address] [address] 01/01/2023 11:35:48 01/02/2023 15:25:00 Removal of suture 97030714 Z48.02 Epidermoid cyst of skin 714042401 L72.0 post neck [id number] Jessie Barney MD [facility] Endo [facility] [address] [place] [address] 01/29/2023 14:04:51 01/29/2023 14:54:21 Iatrogenic adrenal insufficiency 793139372 E27.3 Patient on prednisone for over 15 years for management of sarcoidosi s. Patient recently failed a cortrosyn stimulatio n test on 09/28 as she did not raise at all on cortisol and actually dropped at 60 minute lilian- this indicates overt adrenal insufficie ncy secondary to fci glucocorti coid administra tion not addisons disease. [...] avoid hypotensio n/adrenal crisis. Refer to endocrinol [place] per request and will need repeat cortrosyn stimulatio n testing. Reactive hypoglycemia 31 8021 E16.1 Patient appears to be having an [...] in which at that point an insulin deputy attorney general may be of benefit for patient. Spent [...] answered and refills necessary at visit today. [id number] Leroy Workman MD [facility] [address] [place] [address] 02/19/2023 09:50:16 02/19/2023 10:28:40 Trochanteric bursitis of right hip 1636974746 01584 M70.61 M70.62 Osteonecro sis of head of femur 074461247 M87.859 Osteoarthritis of hip 23 3759214 M16.0 M16.10 M16.11 M16.12 [id number] Janey Ochoa, [facility] Pulmonolo gy [facility] [address] [place] [address] 04/05/2023 14:30:26 04/05/2023 15:37:04 Sarcoidosis 07595348 D86.9 retirement prednisone , this is now managed by endocrinol ogyPFT 09/2022 WNLCT chest results 03/23/21 with NADHas not repeated, she has the order and will scheduleYe oneal eye and cardiology exam, she has had these appointmen tsJemima burger follow up as appropriat eDiscussed reportable signs and symptoms Obstructiv e sleep apnea syndrome 57892932 G47.33 Mild on home study with AHI 5.Does not qualify for Inspire.No need for CPAP use at that timeRecent weight gainEncour aged repeat study, she will consider. Congestion of nasal sinus 90355638 R09.81 Continue Azelastine Asthma 202301076 J45.90 9 Continue current inhaled therapyDis cussed reportable signs and symptoms [id number] Shreya Oglesby MD [facility] Internal Med [facility] [address] [address] 05/02/2023 12:07:20 05/02/2023 12:34:11 Administration of influenza vaccine 17947228 Z23 Adrenal co rtical hypofunction 604733283 E27.40 Diabetes mellitus 699086 09 E11.9 Essential hypertension 28716832 I10 Hypercholesterolemia 136 85775 E78.00 Sarcoidosis 99187851 D86 .9 [id number] Shreya Oglesby MD [facility] Internal Med [facility] [address] [address] 08/28/2023 12:08:37 08/28/2023 12:45:54 Essential hypertension 62989755 I10 Gastroesop hageal reflux disease without esophagitis 606055544 K21.9 Adrenal co rtical hypofunction 585142387 E27.40 Type 2 edwin betes mellitus 89558073 E11.9 Sarcoidosis 21926816 D86 .9 [id number] YOHAN Hernández [facility] [address] [facility] [address] [place] [address] 09/03/2023 14:56:10 09/03/2023 16:09:43 Trochanteric bursitis of right hip 7068398914 57938 M70.61 M70.62 Osteonecro sis of head of femur 581859078 M87.859 bilateral right worse than left Osteoarthritis of hip 23 0089995 M16.0 M16.10 M16.11 M16.12 [id number] Shreya Oglesby MD 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 Diabetes mellitus 368450 09 E11.9 Gastroesop hageal reflux disease 714015918 K21.9 [id number] Shreya Oglesby MD [facility] Internal Med [facility] 24 [address] [facility] 24 [place] [address] 05/04/2024 14:29:00 05/04/2024 15:11:01 Essential hypertension 55523983 I10 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 Hypercholesterolemia 136 73285 E78.00 Type 2 edwin betes mellitus without complication 719257210 E11.9 Sarcoidosis 13303234 D86 .9 Obesity 855053309 E66.9 Health Concerns Section Related Observation LastModified by Organization Detai ls LastModified Time None Recorded Concern Status LastModified by Organization Details LastModified Time None Recorded Advance Directives Directive N: Payers Encounter Date Sequence Insurance Name Policy Number Policy Liang Covered Member ID Liang Member ID Guarantor Name 05/02/2023 1 [facility] (MEDICARE REPLACEMENT/A DVANTAGE - PPO) [id number] Leelee Maki [id number] Leelee Maki 05/02/2023 2 [place] [facility] Leelee Maki [id number] Leelee Maki 08/28/2023 1 [facility] (MEDICARE REPLACEMENT/A DVANTAGE - PPO) [id number] Leelee Maki [id number] Leelee Maki 08/28/2023 2 [place] [facility] Leelee Maki [id number] Leelee Maki 09/03/2023 1 [facility] (MEDICARE REPLACEMENT/A DVANTAGE - PPO) [id number] Leelee Maki [id number] Leelee Maki 09/03/2023 2 [place] [facility] Leelee Maki [id number] Leelee Maki 01/01/2024 1 [facility] (MEDICARE REPLACEMENT/A DVANTAGE - PPO) [id number] Leelee Maki [id number] Leelee Maki 05/04/2024 1 [facility] (MEDICARE REPLACEMENT/A DVANTAGE - PPO) [id number] Leelee Maki [id number] Leelee Maki Notes Date Note Type Note Provider Name and Address Organization Details Recorded Time 3 text/html Patient Name: Leelee Guzman Of Service: April ( 05.02.2023 ): 1970 [...] Systemic Symptoms:none Medication Reconciliation: from medication list. Rpprrkflqly92/03/2023: CT scan of abdomen and pelvis.Postoperative changes [...] lesions. The last HAIC was done by ticketing clerk. Average blood sugars 100-115 mg%. Checking sugars [...] One DailyADRs List Reviewed 05/02/2023Floxin AnxietyVaccination and Tyemoklmozfx7881-19 Ctbyvxztr4590-82 Covid Booster Ldoxub2311-35 Covid Nywwcu2684-07 Xqws7859-55 Cewfvjhsy5288-13 Prevnar 13 GcSurgical HistoryFat Apron Surgery, Lap Cholecystectomy, Gastric Bypass, Left Cataract, Renal Stone Removal, Partial Hysterectomy, Tubal LigationPreventative Testing Confirmed by Our Sjuntzn6507/19/2022 ALBUMIN 4.2 G/DL N107/02/2021 DEXA SCAN01/01/2022 UPPER VMPZKMBZH00/18/2022 COLONOSCOPY ( 10 YEARS ) / HAIC08/01/2021 LETTER ORCPIJKVDCPGZ90/15/2021 MAMMOGRAM / MICRO ALBUMIN 6.4 MG/L N1 [...] HTN (2), MS Shreya Oglesby MD [address], [place], [address], [employer] 05/02/2023 12:30:34 4 text/html Patient returns she [...] for right hip today. YOHAN Hernández [address], [place], [address], [employer] MENA [employer]STIGE 09/03/2023 15:43:32 4 text/html Patient Name: Leelee [...] Systemic Symptoms:none Medication Reconciliation: from medication list. Tpgdnffknbc81/03/2023: CT scan of abdomen and pelvis.Postoperative changes [...] Adverse Drug Reactions ReviewedFloxin Anxiety Vaccination and Towstrworcah8949-52 Fxereveif8269-67 Covid Booster Gtowrq2540-55 Covid Ocfhpl9338-21 Xerb7173-09 Sskeoafym8152-85 Prevnar 13 Gc Surgical Syzvetq1998-86 Rt. ZUD8681-29 Fat Apron Hkzltzx8089-96 Lap Tmdrljzbcycytjd9265-34 Gastric Zpitqt4632-08 Left Dajphyhb3034-91 Renal Stone Mktjamm8232-35 Partial Kbbporerckec0679-29 Tubal Ligation Preventative Jfxtyta8812/30/2023 MAMMOGRAM DEXA SCAN07/19/2022 ALBUMIN 4.2 G/DL N001/01/2022 UPPER VVIYXTVFV60/18/2022 COLONOSCOPY ( 10 YEARS ) / HAIC08/01/2021 YOHXBXPPQOMFA32/16/2019 MICRO ALBUMIN 6.4 MG/L N1 CT THORAX Social HistoryDoes not smoke cigarettes. 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 [facility] 01/01/2024 12:36:40 4 text/html Patient Name: Leelee Hamiltonbrandi Of Service: Saturday ( 05.04.2024 ): 1970 [...] and Systemic Symptoms:none Medication Reconciliation: by patient. Uzdqwboasns33/03/2023: CT scan of abdomen and pelvis.Postoperative changes [...] lesions. The last HAIC was done by ticketing clerk. CGM: No. Average blood sugars 100-115 mg%. [...] offered to be evaluated and instructed by turbogenerator operator on weight loss diet. Active Medication ListAtivan [...] (POWDER - INHALATION) One Puff BidVitamin D 1999 UNITS One Daily For Vitamin D ReplacementTrazodone [...] Drug Reactions ReviewedFloxin Anxiety Vaccination and Immunization(X) 2023-04 INFLUENZA( ) 2014-04 PREVNAR 13 GC(X) 2015-06 PNEUMOVAX PREVNAR 20 Needed( ) 2015-06 TDAP( ) 2020-08 COVID PFIZER(X) 2021-02 COVID BOOSTER PFIZER Surgical Akgyefc0278-61 Rt. 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
--- OUTSIDE RECORDS SUMMARY | 2024-07-24 16:31 | XMS_ITS | Clinical Summary ---
Author Organization [facility] Address [address] [place] [address] Care Team Providers Care Gang Rider Name Role Phone Nacho Oglesby MD Primary Care Provider Janey Ochoa NP Unavailable [phone] Allergies Active Allergy Reactions Criticality Noted Date [...] mouth 3 (three) times a day 0 12/06/19 18 Active bimatoprost (LUMIGAN) 0.01 % ophthalmic dropsIndications :ocular hypertension Administer 1 drop into both eyes nightly Active magnesium oxide (MAG-OX) 400 mg (241.3 mg elemental magnesium) tabletIndication s:hypomagnesemia Take 500 mg by mouth nightly 500mg every day Active multivitamin tabletIndication s:Vitamin Deficiency Prevention Take 1 tablet by mouth side stapler before breakfast Active omeprazole (PriLOSEC) 40 mg capsuleIndicatio ns:gerd Take 1 capsule (40 mg total) by mouth every morning Active simvastatin (ZOCOR) 40 mg tabletIndication s:hyperlipidemia Take 1 tablet (40 mg total) by mouth nightly 11/17/19 10 Active spironolactone (ALDACTONE) 50 mg tabletIndication s:hypertension Take 1 tablet (50 mg total) by mouth side stapler before breakfast Active calcium carbonate (TUMS) 500 [...] tablet (40 mg total) by mouth nightly 01/28/20 18 Active LINZESS 145 mcg capsuleIndicatio ns:chronic idiopathic constipation Take 1 capsule (145 mcg total) by mouth every morning 01/24/20 18 Active estradioL (ESTRACE) 0.5 mg tabletIndication s:hormone replacement Take 1 tablet (0.5 mg total) by mouth side stapler before breakfast 02/09/20 20 Active valACYclovir (VALTREX) 500 mg tabletIndication s:herpes Take 1 tablet (500 mg total) by mouth as needed 02/08/20 20 Active HYDROcodone-acet aminophen (HYCET) 10-325 mg/15 mL(15 mL) solutionIndicati ons:Pain Take 1 tablet by mouth every 6 (six) hours as needed for pain Active docusate sodium (COLACE) 100 mg capsuleIndicatio ns:constipation Take 1 capsule (100 mg total) by mouth 2 (two) times a day 20 capsule 06/21/19 21 Active predniSONE (DELTASONE) 2.5 mg tablet Take 3 tablets (7.5 mg) by mouth every other day Saturday and Saturday07/08/2024Pati ent says that she is taking 2.5mg daily at this time. TC 06/25/19 21 Active OneTouch Ultra Blue Test Strip strip USE TO TEST DAILY 07/02/19 21 Active fluticasone propionate (FLONASE) 50 mcg/actuation nasal spray Administer into each nostril daily 04/27/20 21 Active azelastine (ASTELIN) 137 mcg (0.1 %) nasal spray 2 sprays daily as needed Active Myrbetriq 50 mg tablet extended release 24 hr Take 1 tablet (50 mg total) by mouth daily Active predniSONE (DELTASONE) 5 mg tablet Take 1 tablet (5 mg) by mouth daily 11/08/19 23 Active fluticasone propion-salmeter oL (ADVAIR DISKUS) 250-50 mcg/dose diskus inhalerIndicatio ns:Maintenance Therapy for Asthma Inhale 1 puff 2 (two) times a day Rinse mouth with water after use. Do not swallow. 60 each 02/04/20 24 Active albuterol HFA (Proventil HFA) 90 mcg/actuation inhaler Inhale 2 puffs every 6 (six) hours as needed for wheezing 1 each 02/04/20 24 Active montelukast (Singulair) 10 mg tabletIndication s:Maintenance Therapy for Asthma Take 1 tablet (10 mg total) by mouth nightly 90 tablet 3 02/25/20 24 Active Mounjaro 5 mg/0.5 mL pen injector INJECT 5 MG UNDER THE SKIN ONCE A WEEK 04/11/20 24 Active traZODone (DESYREL) 150 mg tablet Take 1 tablet (150 mg total) by mouth nightly at bedtime 06/18/19 25 Active Imvexxy Maintenance Pack 10 mcg insert vaginal insert INSERT 1 INSERT VAGINALLY TWICE A WEEK 05/25/20 24 Active ondansetron (ZOFRAN) 4 mg tablet Take 1 tablet (4 mg total) by mouth every 8 (eight) hours 05/20/20 24 Active amoxicillin 500 mg capsule Take 1 capsule 3 times a day by oral route for 10 days. 07/03/19 25 Active benzonatate (TESSALON) 200 mg capsule Take 1 capsule (200 mg total) by mouth 3 (three) times a day as needed for cough 30 capsule 1 07/08/19 25 025 Active albuterol-budeso nide 90-80 mcg/actuation HFA aerosol inhaler Inhale 2 puffs 2 (two) times a day 1 g 3 07/08/19 25 Active oseltamivir (TAMIFLU) 75 mg capsule Take 1 capsule (75 mg total) by mouth daily for 7 days 7 capsule 07/24/19 25 025 Active traZODone (DESYREL) 100 mg tablet Take 1 tablet (100 mg total) by mouth nightly Discontinu ed(Alterna te therapy) azithromycin (ZITHROMAX) 250 mg tablet Take 1 tablet (250 mg total) by mouth daily 05/04/20 24 Discontinu ed(Therapy completed) levoFLOXacin (LEVAQUIN) 750 mg tablet Take 1 tablet (750 mg total) by mouth daily for 7 days 7 tablet 07/08/19 Active Problems Problem Noted Date Diagnosed Date Viral upper respiratory tract infection 07/08/19 Assessment & Plan (07/08/2024 3:09 PM PROPERTY STAFF ACCOUNTANT): Chest x-ray does not demonstrate any acute [...] 04/02/2024 Assessment & Plan (07/08/2024 3:09 PM PROPERTY STAFF ACCOUNTANT): Previous chest imaging does not demonstrate any concerns for active disease She has had sick symptoms that wax and wane since April, I will check a CT chest Assessment & Plan (04/02/2024 4:06 PM CDT): Chest imaging does not demonstrate any concerns for active disease Mild intermittent asthma without complication Assessment & Plan (07/08/2024 3:10 PM PROPERTY STAFF ACCOUNTANT): Continue Wixela 250 twice daily at this [...] (11/17/2020): Added automatically from request for surgery [id number] Abdominal pannus 05/11/2020 Overview (05/11/2020): Added automatically from request for surgery [id number] Status post bariatric surgery 03/06/2019 Encounters Date Type Department Care Team Description 07/20/2024 Telephone [facility] Pulmonary at [address] [place] [address] Shilpi Mendoza LPN sick call 07/08/2024 11:30 AM PROPERTY STAFF ACCOUNTANT Lab [address] Pulmonary sarcoidosis (HCC) 07/08/2024 11:00 AM PROPERTY STAFF ACCOUNTANT Office Visit [facility] Pulmonary at [address] [place] [phone] Janey Ochoa NP Viral upper respiratory tract infection (Primary Dx); Pulmonary sarcoidosis (HCC); Mild intermittent asthma without complication 07/08/2024 Telephone [facility] Pulmonary at [address] [place] [address] Yaquelin French LPN Lab Results 07/08/2024 Orders Only [facility] Pulmonary at [address] [place] [phone] Janey Ochoa, SARA Pulmonary sarcoidosis (HCC) (Primary Dx) 07/07/2024 3:20 PM PROPERTY STAFF ACCOUNTANT Ancillary Procedure [facility] [employer] 07/07/2024 Telephone [facility] Pulmonary at [address] [place] [address] Yareli Raphael LPN F/U CXR 05/22/2024 11:00 AM PROPERTY STAFF ACCOUNTANT Infusion [facility] - Infusion [address] [place] [address] Iron deficiency anemia, unspecified iron deficiency anemia type (Primary Dx) 05/19/2024 Orders Only [facility] Hematology [address] 2[address] [place] [address] Bambi Gutierrez RN Iron deficiency anemia, unspecified iron deficiency anemia type (Primary Dx) 05/12/2024 2:00 PM PROPERTY STAFF ACCOUNTANT Lab [facility] Oncology Lab [address] [facility] [address] [place] [address] 05/12/2024 1:45 PM PROPERTY STAFF ACCOUNTANT Lab [facility] - Lab Collection [address] [place] [address] Iron deficiency anemia, unspecified iron deficiency anemia type 05/12/2024 1:00 PM PROPERTY STAFF ACCOUNTANT Office Visit [facility] Hematology [facility] [facility] [address] [place] [address] Deena David MD Iron deficiency anemia, unspecified iron deficiency anemia type (Primary Dx); Other iron deficiency anemia; Bariatric surgery status; Other specified intestinal malabsorption 05/05/2024 Telephone [facility] Hematology [address] [facility] [address] [place] [address] Una Small from Last 3 Months Immunizations Name Administration Dates Next Due Influenza, Quadrivalent, Spl it, Intramuscular 04/04/2022,04/16/2021,03/19/2018,03/12,04/04/2015 Influenza, Quadrivalent, Spl it, Preservative Free, Intramuscular 05/02/2023,03/11/2020,04/18/2017,04/18 Influenza, Trivalent, IM (MDV) 4,04/12/2014,03/25/2013,03/25 Pneumococcal Conjugate PCV 13 05/03/2014, 014 Pneumococcal Polysaccharide PPV23 06/22/2015,11/2015,06/21/2015 Sars-CoV-2, Unspecified 03/11/2021 Surgical History Surgery Date Site/Laterality Comments [place] BRNCHSC INCL FLUOR GDNCE DX W/CELL WASHG SPX Bronchoscopy (Diagnostic) - (Added by TW Conv) [place] ESOPHAGOGASTRODUODENOSCOP Y TRANSORAL DIAGNOSTIC Diagnostic Esophagogastroduodenoscopy - (Added by TW Conv) [place] TOTAL ABDOMINAL HYSTERECT W/WO RMVL TUBE OVARY Hysterectomy - (Added by TW Conv) WA LIG/TRNSXJ FLP TUBE ABDL/ VAG APPR UNI/BI Tubal Ligation - (Added by TW Conv) [place] LITHOTRIPSY XTRCORP SHOCK WAVE Lithotripsy - Whole [...] - (Added by TW Conv) Stroke (HCC) 2013 mini Pulmonary sarcoidosis (HCC) 04/02/2024 Viral upper [...] on file Legal Sex Female 3:21 AM PROPERTY STAFF ACCOUNTANT Gender Identity Female 04/09/2021 10:59 PM CDT Sexual Orientation Straight 03/01/2020 2: 52 PM CDT Obstetrics History Last Filed Vital Signs Vital Sign Reading Time Taken Comments Blood Pressure 102/90 07/08/2024 11:06 AM PROPERTY STAFF ACCOUNTANT Pulse 74 07/08/2024 11:06 AM PROPERTY STAFF ACCOUNTANT Temperature 35.6 C (96.1 F) 07/08/2024 11:06 AM PROPERTY STAFF ACCOUNTANT Respiratory Rate 18 05/22/2024 10:55 AM PROPERTY STAFF ACCOUNTANT Oxygen Saturation 97% 07/08/2024 11:06 AM PROPERTY STAFF ACCOUNTANT Inhaled Oxygen Concentration - - Weight 81.8 kg (180 lb 4.8 oz) 07/08/2024 11:06 AM PROPERTY STAFF ACCOUNTANT Height 154.9 cm (5' 1 ) 07/08/2024 11:06 AM PROPERTY STAFF ACCOUNTANT Body Mass Index 34.07 07/08/2024 11:06 AM PROPERTY STAFF ACCOUNTANT Plan of Treatment Health Maintenance Due Date [...] history exists Medical Devices Implanted Type Area Asphalt Layer Device Identifier Shelf Expiration Date Model / Serial / Lot Shunt Left: Eye Procedures Procedure Name Priority Date/Time Associated Diagnosis Comments EGFR Routine 07/08/2024 10:54 AM PROPERTY STAFF ACCOUNTANT Pulmonary sarcoidosis (HCC) DIFFERENTIAL AUTO Routine 07/08/2024 10: 54 AM PROPERTY STAFF ACCOUNTANT Pulmonary sarcoidosis (HCC) CBC WITH AUTO DIFFERENTIAL Routine 07/08/2024 10:54 AM PROPERTY STAFF ACCOUNTANT Pulmonary sarcoidosis (HCC) BASIC METABOLIC PANEL Routine 07/08/2024 10:54 AM PROPERTY STAFF ACCOUNTANT Pulmonary sarcoidosis (HCC) PRO B-TYPE NATRIURETIC PEPTIDE Routine 07/08/2024 10:54 AM PROPERTY STAFF ACCOUNTANT Pulmonary sarcoidosis (HCC) XR TRANSFER OF OUTSIDE FILMS Routine 07/07/2024 3:20 PM PROPERTY STAFF ACCOUNTANT DIFFERENTIAL AUTO Routine 05/12/2024 2:0 7 PM PROPERTY STAFF ACCOUNTANT Iron deficiency anemia, unspecified iron deficiency anemia type CBC WITH AUTO DIFFERENTIAL Routine 05/12/2024 2:07 PM PROPERTY STAFF ACCOUNTANT Iron deficiency anemia, unspecified iron deficiency anemia type RETICULOCYTES Routine 05/12/2024 2:07 PM PROPERTY STAFF ACCOUNTANT Iron deficiency anemia, unspecified iron deficiency anemia type FERRITIN Routine 05/12/2024 2:03 PM PROPERTY STAFF ACCOUNTANT Iron deficiency anemia, unspecified iron deficiency anemia type IRON PROFILE W/ IBC Routine 05/12/2024 2 :03 PM PROPERTY STAFF ACCOUNTANT Iron deficiency anemia, unspecified iron deficiency anemia type VITAMIN B12 Routine 05/12/2024 2:03 PM PROPERTY STAFF ACCOUNTANT Iron deficiency anemia, unspecified iron deficiency anemia type from Last 3 Months Results * eGFR (07/08/2024 10:54 AM PROPERTY STAFF ACCOUNTANT) eGFR >90 >=60 mL/min/1. 73 m2 Comment: Interpretive Data Reference Interval Normal >/= 90 mL/min/1.73m2 Mildly decreased* 60 - 89 mL/min/1.73m2 Mildly to moderately decreased 45 - 59 mL/min/1.73m2 Moderately to severely decreased 30 - 44 mL/min/1.73m2 Severely decreased 15 - 29 mL/min/1.73m2 Kidney Failure < 15 mL/min/1.73m2 *Relative to young adult level Estimated glomerular [...] reviewed 2021. Blood 07/08/2024 10:5 4 AM PROPERTY STAFF ACCOUNTANT 07/08/2024 1:33 PM PROPERTY STAFF ACCOUNTANT us Janey Ochoa EXECUTIVE TEAM LEADER LAB BLOOD ORDERABLES Final Result [facility] ([place]) 1 [facility] Department [place] [address] * Differential, auto (07/08/2024 10:54 AM PROPERTY STAFF ACCOUNTANT) Neutrophil abs 3.5 1.5 - 6.5 K/cumm [...] 2017. Basophil pct 0.8 % [facility] ([place]) Comment: Interpretive Data Percent cell count reference ranges are not reported, since discordance with absolute values may lead to misinterpretation of CBC data. Current Interpretive Data was last revised on 2017. Blood 07/08/2024 10:5 4 AM PROPERTY STAFF ACCOUNTANT 07/08/2024 1:33 PM PROPERTY STAFF ACCOUNTANT us Janey Ochoa EXECUTIVE TEAM LEADER LAB BLOOD ORDERABLES Final Result [facility] ([place]) 1 [facility] Department [place] [address] * Pro B-type natriuretic peptide (07/08/2024 10:54 AM PROPERTY STAFF ACCOUNTANT) NT-proBNP <36 <=300 pg/mL Comment: Interpretive Comments: A. Dyspnea in Acute Care Setting All Ages: < 300 pg/ml, acute heart failure unlikely. < 50 yrs: 300 - 450 pg/ml, further investigation warranted. > 450 pg/ml, acute heart failure likely. 50 - 74 yrs: 300 - 900 pg/ml, further investigation warranted. > 900 pg/ml, acute heart failure likely . > or = 75 yrs: 450 - 1800 pg/ml, further investigation warranted. > 1800 pg/ml, acute heart failure likely. B. Non-acute Setting < 75 yrs < 125 pg/ml, rules out heart failure. > or = 125 pg/ml, further investigation warranted. > or = 75 yrs < 450 pg/ml, rules out heart failure. > or = 450 pg/ml, further investigation [...] et.al. Eur Heart J. 2006:27:330-337. 2. Simon MARTINEZ, Esperanza BARROS. J. AM Maurilio Cardiol: Cardiovasc Imag. 2009;2: 216- 225. Interpretive Data Last Revised Date: 2018. Blood 07/08/2024 10:5 4 AM PROPERTY STAFF ACCOUNTANT 07/08/2024 1:33 PM PROPERTY STAFF ACCOUNTANT us Janey Ochoa EXECUTIVE TEAM LEADER LAB BLOOD ORDERABLES Final Result [facility] ([place]) 1 [facility] Department [place] [address] * (ABNORMAL) CBC with auto differential (07/08/2024 10:54 AM PROPERTY STAFF ACCOUNTANT) WBC 5.2 3.8 - 9.9 K/cumm Hgb [...] [facility] ([place]) Blood 07/08/2024 10:5 4 AM PROPERTY STAFF ACCOUNTANT 07/08/2024 1:33 PM PROPERTY STAFF ACCOUNTANT us Janey Ochoa NP LAB BLOOD ORDERABLES Final Result [facility] ([place]) 1 [facility] Department [place] [address] * (ABNORMAL) Basic metabolic panel (07/08/2024 10:54 AM PROPERTY STAFF ACCOUNTANT) Sodium 134(L) 135 - 145 mmol/L Potassium, pl 3.7 3.3 - 4.9 mmol/L [facility] ([place]) Chloride 98 97 - 110 mmol/L [facility] ([place]) CO2 25 22 - 32 mmol/L [facility] ([place]) Anion gap 11 2 - 15 mmol/L [facility] ([place]) BUN 10 6 - 25 mg/dL [facility] ([place]) Creatinine 0.65 0.60 - 1.10 mg/dL [facility] ([place]) Glucose 132 70 - 199 mg/dL [facility] ([place]) Comment: Interpretive Data Fasting glucose >/= 126 mg/dl is diagnostic for diabetes. Fasting is defined as no caloric intake [...] 2022. Calcium 9.7 8.5 - 10.3 mg/dL [facility] ([place]) Blood 07/08/2024 10:5 4 AM PROPERTY STAFF ACCOUNTANT 07/08/2024 1:33 PM PROPERTY STAFF ACCOUNTANT us Janey Ochoa EXECUTIVE TEAM LEADER LAB BLOOD ORDERABLES Final Result [facility] ([place]) 1 [facility] Department [place] [address] * XR Outside Reference (07/07/2024 3:20 PM PROPERTY STAFF ACCOUNTANT) Narrative [facility] - 07/08/2024 9:28 AM PROPERTY STAFF ACCOUNTANT This order has been auto-finalized and does not contain a result. us Not In File Miscellaneous IMG XR PROCEDURES Lynn l Result [facility] * Differential, auto (05/12/2024 2:07 PM PROPERTY STAFF ACCOUNTANT) Neutrophil abs 4.4 1.5 - 6.5 K/cumm Comment:Testing performed by : [facility], [address] [place] [address] Lymphocyte abs 1.4 0.8 - 3.3 K/cumm [facility] Comment:Testing performed by : [facility], [address] [place], [place] [id number] Monocyte abs 0.4 0.2 - 0.8 K/cumm [facility] Comment:Testing performed by : [facility], [address] [place], [place] [id number] Eosinophil abs 0.1 0.0 - 0.5 K/cumm [facility] Comment:Testing performed by : [facility], [address] [place] [phone] Basophil abs 0.1 0.0 - 0.1 K/cumm [facility] Comment:Testing performed by : [facility], [address] [place] [phone] Neutrophil pct 69.1 % [facility] Comment: Interpretive Data Percent cell count reference ranges are not reported, since discordance with absolute values may lead to misinterpretation of CBC data. Current Interpretive Data was last revised on 2017. Testing performed by: [facility], [address] [place] [phone] Lymphocyte pct 21.6 % [facility] Comment: Interpretive Data Percent cell count reference ranges are not reported, since discordance with absolute values may lead to misinterpretation of CBC data. Current Interpretive Data was last revised on 2017. Testing performed by: [facility], [address] [place] [phone] Monocyte pct 6.5 % [facility] Comment: Interpretive Data Percent cell count reference ranges are not reported, since discordance with absolute values may lead to misinterpretation of CBC data. Current Interpretive Data was last revised on 2017. Testing performed by: [facility], [address] [place] [phone] Eosinophil pct 1.9 % [facility] Comment: Interpretive Data Percent cell count reference ranges are not reported, since discordance with absolute values may lead to misinterpretation of CBC data. Current Interpretive Data was last revised on 2017. Testing performed by: [facility], [address] [place] [address] Basophil pct 0.9 % [facility] SANDERS Comment: Interpretive Data Percent cell count reference ranges are not reported, since discordance with absolute values may lead to misinterpretation of CBC data. Current Interpretive Data was last revised on 2017. Testing performed by: [facility], [address] [place] [address] Blood 05/12/2024 2:07 PM PROPERTY STAFF ACCOUNTANT 05/12/2024 2:08 PM PROPERTY STAFF ACCOUNTANT us Deena David MD LAB BLOOD ORDERABLES Final Result [facility] WAL[facility] Department [place] [address] * (ABNORMAL) CBC with auto differential (05/12/2024 2:07 PM PROPERTY STAFF ACCOUNTANT) WBC 6.3 3.8 - 9.9 K/cumm Comment:Testing performed by : [facility], [address] [place] [address] Hgb 11.8(L) 11.9 - 15.5 g/dL [facility] WALDROP Comment:Testing performed by : [facility], [address] [place] [address] Hct 37.9 35.6 - 45.5 % D[facility] WALDROP Comment:Testing performed by : [facility], [address] [place] [address] Plt 208 150 - 400 K/cumm [facility] Comment:Testing performed by : [facility], [address] [place] [address] MPV 8.8 6.8 - 10.4 fL [facility] Comment:Testing performed by : [facility], [address] [place] [address] RBC 4.77 3.90 - 5.20 M/cumm [facility] Comment:Testing performed by : [facility], [address] [place] [address] MCV 79.5(L) 81.3 - 96.4 fL [facility] Comment:Testing performed by : [facility], [address] [place] [address] MCH 24.8(L) 27.1 - 33.3 pg [facility] Comment:Testing performed by : [facility], [address] [place] [address] MCHC 31.1(L) 32.3 - 35.7 g/dL [facility] Comment:Testing performed by : [facility], [address] [place] [address] RDW CV 17.4(H) 11.1 - 14.9 % [facility] Comment:Testing performed by : [facility], [address] [place] [address] NRBC abs 0.00 0.00 - 0.01 K/cumm [facility] Comment:Testing performed by : [facility], [address] [place] [address] Blood 05/12/2024 2:07 PM PROPERTY STAFF ACCOUNTANT 05/12/2024 2:08 PM PROPERTY STAFF ACCOUNTANT us Deena David MD LAB BLOOD ORDERABLES Final Result [facility] Department [place] [address] * (ABNORMAL) Reticulocyte Count (05/12/2024 2:07 PM PROPERTY STAFF ACCOUNTANT) Pathologist [facility], absolute 0.118(H) 0.020 - 0.100 M/cumm Comment:Testing performed by : [facility], [address] [place] [phone] Retics 2.5(H) 0.5 - 1.8 % [facility] Comment:Testing performed by : [facility], [address] [place] [phone] Blood 05/12/2024 2:07 PM PROPERTY STAFF ACCOUNTANT 05/12/2024 2:08 PM PROPERTY STAFF ACCOUNTANT Deena David MD LAB BLOOD ORDERABLES Final Result Performing Organization Address [facility] Co de Phone Number [facility] Department [place] [address] * (ABNORMAL) Iron profile w/ IBC (05/12/2024 2:03 PM PROPERTY STAFF ACCOUNTANT) [facility] Iron 59 35 - 145 mcg/dL TIBC >509(H) 250 - 400 mcg/dL [facility] Transferrin saturation <12(L) 20 - 50 % [facility] Blood 05/12/2024 2:03 PM PROPERTY STAFF ACCOUNTANT 05/12/2024 2:14 PM PROPERTY STAFF ACCOUNTANT Deena David MD LAB BLOOD ORDERABLES Edited Result - Final [facility] Department [place] [address] * Ferritin (05/12/2024 2:03 PM PROPERTY STAFF ACCOUNTANT) [facility] Ferritin 13 13 - 150 ng/mL Blood 05/12/2024 2:03 PM PROPERTY STAFF ACCOUNTANT 05/12/2024 2:14 PM PROPERTY STAFF ACCOUNTANT Deena David MD LAB BLOOD ORDERABLES Edited Result - Final Performing Organization Address City[facility]/ZIP Co de Phone Number [facility] Department [place] [address] * Vitamin B12 (05/12/2024 2:03 PM PROPERTY STAFF ACCOUNTANT) Vitamin B12 851 230 - 1,250 pg/mL Blood 05/12/2024 2:03 PM PROPERTY STAFF ACCOUNTANT 05/12/2024 3:08 PM PROPERTY STAFF ACCOUNTANT us Deena David MD LAB BLOOD ORDERABLES Final Result Performing Organization Address [facility] Co de Phone Number [facility] [place] [address] from Last 3 Months Insurance [facility] MEDICARE SOLUTIONS MEDICARE SOLUTIONS MEDICARE SOLUTIONS IDPA Care Teams Gang Rider Relationship Specialty Start Date End Date Nacho Oglesby MD PCP - General 02/08/17 Janey Ochoa NP Nurse Practitioner Nurse Practitioner 11/23/20
--- OUTSIDE RECORDS SUMMARY | 2024-07-24 16:31 | XMS_ITS ---
Author Organization [facility] Address [address] [place] [address] Care Team Providers Care Pathology Collector Name Role Phone Jessie Barney Primary Care Provider Encounters Encounter Location Date Provider Diagnosis [facility] [address] [place] [address] 06/22/2024 Jessie Barney Plan Of Treatment No Information Progress Notes * Sukhwinder FELIZB:1970 (53 yo F)Acc No.[id number]:06/22/2024 Patient: Leelee MCCARTHY :1970 A ge:53 Y S ex:Female Address:[facility], [address] [address] * true * Date: Generated for Montanai wendy/Mollyg/eTransmitting on: 0 07/24/2024 04:31 PM MEDICAL RADIATION TECH
--- OUTSIDE RECORDS SUMMARY | 2024-07-24 16:31 | XMS_ITS | Referral Summary ---
Author Organization [facility] Address [address] [place] [address] Care Team Providers Care Xm1 Tank Driver Name Role Phone Nacho Oglesby MD Primary Care Provider Janey Ochoa AMERICAN HISTORY TEACHER Unavailable [phone] Encounters Date Type Department Care Team Description 07/20/2024 Telephone [facility] Pulmonary at [address] [place] [phone] Shilpi Mendoza LPN sick call 07/08/2024 Telephone [facility] Pulmonary at [address] [phone] Yaquelin French LPN Lab Results 07/08/2024 11:30 AM QC MANAGER Lab [address] Pulmonary sarcoidosis (HCC) 07/08/2024 Orders Only [facility] Pulmonary at [address] [phone] Janey Ochoa NP Pulmonary sarcoidosis (HCC) (Primary Dx) 07/08/2024 11:00 AM QC MANAGER Office Visit [facility] Pulmonary at [address] [phone] Janey Ochoa NP Viral upper respiratory tract infection (Primary Dx); Pulmonary sarcoidosis (HCC); Mild intermittent asthma without complication 07/07/2024 3:20 PM QC MANAGER Ancillary Procedure [facility] [employer] 07/07/2024 Telephone [facility] Pulmonary at [address] [phone] Yareli Raphael LPN F/U CXR 05/22/2024 11:00 AM QC MANAGER Infusion [facility] - Infusion [address] [facility] Floor 6 [place] [address] Iron deficiency anemia, unspecified iron deficiency anemia type (Primary Dx) 05/19/2024 Orders Only [facility] Hematology [address] [place] [address] Bambi Gutierrez RN Iron deficiency anemia, unspecified iron deficiency anemia type (Primary Dx) 05/12/2024 1:45 PM QC MANAGER Lab [facility] - Lab Collection [address] [facility] Floor 6 [place] [address] Iron deficiency anemia, unspecified iron deficiency anemia type 05/12/2024 2:00 PM QC MANAGER Lab [facility] Oncology Lab [address] [place] [address] Floor 6 [place] [address] 05/12/2024 1:00 PM QC MANAGER Office Visit [facility] Hematology [facility] Floor 6 [place] [address] Deena David MD Iron deficiency anemia, unspecified iron deficiency anemia type (Primary Dx); Other iron deficiency anemia; Bariatric surgery status; Other specified intestinal malabsorption 05/05/2024 Telephone [facility] Hematology [address] [place] [address] Floor 6 [place] [address] Una Small from Last 3 [...] Deficiency Prevention Take 1 tablet by mouth digital marketing lead before breakfast Active omeprazole (PriLOSEC) 40 mg capsuleIndicatio ns:gerd Take 1 capsule (40 mg total) by mouth every morning Active simvastatin (ZOCOR) 40 mg tabletIndication s:hyperlipidemia Take 1 tablet (40 mg total) by mouth nightly 11/17/19 10 Active spironolactone (ALDACTONE) 50 mg tabletIndication s:hypertension Take 1 tablet (50 mg total) by mouth digital marketing lead before breakfast Active calcium carbonate (TUMS) 500 [...] 1 tablet (0.5 mg total) by mouth digital marketing lead before breakfast 02/09/20 20 Active valACYclovir (VALTREX) [...] (100 mg total) by mouth nightly 025 Discontinu ed(Alterna te therapy) azithromycin (ZITHROMAX) 250 mg tablet Take 1 tablet (250 mg total) by mouth daily 05/04/20 24 025 Discontinu ed(Therapy completed) levoFLOXacin (LEVAQUIN) 750 mg tablet Take 1 tablet (750 mg total) by mouth daily for 7 days 7 tablet 07/08/19 25 025 Active Problems Problem Noted Date Diagnosed Date Viral upper respiratory tract infection 07/08/19 25 Assessment & Plan (07/08/2024 3:09 PM QC MANAGER): Chest x-ray does not demonstrate any acute [...] 04/02/2024 Assessment & Plan (07/08/2024 3:09 PM QC MANAGER): Previous chest imaging does not demonstrate any concerns for active disease She has had sick symptoms that wax and wane since April, I will check a CT chest Assessment & Plan (04/02/2024 4:06 PM CDT): Chest imaging does not demonstrate any concerns for active disease Mild intermittent asthma without complication Assessment & Plan (07/08/2024 3:10 PM QC MANAGER): Continue Wixela 250 twice daily at this [...] (11/17/2020): Added automatically from request for surgery [id number] Abdominal pannus 05/11/2020 Overview (05/11/2020): Added automatically from request for surgery [id number] Status post bariatric surgery 03/06/2019 Immunizations Name [...] on file Legal Sex Female 3:21 AM QC MANAGER Gender Identity Female 04/09/2021 10:59 PM CDT Sexual Orientation Straight 03/01/2020 2: 52 PM CDT Last Filed Vital Signs Vital Sign Reading Time Taken Comments Blood Pressure 102/90 07/08/2024 11:06 AM QC MANAGER Pulse 74 07/08/2024 11:06 AM QC MANAGER Temperature 35.6 C (96.1 F) 07/08/2024 11:06 AM QC MANAGER Respiratory Rate 18 05/22/2024 10:55 AM QC MANAGER Oxygen Saturation 97% 07/08/2024 11:06 AM QC MANAGER Inhaled Oxygen Concentration - - Weight 81.8 kg (180 lb 4.8 oz) 07/08/2024 11:06 AM QC MANAGER Height 154.9 cm (5' 1 ) 07/08/2024 11:06 AM QC MANAGER Body Mass Index 34.07 07/08/2024 11:06 AM QC MANAGER Plan of Treatment Not on file Medical Devices Implanted Type Area Dopeman Device Identifier Shelf Expiration Date Model / Serial / Lot Shunt Left: Eye Procedures Procedure Name Priority Date/Time Associated Diagnosis Comments EGFR Routine 07/08/2024 10:54 AM QC MANAGER Pulmonary sarcoidosis (HCC) DIFFERENTIAL AUTO Routine 07/08/2024 10: 54 AM QC MANAGER Pulmonary sarcoidosis (HCC) CBC WITH AUTO DIFFERENTIAL Routine 07/08/2024 10:54 AM QC MANAGER Pulmonary sarcoidosis (HCC) BASIC METABOLIC PANEL Routine 07/08/2024 10:54 AM QC MANAGER Pulmonary sarcoidosis (HCC) PRO B-TYPE NATRIURETIC PEPTIDE Routine 07/08/2024 10:54 AM QC MANAGER Pulmonary sarcoidosis (HCC) XR TRANSFER OF OUTSIDE FILMS Routine 07/07/2024 3:20 PM QC MANAGER DIFFERENTIAL AUTO Routine 05/12/2024 2:0 7 PM QC MANAGER Iron deficiency anemia, unspecified iron deficiency anemia type CBC WITH AUTO DIFFERENTIAL Routine 05/12/2024 2:07 PM QC MANAGER Iron deficiency anemia, unspecified iron deficiency anemia type RETICULOCYTES Routine 05/12/2024 2:07 PM QC MANAGER Iron deficiency anemia, unspecified iron deficiency anemia type FERRITIN Routine 05/12/2024 2:03 PM QC MANAGER Iron deficiency anemia, unspecified iron deficiency anemia type IRON PROFILE W/ IBC Routine 05/12/2024 2 :03 PM QC MANAGER Iron deficiency anemia, unspecified iron deficiency anemia type VITAMIN B12 Routine 05/12/2024 2:03 PM QC MANAGER Iron deficiency anemia, unspecified iron deficiency anemia type from Last 3 Months Results * eGFR (07/08/2024 10:54 AM QC MANAGER) eGFR >90 >=60 mL/min/1. 73 m2 Comment: [...] reviewed 2021. Blood 07/08/2024 10:5 4 AM QC MANAGER 07/08/2024 1:33 PM QC MANAGER us Janey Ochoa NP LAB BLOOD ORDERABLES Final Result [facility] 1 [facility] Department [place] [address] * Differential, auto (07/08/2024 10:54 AM QC MANAGER) Neutrophil abs 3.5 1.5 - 6.5 K/cumm [...] on 2017. Blood 07/08/2024 10:5 4 AM QC MANAGER 07/08/2024 1:33 PM QC MANAGER us Janey Ochoa AMERICAN HISTORY TEACHER LAB BLOOD ORDERABLES Final Result [facility] ([place]) 1 [facility] Department [place] [address] * Pro B-type natriuretic peptide (07/08/2024 10:54 AM QC MANAGER) NT-proBNP <36 <=300 pg/mL Comment: Interpretive Comments: [...] Date: 2018. Blood 07/08/2024 10:5 4 AM QC MANAGER 07/08/2024 1:33 PM QC MANAGER us Janey Ochoa AMERICAN HISTORY TEACHER LAB BLOOD ORDERABLES Final Result [facility] 1 [facility] Department [place] [address] * (ABNORMAL) CBC with auto differential (07/08/2024 10:54 AM QC MANAGER) Pathologist [facility] WBC 5.2 3.8 - 9.9 K/cumm Hgb 12.0 11.9 - 15.5 g/dL [facility] ([place]) Hct 37.9 35.6 - 45.5 % [facility] ([place]) Plt 144(L) 150 - 400 [...] NRBC abs 0.00 0.00 - 0.01 K/cumm [facility] Blood 07/08/2024 10:5 4 AM QC MANAGER 07/08/2024 1:33 PM QC MANAGER us Janey Ochoa AMERICAN HISTORY TEACHER LAB BLOOD ORDERABLES Final Result [facility] ([place]) 1 [facility] [place] [address] * (ABNORMAL) Basic metabolic panel (07/08/2024 10:54 AM QC MANAGER) Sodium 134(L) 135 - 145 mmol/L Potassium, pl 3.7 3.3 - 4.9 mmol/L [facility] Chloride 98 97 - 110 mmol/L [facility]) CO2 25 22 - 32 mmol/L [facility] Anion gap 11 2 - 15 mmol/L [facility] ([place] BUN 10 6 - 25 mg/dL [facility] ([place] Creatinine 0.65 0.60 - 1.10 [...] 2022. Calcium 9.7 8.5 - 10.3 mg/dL [facility]) Blood 07/08/2024 10:5 4 AM QC MANAGER 07/08/2024 1:33 PM QC MANAGER us Janey Ochoa AMERICAN HISTORY TEACHER LAB BLOOD ORDERABLES Final Result [facility] ([place]) 1 [facility] Department [place] [address] * XR Outside Reference (07/07/2024 3:20 PM QC MANAGER) Narrative [facility]_P[facility] - 07/08/2024 9:28 AM QC MANAGER This order has been auto-finalized and does not contain a result. us Not In File Miscellaneous IMG XR PROCEDURES Lynn l Result Performing Organization Address City/[facility]/ZIP Co de Phone Number [facility] * Differential, auto (05/12/2024 2:07 PM QC MANAGER) Neutrophil abs 4.4 1.5 - 6.5 K/cumm Comment:Testing performed by : [facility], [address] [place] [phone] Lymphocyte abs 1.4 0.8 - 3.3 K/cumm [facility] Comment:Testing performed by : [facility], [address] [place] [phone] Monocyte abs 0.4 0.2 - 0.8 K/cumm [facility] Comment:Testing performed by : [facility], [address] [place] [phone] Eosinophil abs 0.1 0.0 - 0.5 K/cumm [facility] Comment:Testing performed by : [facility], [address] [place] [phone] Basophil abs 0.1 0.0 - 0.1 K/cumm [facility] Comment:Testing performed by : [facility], [address] [place], [place] [phone] Neutrophil pct 69.1 % [facility] Comment: Interpretive Data Percent cell count reference ranges are not reported, since discordance with absolute values may lead to misinterpretation of CBC data. Current Interpretive Data was last revised on 2017. Testing performed by: [facility], [address] [place] [address] Lymphocyte pct 21.6 % [facility] Comment: Interpretive Data Percent cell count reference ranges are not reported, since discordance with absolute values may lead to misinterpretation of CBC data. Current Interpretive Data was last revised on 2017. Testing performed by: [facility], [address] [place] [address] Monocyte pct 6.5 % [facility] Comment: Interpretive Data Percent cell count reference ranges are not reported, since discordance with absolute values may lead to misinterpretation of CBC data. Current Interpretive Data was last revised on 2017. Testing performed by: [facility], [address] [place] [address] Eosinophil pct 1.9 % [facility] Comment: Interpretive Data Percent cell count reference ranges are not reported, since discordance with absolute values may lead to misinterpretation of CBC data. Current Interpretive Data was last revised on 2017. Testing performed by: [facility], [address] [place] [phone] Basophil pct 0.9 % [facility] Comment: Interpretive Data Percent cell count reference ranges are not reported, since discordance with absolute values may lead to misinterpretation of CBC data. Current Interpretive Data was last revised on 2017. Testing performed by: [facility], [address] [place] [address] Blood 05/12/2024 2:07 PM QC MANAGER 05/12/2024 2:08 PM QC MANAGER us Deena David MD LAB BLOOD ORDERABLES Final Result [facility] Department of Laboratories [place] [id number] * (ABNORMAL) CBC with auto differential (05/12/2024 2:07 PM QC MANAGER) WBC 6.3 3.8 - 9.9 K/cumm Comment:Testing performed by : [facility], [address] [place] [address] Hgb 11.8(L) 11.9 - 15.5 g/dL [facility] Comment:Testing performed by : [facility], [address] [place] [address] Hct 37.9 35.6 - 45.5 % [facility] Comment:Testing performed by : [facility], [address] [place] [address] Plt 208 150 - 400 K/cumm [facility] Comment:Testing performed by : [facility], [address] [place] [address] MPV 8.8 6.8 - 10.4 fL [facility] Comment:Testing performed by : [facility], [address] [place] [address] RBC 4.77 3.90 - 5.20 M/cumm [facility] Comment:Testing performed by : [facility], [address] [place] [address] MCV 79.5(L) 81.3 - 96.4 fL [facility] Comment:Testing performed by : [facility], [address] [place] [address] MCH 24.8(L) 27.1 - 33.3 pg [facility] Comment:Testing performed by : [facility], [address] [place] [address] MCHC 31.1(L) 32.3 - 35.7 g/dL [facility] Comment:Testing performed by : [facility], [address] [place] [phone] RDW CV 17.4(H) 11.1 - 14.9 % [facility] Comment:Testing performed by : [facility], [address] [place] [phone] NRBC abs 0.00 0.00 - 0.01 K/cumm [facility] Comment:Testing performed by : [facility], [address] [place] [phone] Blood 05/12/2024 2:07 PM QC MANAGER 05/12/2024 2:08 PM QC MANAGER Deena David MD LAB BLOOD ORDERABLES Final Result Performing Organization Address [facility] de Phone Number [facility] Department [place] [address] * (ABNORMAL) Reticulocyte Count (05/12/2024 2:07 PM QC MANAGER) Retics, absolute 0.118(H) 0.020 - 0.100 M/cumm Comment:Testing performed by : [facility], [address] [place] [phone] Retics 2.5(H) 0.5 - 1.8 % [facility] Comment:Testing performed by : [facility], [address] [place] [phone] Blood 05/12/2024 2:07 PM QC MANAGER 05/12/2024 2:08 PM QC MANAGER Deena David MD LAB BLOOD ORDERABLES Final Result Performing Organization Address [facility] Co de Phone Number [facility] [place] [address] * (ABNORMAL) Iron profile w/ IBC (05/12/2024 2:03 PM QC MANAGER) Iron 59 35 - 145 mcg/dL TIBC >509(H) 250 - 400 mcg/dL [facility] Transferrin saturation <12(L) 20 - 50 % [facility] Blood 05/12/2024 2:03 PM QC MANAGER 05/12/2024 2:14 PM QC MANAGER Deena David MD LAB BLOOD ORDERABLES Edited Result - Final [facility] [place] [address] * Ferritin (05/12/2024 2:03 PM QC MANAGER) [facility] Ferritin 13 13 - 150 ng/mL Blood 05/12/2024 2:03 PM QC MANAGER 05/12/2024 2:14 PM QC MANAGER Deena David MD LAB BLOOD ORDERABLES Edited Result - Final Performing Organization Address City/[facility]/ZIP Co de Phone Number [facility] [place] [address] * Vitamin B12 (05/12/2024 2:03 PM QC MANAGER) [facility] Vitamin B12 851 230 - 1,250 pg/mL Blood 05/12/2024 2:03 PM QC MANAGER 05/12/2024 3:08 PM QC MANAGER Result [facility] Deena David MD LAB BLOOD ORDERABLES Final Result [facility] [place] [address] from Last 3 Months Insurance [facility] MEDICARE SOLUTIONS [place] [id number] MEDICARE SOLUTIONS [place] [id number] MEDICARE SOLUTIONS IDPA Care Teams Xm1 Tank Driver Relationship Specialty Start Date End Date Nacho Oglesby MD PCP - General 02/08/17 Janey Ochoa NP Nurse Practitioner Nurse Practitioner 11/23/20
--- OUTSIDE RECORDS SUMMARY | 2024-07-24 16:31 | XMS_ITS ---
Author Organization [facility] Address [address] [place] [address] Care Team Providers Care Platform Supervisor Name Role Phone Jessie Barney Primary Care Provider REASON FOR VISIT eversence sensor Encounters Encounter Location Date Provider Diagnosis [facility] - Jessie Barney [address] [place] [address] 05/26/2024 Jessie Barney Plan Of Treatment No Information Progress Notes * Sukhwinder FELIZB:1970 (53 yo F)Acc No.[id number]:05/26/2024 Patient: Leelee MCCARTHY :1970 A ge:53 Y S ex:Female Address:[facility] [facility], [address] [address] * true * Date: Generated for Printi ng/Faxing/eTransmitting on: 0 07/24/2024 04:30 PM CARROTER
--- OUTSIDE RECORDS SUMMARY | 2024-07-24 16:32 | XMS_ITS | Clinical Summary ---
Author Organization [facility] Address [address] [place] [address] Care Team Providers Care Check Pilot Name Role Phone Nacho Oglesby MD Primary Care Provider [phone] Source Comments [facility],non-owned Affiliates and Associated Physician Practices is amultiple site organization consisting of ambulatory clinics and hospital sitesin [place], [place], [place] and [place]. This disclosure is being madepursuant to the Care Everywhere program and may not contain all information available regarding this patient. 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 Chronic [...] PM CDT Pulse - - Temperature 36.2 C (97.2 F) 04/09/2022 1:47 PM CDT Respiratory Rate - - Oxygen Saturation - [...] 2024 09/08/2020, 08/18/2020 INFLUENZA VACCINE (#1) 2024 , 03/11/2020, 03/19/2018, Additional history exists DEPRESSION SCREENING 06/17/2024 DIABETES - URINE PROTEIN SCREENING 06/17/2024 MEDICARE AWV CALENDAR YEAR 2024 HEPATITIS C SCREENING Completed [...] COMPREHENSIVE METABOLIC PANEL Routine 06/23/2012 11:32 AM RESEARCH EPIDEMIOLOGIST HEPATITIS C ANTIBODY Routine 06/23/2012 11:32 AM RESEARCH EPIDEMIOLOGIST from Last 3 Months or Most Recently Relevant to Health Maintenance Results * (ABNORMAL) COMPREHENSIVE METABOLIC PANEL (06/23/2012 11:32 AM RESEARCH EPIDEMIOLOGIST) BUN 13 7 - 26 mg/dL [facility] Creatinine 0.6 0.6 - 1.2 mg/dL [facility] eGFR by MDRD > 60 ML/MIN [facility] Comment: Chronic kidney disease: <60 ml/min Kidney failure: <15 ml/min Based on BSA of 1.73m2. Sodium 139 136 - 145 mmol/L [facility] Potassium 4.1 3.5 - 4.5 mmol/L [facility] Chloride 102 98 - 107 mmol/L [facility] CO2 22 22 - 29 mmol/L [facility] Glucose 127(H) 70 - 115 mg/dL [facility] Calcium 9.4 8.4 - 10.2 mg/dL [facility] Protein Total 7.1 6.0 - 8.3 g/dL [facility] Albumin 4.2 3.4 - 5.0 g/dL [facility] Bilirubin Total 1.5(H) 0.2 - 1.2 mg/dL [facility] Alkaline Phosphatase 65 40 - 150 Units/L [facility] ALT 89(H) 0 - 55 Units/L [facility] AST 56(H) 5 - 34 Units/L [facility] Anion Gap 19(H) 8 - 18 [facility] BUN/Creatinine Ratio 21 7 - 23 [facility] Osmolality Calculation 275 270 - 300 mOsm/kg [facility] Albumin/Globulin Ratio 1.4 1.1 - 2.3 [facility] Serum 06/23/2012 11:3 2 AM RESEARCH EPIDEMIOLOGIST 06/23/2012 12:18 PM RESEARCH EPIDEMIOLOGIST Gary Gilmore MD LAB - CHEM ISTRY ORDERABLES [address] [phone] * HEPATITIS C ANTIBODY (06/23/2012 11:32 AM RESEARCH EPIDEMIOLOGIST) Hepatitis C Antibody NONREACTIVE NONREACTIVE [facility] Comment: Anti-HCV screen indicates no serologic evidence of past or current infection with Hepatitis C Virus. Patients with unexplained liver disease who are immunocompromised or suspected of having acute Hepatitis C infection may benefit from Nucleic Acid Test (LIANNE) for Hepatitis C Viral RNA to confirm Hepatitis C status. 06/23/2012 11:3 2 AM RESEARCH EPIDEMIOLOGIST 06/23/2012 12:19 PM RESEARCH EPIDEMIOLOGIST Gary Gilmore MD LAB - CHEM ISTRY ORDERABLES Performing Organization Address City/[facility]/ZIP Co de Phone Number [address] [phone] from Last 3 Months or Most Recently Relevant to Health Maintenance Care Teams Check Pilot Relationship Specialty Start Date End Date Nacho Oglesby MD [address] [place] [address] [address] [place] [address] PCP - General 01/25/12
--- OUTSIDE RECORDS SUMMARY | 2024-07-24 16:32 | XMS_ITS | Patient Health Summary ---
Author Organization [facility] Address [address] [place] [address] Care Team Providers Care Superior Court Justice Name Role Phone Nacho Oglesby MD Primary Care Provider [phone] Note from [facility],non-owned Affiliates and Associated Physician Practices is amultiple site organization consisting of ambulatory clinics and hospital sitesin [place], [place], [place] and [place]. This disclosure is being madepursuant to the Care Everywhere program and may not contain all information available regarding this patient. Last updated 18.[facility] Allergies * Ocuflox(Other) -Low Criticality * Ofloxacin(Other) -Low Criticality Medications * Be aware that medications may not be up to date on this document. Alwaysverify current medications with the patient. * aspirin EC (Ecotrin) 81 MG tablet Take 1 (one) tablet by mouth every morning * azelastine (Astelin) 0.1 % nasal spray [place] 2 (two) sprays into each nostril 2 [...] by mouth 2 times daily * HYDROcodone-acetaminophen ([place]) 7.5-325 MG tablet(Started 04/01/2022) Take 1 (one) [...] by mouth once daily * nystatin-triamcinolone (Mycolog) 828502-5.1 UNIT/GM-% cream 4 times daily * omeprazole [...] Mixed stress and urge urinary incontinence * AR INSERT NON-INDWELLING BLADDER(Performed 04/09/2022) Performed for Mixed stress and urge urinary incontinence * GLUCOSE ACCUCHECK(Performed 07/15/2012) * MRI ABDOMEN WWO CONTRAST(Performed 06/24/2012) * CREATININE BLOOD - POCT (IP) [facility](Performed 06/24/2012) * [id number]-4-GLCVSADHMBC BLOOD PHENOTYPING PANEL(Performed 06/23/2012) * MITOCHONDRIAL ANTIBODY [...] POCT neg Ketones UA POCT neg Specific [place] UA 1.010 Blood Urine POCT neg pH UA 7.5 Protein UA neg Urobilinogen UA neg Nitrite UA neg WBC UA neg Urine URINE / Unknown 04/09/2022 2 :15 PM CDT Leidy Iqbal MD LAB - POINT OF CARE ORDERABLES * AR INSERT NON-INDWELLING BLADDER (04/09/2022 2:03 PM CDT) Narrative Leidy Iqbal MD - 04/09/2022 2:03 PM CDT Leidy Iqbal MD 04/14/2022 4:34 PM Procedure note: Straight catheterization was performed after swabbing the urethra with betadine. A 14 Fr urethral catheter was inserted without difficulty and the bladder was drained for 20 mL. The patient tolerated the procedure well. Leidy Iqbal MD PROCEDURE/MINOR JORDAN GICAL ORDERABLES * (ABNORMAL) GLUCOSE ACCUCHECK (07/15/2012 1:12 PM SOLE CUTTER) Glucose, Fingerstick 175(H) 70 - 110 MG/DL [facility] Comment:PERFORMED BY: JALEEAS RODRIGUEZ 07/15/2012 1:12 PM SOLE CUTTER 07/15/2012 1:26 PM SOLE CUTTER Gary Gilmore MD LAB - CHEM ISTRY ORDERABLES [facility] [address] [phone] * MRI ABDOMEN WWO CONTRAST (06/24/2012 11:27 AM SOLE CUTTER) Anatomical Region Laterality Modality Abdomen Other Impressions 06/24/2012 3:22 PM SOLE CUTTER Impression: 1. Hepatosplenomegaly with severe diffuse steatosis. 2. Multiple mildly arterial enhancing lesions throughout the liver as described above. These are nonspecific but most likely represent hepatic sarcoidosis. Needle biopsy could be considered for confirmation. 3. Multiple splenic granulomas consistent with sarcoidosis. 4. No significant abdominal lymphadenopathy. This report was approved by Benjie Ladd M.D. on 06/24/2012 3:22 PM . I, Dr. SHERRELL LEO M.D. have personally reviewed and interpreted this examination/study. This report was electronically signed by SHERRELL LEO M.D. on 06/24/2012 3:22 PM . Narrative 06/24/2012 3:22 PM SOLE CUTTER MRI abdomen with and without contrast History: [...] hepatic segment 5 (image 51 series 9) [id number] lesion with mild enhancement that persists throughout [...] LES * CREATININE BLOOD - POCT (IP) [facility] (06/24/2012 11:00 AM SOLE CUTTER) Creatinine POCT 0.88 0.3 - 1.3 mg/dL [facility] eGFR POCT 60 60 ml/min REPLACED BY [facility] 06/24/2012 11:0 0 AM SOLE CUTTER Gary Gilmore MD LAB - POIN T OF CARE ORDERABLES [facility] * PT-INR [facility] (06/23/2012 11:32 AM SOLE CUTTER) PT 12.4 12.1 - 14.8 SECONDS [facility] INR 0.9 [facility] Comment: SUGGESTED THERAPEUTIC RANGE FOR LOW-INTENSITY COUMADIN THERAPY FOR VENOUS THROMBOEMBOLISM IS INR 2.0-3.0. FOR HIGH RISK PATIENTS (MITRAL VALVE PROSTHESIS, ATRIAL FIBRILLATION, HISTORY OF TIA/STROKE), SUGGESTED THERAPEUTIC RANGE IS INR 2.5-3.5. Plasma specimen (specimen) 06/23/2012 11:32 AM SOLE CUTTER 06/23/2012 12:18 PM SOLE CUTTER Narrative [facility] - 06/23/2012 1:01 PM SOLE CUTTER Is patient on Heparin, Argatroban or Dabigatran?->N Gary Gilmore MD LAB - COAG ULATION ORDERABLES [address] [phone] * ROSA BLOOD SCREEN (06/23/2012 11:32 AM SOLE CUTTER) ROSA NONE DETECTED NONE DETECT [facility] Venous blood specimen (specimen) 06/23/2012 11:32 AM SOLE CUTTER 06/23/2012 12:18 PM SOLE CUTTER Gary Gilmore MD LAB - CHEM ISTRY ORDERABLES Performing Organization Address City/[facility] Co de Phone Number [address] [phone] * (ABNORMAL) MITOCHONDRIAL ANTIBODY SCREEN (06/23/2012 11:32 AM SOLE CUTTER) Pathologist [facility] Mitochondrial M2 Antibody 26.8(H) 0.0 - 20 UNITS [facility] Comment: Interpretation/Reference Range Negative: < 20.1 Units Equivocal: 20.1 - 24.9 Units Positive: > 24.9 Units 06/23/2012 11:3 2 AM SOLE CUTTER 06/23/2012 12:18 PM SOLE CUTTER Gary Gilmore MD LAB - CHEM ISTRY ORDERABLES Performing Organization Address [facility] Co de Phone Number [address] [phone] * GMPQS-2-XUXIODDCWFE BLOOD PHENOTYPING PANEL (06/23/2012 11:32 AM SOLE CUTTER) Pdsiu-1-Assvwfibzc n 93 90 - 200 mg/dL [facility] Edwbz-4-Lcbgqertzg n Phenotype MM . [facility] Comment: Phenotype Population A-1-AT Concentration* Incidence % % of MM Ref. Range Mean MM 86.5% 100% (90-200) 145 MS 8.0% 81% (73-162) 118 MZ 3.9% 60% (54-120) 87 FM 0.4% 97% (87-194) 141 SZ 0.3% 39% (35- 78) 57 SS 0.1% 71% (64-142) 103 ZZ 0.05% 7% ( 6- 14) 10 FS 0.05% 66% (59-132) 96 FZ Unknown Unknown FF Unknown Unknown *A-1-AT concentration in the homozygous MM phenotype is taken as the reference normal. Deficiency in phenotypes is reported relative to this reference. Performed at: [address] [id number] Toy Stuffer: Benito Hanley PhD, Phone: [phone] Performed at: [address] [id number] Toy Stuffer: Juice Johnson MD, Phone: [phone] 06/23/2012 11:3 2 AM SOLE CUTTER 06/23/2012 12:18 PM SOLE CUTTER Gary Gilmore MD LAB - CHEM ISTRY ORDERABLES Performing Organization Address [facility] Co de Phone Number [address] [phone] * SMOOTH MUSCLE ANTIBODY (06/23/2012 11:32 AM SOLE CUTTER) Pathologist [facility] Actin Antibody IgG 4.2 0.0 - 19.9 UNITS [facility] Comment: Interpretation/Reference Range Negative: < 20.0 Units Weak Positive: 20.0 - 30.0 Units Moderate to Strong Positive: > 30.0 Units 06/23/2012 11:3 2 AM SOLE CUTTER 06/23/2012 12:18 PM SOLE CUTTER Gary Gilmore MD LAB - SERO LOGY ORDERABLES Performing Organization Address [facility] Co de Phone Number [address] [phone] * (ABNORMAL) CBC W AUTO DIFFERENTIAL (06/23/2012 11:32 AM SOLE CUTTER) Pathologist [facility] WBC 12.1(H) 3.5 - 10.5 10^3/uL [facility] RBC 4.25 3.90 - 5.00 10^6/uL [facility] Hemoglobin 12.9 12.0 - 15.5 g/dL [facility] Hematocrit 38.9 35.0 - 45.0 % [facility] MCV 91.5 81.0 - 97.0 FL [facility] MCH 30.4 28.0 - 34.0 PG [facility] MCHC 33.2 32.0 - 36.0 G/DL [facility] Platelet 197 150 - 400 10^3/uL [facility] RDW 15.8(H) 11.2 - 14.8 % [facility] RDW-SD 52.8(H) 36 - 50 FL [facility] MPV 10.4 9.3 - 12.8 FL [facility] Differential Type MANUAL [facility] Neutrophils Absolute Manual 9.68(H) 1.7 - 7.0 10^3/uL [facility] Comment:(BANDS AND SEGS) X W BC = NEUT # (ANC) Lymphocytes Absolute Manual 0.85(L) 0.9 - 2.9 10^3/uL [facility] Monocyte Absolute Manual 0.73 0.3 - 0.9 10^3/uL [facility] Eosinophils Absolute Manual 0.36 0.05 - 0.50 10^3/uL [facility] Basophil Manual 0.24(H) 0.00 - 0.10 10^3/uL [facility] Band % Manual 4 0 - 10 % [facility] Neutrophils % manual 76(H) 30 - 60 % [facility] Lymphocytes % manual 7(L) 20 - 45 % [facility] Monocytes % Manual 6 2 - 10 % [facility] Eosinophils % Manual 3 1 - 6 % [facility] Basophil % Manual 2 1 - 6 % [facility] Metamyelocytes % Manual 1(H) 0 % [facility] Myelocytes % Manual 1(H) 0 % [facility] Platelet Estimate ADQ,RBC MORPH NORMAL [facility] Venous blood specimen (specimen) 06/23/2012 11:32 AM SOLE CUTTER 06/23/2012 12:18 PM SOLE CUTTER Gary Gilmore MD LAB - IRLANDA TOLOGY ORDERABLES [facility] [address] [place] [address] * (ABNORMAL) COMPREHENSIVE METABOLIC PANEL (06/23/2012 11:32 AM SOLE CUTTER) BUN 13 7 - 26 mg/dL [facility] Creatinine 0.6 0.6 - 1.2 mg/dL [facility] eGFR by MDRD > 60 ML/MIN [facility] Comment: Chronic kidney disease: <60 ml/min Kidney failure: <15 ml/min Based on BSA of 1.73m2. Sodium 139 136 - 145 mmol/L [facility] Potassium 4.1 3.5 - 4.5 mmol/L [facility] Chloride 102 98 - 107 mmol/L [facility] CO2 22 22 - 29 mmol/L [facility] Glucose 127(H) 70 - 115 mg/dL [facility] Calcium 9.4 8.4 - 10.2 mg/dL [facility] Protein Total 7.1 6.0 - 8.3 g/dL [facility] Albumin 4.2 3.4 - 5.0 g/dL [facility] Bilirubin Total 1.5(H) 0.2 - 1.2 mg/dL [facility] Alkaline Phosphatase 65 40 - 150 Units/L [facility] ALT 89(H) 0 - 55 Units/L [facility] AST 56(H) 5 - 34 Units/L [facility] Anion Gap 19(H) 8 - 18 [facility] BUN/Creatinine Ratio 21 7 - 23 [facility] Osmolality Calculation 275 270 - 300 mOsm/kg [facility] Albumin/Globulin Ratio 1.4 1.1 - 2.3 [facility] Serum 06/23/2012 11:3 2 AM SOLE CUTTER 06/23/2012 12:18 PM SOLE CUTTER aGry Gilmore MD LAB - CHEM ISTRY ORDERABLES [facility] [address] [place] [address] * (ABNORMAL) HEPATITIS B SURFACE ANTIBODY (06/23/2012 11:32 AM SOLE CUTTER) Hepatitis B Surface Antibody Quantitative 67.85 <8.00 mIU/mL [facility] Hepatitis B Virus Surface Antibody REACTIVE( A) NONREACTIVE [facility] Comment: > 12 mIU/mL anti-HBs. Reactive for anti-HBs and individual is considered immune to HBV infection. Venous blood specimen (specimen) 06/23/2012 11:32 AM SOLE CUTTER 06/23/2012 12:19 PM SOLE CUTTER Gary Gilmore MD LAB - CHEM ISTRY ORDERABLES Performing Organization Address [facility] Co de Phone Number [address] [phone] * HEPATITIS B CORE ANTIBODY (06/23/2012 11:32 AM SOLE CUTTER) Hepatitis B Core Virus Antibody Total NONREACTIVE [facility] 06/23/2012 11:3 2 AM SOLE CUTTER 06/23/2012 12:19 PM SOLE CUTTER Gary Gilmore MD LAB - CHEM ISTRY ORDERABLES Performing Organization Address [facility] Co de Phone Number [address] [phone] * HEPATITIS B SURFACE ANTIGEN W RFLX CONFIRMATION (06/23/2012 11:32 AM SOLE CUTTER) Pathologist [facility] Hepatitis B Virus Surface Antigen NONREACTIVE [facility] Venous blood specimen (specimen) 06/23/2012 11:32 AM SOLE CUTTER 06/23/2012 12:19 PM SOLE CUTTER Gary Gilmore MD LAB - CHEM ISTRY ORDERABLES Performing Organization Address [facility] de Phone Number [address] [phone] * HEPATITIS C ANTIBODY (06/23/2012 11:32 AM SOLE CUTTER) Pathologist [facility] Hepatitis C Antibody NONREACTIVE [facility] Comment: Anti-HCV screen indicates no serologic evidence of past or current infection with Hepatitis C Virus. Patients with unexplained liver disease who are immunocompromised or suspected of having acute Hepatitis C infection may benefit from Nucleic Acid Test (LIANNE) for Hepatitis C Viral RNA to confirm Hepatitis C status. 06/23/2012 11:3 2 AM SOLE CUTTER 06/23/2012 12:19 PM SOLE CUTTER Gary Gilmore MD LAB - CHEM ISTRY ORDERABLES [address] [phone] Justice Relationship Specialty Start Date End Date Nacho Oglesby MD [address] [place] [address] [address] [place] [address] PCP - General 01/25/12
--- OUTSIDE RECORDS SUMMARY | 2024-07-24 16:32 | XMS_ITS | Referral Summary ---
Author Organization [facility] Address [address] [place] [address] Care Team Providers Care Tawer Name Role Phone Nacho Oglesby MD Primary Care Provider [phone] [facility],non-owned Affiliates and Associated Physician Practices is amultiple site organization consisting of ambulatory clinics and hospital sitesin [place], [place], [place] and [place]. This disclosure is being madepursuant to the Care Everywhere program and may not contain all information available regarding this patient. Last updated 18.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 Chronic [...] COMPREHENSIVE METABOLIC PANEL Routine 06/23/2012 11:32 AM GAS DERRICK OPERATOR HEPATITIS C ANTIBODY Routine 06/23/2012 11:32 AM GAS DERRICK OPERATOR from Last 3 Months or Most Recently Relevant to Health Maintenance Results * (ABNORMAL) COMPREHENSIVE METABOLIC PANEL (06/23/2012 11:32 AM GAS DERRICK OPERATOR) BUN 13 7 - 26 mg/dL [facility] Creatinine 0.6 0.6 - 1.2 mg/dL [facility] eGFR by MDRD > 60 ML/MIN [facility] Comment: Chronic kidney disease: <60 ml/min Kidney failure: <15 ml/min Based on BSA of 1.73m2. Sodium 139 136 - 145 mmol/L [facility] Potassium 4.1 3.5 - 4.5 mmol/L [facility] Chloride 102 98 - 107 mmol/L [facility] CO2 22 22 - 29 mmol/L [facility] Glucose 127(H) 70 - 115 mg/dL [facility] Calcium 9.4 8.4 - 10.2 mg/dL [facility] Protein Total 7.1 6.0 - 8.3 g/dL [facility] Albumin 4.2 3.4 - 5.0 g/dL [facility] Bilirubin Total 1.5(H) 0.2 - 1.2 mg/dL [facility] Alkaline Phosphatase 65 40 - 150 Units/L [facility] ALT 89(H) 0 - 55 Units/L [facility] AST 56(H) 5 - 34 Units/L [facility] Anion Gap 19(H) 8 - 18 [facility] BUN/Creatinine Ratio 21 7 - 23 [facility] Osmolality Calculation 275 270 - 300 mOsm/kg [facility] Albumin/Globulin Ratio 1.4 1.1 - 2.3 [facility] Serum 06/23/2012 11:3 2 AM GAS DERRICK OPERATOR 06/23/2012 12:18 PM GAS DERRICK OPERATOR Gary Gilmore MD LAB - CHEM ISTRY ORDERABLES [address] [phone] * HEPATITIS C ANTIBODY (06/23/2012 11:32 AM GAS DERRICK OPERATOR) Hepatitis C Antibody NONREACTIVE NONREACTIVE [facility] Comment: Anti-HCV screen indicates no serologic evidence of past or current infection with Hepatitis C Virus. Patients with unexplained liver disease who are immunocompromised or suspected of having acute Hepatitis C infection may benefit from Nucleic Acid Test (LIANNE) for Hepatitis C Viral RNA to confirm Hepatitis C status. 06/23/2012 11:3 2 AM GAS DERRICK OPERATOR 06/23/2012 12:19 PM GAS DERRICK OPERATOR Gary Gilmore MD LAB - CHEM ISTRY ORDERABLES Performing Organization Address City/[facility]/[place] [address], [facility] [phone] from Last 3 Months or Most Recently Relevant to Health Maintenance Care Teams Tawer Relationship Specialty Start Date End Date Nacho Oglesby MD [address] [place] [address] [address] [place] [address] PCP - General 01/25/12
--- OUTSIDE RECORDS SUMMARY | 2024-07-24 16:32 | XMS_ITS | Encounter Summary ---
Author Organization [facility] Address [address] [place] [address] Care Team Providers Care Coal Screener Name Role Phone Nacho Oglesby MD Primary Care Provider Janey Ochoa NP Unavailable [phone] Reason for Visit * Reason Onset Date Comments sick call 07/20/2024 Encounter Details Date Type Department Care Team (Late st Contact Info) Description 07/20/2024 Telephone [facility] Pulmonary at [address] [place] [address] Shilpi Mendoza LPN sick call Social History Tobacco Use Types Packs/Day Years [...] on file Legal Sex Female 3:21 AM PLANT CONTROL AIDE Gender Identity Female 04/09/2021 10:59 PM CDT Sexual Orientation Straight 03/01/2020 2: 52 PM CDT documented as of this encounter Ordered Prescriptions Prescription Sig Dispense Quantity Refills Last Filled Start Date End Date oseltamivir (TAMIFLU) 75 mg capsule Take 1 capsule (75 mg total) by mouth daily for 7 days 7 capsule 07/24/2024 documented in this encounter Miscellaneous Notes * Addendum Note - Janey Ochoa NP - 07/24/2024 11:35 AM CSTAddended by: JANEY OCHOA on: 07/24/2024 11:35 AM Modules accepted: Orders T CONTROL AIDE * Telephone Encounter - Janey Ochoa NP - 07/24/2024 11:33 AM PLANT CONTROL AIDE I talked to Leelee and sent out prophylactic Tamiflu. She currently has no symptoms. She will get her CT today at [facility]. She knows signs and symptoms that would require ER evaluation. I will touch base with her on Saturday Thanks T CONTROL AIDE * Telephone Encounter - Yareli Raphael LPN - 07/24/2024 9:33 AM PLANT CONTROL AIDE Pt called stating she was exposed to influenza A by her mother She is due for a CT today. Informed we are recommending patients to go and be tested, for the Virus Panel, RSV, and COVID, so she could be treated appropriately. Pt states she has sarcoidosis, and Janey knows her and can treat her, pt did not give me opportunity to ask the sick symptoms. I called pt back to get sick symptoms, and left a message. Pt did call back, and she has no symptoms, only letting Janey know that she has been exposed to hermother. If patient is calling between Apr and Jul; they should be tested for Influenza and SARS-CoV-2 testing because these viruses have specific treatments that are time dependent-Pt was informed of this. Duration of symptoms? No symptoms Have you been exposed to anyone with COVID, FLU, or other respiratory illness? Yes T CONTROL AIDE T CONTROL AIDE * Telephone Encounter - Shilpi Mendoza LPN - 07/20/2024 4:42 PM CST Patient called the office back and said that she is scheduled to have the CT scan done on SaturdayJul 24 at 4:30pm at [facility]. CT order from 07/08 sent to [facility] today T CONTROL AIDE * Telephone Encounter - Shilpi Mendoza LPN - 07/20/2024 3:55 PM CST Patient called the office and said that she was able to schedule at [facility] but not until Jul 31. Asked patient if she could check with [place] to see if she could get in any sooner. Patient calling there now and will call office back once she gets an apt. Awaiting call back. T CONTROL AIDE * Telephone Encounter - Shilpi Mendoza LPN - 07/20/2024 3:35 PM CST Contacted patient by phone. Asked patient about the CT scan. Patient said that she tried schedulingthe CT scan but patient reported she got mixed up and thought our office was going to call her backabout getting it scheduled sooner for her? Patient said that it was not completed. I asked patient to call scheduling today and see if she could get an apt and then call our office back to let us know when she is scheduled so Janey would know. Patient said she would call now. T CONTROL AIDE * Telephone Encounter - Janey Ochoa NP - 07/20/2024 1:42 PM PLANT CONTROL AIDE I saw her in the office on 07/08 and ordered levaquin, tessalon, airsupra, and a CT chest. She has had symptoms since April that have waxed and waned with a negative chest xray . I am uncomfortable titrating her steroids R/T her adrenal insufficiency - in addition, the Airsupra has in inhaled steroid that should be helpful. I need to review the CT chest prior to any other treatments, has she weiner d this completed? Thanks T CONTROL AIDE * Telephone Encounter - Shilpi MendozaKAMRON - 07/20/2024 1:32 PM CST Patient called office and said that she is sick with coughing. If patient is calling between Apr and Jul; they should be tested for Influenza and SARS-CoV-2 testing because these viruses have specific treatments that are time dependent Duration of symptoms? Jun 2024 Have you been exposed to anyone with COVID, FLU, or other respiratory illness? Not that she knows of Lower respiratory symptoms: Do you have a cough? yes Is it productive or dry? Nothing, dry If it is productive what is the sputum color and consistency? N/a Do you see any blood when you cough? no Are you short of breath? sometimes Is the shortness of breath with activity or rest? Mostlty with act What is your oxygen saturation? Fn/a What inhalers are you on?new one wixela, airsupra Are you taking them? Two puffs BID Do you have any wheezing? yes Does the wheezing improve with the use of inhalers or nebulizer solutions? Little while Do you have any chest pain when you cough? Not at this time but has soreness Do you have any chest pain when you deep breath? no Do you have any chest pain with movement or activity? no Upper respiratory symptoms: Do you have any nasal congestion? no Do you have any Rhinorrhea (excess nasal drainage)? no Do you have Sinus pain? yes Do you have Post nasal drip? no Do you have a Sore throat? no Do you have a Headache? no Generalized symptoms: Do you have a fever? no Do you have chills? No Do you have drenching night sweats? Yes Always on them. Since Apr. Just finished up Levaquin about a week ago. Prednisone 2.5mg everyday. Patient just took a COVID test at home last week and it was negative. Patient wondering if this is her autoimmune. Patient would like to know if a CT scan could be ordered? Please call. If patient has no lower respiratory symptoms it is unlikely related to a pulmonary process and theyshould be advised to call their primary care doctor first. T CONTROL AIDE documented in this encounter Plan of Treatment Not on file documented as of this encounter Visit Diagnoses Not on filedocumented in this encounter Care Teams Coal Screener Relationship Specialty Start Date End Date Nacho Oglesby MD PCP - General 02/08/17 Janey Ochoa NP Nurse Practitioner Nurse Practitioner 11/23/20 documented as of this encounter
--- OUTSIDE RECORDS SUMMARY | 2024-07-24 16:32 | XMS_ITS | Encounter Summary ---
Author Organization [facility] Healthcare Address [address] [place] [address] Care Team Providers Care Tennis Racket Repairer Name Role Phone Nacho Oglesby MD Primary Care Provider Janey Ochoa NP Unavailable [phone] Reason for Visit * Reason Onset Date Comments Lab Results 07/08/2024 Encounter Details Date Type Department Care Team (Late st Contact Info) Description 07/08/2024 Telephone [facility] Pulmonary at [address] [place] [address] Yaquelin French LPN Lab Results Social History Tobacco Use Types Packs/Day Years [...] on file Legal Sex Female 3:21 AM NAPHTHALENE STILL OPERATOR Gender Identity Female 04/09/2021 10:59 PM CDT Sexual Orientation Straight 03/01/2020 2: 52 PM CDT documented as of this encounter Miscellaneous Notes * Telephone Encounter - Yaquelin French LPN - 07/08/2024 3:15 PM CST Patient called in asking for lab result today. THALENE STILL OPERATOR documented in this encounter Plan of Treatment Not on file documented as of this encounter Visit Diagnoses Not on filedocumented in this encounter Care Teams Tennis Racket Repairer Relationship Specialty Start Date End Date Nacho Oglesby MD PCP - General 02/08/17 Janey Ochoa NP Nurse Practitioner Nurse Practitioner 11/23/20 documented as of this encounter
== END 2024-07-24 16:27 | disposition home or self-care (01) ==
PROVIDERS: PCP Internal Medicine; Visit Provider Nurse Practitioner
DX: D86.0 Sarcoidosis of lung (principal); D73.4 Cyst of spleen
CPT/HCPCS: 71250

== ENCOUNTER 2024-10-21 07:58 | Outpatient (CLI) | payer MEDICARE, MEDICAID, SELFPAY ==
--- NOTE | ~2024-10-21 | CT_ITS ---
CT of the Abdomen and Pelvis: Indication: Abdominal distention Technique: 2.5 mm axial scans were obtained through the abdomen and pelvis following intravenous adm inistration of 100 cc of Omnipaque 350. Dose reduction technique was used on this scan by utilizing a utomated exposure control and iterative reconstruction technique. The dose-length product (DLP) was 6 38.84 mGy-cm. Findings: Scans through the lung bases are unremarkable. Small hiatal hernia present. Small hepatic cysts are present. Gallbladder absent. Splenic cyst measures 5.4 cm in diameter. The pa ncreas, adrenals and right kidney are within normal limits. 3 mm nonobstructing left renal stone pres ent. No evidence of aortic aneurysm. No lymphadenopathy. No bowel obstruction or bowel wall thickening. Prominent stool suggests constipation.. Images through the pelvis are degraded by streak artifact from right hip arthroplasty. Urinary bladde r grossly unremarkable. No pelvic mass seen. No ascites. Impression: No acute abnormality evident. Constipation. Small hiatal hernia. Hepatic and splenic cysts, as above. 3 mm nonobstructing left renal stone. Reviewed, dictated and finalized at [facility]. Impression: No acute abnormality evident. Constipation. Small hiatal hernia. Hepatic and splenic cysts, as above. 3 mm nonobstructing left renal stone.
--- OUTSIDE RECORDS SUMMARY | 2024-10-21 08:04 | XMS_ITS | CONTINUITY OF CARE DOCUMENT ---
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 Name Role Phone Kevin RUDD, Janelle Unavailable [phone] RODRIGUEZ RUDD, SHREYA Unavailable RODRIGUEZ RUDD, SHREYA Unavailable [phone] PROBLEMS Condition Status Date Provider Notes CHEST [...] syndrome active Gopal Trejo MD PVD active Artie Felton Non-alcoholic fatty liver active Artie edwards Adrenal disorder active Artie Felton Palpitations active Artie Felton Cardiology examination active Janelle mishra MD ENCOUNTERS Date Type Provider Location Encounter Diag nosis - In-person encounter Office Visit Janelle Brown MD [place] [facility] - In-person encounter Office Visit Janelle Brown MD [facility] Cardiology examination - In-person encounter Office Visit Janelle Brown MD [facility] Non-alcoholic fatty liverAdrenal disorderPalpitations - In-person encounter Office Visit Janelle Brown MD [facility] PVDNon-alcoholic fatty liver - In-person encounter Office Visit Janelle Brown MD [facility] - In-person encounter Office Visit Janelle Brown MD [facility] - In-person encounter Office Visit Gopal Trejo MD [facility] CHEST PAIN-03/23 ECHO NEGHTN-03/23 VIC DUP-NEGSLEEP APNEA;on rxHTN essential;neg duplexScreeningHyperlipidem iaSarcoidosisArrhythmia;nl tshNeuropathyIRON DEFICIENCYrenal stoneAsthmaRaynaud's syndrome - In-person encounter Office Visit Regino Dillon MD [facility] SLEEP APNEA;on rxOBESITY VITAL SIGNS Date Observation Value Provider Body Mass Index (Ratio) 30.55 kg/m2 Cong Brown MD blood pressure, diastolic 86 mm[Hg] Ritika Jacinto blood pressure, systolic 119 mm[Hg] Tamiko Jacinto oxygen saturation, oximetry 96 % No Jacinto pulse rate 82 /min No Jacinto respiratory rate E&M 12 /min No Jacinto weight E&M 178 [lb_av] No Jacinto height E&M 64 [in_i] No Jacinto blood pressure, cuff size regular Ritika Jacinto Body Mass Index (Ratio) 30.72 kg/m2 Cong Brown MD blood pressure, diastolic 83 mm[Hg] Lori nkLogivonne blood pressure, systolic 118 mm[Hg] Brittany kLogic blood pressure, diastolic 83 mm[Hg] Br julien Morales blood pressure, systolic 118 mm[Hg] Brenna Morales pulse rate 85 /min Jyoti Briones s oxygen saturation, oximetry 97 % Jyoti Morales blood pressure, cuff size regular Br julien Morales weight E&M 179 [lb_av] Jyoti Briones s height E&M 64 [in_i] Jyoti Briones s Body Mass Index (Ratio) 32.13 kg/m2 Artie Scottgrace pulse rate 77 /min Veronica Oneill weight E&M 187.2 [lb_av] Veronica Oneill respiratory rate E&M 18 /min Veronica Oneill blood pressure, diastolic 84 mm[Hg] sobia Oneill blood pressure, systolic 116 mm[Hg] She vinnie Oneill oxygen saturation, oximetry 96 % Veronica Oneill blood pressure, cuff size regular Darlene Oneill height E&M 64 [in_i] Veronica Oneill Body Mass Index (Ratio) 27.46 kg/m2 Artie Felton blood pressure, cuff size large Ke rri Eugeneuenenftaya blood pressure, diastolic 80 mm[Hg] Ke rri Gruenenfelder blood pressure, systolic 120 mm[Hg] Sola Westoner oxygen saturation, oximetry 96 % Muna Copeland respiratory rate E&M 14 /min Muna cisneroselder pulse rate 71 /min Muna Adame lder weight E&M 160 [lb_av] Muna Blande lder height E&M 64 [in_i] Muna Blande er Body Mass Index (Ratio) 26.60 kg/m2 Artie Ferreirawilbert blood pressure, diastolic 78 mm[Hg] Joselyn rogers Darwin blood pressure, systolic 111 mm[Hg] Paco reynoldsaurora Mejia oxygen saturation, oximetry 97 % Laurie Mejia pulse rate 79 /min Laurie bee weight E&M 155 [lb_av] Laurie bee respiratory rate E&M 16 /min Rossi Mejia height E&M 64 [in_i] Laurie bee Body Mass Index (Ratio) 28.32 kg/m2 Edward en Francisco blood pressure, diastolic 91 mm[Hg] To nsha Blake blood pressure, systolic 132 mm[Hg] Ton sha Blaek pulse rate 91 /min Tonsha Blake respiratory rate E&M 18 /min Tonsha Blake oxygen saturation, oximetry 98 % Tonsha Blake blood pressure, resting Yes Tons weiner Blake weight E&M 165 [lb_av] Tonsha Blake height E&M 64 [in_i] Tonsha Blake Body Mass Index (Ratio) 30.21 kg/m2 Lenore ica N Fernando blood pressure, cuff size regular Je ssica N Fernando blood pressure, diastolic 60 mm[Hg] Je ssica N Fernando blood pressure, systolic 120 mm[Hg] Valarie kiera N Fernando oxygen saturation, oximetry 99 % Radha N Fernando respiratory rate E&M 18 /min Radha N Fernando pulse rate 79 /min Radha N Domso n weight E&M 176 [lb_av] Radha N Wilso n Body Mass Index (Ratio) 30.38 kg/m2 Lenore ica N Fernando blood pressure, cuff size regular caitlin Demecs RN blood pressure, diastolic 88 mm[Hg] caitlin Demecs RN blood pressure, systolic 150 mm[Hg] [facility] oxygen saturation, oximetry 97 % [place] [facility] RN respiratory rate E&M 18 /min [place] Demecs RN pulse rate 111 /min [place] Demecs R N weight E&M 177 [lb_av] [place] Demecs R N Body Mass Index (Ratio) 30.38 kg/m2 Fátima Trejo MD blood pressure, cuff size regular [facility] pressure, diastolic 80 mm[Hg] Ke rri Min blood pressure, systolic 136 mm[Hg] Sola Copeland oxygen saturation, oximetry 98 % Muna Copeland respiratory rate E&M 20 /min Muna moses pulse rate 86 /min Muna [facility] weight E&M 177 [lb_av] Muna Adame er height E&M 64 [in_i] Muna bonner blood pressure, diastolic 79 mm[Hg] Te ri Hardik blood pressure, systolic 121 mm[Hg] Ter i Hardik pulse rate 67 /min Ema Hardik oxygen saturation, oximetry 100 % Ema Dye respiratory rate E&M 20 /min Ema mcarthur weight E&M 228 [lb_av] Emawilbert Dye ALLERGIES Allergy Name Onset Date Reaction Criticality Status YADIRAIN Low Criticality active RESULTS Date Observation Value Provider Reference Range Interpretation Location 7 hemoglobin A1C, blood, as % of total hemoglobin 5.2 % OF TOTAL HGB [facility] <5.7 Normal 7 cholesterol, non-HDL, total 76 MG/DL (CALC) [facility] <130 Normal 7 cholesterol/HDL ratio, serum, percent 2.0 (calc) [facility] <5.0 Normal 7 LDL cholesterol, serum 63 MG/DL (CALC) [facility] Normal 7 triglyceride, serum, fasting 58 mg/dL [facility] <150 Normal 7 HDL cholesterol, serum 74 mg/dL [facility] > OR = 50 Normal 7 cholesterol, serum 150 mg/dL [facility] <200 Normal 0 ferritin, serum 447 ng/mL [facility] 15-150 High 0 iron saturation percent, serum 43 % [facility] 15-55 0 iron, serum 146 ug/dL [facility] 27-159 0 iron binding capacity, unsaturated 197 ug/dL [facility] 885-401 9550/03/2 0 iron binding capacity, total 343 ug/dL [facility] 461-948 4201/03/2 0 basophil count, absolute 0.0 x10E3/uL [facility] [...] Estab. 0 platelet count 184 X10E3/UL [facility] 856-361 5499/03/2 0 red blood cell distribution width 16.1 % [facility] 12.3-15.4 High 0 mean corpuscular hemoglobin concentration, RBC 34.0 G/DL [facility] 31.5-35.7 0 mean corpuscular hemoglobin, RBC 30.9 pg [facility] 26.6-33.0 0 mean corpuscular volume, RBC 91 fL [facility] 79-97 0 hematocrit, blood 41.5 % [facility] 34.0-46.6 0 hemoglobin, blood 14.1 g/dL [facility] 11.1-15.9 0 erythrocyte (RBC) count 4.57 X10E6/UL [facility] 3.77-5.28 0 leukocyte count, blood 5.9 X10E3/UL [facility] 3.4-10.8 1 ferritin, serum 16 ng/[facility] 15-150 1 rapid plasma reagin antibody screen Non Reactive [facility] Non Reactive 1 iron saturation percent, serum 13 % [facility] 15-55 Low 1 iron, serum 60 ug/dL [facility] 27-159 1 iron binding capacity, unsaturated 390 ug/dL [facility] 436-924 2306/02/0 1 iron binding capacity, total 450 ug/dL [facility] 250-450 HISTORY OF MEDICATION USE Medication Status Instructions Dates Provider Indications Com ments Myrbetriq 50 mg tablet extended release 24 hr active TAKE 1 TABLET BY MOUTH EVERY DAY Leidy James NP ondansetron HCl 4 mg tablet active TAKE 1 TABLET BY MOUTH EVERY 8 HOURS Leidy James NP trazodone 150 mg tablet active at bedtime Leidy James NP Adipex-P 37.5 mg capsule completed once a day - Leidy James NP hydrocodone-aceta minophen 7.5-325 mg tablet active 1 every four hours as needed Leidy James NP Flonase Allergy Relief 50 mcg/actuation spray,suspension active as directed Muna Copeland Calcium Antacid 200 mg calcium (500 mg) tablet,chewable active 2 every night as needed Leidy James NP magnesium oxide 400 mg (241.3 mg magnesium) tablet active once a day Muna Copeland MULTIVITAMINS ORAL CAPSULE active 1 tablet once a day Muna Copeland Ambien 10 mg tablet completed Take 1 every night - Leidy James NP LORAZEPAM 1 MG TABS active Take 1 three times a day Muna Copeland prednisone 2.5 mg tablet active once a day Leidy James NP VITAMIN D TABLET active once a day 1999un Leidy James NP cyanocobalamin (vitamin B-12) 1,000 mcg tablet active [...] 2 puff every four to six hours as needed Leidy James NP ADVAIR DISKUS 250-50 MCG/DOSE INHALATION AEROSOL POWDER [...] 1 tablet once a day Muna Copeland SOCIAL HISTORY Date Observation Value Provider drug use none Julian Bonareri STUDIO POTTER smoking, year quit 1990 Julian Saul areri STUDIO POTTER number of years as a smoker 5 a Julian Bonareri STUDIO POTTER smoking history, tot al pack/day 0.5-1 Julian Bonareri STUDIO POTTER cigarette use yes Julian Bonareri STUDIO POTTER smoking status Former smoker Julian Bentonre ri STUDIO POTTER smoking, year quit 1990 Leidy James STUDIO POTTER number of years as a smoker 5 a Leidy James STUDIO POTTER smoking history, tot al pack/day 0.5-1 Leidy James STUDIO POTTER cigarette use yes Leidy rothman STUDIO POTTER drug use none Leidy Arias r STUDIO POTTER smoking status Former smoker Leidy gallegos STUDIO POTTER Exercise counseling Yes Leidy James NP social history E&M Marital Statu s: Hannah higgins with family/friends E thnicity: Smoking History: Gee bergeron has never smoked. Artie Ferreirawilbert social history reviewed E&M revi ewed - no changes required Artie Ferreirawilbert smoking status Never smoker Veronica Oneill social history E&M Marital Statu s: Hannah higgins with family/friends E thnicity: Smoking History: Gee bergeron is a former smoker. Artie Ferreirawilbert social history reviewed E&M revi ewed - no changes required Artie Jhonwilbert physical exercise, f requency, days per week no Muna Knightjuan josé caffeine use, averag e drinks per day yes Muna Min smoking, year quit 25 Muna Cedeño marya number of years as a smoker 6 a Muna Knightjuan josé smoking history, tot al pack/day 1 ppd Muna Knightjuan josé cigarette use yes Muna Bowensal bain smoking status Former smoker Muna huangtaya physical exercise, f requency, days per week no Laurie Mejia caffeine use, averag e drinks per day yes Laurie Mejia smoking, year quit 25 Laurie Mejia number of years as a smoker 6 a Laurie Mejia smoking history, tot al pack/day 1 ppd Laurie Mejia cigarette use yes Laurie Black nd smoking status Former smoker Laurie valencia number of grandchildren Janelle Singh social history reviewed E&M revi ewed - no changes required Piero Singh physical exercise, f requency, days per week no Fely Blake caffeine use, averag e drinks per [...] Gopal Trejo MD social history reviewed E&M saira zamora - no changes required Gopal Trejo MD number of years as a smoker 6 a Muna Knightjuan josé smoking history, tot al pack/day 1 ppd Muna Knightjuan josé smoking, year quit 25 Muna Cedeño marya cigarette use yes Muna Bowensal bain smoking status Former smoker Muna Bowen ayanna [...] per day none LinkLog[facility] smoking status Non-smoker Link[facility] MENTAL STATUS Date Observation Value Provider assessment of judgme nt and insight E&M Alert and oriented to time, place and person. Mood and affect are normal. 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 1 tablet once a day Artie robson [id number],C,RONALD showed no rmal arterial flow [facility] [id number],C, B P today: 116/84 P rior BP: 120/80 (08/03/2022) [facility] [id number],C,F ollows Endocrine [facility] [id number],S, Artieluis Ferreira i [id number],S, Artieluis Ferreira i [id number],C, B P today: 120/80 P rior BP: 111/78 (02/02/2022) Echo EF 60% from 11/[address] [facility] [id number],C,Has beba [facility] specialists. [facility] [id number],C,U nderwent MRI which showed reduced flow in her LE arteries, unspecified, do not have results. Will check RONALD to assess for PVD. Artie robson [id number],C,follow with P TERENCE James STUDIO POTTER [id number],C,r ecent labs at [facility] will have results sent to our office. Leidy James STUDIO POTTER [id number],C,n ot on cpap. may need repeat sleep study Leidy James STUDIO POTTER [id number],C, B P today: 111/78 P rior BP: 132/91 (01/08/2020) ECHO 11/2021 EF 65%, trace MR, mild TR Leidy James STUDIO POTTER [id number],C,w ill have PCP send recent lab results to our office H er updated medication list for this problem includes: Simvastatin 40 Mg Tablet (Simvastatin) ..... 1 tablet once a day Leidy James STUDIO POTTER Electrophysiology: 0 08/14-08/22/2024 S inus rhythm with rare ventricular ectopy and rare s upraventricular ectopy. The average heart rate was 7 6 bpm with a minimum heart rate of 54 bpm and a m aximum heart rate of 126 bpm. VE burden was 0 .3% and observed as 2,100 isolated beats and 1 c ouplet. SVE burden was <0.1% and observed as 2 25 isolated beats, 1 couplet, and 3 triplets Janelle Linton on 08-25-2024 11:51 AM H er updated medication list for this problem includes: Aspirin 81 Mg Tablet,delayed Release (dr/ec) (Aspirin) ..... 1 tablet by mouth once a day Cartia Xt 120 Mg Capsule,extended Release 24hr (Diltiazem hcl) ..... 1 tablet once a day Julian Kapoor STUDIO POTTER Electrophysiology: Lakisha zarate with Endocrinology Dr. Dalton Kapoor NP Electrophysiology: l abs per PCP C ontinue statin Julian Kapoor STUDIO POTTER Electrophysiology: H eart Monitor 08/14/-08/22/2024 S inus rhythm with rare ventricular ectopy and rare s upraventricular ectopy. The average heart rate was 7 6 bpm with a minimum heart rate of 54 bpm and a m aximum heart rate of 126 bpm. VE burden was 0 .3% and observed as 2,100 isolated beats and 1 c ouplet. SVE burden was <0.1% and observed as 2 25 isolated beats, 1 couplet, and 3 triplets She continues to have palpitations off and on. Will get 48 hours heart monitor in 1 year Orders: 9 9214 MOD 30-39min (CPT-79223) H olter Monitor 48 hr (CPT-42774) C omplex e/m visit add on (G2211) S chedule Followup (*) E KG (CPT-04492) Julian Schumacherjose r STUDIO POTTER Electrophysiology: B P today: 119/86 P rior BP: 118/83 (08/07/2024) BP controlled C ontinue current medications Her updated medication list for this problem includes: Aspirin 81 Mg Tablet,delayed Release (dr/ec) (Aspirin) ..... 1 tablet by mouth once a day Cartia Xt 120 Mg Capsule,extended Release 24hr (Diltiazem hcl) ..... 1 tablet once a day Spironolactone 50 Mg Tablet (Spironolactone) ..... 1 tablet once a day Julian Bentonleia RUIZ Electrophysiology: B P today: 118/83 P rior BP: 116/84 (02/01/2023) Her updated medication list for this problem includes: Aspirin 81 Mg Tablet,delayed Release (dr/ec) (Aspirin) ..... 1 tablet by mouth once a day Cartia Xt 120 Mg Capsule,extended Release 24hr (Diltiazem hcl) ..... 1 tablet once a day Spironolactone 50 Mg Tablet (Spironolactone) ..... 1 tablet once a day Leidy James NP Electrophysiology:20 19: chol 141, trig 56, HDL 68, LDL 62 W ILL CHECK LIPID PANEL H er updated medication list for this problem includes: Simvastatin 40 Mg Tablet (Simvastatin) ..... 1 tablet once a day Leidy James NP Electrophysiology:wi ll check 15 day telesentry, ECHO sinus on EKG Her updated medication list for this problem includes: Aspirin 81 Mg Tablet,delayed Release (dr/ec) (Aspirin) ..... 1 tablet by mouth once a day Cartia Xt 120 Mg Capsule,extended Release 24hr (Diltiazem hcl) ..... 1 tablet once a day Leidy Márquezrosy RUIZ Electrophysiology: Lakisha zarate Endocrine Leidy Erika RUIZ Electrophysiology:luh viramontes endocrinology,Dr. Jessie Hoffman O rders: C omplete Echo (27510) 9 9214-Ofc Vst-Est Level IV (CPT-01056) Leidy Márquezrosy RUIZ Electrophysiology:wi ll recheck 15 day telesentry She complains of palpitations on occasion 01/2023: 7 day tele: Sinus Rhythm with rare Ventricular ectopics and rare Supraventricular ectopics. The average heart rate was 83bpm with a maximum rate of 141bpm and a minimum rate of 63bpm. VE?s were documented as couplets and isolated beats. SVE?s were d ocumented as couplets and isolated beats. Leidy James NP Electrophysiology:s/ p iron infusion 04/2023..follows with hematology Leidy James NP Electrophysiology:Sh e complains of palpitations on occasion, will check holter to assess further Artie Ahmedzai Electrophysiology:weight loss ad vised Artie Ahmedzai Electrophysiology: H er updated medication list for this problem includes: Simvastatin 40 Mg Tablet (Simvastatin) ..... 1 tablet once a day Artie Ahmedzai Electrophysiology:RONALD showed nor mal arterial flow Artie Teranmedzai Electrophysiology: B P today: 116/84 P rior BP: 120/80 (08/03/2022) Artie Ahmedzai Electrophysiology:Luh lewis Endocrine Artie Ahmedzai Electrophysiology Artie Ahmedzai Electrophysiology Artie Ahmedzai Electrophysiology: B P today: 120/80 P rior BP: 111/78 (02/02/2022) Echo EF 60% from 11/2021 Artie Ahmedzai Electrophysiology:Has nestor MORROW. Artie Ahmedzai Electrophysiology:Un derwent MRI which showed reduced flow [...] ..... One tab daily Orders: E KG (CPT-19191) BP today: 121/79 Prior BP: / () S HE WAS DIAGNOSED WITH MICROVASULAR ANGINA AND RECEIVED ECP. I T DID HELP FOR A WHILE BUT IT HAS COME BACK RECENTLY. Regino Dillon MD Date Name EKG Holter Monitor 48 hr HEMOGLOBIN A1c LIPID PANEL Complete Echo Monitor - Telemetry (Mobile Cardiac) Monitor - Telemetry (Mobile Cardiac) Complete Echo Arterial Duplex Bi-L ower EX Complete Echo DLCO - 21643 FRC - 12582 FVC - 83879 Mobile Cardiac Tele Complete Echo IRON AND [...] Procedure Name Provider Procedure Notes S tatus Schedule Followup Janelle thompson MD 1 year completed Complex e/m visit ad d on Janelle Brown MD completed Complex e/m visit ad d on Janelle Brown MD completed EKG Janelle hackett MD completed EKG Janelle hackett MD completed Spirometry Janelle hackett MD completed FVC / MVV - 96818 Janelle thompson MD completed FRC - 67835 Janelle hackett MD completed SpO2 w/o 6min walk/titration Janelle Brown MD completed SVC - 86067 Janelle hackett MD completed DLCO - 43172 Janelle hackett MD completed EKG Janelle hackett MD completed Schedule Followup Janelle Brown 6 months completed EKG Janelle hackett MD completed FVC / MVV - 97464 Janelle thompson MD completed FRC - 65452 Janelle hackett MD completed SpO2 w/o 6min walk/titration Janelle Brown MD completed DLCO - 84932 Janelle hackett MD completed EKG Janelle hackett [...]
--- OUTSIDE RECORDS SUMMARY | 2024-10-21 08:04 | XMS_ITS | Clinical Summary ---
Author Organization [facility] Brittnee aye [place] Address [address] [place] [address] Care Team Providers Care Claims Adjuster Name Role Phone Unavailable Primary Care Provider Unavailabl e Allergies Active Allergy Reactions Criticality Noted Date Comments Ofloxacin Other (See Comments) Low 03/26/2008 Reaction: shaky, sweaty Floxin Nervous sweating could not sleep. Reaction: Other Reaction: shaky, sweaty Floxin Medications traZODone (DESYREL) 150 mg tablet take 1 tablet by mouth every day at bedtime Active spironolactone (ALDACTONE) 50 mg tablet Take 50 mg by mouth daily. Active simvastatin (ZOCOR) 40 mg tablet Take 40 mg by mouth. 2 Active predniSONE (DELTASONE) 2.5 mg tablet TAKE 1 TABLET BY MOUTH DAILY WITH FOOD OR MILK Active ondansetron (ZOFRAN) 4 mg Tablet take 1 tablet by mouth three times daily as needed for nausea Active omeprazole (PriLOSEC) 40 mg Capsule, Delayed Release(E.C.) Take 40 mg by mouth daily. Active nystatin-triamci nolone (MYCOLOG-II) 100,000-0.1 unit/g-% Cream 4 times daily A ctive multivitamin (DAILY-DANIELA) tablet Take 1 Tablet by mouth. Active montelukast (SINGULAIR) 10 mg tablet Take 10 mg by mouth daily at bedtime. 2 Active mirabegron (MYRBETRIQ) 50 mg Extended Release 24 hour tablet Take 50 mg by mouth daily. Active magnesium OXIDE (MAG-OX) 400 mg (241.3 mg magnesium) tablet Take 500 mg by mouth daily at bedtime. Active LORazepam (ATIVAN) 1 mg tablet Take 1 mg by mouth 3 times daily as needed. Active Linzess 145 mcg capsule Take 145 mcg by mouth daily. Active HYDROcodone-acet aminophen 10-325 mg/15 mL Solution solution Take 1 Tablet by mouth. Active gabapentin (NEURONTIN) 300 mg capsule Take 300 mg by mouth 2 times daily. Active fluticasone propionate (FLONASE) 50 mcg/spray [place], Suspension nasal inhaler Administer 2 Sprays in each nostril daily. shake before using Active fluticasone propion-salmeter oL (ADVAIR DISKUS,WIXELA INHUB) 250-50 mcg/dose disk inhaler INHALE 1 PUFF BY MOUTH TWICE DAILY. RINSE MOUTH WITH WATER AFTER USE. DO NOT SWALLOW Active Imvexxy Maintenance Pack 10 mcg Insert INSERT 1 INSERT VAGINALLY TWICE A WEEK Active estradioL (ESTRACE) 0.5 mg tablet Take 0.5 mg by mouth daily. Active dilTIAZem (CARDIZEM CD, CARTIA XT) 120 mg Controlled Delivery 24 hour capsule take 1 capsule by mouth every night Active cyanocobalamin 1,000 mcg Tablet Take 500 mcg by mouth daily. Active citalopram (CeleXA) 40 mg tablet Take 40 mg by mouth daily. Active cholecalciferol, Vitamin D3, 50 mcg (2,000 unit) Tablet Take 2,000 Units by mouth. Active Lumigan 0.01 % solution INSTILL 1 DROP IN BOTH EYES AT NIGHT Active azelastine (ASTELIN) 137 mcg/actuation nasal spray 2 Sprays. Active aspirin (ECOTRIN EC) 81 mg Tablet, Delayed Release (E.C.) Take 81 mg by mouth. Active Airsupra 90-80 mcg/actuation HFA Aerosol Inhaler Take 2 Puffs by inhalation 2 times daily. Active albuterol sulfate HFA 90 mcg/actuation aerosol inhaler inhale 2 puffs by mouth every 6 hours as needed for wheezing Active Active Problems Problem Noted Date Diagnosed Date Type 2 diabetes mellitus without complications 0 06/23/2012 Overview (09/29/2024): IMO 09/16/2024 Encounters Date Type Department Care Team Description 10/06/2024 External Device Data ST[facility] ABSTRACTION Provider, Abstract 10/06/2024 External Device Data [facility] ABSTRACTION Provider, Abstract 10/06/2024 External Device Data [facility] ABSTRACTION Provider, Abstract 09/29/2024 11:00 AM CDT Procedure visit [facility] [address] [place] [address] Kelly Sanches PA-C Type 2 diabetes mellitus with hypoglycemia without coma, 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 (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/HCC) (Primary Dx) 09/29/2024 External Device Data STL ABSTRACTION Provider, Abstract 09/29/2024 External Device Data STL ABSTRACTION Provider, Abstract 09/29/2024 External Device Data STL ABSTRACTION Provider, Abstract 09/28/2024 Telephone [facility] [address] [place] [phone] Mar Oneill CGM time reminder from Last 3 Months Social History Tobacco Use Types Packs/Day Years Used Date Smoking Tobacco: Never Comments No Sex and Gender Information Value Date Recorded Sex Assigned at Not on file Legal Sex Female 10:36 AM CDT Gender Identity Not on file Sexual Orientation Not on file Last Filed Vital Signs Vital Sign Reading Time Taken Comments Blood Pressure 110/70 09/29/2024 11:00 AM CDT Pulse 78 09/29/2024 11:00 AM CDT Temperature 36.5 C (97.7 F) 09/29/2024 11:00 AM CDT Respiratory Rate 16 09/29/2024 11:00 AM CDT Oxygen Saturation 98% 09/29/2024 11:00 AM CDT Inhaled Oxygen Concentration - - Weight 82.6 kg (182 lb) 09/29/2024 11:00 AM CDT Height 154.9 cm (5' 1 ) 09/29/2024 11:00 AM CDT Body Mass Index 34.39 09/29/2024 11:00 AM CDT Plan of Treatment Health Maintenance Due Date Last Done Comments DIABETES ANNUAL FOOT EXAM 12/20/1987 DIABETES MICROALBUMIN ANNUAL SCREEN 12/20/1987 LDL CHOLESTEROL ANNUAL 12/20/1987 DTAP/TDAP/TD VACCINES (1 - Tdap) 1988 HEPATITIS B VACCINES (1 of 3 - 19+ 3-dose series) 1988 BREAST CANCER SCREENING 2009 DIABETES ANNUAL RETINAL EXAM 02/11/2013 02/12/2012 COLORECTAL SCREENING 2014 Colorectal Cancer Screening 2014 FIT-DNA Q 3 years 2014 FIT/FOBT Q 1 year 2014 Flex Sig/CT Colonography Q 5 years 2014 DIABETES HBA1C Q 6 MONTHS 08/14/2018 02/14/2018 ZOSTER VACCINE (1 of 2) 12/20/2019 INFLUENZA VACCINE (#1) 2024 3, 04/04/2022, 04/16/2021, Additional history exists Procedures Procedure Name Priority Date/Time Associated Diagnosis Comments GENERAL PROCEDURE Routine 09/29/2024 11: 00 AM CDT Type 2 diabetes mellitus with hypoglycemia without coma, unspecified whether care home insulin use ([facility]) from Last 3 Months Results * UNLISTED PROCEDURE ONLY (09/29/2024 11:00 AM CDT) Narrative Kelly Sanches PA-C - 09/29/2024 11:00 AM CDT Kelyl Sanches PA-C 09/29/2024 12:12 PM General Procedure Date/Time: 09/29/2024 11:00 AM Performed by: Kelly Sanches PA-C Authorized by: Kelly Sanches PA-C Consent: Consent obtained: Verbal and written Consent given by: Patient Risks discussed: Bleeding, infection and pain Alternatives discussed: No treatment [place] protocol: Procedure explained and questions answered to patient or proxy's satisfaction: yes Relevant documents present and verified: yes Test results available and properly labeled: yes Imaging studies available: na. Required blood products, implants, devices, and special equipment available: yes Site/side marked: yes Immediately prior to procedure, a time out was called: yes Patient identity confirmed: Verbally with patient Indications: Indications: Diabetes Pre-procedure details: Skin preparation: ChloraPrep Preparation: Patient was prepped and draped in the usual sterile fashion Anesthesia (see MAR for exact dosages): Anesthesia method: Local infiltration Local anesthetic: Lidocaine 1% WITH epi Post-procedure details: Patient tolerance of procedure: Tolerated well, no immediate complications Comments: Continuous glucose monitor (CGM) removal: Previous sensor located by palpation in the left upper arm and marked. Skin prep applied, draped, and local anesthesia injected. Incision made just kit blade. Sensor located and removed successfully. Pressure applied to incision site, closed with absorbable suture, and dressed. Patient tolerated procedure well. No complications noted. Incision care instructions provided. Patient instructed to call if signs/symptoms of infection develop. Continuous glucose monitor (CGM) insertion: Insertion area located in the right upper arm and marked using the incision template. Area cleansed, draped, and local anesthesia injected. Incision made using kit blade approximately 5mm wide and 3-5mm deep. The pocket was then created using the blunt dissector provided. The insertion tool was then used to advance the sensor into the pocket and it was deployed without difficulty. The insertion tool was removed and the sensor was verified out of the tool and in the pocket in appropriate position Pressure applied to the incision site for 3 minutes, hemostasis was achieved, closed incision with absorbable suture and dressed with gauze and Tegaderm. Patient tolerated the procedure well. No complications noted. Incision care instructions provided. Patient instructed to call if signs/symptoms of infection develop. Sensor linked to transmitter and warm-up phase initiated. Signal strength documented as excellent. Patient education performed regarding the device and activation. Successful placement of an Eversense 365 CGM. Kelly Sanches PA-C PROCEDURE/MINOR SURGI RIKKI ORDERABLES Final Result from Last 3 Months Insurance [place]ICAID [place]
--- OUTSIDE RECORDS SUMMARY | 2024-10-21 08:04 | XMS_ITS | Data Portability ---
Author Organization [facility]MA Batista SIRex Banuelos Address [address] [place] [address] Assessment No assessment recorded. Plan of Treatment Reminders Order Date Submit Date Provider Last Modified By Organization Details Last Modified Time Details Appointments None recorded. Lab urinalysi s, dipstick 2015 Nicki mckeon In-Office Order, Internal Use Only DO Not Attach Compendium DO Not Attach Compendium, Do Not Delete/merge, [id number] 6 16:27:45 FSH (follicle -stimulat ing hormone), serum 2015 016 [facility], [facility] [facility] [address], [place], [address], 6 07:11:51 estradiol , serum 2015 016 [facility], [address] [facility], [place], [address], 6 07:11:51 Referral None recorded. Procedures None recorded. Surgeries None recorded. Imaging None recorded. Medication Orders Activella 1 mg-0.5 mg tablet 2015 016 [id number], [address] , [place], [place], [phone], 6 16:29:06 Patient TargetsNo targets recorded. Patient Instructions Encounter Date Encounter Id Patient Instructions Last Modified By Organization Details Last Modified Time 12/06/2015 [id number] learning about menopause linda Not available 12/06/2015 16:27:46 Reason for Referral None Reported. Results Created Date Observation Date Name Description Value Unit Range Abnormal Flag Note LastModifiedBy Organization Detail LastModifiedTime 12/06/19 16 12/06/2015 urina lysis , dipst ick Leukocytes Negati ve Not Available In-Office Order Internal Use Only DO Not Attach Compendium DO Not Attach Compendium, Do Not Delete/merge, [id number] 12/06/2015 16:08:52 12/06/19 16 12/06/2015 urina lysis , dipst ick Nitrite negati ve Not Available In-Office Order Internal Use Only DO Not Attach Compendium DO Not Attach Compendium, Do Not Delete/merge, [id number] 12/06/2015 16:08:52 12/06/19 16 12/06/2015 urina lysis [...] 12/06/2015 urina lysis , dipst ick Specific [place] 1.010 Not Available In-Off ice Order Internal Use Only DO Not Attach Compendium DO Not Attach Compendium, Do Not Delete/merge, 12/06/2015 16:08:52 12/06/19 16 12/06/2015 urina lysis , dipst ick Ketone Negati ve Not Available In-Office Order Internal Use Only DO Not Attach Compendium DO Not Attach Compendium, Do Not Delete/merge, [id number] 12/06/2015 16:08:52 12/06/19 16 12/06/2015 urina lysis [...] USAL 25.8 - 134.8 Not Available [facility] ([facility]) [address] [place], [place], [address], 12/07/2015 07:11:51 12/06/19 16 12/07/2015 estra diol, serum estradiol 36.1 pg/mL ADULT FEMAL E: FOLLI CULAR PHASE 12.5 - 166.0 OVULA TION PHASE 85.8 - 498.0 LUTEA L PHASE 43.8 - 211.0 POSTM ENOPA USAL <6.0 - 54.7 PREGN ROSEMARY 1ST TRIME STER 215.0 - >4300 .0 GIRLS (1-10 YEARS ) 6.0 - 27.0 TISH ECLIA METHO DOLOG Y Not Available [facility] ([facility]) [address], [place], [place], [address], 12/07/2015 07:11:51 12/07/19 16 11/23/2015 ultra sound , pelvi c trans vagin al No observ ation record ed. BARCODE Not Available 2015 17:05:28 Result Notes None recorded. Problems Name Problem SNOMED Code Status Onset Date Resolution Date Notes Provider Name and Address Organization Details Recorded Time Perimenopausal disorder 629047215 Active Mendel dumont, [facility] 6 16:27:45 Cyst of ovary 89655838 Active Mendel dumont, [facility] 6 16:27:45 Problem Notes None recorded. Procedures Surgical History Date Name Laterality Status Provider Name and Address Organization Details Recorded Time 11/16/19 15 Most Recent Mammogram completed Maren Condon [facility] 12/06/2015 15:51:31 06/17/19 14 Date of Last Pap Smear completed Maren CondonRICK [facility] 12/06/2015 15:43:44 Other completed Maren Condon [facility] 12/06/2015 15:39:55 Gastric Bypass completed Maren Condon [facility] 12/06/2015 15:39:55 Hysterectomy completed Maren CondonRICK [facility] 12/06/2015 15:39:55 Other completed Maren Condon [facility] 12/06/2015 15:51:31 Tubal Ligation completed Maren Condon [facility] 12/06/2015 15:51:31 Other completed Maren Condon [facility] 12/06/2015 15:51:31 Breast Biopsy completed Maren Condon [facility] 12/06/2015 15:51:31 Imaging Results Imaging Date Name Status LastModified by Organization Details LastModified Time 11/23/2015 ultrasound, pelvic transvaginal completed [facility] Information not available 12/07/2015 17:05:28 Procedure Notes None recorded. Medical Equipment None Reported. Allergies Allergen ID Allergen Name Allergen Category Reaction Reaction Severity Criticality Documentation Date Start Date Code Code System Note Provider Name and Address Organization Details Recorded Time 25781 ciproflox acin medicatio n other moderate Not available 12/06/2015 8136 RxNorm The shake s, insom shahab, sweat s RICK Bourne, [facility] 6 15:47:03 Medications Name Sig Start Date Stop Date [...] Address Organization Details Last Updated DateTime 12/06/2015 60781.29 527 g 160.02 cm 30.3 kg/m2 116 mm[Hg] 72 mm[Hg] Maren Condon MA [facility] 6 15:57:54 Social History Question Answer Notes LastModified by Organizat ion Details LastModified Time Tobacco Smoking Status Never Smoker Maren Condon MA null, [place] - [facility] 12/06/2015 15:56:30 Do You Have An Advance Directive? No [email or web address] Information not available 12/06/2015 What Is Your [...] How Much Tobacco Do You Smoke? No [email or web address] Information not available 12/06/2015 General Stress Level High Information not available 12/06/2015 Do You Use Sunscreen Routinely? Yes Information not available 12/06/2015 How Many Years Have You Smoked Tobacco? 0 [email or web address] Information not available 12/06/2015 Sex: Unknown Functional Status Question Answer Note LastModified by Organizat ion Details LastModified Time What is your exercise level? Occasional Information not available 12/06/2015 Mental Status None recorded. Family History Nothing Reported. Medical History Condition Response Other N High Blood Pressure Y Breast Cancer N MRSA N Head Trauma/Injury N Hernia N Blood Clots N Depression Y Lung Disease N Breast Problem N Anesthesia Complications N Headaches/Migraines Y Anxiety Disorder N Autoimmune disease Y Muscle, Joint, or Bone Problems Y Head Injury/Concussion N Polyps N Infertility N Acid Reflux (GERD) Y Cancer N Hematuria N Leg or Foot Ulcers N ADHD N Endometriosis N High Cholesterol N Liver Disease Y Headaches Y Abdominal Aortic Aneurysm Repair N Heart Problems N Hyperparathyroidism N Migraines Y Thyroid Problems N Kidney or Bladder Problems Y GI Problems N Acne N Eating Disorder N Anemia N Ovarian Cancer N Diabetes Y Blood Transfusions N Seizures/Epilepsy N Heart Problems/Murmur N AIDS/HIV N Abuse/Domestic Violence N Asthma [...] SNOMED-CT Code Diagnosis ICD10 Code Diagnosis Note [id number] MD Elvis Lee ([employer]) [address] [place] [phone] 12/06/2015 14:55:05 12/06/2015 17:07:26 Perimenopausal disorder 340207783 N95.9 Cyst of ovary 49974190 N 83.20 Menopausal syndrome 1237 48800 N95.9 Health Concerns Section Related Observation LastModified by Organization Detai ls LastModified Time None Recorded Concern Status LastModified by Organization Details LastModified Time None Recorded Advance Directives Directive N: Payers Encounter Date Sequence Insurance Name Policy Number Policy Liang Covered Member ID Liang Member ID Guarantor Name 12/06/2015 2 [place] WHEN MEDICARE OR MEDICARE REPLACEMENT PRIMARY) Leelee Maki [id number] Leelee Maki 12/06/2015 2 [place] Leelee Maki [id number] Leelee Maki Notes Date Note Type Note [...] no changes in urination PALMA Barrios - SIF 12/06/2015 17:06:59 OBGyn Episode Ob Episode Information Episode Created Date Number of Fetuses Patient Bloodtype Patient rh Status Prepregnancy Weight lbs Domestic Partner Domestic Partner Phone Father Name Enrollment Consultant Status 12/06/19 16 1 CLOSED Fetus Data First Name Last Name Admitted to NICU Weight (g) Sex Living Outcome Pediatric Complications Fetus ID Race Codes Race Delivery Type 2721.55 2 F Full Term 16218 Vaginal Wili Calculation Initial Wili Date Initial [...] Complications Tubal Sterilization Discharge Date Comments 6 [facility] idural 37 24 Discharge Information Feeding Method Contraceptive Method Maternal HG B and HCT Levels Ob Episode Information Episode Created Date Number of Fetuses Patient Bloodtype Patient rh Status Prepregnancy Weight lbs Domestic Partner Domestic Partner Phone Father Name Enrollment Consultant Status 12/06/19 16 1 CLOSED Fetus Data First Name Last Name Admitted to NICU Weight (g) Sex Living Outcome Pediatric Complications Fetus ID Race Codes Race Delivery Type 3288.54 2 F Full Term 70207 Vaginal Wili Calculation Initial Wili Date Initial [...]
--- OUTSIDE RECORDS SUMMARY | 2024-10-21 08:04 | XMS_ITS ---
Author Organization [facility] Address [address] [address] Care Team Providers Care Soldering Technician Name Role Phone Jessie Barney Primary Care Provider Allergies Allergen (clinical drug ingredient) Drug/Non Drug Allergy documented on EMR Reaction Allergy Type Onset Date Status cephalexin Cephalexin Unknown Drug Allergy Activ e FLOXIN (uncoded) Unknown Allergy Act keke REASON FOR VISIT follow up Medications Medication SIG (Take, Route, Frequency, Duration) Notes Start Date End Date Status predniSONE 2.5 MG 1 tab(s) orally once a day for 90 days To take with 5mg tablet to total 7.5mg PO daily 08/16/2023 Active predniSONE 5 MG 1 tab(s) orally once a day for 90 days To be given with 2.5mg dose to total daily dose of 7.5mg 08/16/2023 Active Octreotide Acetate 50 MCG/ML inject 1 ml subcutaneously 3 times a day for 30 days 01/06/2024 Unknown LORazepam 1 MG TAKE 1 TABLET BY MOUTH THREE TIMES DAILY NEEDED for 30 Days Active Myrbetriq 50 MG TAKE 1 TABLET BY MOUTH EVERY DAY for 30 Days Active traZODone HCl 100 MG as directed orally 150 MG 08/13/2023 Active Spironolactone 50 MG for 90 Days Active Imvexxy Maintenance Pack 10 MCG INSERT 1 TABLET VAGINALLY 2 TIMES PER WEEK for 28 Days Active Gabapentin 300 MG 1 cap(s) orally twice daily 08/13/2023 Active Montelukast Sodium 10 MG 1 tab(s) orally once a day 08/13/2023 Active Simvastatin 40 MG 1 tab(s) orally once a day (in the evening) 08/13/2023 Active Citalopram Hydrobromide 40 MG 1 tab(s) orally once a day 08/13/2023 Active Estradiol 0.5 MG 1 tab(s) orally once a day 08/13/2023 Active Vitamin B-12 1000 MCG 1 tab(s) orally once a day Active DILTIAZEM (EQV-CARDIZEM CD) 120 MG/24 HOURS 1 CAP(S) ORALLY ONCE A DAY *Please review for potential replacement for e-prescription and drug interaction check* Active GVOKE HYPOPEN TWO PACK 1 MG/0.2 ML INJECT 1 MG SUBCUTANEOUSLY ONCE NEEDED FOR SUGARS UNDER 50 MG/DL AND UNABLE TO TAKE GLUCOSE BY MOUTH for 1 DAYS *Please review for potential replacement for e-prescription and drug interaction check* 11/21/2023 Active Ondansetron HCl 4 MG 1 tab(s) orally every 8 hours for 90 days 01/06/2024 Active Problems Problem Type SNOMED Code ICD Code Onset Dates Problem Status W/U Status Risk Notes Problem Menopause (772185485) Menopausal and female climacteric states (N95.1) Active confirmed Vital Signs Blood pressure systolic 130 mm Hg 06/22/19 25 Blood pressure diastolic 80 mm Hg 025 Heart Rate 82 /min 06/22/2024 Respiratory Rate 12 /min 06/22/2024 Height 61 in 06/22/2024 Weight 182 lbs 06/22/2024 BMI 34.38 kg/m2 06/22/2024 Encounters Encounter Location Date Provider Diagnosis [facility] - Jessie Barney [address] [place] [address] 06/22/2024 Jessie Barney Unspecified adrenocortical insufficiency E27.40 ; Type 2 diabetes mellitus with hypoglycemia without coma E11.649 ; Hyperlipidemia, unspecified E78.5 ; Vitamin D deficiency, unspecified E55.9 ; Hypoglycemia, unspecified E16.2 and Menopausal and female climacteric states N95.1 Assessments Encounter Date Diagnosis (ICD Code) Assessment Notes Treatment Notes Treatment Clinical Notes Section Notes 06/22/2024 Unspecified adrenocortical insufficiency (ICD-10 - E27.40) 06/22/2024 Type 2 diabetes mellitus with hypoglycemia without coma (ICD-10 - E11.649) 06/22/2024 Hyperlipidemia, unspecified (ICD-10 - E78.5) 06/22/2024 Vitamin D deficiency, unspecified (ICD-10 - E55.9) 06/22/2024 Hypoglycemia, unspecified (ICD-10 - E16.2) 06/22/2024 Menopausal and female climacteric states (ICD-10 - N95.1) 06/22/2024 Other Assessment and Plan: 1. Adrenal Insufficiency- Patient has ceased medication injections, noting episodes of low blood sugar and heightened adrenaline symptoms.- Increase prednisone dosage from 2.5 mg to 5 mg daily, observing for symptom improvement. Consider a further increase to 7.5 mg after one week if necessary. Reassess in 2-3 months. 2. Hypoglycemia- Reports of blood sugar levels in the 40s.- As part of adrenal insufficiency management, increase prednisone to stabilize blood sugar levels, targeting a minimum blood sugar of 60. Educate on emergency use of Gvoke. 3. Weight Loss- Patient notes weight loss without recent self-weighing.- Advise regular weight monitoring and emphasize maintaining a healthy weight, especially in light of an upcoming event. 4. Fatigue and Weakness- Persistent fatigue and weakness reported, despite recent iron infusion.- Order tests to evaluate iron levels and thyroid function. Plan for reevaluation in 2-3 months. 5. Nausea and Poor Oral Intake- Experiences nausea and eating difficulties, currently managed with ondansetron.- Increase ondansetron to up to four times daily as needed. Recommend increasing prednisone dosage as previously mentioned to aid in nausea relief. 6. Osteoporosis- History of hip surgery with ongoing concerns about bone health.- Review latest bone density test results and consider initiating Prolia treatment if appropriate. Verify insurance coverage for a new bone density test and proceed with mailing the order upon approval. 7. Pituitary Gland Shrinkage- Inquiry about pituitary gland function and its health implications.- Continue monitoring pituitary gland function and evaluate the need for supportive treatment as necessary. Follow-up:- Arrange a follow-up visit in 2-3 months.- Dispatch lab orders for blood work and bone density test (pending insurance approval) to the patient's address.- Encourage patient to contact the clinic for prescription refills or if there are any concerns regarding the treatment plan. Spent 25 minutes preparing to see the patient (ex review of tests/chart), obtaining and / or reviewing separately obtained history, performing a medically appropriate examination and/or evaluation, counseling and educating the patient/family/ca regiver, ordering medications, tests, or procedures, referring and communicating with other health gericare aide teacher, documenting clinical information in the electronic or other health record, independently interpreting results and communicating results to the patient/family/ca regiver and care coordinating patient plan. Patient alert and oriented x 4 and aware of discussion noted above and in agreeance to plan in management of iatrogenic adrenal insufficiency, hypoglycemia with known hx of DM, hyperlipidemia. Due to the nature of telemedicine, the ability to do physical assessment was limited to what can be accomplished by patient directed telehealth visit based on instruction. Those limits are understood by the patient and myself. Impression is based on history, available information, and physical findings accomplished with telehealth visit. Chronic disease/problem list/ medication list reviewed and updated where indicated. Discussed diagnosis, plan including risks, benefits, and options of treatment. Advised to call for new, worsening, or persistent symptoms. Level of patient risk was of moderate complexity due to the documented nature of presentation, the information assessment required and the nature of the development of an evaluation and treatment plan as documented. PMH, FHx, SHx, Surgical Hx, Quality management review carried out and addressed as documented today as part of this visit. Medication list was reviewed and adjusted as indicated. Medication requiring a refill was addressed. Risk and benefits of any new medications were discussed and all questions were answered. Plan Of Treatment Treatment Notes Assessment Notes Other Assessment and Plan: 1. Adrenal Insufficiency- Patient has ceased medication injections, noting episodes of low blood sugar and heightened adrenaline symptoms.- Increase prednisone dosage from 2.5 mg to 5 mg daily, observing for symptom improvement. Consider a further increase to 7.5 mg after one week if necessary. Reassess in 2-3 months. 2. Hypoglycemia- Reports of blood sugar levels in the 40s.- As part of adrenal insufficiency management, increase prednisone to stabilize blood sugar levels, targeting a minimum blood sugar of 60. Educate on emergency use of Gvoke. 3. Weight Loss- Patient notes weight loss without recent self-weighing.- Advise regular weight monitoring and emphasize maintaining a healthy weight, especially in light of an upcoming event. 4. Fatigue and Weakness- Persistent fatigue and weakness reported, despite recent iron infusion.- Order tests to evaluate iron levels and thyroid function. Plan for reevaluation in 2-3 months. 5. Nausea and Poor Oral Intake- Experiences nausea and eating difficulties, currently managed with ondansetron.- Increase ondansetron to up to four times daily as needed. Recommend increasing prednisone dosage as previously mentioned to aid in nausea relief. 6. Osteoporosis- History of hip surgery with ongoing concerns about bone health.- Review latest bone density test results and consider initiating Prolia treatment if appropriate. Verify insurance coverage for a new bone density test and proceed with mailing the order upon approval. 7. Pituitary Gland Shrinkage- Inquiry about pituitary gland function and its health implications.- Continue monitoring pituitary gland function and evaluate the need for supportive treatment as necessary. Follow-up:- Arrange a follow-up visit in 2-3 months.- Dispatch lab orders for blood work and bone density test (pending insurance approval) to the patient's address.- Encourage patient to contact the clinic for prescription refills or if there are any concerns regarding the treatment plan. Spent 25 minutes preparing to see the patient (ex review of tests/chart), obtaining and / or reviewing separately obtained history, performing a medically appropriate examination and/or evaluation, counseling and educating the patient/family/caregiver, ordering medications, tests, or procedures, referring and communicating with other health gericare aide teacher, documenting clinical information in the electronic or other health record, independently interpreting results and communicating results to the patient/family/caregiver and care coordinating patient plan. Patient alert and oriented x 4 and aware of discussion noted above and in agreeance to plan in management of iatrogenic adrenal insufficiency, hypoglycemia with known hx of DM, hyperlipidemia. Due to the nature of telemedicine, the ability to do physical assessment was limited to what can be accomplished by patient directed telehealth visit based on instruction. Those limits are understood by the patient and myself. Impression is based on history, available information, and physical findings accomplished with telehealth visit. Chronic disease/problem list/ medication list reviewed and updated where indicated. Discussed diagnosis, plan including risks, benefits, and options of treatment. Advised to call for new, worsening, or persistent symptoms. Level of patient risk was of moderate complexity due to the documented nature of presentation, the information assessment required and the nature of the development of an evaluation and treatment plan as documented. PMH, FHx, SHx, Surgical Hx, Quality management review carried out and addressed as documented today as part of this visit. Medication list was reviewed and adjusted as indicated. Medication requiring a refill was addressed. Risk and benefits of any new medications were discussed and all questions were answered. Pending Test Test Name Order Date Dexa Bone density 06/22/2024 Next Appt Details Follow Up: 3 Months, Reason: labwork/bonedensity Progress Notes * Sukhwinder FELIZB:1970 (53 yo F)Acc No.[id number]:06/22/2024 Progress Notes Patient: Leelee MCCARTHY Provider: Jessica Barney MD :1970 A ge:53 Y S ex:Female Date:06/22/2024 Address:[address] [place] [address] Subjective: * Chief Complaints: * 1 . Follow up. * HPI: I nterval Hx: 53 yo female calls in to initiate telehealth visit to discuss progress and management of iatrogenic adrenal insufficiency, well controlled type 2 DM struggling with hypoglycemia secondary to suboptimal steroid replacement and weight management. Verbal consent provided by patient to proceed with this visit. This visit was performed in office via provider and patient located in primary care office with real time audio with video. Visit was switched to telehealth due to treacherous roads and icy conditions and allowing patient to get care in setting of poor weather conditions. At her last visit in [place] we discussed continued weaning of steroid therapy as she has been able to drop prednisone down to 2.5 mg daily from 7.5 physiologic dose after having years of treatment for sarcoidosis hx. She feels her adrenals were recovering. She has eversense CGM to monitor glucose closely- due to obesity/DM hx we started mounjaro at low dose. S he is not on this anymore due to hypoglycemia. She is only taking prednisone 2.5 mg daily for her AI. Leelee, a patient with a history of adrenal insufficiency, reported discontinuing her medication injections due to exacerbation of adrenal symptoms, experiencing nocturnal adrenal crises and persistent hypoglycemia. She also noted fatigue, weakness, post-prandial nausea, decreased appetite, and unintentional weight loss. Dr. Jessie Barney increased her prednisone dosage to stabilize blood sugars and alleviate symptoms, ordered blood work to assess iron levels and thyroid function, and planned to review her bone health and pituitary gland function. Follow-up is scheduled in 2-3 months. Patient reports discontinuing medication injections last week due to exacerbation of adrenal symptoms. She experiences nocturnal episodes of presumed adrenal crisis, occurring approximately 44 times per night. The patient notes persistent hypoglycemia throughout the day, with blood glucose levels ranging from 40-48 mg/dL. She is currently taking 2.5 mg of prednisone daily. The patient reports fatigue and weakness persisting despite recent iron infusion. She experiences post-prandial nausea requiring ondansetron use. Appetite is decreased with limited oral intake. Patient notes unintentional weight loss but has not measured her current weight. Blood pressure is reported as stable on current antihypertensive regimen. Patient mentions a history of adrenal insufficiency, with failed attempts at adrenal recovery after 2 years of steroid treatment. She also reports a history of pituitary gland shrinkage. The patient expresses concerns about bone health, noting a previous hip replacement and the need for surgery on the other hip. Medical History - Adrenal insufficiency - Iron deficiency - Hypothyroidism (implied) - Hip replacement (one side) - Pituitary gland shrinkage Current and Past Medications and Supplements - Prednisone 2.5 mg - Blood pressure medicine (unspecified) - Ondansetron (up to four times a day) - Iron infusion (recently received) Social History - Living situation: lives at [address] [place] [address] - Family structure: has a daughter who is getting on May 08 Review of Systems - Endocrine: Adrenaline surges, especially at night - Cardiovascular: Blood pressure stable - Metabolic: Low blood sugar (in the 40s) - Gastrointestinal: Nausea after eating - Constitutional: Fatigue, weakness, weight loss. * ROS: D ERMATOLOGY: no r valeriy. n o c hange in color of moles. n o?lumps. d ry or sensitive skin y es. n o h gisela. n o o wenceslao skin. n o?acne. n o m oles-irregular. n o m oles-change/new. n o b oils. n o dandruff. n o e xcessive body odor. n o p soriasis. n o f ungal infections. n o n ail problems. n o r edness/inflammation. n o a thlete's foot. n o s kin cancer. n o e czema. E NDOCRINOLOGY: fatigue y es. n o e xcessive sweating. e xcessive thirst y es. n o e xcessive urination. n o w eight loss. n o s leep disturbance. n o c old intolerance. n o h eat intolerence. n o t hyroid disease. n o i ncreased loss of hair. n o h x of borderline diabetes. n o d iabetes. n o a bdormal body hair. n o r heumatism. n o c hanges in skin texture.? N EUROLOGY: headache y es. t ingling numbness y es. n o?seizures. n o i nsomnia. m maria m loss y es. n o d izziness. n o g ait abnormality. n o c hange in sensation anywhere on body. n o l ocalized weakness or numbness. n o b lackouts or near blackouts. n o m igraine. n o t remors.?no f ainting spells. n o h ead injury. n o s troke. O PTHALMOLOGY: no d iminished vision. n o e ye irritation. n o?drainage from eyes. n o b lurring of vision. n o s easonal eye sx. n o?dander related eye sx. n o l oss of vision. n o c ataracts. n o g lasses/contacts. n o g laucoma. n o d etached retina. n o m acular degeneration.?no e ye redness. R ESPIRATORY: no s hortness of breath. n o c hest pain. n o?wheezing. n o a sthma. n o b reathlessness when lying flat. n o p rolonged cough. n o f requent infections (bronchitis). n o e mphysema. n o c hest congestion. n o s leep apnea. A LLERGY: no r unny nose. n o s cratchy throat. n o i tchy eyes. n o e ar fullness. n o s inus congestion. n o s tuffy nose. n o w atery eyes. n o s easonal allergies. h ay fever y es. n o a llergy. n o p olyps. n o s neezing. H EMATOLOGY/LYMPH: no s wollen glands. n o f atigue. n o l oss of appetite. e asy bruising yes. n o e asy bleeding. n o a nemia. ? U ROLOGY: no d ifficulty urinating. n o b lood in urine. u rinary urgency y es. n o f requent urination. n o u rinary incontinence. n o v oiding dysfunction. n o v ulvodynia. n o d ysparaunia. n o r ecurrent UTI. n o w eak flow. n o d ribbling after urination. n o f requent bladder infections. n o k idney stone. n o k idney disease. n o u rine hesitancy.?no p ainful urination. N UTRITION: greater than body requirmemts y es. L ess than body requirements y es. a ppropriate / adequate y es, y es. C ONSTITUTIONAL: no w eight gain. n o l oss of appetite. n o?fever. w eakness y es. n o w eight loss. n o n ight sweats. n o n ausea. n o v isual changes. n o c hange in sleep patterns. h +p reviewed y es, R OS form reviewed with patient see scan for detail. n o c hange in activity capacity. E NT: no c old. n o c ough. n o c oughing blood.?no n ose bleed. n o h earing loss. n o c hange in voice. n o s ore throat. n o r inging in ears. n o s noring. n o e ar pain. n o r unny nose. n o w atery eyes. n o s inus infection. n o e ar infection. n o facial pain. n o h oarseness. n o g oiter. n o g um problems. n o?postnasal drip. n o f requent nosebleeds. C ARDIOLOGY: no c hest pain. n o p alpitations. n o l eg swelling. n o d izziness. n o s hortness of breath. n o v aricose veins.?no l eg cramps. n o c old hands or feet. n o h igh blood pressure. n o ankle swelling. n o c ardiac catheterization. n o h eart attacks. n o a ngina. n o m urmurs. n o l ow blood pressure. n o l eg pain that resolves w/rest. n o p urple fingers or lips. n o i rregular heart rate. n o c ongenital heart defects. n o d izziness when standing up quickly. n o a wakening at night short of breath. G ASTROENTEROLOGY: nausea y es. n o h eartburn. n o s tool incontinence. n o r eflux. n o a bdominal pain. n o i ndigestion. n o h emorrhoids. n o h iatal hernia. n o u lcers. n o a nal fissures. n o?hepatitis. n o g allstones. n o r ed blood after bowel movements. n o v omiting. n o b loating/belching. n o d ifficulty swallowing. n o d iarrhea.?constipation y es. n o c hange in bowel habits. n o b lood in stool. ? M USCULOSKELETAL: joint swelling y es. j oint pain y es. n o l eg cramps. j oint stiffness y es. n o a rthritis. n o b ack pain. n o?muscle aches. n o m orning stiffness. n o t endinitis. n o n rodrigo pain. no b ursitis. n o b one marrow biopsy. n o g out. a ctivity intolerance?weakness. n o f racture. P SYCHOLOGY: no h igh stress level. d epression y es. n o?sleep disturbances. n o r renetta sx worse with stress. n o s uicidal ideation. n o e ating disorder. n o m ental or physical abuse. a nxiety y es. n o h eadaches. d isease state y es. F EMALE REPRODUCTIVE: no h eavy periods. n o d ysparaunia. n o s exually active. n o p remenstrual syndrome. n o d ysmenorrhea. n o i nfertility. n o f requent yeast infections. n o v aginal itching. n o i ntermenstrual bleeding. n o p ost coital bleeding. n o p ostmenopausal bleeding. n o p elvic pain. n o m enstral cycle. n o v aginal discharge. n o v aginal dryness. n o o varian cysts. n o f ibroids. n o d ischarge from breast. n o abn. bleeding between cycles. n o p ostmenopausal symptoms. n o l oss of sexual interest. n o p ainful sexual intercourse. n o e ndometriosis. n o v aginal warts. n o a bnormal pap. n o i rregular periods. n o a bnormal vaginal discharge. n o h ot flashes. 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 * Medications: T aking Ondansetron HCl 4 MG Tablet 1 tab(s) orally every 8 hours , Taking GVOKE HYPOPEN TWO PACK 1 MG/0.2 ML SOLUTION INJECT 1 MG SUBCUTANEOUSLY ONCE NEEDED FOR SUGARS UNDER 50 MG/DL AND UNABLE TO TAKE GLUCOSE BY MOUTH , Notes to Pharmacist: *Please review for potential replacement for e-prescription and drug interaction check*, Taking Citalopram Hydrobromide 40 MG Tablet 1 tab(s) orally once a day , Taking Simvastatin 40 MG Tablet 1 tab(s) orally once a day (in the evening) , Taking DILTIAZEM (EQV-CARDIZEM CD) 120 MG/24 HOURS CAPSULE, EXTENDED RELEASE 1 CAP(S) ORALLY ONCE A DAY , Notes to Pharmacist: *Please review for potential replacement for e-prescription and drug interaction check*, Taking Vitamin B-12 1000 MCG Tablet 1 tab(s) orally once a day , Taking Estradiol 0.5 MG Tablet 1 tab(s) orally once a day , Taking Montelukast Sodium 10 MG Tablet 1 tab(s) orally once a day , Taking Gabapentin 300 MG Capsule 1 cap(s) orally twice daily , Taking Imvexxy Maintenance Pack(Estradiol) 10 MCG Insert INSERT 1 TABLET VAGINALLY 2 TIMES PER WEEK , Taking Spironolactone 50 MG Tablet , Taking traZODone HCl 100 MG Tablet as directed orally , Notes to Pharmacist: 150 MG, Taking predniSONE 5 MG Tablet 1 tab(s) orally once a day , Notes to Pharmacist: To be given with 2.5mg dose to total daily dose of 7.5mg, Taking predniSONE 2.5 MG Tablet 1 tab(s) orally once a day , Notes to Pharmacist: To take with 5mg tablet to total 7.5mg PO daily, Taking Myrbetriq(Mirabegron ER) 50 MG Tablet Extended Release 24 Hour TAKE 1 TABLET BY MOUTH EVERY DAY , Taking LORazepam 1 MG Tablet TAKE 1 TABLET BY MOUTH THREE TIMES DAILY NEEDED , Unknown Octreotide Acetate 50 MCG/ML Solution inject 1 ml subcutaneously 3 times a day * Allergies: F LOXIN, Cephalexin. Objective: * Vitals: R R:12, HR:82, BP:130/80, Ht: 61, Wt:182, BMI: 34.38. * Examination: G eneral Examination: General n ormal, NAD, well nourished and hydrated, pleasant. Neck, thyroid : s upple. Assessment: * Assessment: 1. U nspecified adrenocortical insufficiency - E27.40 (Primary) 2 . T ype 2 diabetes mellitus with hypoglycemia without coma - E11.649 3 . H yperlipidemia, unspecified - E78.5 4 . V itamin D deficiency, unspecified - E55.9 5. H ypoglycemia, unspecified - E16.2 6 . M enopausal and female climacteric states - N95.1 Plan: * Treatment: 2. O thers Notes: Assessment and Plan: 1. Adrenal Insufficiency- Patient has ceased medication injections, noting episodes of low blood sugar and heightened adrenaline symptoms.- Increase prednisone dosage from 2.5 mg to 5 mg daily, observing for symptom improvement. Consider a further increase to 7.5 mg after one week if necessary. Reassess in 2-3 months. 2. Hypoglycemia- Reports of blood sugar levels in the 40s.- As part of adrenal insufficiency management, increase prednisone to stabilize blood sugar levels, targeting a minimum blood sugar of 60. Educate on emergency use of Gvoke. 3. Weight Loss- Patient notes weight loss without recent self-weighing.- Advise regular weight monitoring and emphasize maintaining a healthy weight, especially in light of an upcoming event. 4. Fatigue and Weakness- Persistent fatigue and weakness reported, despite recent iron infusion.- Order tests to evaluate iron levels and thyroid function. Plan for reevaluation in 2-3 months. 5. Nausea and Poor Oral Intake- Experiences nausea and eating difficulties, currently managed with ondansetron.- Increase ondansetron to up to four times daily as needed. Recommend increasing prednisone dosage as previously mentioned to aid in nausea relief. 6. Osteoporosis- History of hip surgery with ongoing concerns about bone health.- Review latest bone density test results and consider initiating Prolia treatment if appropriate. Verify insurance coverage for a new bone density test and proceed with mailing the order upon approval. 7. Pituitary Gland Shrinkage- Inquiry about pituitary gland function and its health implications.- Continue monitoring pituitary gland function and evaluate the need for supportive treatment as necessary. Follow-up:- Arrange a follow-up visit in 2-3 months.- Dispatch lab orders for blood work and bone density test (pending insurance approval) to the patient's address.- Encourage patient to contact the clinic for prescription refills or if there are any concerns regarding the treatment plan. Spent 25 minutes preparing to see the patient (ex review of tests/chart), obtaining and / or reviewing separately obtained history, performing a medically appropriate examination and/or evaluation, counseling and educating the patient/family/caregiver, ordering medications, tests, or procedures, referring and communicating with other health gericare aide teacher, documenting clinical information in the electronic or other health record, independently interpreting results and communicating results to the patient/family/caregiver and care coordinating patient plan. Patient alert and oriented x 4 and aware of discussion noted above and in agreeance to plan in management of iatrogenic adrenal insufficiency, hypoglycemia with known hx of DM, hyperlipidemia. Due to the nature of telemedicine, the ability to do physical assessment was limited to what can be accomplished by patient directed telehealth visit based on instruction. Those limits are understood by the patient and myself. Impression is based on history, available information, and physical findings accomplished with telehealth visit. Chronic disease/problem list/ medication list reviewed and updated where indicated. Discussed diagnosis, plan including risks, benefits, and options of treatment. Advised to call for new, worsening, or persistent symptoms. Level of patient risk was of moderate complexity due to the documented nature of presentation, the information assessment required and the nature of the development of an evaluation and treatment plan as documented. PMH, FHx, SHx, Surgical Hx, Quality management review carried out and addressed as documented today as part of this visit. Medication list was reviewed and adjusted as indicated. Medication requiring a refill was addressed. Risk and benefits of any new medications were discussed and all questions were answered. ? * Procedure Codes: 9 5250 GLUCOSE MONITORING, CONT * Follow Up: 3 Months (Reason: labwork/bonedensity) * Billing Information: * Visit Code: 06321 Office Visit, Est Pt., Level 4. Modifiers: 95 * Procedure Codes: 52250 GLUCOSE MONITORING, CONT. * ETRICAL TECH Sign off status: Completed true * Provider: Jessica Barney MD Date: 0 06/22/2024 Generated for Lebron nguyen/Mckenna/eTransmitting on: 0 10/21/2024 08:04 AM CDT History and Physical Notes * HPI (History of Present Illness) Category Sub-Category Detail Notes Category Not es Interval Hx 53 yo female calls in to initiate telehealth visit to discuss progress and management of iatrogenic adrenal insufficiency, well controlled type 2 DM struggling with hypoglycemia secondary to suboptimal steroid replacement and weight management. Verbal consent provided by patient to proceed with this visit. This visit was performed in office via provider and patient located in primary care office with real time audio with video. Visit was switched to telehealth due to treacherous roads and icy conditions and allowing patient to get care in setting of poor weather conditions. At her last visit in [place] we discussed continued weaning of steroid therapy as she has been able to drop prednisone down to 2.5 mg daily from 7.5 physiologic dose after having years of treatment for sarcoidosis hx. She feels her adrenals were recovering. She has eversense CGM to monitor glucose closely- due to obesity/DM hx we started mounjaro at low dose. She is not on this anymore due to hypoglycemia. She is only taking prednisone 2.5 mg daily for her AI. Leelee, a patient with a history of adrenal insufficiency, reported discontinuing her medication injections due to exacerbation of adrenal symptoms, experiencing nocturnal adrenal crises and persistent hypoglycemia. She also noted fatigue, weakness, post-prandial nausea, decreased appetite, and unintentional weight loss. Dr. Jessie Barney increased her prednisone dosage to stabilize blood sugars and alleviate symptoms, ordered blood work to assess iron levels and thyroid function, and planned to review her bone health and pituitary gland function. Follow-up is scheduled in 2-3 months. Patient reports discontinuing medication injections last week due to exacerbation of adrenal symptoms. She experiences nocturnal episodes of presumed adrenal crisis, occurring approximately 44 times per night. The patient notes persistent hypoglycemia throughout the day, with blood glucose levels ranging from 40-48 mg/dL. She is currently taking 2.5 mg of prednisone daily. The patient reports fatigue and weakness persisting despite recent iron infusion. She experiences post-prandial nausea requiring ondansetron use. Appetite is decreased with limited oral intake. Patient notes unintentional weight loss but has not measured her current weight. Blood pressure is reported as stable on current antihypertensive regimen. Patient mentions a history of adrenal insufficiency, with failed attempts at adrenal recovery after 2 years of steroid treatment. She also reports a history of pituitary gland shrinkage. The patient expresses concerns about bone health, noting a previous hip replacement and the need for surgery on the other hip. Medical History - Adrenal insufficiency - Iron deficiency - Hypothyroidism (implied) - Hip replacement (one side) - Pituitary gland shrinkage Current and Past Medications and Supplements - Prednisone 2.5 mg - Blood pressure medicine (unspecified) - Ondansetron (up to four times a day) - Iron infusion (recently received) Social History - Living situation: lives at [address] [place] [address] - Family structure: has a daughter who is getting on May 08 Review of Systems - Endocrine: Adrenaline surges, especially at night - Cardiovascular: Blood pressure stable - Metabolic: Low blood sugar (in the 40s) - Gastrointestinal: Nausea after eating - Constitutional: Fatigue, weakness, weight loss Examination Category Sub-Category Detail Notes Category Not es General Examination Neck, thyroid : supple General normal, NAD, well no urished and hydrated, pleasant
--- OUTSIDE RECORDS SUMMARY | 2024-10-21 08:05 | XMS_ITS | Clinical Summary ---
Author Organization [facility] Address [address] [place] [address] Care Team Providers Care Line O Scribe Operator Name Role Phone Nacho Oglesby MD Primary Care Provider Janey Ochoa NP Unavailable [phone] Allergies Active Allergy Reactions Criticality Noted Date Comments Ciprofloxacin Other (See comments) Medium 12/03/2023 Floxin I.V. In D5w Unknown 11/16/2009 Sweats and irritability, nervous Ofloxacin Agitation,Other (See comments) Low 03/26/2008 Reaction: Other Reaction: shaky, sweaty Floxin Medications aspirin (ASPIR-81) 81 mg tabletIndications :prevention of thrombosis Take 1 tablet (81 mg total) by mouth every morning Active cyanocobalamin (Vitamin B-12) 1,000 mcg tabletIndications :Prevention of Vitamin B12 Deficiency Take 0.5 tablets (500 mcg total) by mouth daily Active dilTIAZem CD/XR/XT (CARTIA XT) 120 mg 24 hr capsuleIndication s:hypertension Take 1 capsule (120 mg total) by mouth every morning Active gabapentin (NEURONTIN) 300 mg capsuleIndication s:Neuropathic Pain Take 1 capsule (300 mg total) by mouth 2 (two) times a day Active LORazepam (ATIVAN) 1 mg tablet Take 1 tablet (1 mg total) by mouth 3 (three) times a day 0 8 Active bimatoprost (LUMIGAN) 0.01 % ophthalmic dropsIndications: ocular hypertension Administer 1 drop into both eyes nightly Active magnesium oxide (MAG-OX) 400 mg (241.3 mg elemental magnesium) tabletIndications :hypomagnesemia Take 500 mg by mouth nightly 500mg every day Active multivitamin tabletIndications :Vitamin Deficiency Prevention Take 1 tablet by mouth lamp developer before breakfast Active omeprazole (PriLOSEC) 40 mg capsuleIndication s:gerd Take 1 capsule (40 mg total) by mouth every morning Active simvastatin (ZOCOR) 40 mg tabletIndications :hyperlipidemia Take 1 tablet (40 mg total) by mouth nightly 0 Active spironolactone (ALDACTONE) 50 mg tabletIndications :hypertension Take 1 tablet (50 mg total) by mouth lamp developer before breakfast Active calcium carbonate (TUMS) 500 mg calcium (200 mg of elemental calcium) chewable tabletIndications :Hypocalcemia Prevention Take 2 tablet/chew tab (1,000 mg total) by mouth nightly Active cholecalciferol (VITAMIN D-3) 2,000 unit tabletIndications :Vitamin D Deficiency Take 1 tablet (2,000 Units total) by mouth every morning Active citalopram (CeleXA) 40 mg tabletIndications :Anxiety with Depression Take 1 tablet (40 mg total) by mouth nightly 8 Active LINZESS 145 mcg capsuleIndication s:chronic idiopathic constipation Take 1 capsule (145 mcg total) by mouth every morning 8 Active estradioL (ESTRACE) 0.5 mg tabletIndications :hormone replacement Take 1 tablet (0.5 mg total) by mouth lamp developer before breakfast 0 Active valACYclovir (VALTREX) 500 mg tabletIndications :herpes Take 1 tablet (500 mg total) by mouth as needed 0 Active HYDROcodone-aceta minophen (HYCET) 10-325 mg/15 mL(15 mL) solutionIndicatio ns:Pain Take 1 tablet by mouth every 6 (six) hours as needed for pain Active docusate sodium (COLACE) 100 mg capsuleIndication s:constipation Take 1 capsule (100 mg total) by [...] mg) by mouth daily 3 Active fluticasone propion-salmetero L (ADVAIR DISKUS) 250-50 mcg/dose diskus inhalerIndication s:Maintenance Therapy for Asthma Inhale 1 puff 2 (two) times a day Rinse mouth with water after use. Do not swallow. 60 each 4 Active albuterol HFA (Proventil HFA) 90 mcg/actuation inhaler Inhale 2 puffs every 6 (six) hours as needed for wheezing 1 each 4 Active montelukast (Singulair) 10 mg tabletIndications :Maintenance Therapy for Asthma Take 1 tablet (10 [...] oral route for 10 days. 5 Active albuterol-budeson nelida 90-80 mcg/actuation HFA aerosol inhaler Inhale 2 puffs 2 (two) times a day 1 g 3 5 Active Active Problems Problem Noted Date Diagnosed Date Chronic nausea 10/01/2024 Assessment & Plan (10/01/2024 12:46 PM CDT): She has Red as prescriber her sports health club membership advisors I believe she would benefit from an EGD. I have sent a referral to GI at [facility] per her request. Viral upper respiratory tract infection 07/08/19 25 Assessment & Plan (07/08/2024 3:09 PM BAND TEACHER): Chest x-ray does not demonstrate any acute [...] 05/12/2024 Pulmonary sarcoidosis 04/02/2024 Assessment & Plan (10/01/2024 12:46 PM CDT): Previous chest imaging does not demonstrate any concerns for active disease She does not have any nodules or adenopathy. She will need a Cardiology, Ophthalmology, and pulmonary workup at least annually Assessment & Plan (07/08/2024 3:09 PM BAND TEACHER): Previous chest imaging does not demonstrate any concerns for active disease She has had sick symptoms that wax and wane since April, I will check a CT chest Assessment & Plan (04/02/2024 4:06 PM CDT): Chest imaging does not demonstrate any concerns for active disease Mild intermittent asthma without complication Assessment & Plan (10/01/2024 12:45 PM CDT): Continue Wixela 250 twice daily at this time Albuterol or airsupra 2 puffs every 4 hours as needed only, we have discussed indications for use She does not have peripheral eosinophilia and she does not exacerbate frequently. Avoid triggers We have discussed signs and symptoms that would require earlier evaluation or change to her plan of care Assessment & Plan (07/08/2024 3:10 PM BAND TEACHER): Continue Wixela 250 twice daily at this [...] (11/17/2020): Added automatically from request for surgery [id number] Abdominal pannus 05/11/2020 Overview (05/11/2020): Added automatically from request for surgery [id number] Status post bariatric surgery 03/06/2019 Encounters Date Type Department Care Team Description 10/01/2024 11:00 AM CDT Office Visit [facility] Pulmonary at [address] [place] [address] Janey Ochoa, SARA Mild intermittent asthma without complication (Primary Dx); Pulmonary sarcoidosis; Chronic nausea 07/24/2024 Ancillary Procedure [facility] Outside Films from Last 3 Months Immunizations Immunization Administration Dates Next Due Influenza, Quadrivalent, Spl it, Intramuscular 04/04/2022,04/16/2021,03/19/2018,03/12,04/04/2015 Influenza, Quadrivalent, Spl it, Preservative Free, Intramuscular 05/02/2023,03/11/2020,04/18/2017,04/18 Influenza, Trivalent, IM (MDV) 4,04/12/2014,03/25/2013,03/25 Pneumococcal Conjugate PCV 13 05/03/2014, 014 Pneumococcal Polysaccharide PPV23 06/22/2015,11/2015,06/21/2015 Sars-CoV-2, Unspecified 03/11/2021 Surgical History Surgery Date Site/Laterality Comments PA BRNCHSC INCL FLUOR GDNCE DX W/CELL WASHG SPX Bronchoscopy (Diagnostic) - (Added by TW Conv) PA ESOPHAGOGASTRODUODENOSCOP Y TRANSORAL DIAGNOSTIC Diagnostic Esophagogastroduodenoscopy - (Added by TW Conv) PA TOTAL ABDOMINAL HYSTERECT W/WO RMVL TUBE OVARY Hysterectomy - (Added by TW Conv) PA LIG/TRNSXJ FLP TUBE ABDL/ VAG APPR UNI/BI Tubal Ligation - (Added by TW Conv) PA LITHOTRIPSY XTRCORP SHOCK WAVE Lithotripsy - Whole [...] Conv) Stroke (HCC) 2013 mini Pulmonary sarcoidosis 04/02/2024 Viral upper respiratory trac t infection [...] Smoking Tobacco: Former Cigarettes 1 5 1 6 - 1990 Smokeless Tobacco: Never Tobacco Cessation:Counseling [...] on file Legal Sex Female 3:21 AM BAND TEACHER Gender Identity Female 04/09/2021 10:59 PM CDT Sexual Orientation Straight 03/01/2020 2: 52 PM CDT Obstetrics History Last Filed Vital Signs Vital Sign Reading Time Taken Comments Blood Pressure 100/61 10/01/2024 11:01 AM CDT Pulse 77 10/01/2024 11:01 AM CDT Temperature 36.2 C (97.2 F) 10/01/2024 11:01 AM CDT Respiratory Rate 18 10/01/2024 11:01 AM CDT Oxygen Saturation 97% 10/01/2024 11:01 AM CDT Inhaled Oxygen Concentration - - Weight 82.7 kg (182 lb 4.8 oz) 10/01/2024 11:01 AM CDT Height 154.9 cm (5' 1 ) 10/01/2024 11:01 AM CDT Body Mass Index 34.45 10/01/2024 11:01 AM CDT Plan of Treatment Health Maintenance Due Date Last Done Comments Breast Cancer Screening-Mammogram 1969 Colon Cancer Screening-Colonoscopy 1969 Depression Screening 1969 Hepatitis C Screening 1969 DTaP/Tdap/Td Vaccine (1 - Tdap) 1980 Hepatitis B Screening 12/20/1987 Regular Well Visit/Exam 18-64 12/20/1987 Zoster Vaccine (1 of 2) 12/20/2019 Pneumococcal vaccine <65 (3 of 3 - PCV20 or PCV21) 06/22/2020 06/22/2015, 06/22/2015, 06/21/2015, Additional history exists Covid-19 Vaccine (4 2023-2 5 season) 2024 03/11/2021, 09/08/2020, 08/18/2020 Influenza Vaccine Completed 05/04/2024, , 04/04/2022, Additional history exists Medical Devices Implanted Type Area Coordinator Of Evaluation Device Identifier Shelf Expiration Date Model / Serial / Lot Shunt Left: Eye Procedures Procedure Name Priority Date/Time Associated Diagnosis Comments CT BODY OUTSIDE REFERENCE Routine 07/24/2024 12:00 AM BAND TEACHER from Last 3 Months Results * CT Body Outside Reference (07/24/2024 12:00 AM BAND TEACHER) Narrative [facility] - 07/28/2024 11:46 AM BAND TEACHER This order has been auto-finalized and does not contain a result. us Not In File Miscellaneous IMG CT PROCEDURES Lynn chavez Result [facility] from Last 3 Months Insurance IDPA [facility] MEDICARE ADVANTAGE [facility] MEDICARE ADVANTAGE [facility] MEDICARE ADVANTAGE IDPA Care Teams Line O Scribe Operator Relationship Specialty Start Date End Date Nacho Oglesby MD PCP - General 02/08/17 Janey Ochoa NP Nurse Practitioner Nurse Practitioner 11/23/20
--- OUTSIDE RECORDS SUMMARY | 2024-10-21 08:05 | XMS_ITS | Referral Summary ---
Author Organization [facility] Address [address] [place] [address] Care Team Providers Care Flare Man Name Role Phone Nacho Oglesby MD Primary Care Provider Janey Ocoha SENIOR ADULTS DIRECTOR Unavailable [phone] Encounters Date Type Department Care Team Description 10/01/2024 11:00 AM CDT Office Visit [facility] Pulmonary at [address] [place] [address] Janey Ochoa NP Mild intermittent asthma without complication (Primary Dx); Pulmonary sarcoidosis; Chronic nausea 07/24/2024 Ancillary Procedure [facility] Outside Films from Last 3 Months Allergies Active Allergy [...] Deficiency Prevention Take 1 tablet by mouth surgical lead before breakfast Active omeprazole (PriLOSEC) 40 mg capsuleIndication s:gerd Take 1 capsule (40 mg total) by mouth every morning Active simvastatin (ZOCOR) 40 mg tabletIndications :hyperlipidemia Take 1 tablet (40 mg total) by mouth nightly 0 Active spironolactone (ALDACTONE) 50 mg tabletIndications :hypertension Take 1 tablet (50 mg total) by mouth surgical lead before breakfast Active calcium carbonate (TUMS) [...] 1 tablet (0.5 mg total) by mouth surgical lead before breakfast 0 Active valACYclovir (VALTREX) 500 [...] daily at this time. 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 I have sent a referral to GI at [facility] per her request. Viral upper respiratory tract infection 07/08/19 25 Assessment & Plan (07/08/2024 3:09 PM CHINESE HERBALIST): Chest x-ray does not demonstrate any acute [...] annually Assessment & Plan (07/08/2024 3:09 PM CHINESE HERBALIST): Previous chest imaging does not demonstrate any [...] care Assessment & Plan (07/08/2024 3:10 PM CHINESE HERBALIST): Continue Wixela 250 twice daily at this [...] (11/17/2020): Added automatically from request for surgery [id number] Abdominal pannus 05/11/2020 Overview (05/11/2020): Added automatically from request for surgery [id number] Status post bariatric surgery 03/06/2019 Immunizations Immunization Administration Dates Next Due Influenza, [...] on file Legal Sex Female 3:21 AM CHINESE HERBALIST Gender Identity Female 04/09/2021 10:59 PM CDT [...] 10/01/2024 11:01 AM CDT Plan of Treatment Not on file Medical Devices Implanted Type Area It Security Analyst Device Identifier Shelf Expiration Date Model / Serial / Lot Shunt Left: Eye Procedures Procedure Name Priority Date/Time Associated Diagnosis Comments CT BODY OUTSIDE REFERENCE Routine 07/24/2024 12:00 AM CHINESE HERBALIST from Last 3 Months Results * CT Body Outside Reference (07/24/2024 12:00 AM CHINESE HERBALIST) Narrative [facility] - 07/28/2024 11:46 AM CHINESE HERBALIST This order has been auto-finalized and does not contain a result. us Not In File Miscellaneous IMG CT PROCEDURES Lynn l Result [facility] from Last 3 Months Insurance IDPA [facility] MEDICARE ADVANTAGE MEDICARE ADVANTAGE IDPA Care Teams Flare Man Relationship Specialty Start Date End Date Nacho Oglesby MD PCP - General 02/08/17 Janey Ochoa SENIOR ADULTS DIRECTOR Nurse Practitioner Nurse Practitioner 11/23/20
--- OUTSIDE RECORDS SUMMARY | 2024-10-21 08:05 | XMS_ITS | Patient Health Record ---
Author Organization [facility] Address [address] [address] Care Team Providers Care Mobile Application Developer Name Role Phone Jessie Barney Primary Care Provider Migration, Provider Unavailable Unavailable Allergies Allergen (clinical drug ingredient) Drug/Non Drug Allergy documented on EMR Reaction Allergy Type Onset Date Status cephalexin Cephalexin Unknown Drug Allergy Activ e FLOXIN (uncoded) Unknown Allergy Act keke Results Component Value Reference Range Notes COMPREHENSIVE METABOLIC PANE L Reviewed date:12/29/2023 06:54:22 PM Interpretation: Performing Lab:[facility], [address], [place], [address] [facility] Notes/Report: FASTING:YES FASTING: YES GLUCOSE 86 65-99 mg/dL Fasting reference interval UREA NITROGEN (BUN) 17 7-25 mg/dL CREATININE 0.65 0.50-1.03 mg/dL EGFR 105 > OR = 60 mL/min/1.73m2 BUN/CREATININE RATIO SEE NOTE: - (calc) Not Reported: BUN and Creatinine are within reference range. SODIUM 141 135-146 mmol/L POTASSIUM 3.9 3.5-5.3 mmol/L CHLORIDE 103 98-110 mmol/L CARBON DIOXIDE 30 20-32 mmol/L CALCIUM 9.7 8.6-10.4 mg/dL PROTEIN, TOTAL 6.0 6.1-8.1 g/dL ALBUMIN 4.2 3.6-5.1 g/dL GLOBULIN 1.8 1.9-3.7 g/dL (calc) ALBUMIN/GLOBULIN RATIO 2.3 1.0-2.5 (calc) BILIRUBIN, TOTAL 0.6 0.2-1.2 mg/dL ALKALINE PHOSPHATASE 69 37-153 U/L AST 27 10-35 U/L ALT 40 6-29 U/L HEMOGLOBIN A1c Reviewed date:12/29/2023 06:54:15 PM Interpretation: Performing Lab:[facility], [address] [place], [address] [facility] Notes/Report: FASTING:YES FASTING: YES HEMOGLOBIN A1c 5.5 <5.7 % of total Hgb For the purpose of screening for the presence of diabetes: <5.7% Consistent with the absence of diabetes 5.7-6.4% Consistent with increased risk for diabetes (prediabetes) > or =6.5% Consistent with diabetes This assay result is consistent with a decreased risk of diabetes. Currently, no consensus exists regarding use of hemoglobin A1c for diagnosis of diabetes in children. According to [place] Diabetes Association (ADA) guidelines, hemoglobin A1c <7.0% represents optimal control in non- diabetic patients. Different metrics may apply to specific patient populations. Standards of Medical Care in Diabetes(ADA). This test was performed on the Violeta janessa c503 platform. Effective 09/02/23, a change in test platforms from the [employer] to the Violeta janessa c503 may have shifted HbA1c results compared to historical results. Based on laboratory validation testing conducted at [facility], the Violeta platform relative to the Simms platform had an average increase in HbA1c value of < or = 0.3%. This difference is within accepted variability established by the National Glycohemoglobin Standardization Program. Note that not all individuals will have had a shift in their results and direct comparisons between historical and current results for testing conducted on different platforms is not recommended. CBC (INCLUDES DIFF/PLT) Reviewed date:12/29/2023 06:54:07 PM Interpretation: Performing Lab:[facility], [address] [place], [address] [facility] Priscilla Notes/Report: FASTING:YES FASTING: YES WHITE BLOOD CELL COUNT 6.4 3.8-10.8 Thousand/ uL RED BLOOD CELL COUNT 4.16 3.80-5.10 Million/uL HEMOGLOBIN 10.6 11.7-15.5 g/dL HEMATOCRIT 35.2 35.0-45.0 % MCV 84.6 80.0-100.0 fL MCH 25.5 27.0-33.0 pg MCHC 30.1 32.0-36.0 g/dL RDW 14.8 11.0-15.0 % PLATELET COUNT 174 140-400 Thousand/uL MPV 11.5 7.5-12.5 fL ABSOLUTE NEUTROPHILS [phone] cells/uL ABSOLUTE LYMPHOCYTES 586 443-0784 cells/uL ABSOLUTE MONOCYTES 333 200-950 cells/uL ABSOLUTE EOSINOPHILS 122 15-500 cells/uL ABSOLUTE BASOPHILS 38 0-200 cells/uL NEUTROPHILS 77.4 LYMPHOCYTES 14.9 MONOCYTES 5.2 EOSINOPHILS 1.9 BASOPHILS 0.6 T4, FREE Reviewed date:12/29/2023 06:54:35 PM Interpretation: Performing Lab:[facility], [address] [place], [address] Logan Perez MD Notes/Report: FASTING:YES FASTING: YES T4, FREE 1.0 0.8-1.8 ng/dL TSH Reviewed date:12/29/2023 06:54:28 PM Interpretation: Performing Lab:[facility], [address], [place], [address] Logan Perez Notes/Report: FASTING:YES FASTING: YES TSH 1.11 Reference Range > or = 20 Years 0.40-4.50 Ranges First trimester 0.26-2.66 Second trimester 0.55-2.73 Third trimester 0.43-2.91 COMPREHENSIVE METABOLIC PANE L Reviewed date:04/03/2024 07:40:33 PM Interpretation: Performing Lab:[facility], [address] [place], [address] Logan Perez MD Notes/Report: GLUCOSE 83 65-99 mg/dL Fasting reference interval UREA NITROGEN (BUN) 13 7-25 mg/dL CREATININE 0.70 0.50-1.03 mg/dL EGFR 103 > OR = 60 mL/min/1.73m2 BUN/CREATININE RATIO SEE NOTE: 6-22 (calc) Not Reported: BUN and Creatinine are within reference range. SODIUM 136 135-146 mmol/L POTASSIUM 3.9 3.5-5.3 mmol/L CHLORIDE 102 98-110 mmol/L CARBON DIOXIDE 27 20-32 mmol/L CALCIUM 9.6 8.6-10.4 mg/dL PROTEIN, TOTAL 6.1 6.1-8.1 g/dL ALBUMIN 4.4 3.6-5.1 g/dL GLOBULIN 1.7 1.9-3.7 g/dL (calc) ALBUMIN/GLOBULIN RATIO 2.6 1.0-2.5 (calc) BILIRUBIN, TOTAL 0.8 0.2-1.2 mg/dL ALKALINE PHOSPHATASE 73 37-153 U/L AST 31 10-35 U/L ALT 34 6-29 U/L T3, FREE Reviewed date:04/03/2024 07:38:59 PM Interpretation: Performing Lab:[facility], [address] [place], [address] Logan Perez MD Notes/Report: T3, FREE 3.2 2.3-4.2 pg/mL HEMOGLOBIN A1c Reviewed date:04/03/2024 07:39:19 PM Interpretation: Performing Lab:[facility], [address], [place], [address] Logan Perez Notes/Report: HEMOGLOBIN A1c 5.6 <5.7 % of total Hgb For the purpose of screening for the presence of diabetes: <5.7% Consistent with the absence of diabetes 5.7-6.4% Consistent with increased risk for diabetes (prediabetes) > or =6.5% Consistent with diabetes This assay result is consistent with a decreased risk of diabetes. Currently, no consensus exists regarding use of hemoglobin A1c for diagnosis of diabetes in children. According to [place] Diabetes Association (ADA) guidelines, hemoglobin A1c <7.0% represents optimal control in non- diabetic patients. Different metrics may apply to specific patient populations. Standards of Medical Care in Diabetes(ADA). CBC (INCLUDES DIFF/PLT) Reviewed date:04/03/2024 07:39:47 PM Interpretation: Performing Lab:[facility], [address] [place], [address] Logan Perez MD Notes/Report: WHITE BLOOD CELL COUNT 6.8 3.8-10.8 Thousand/ uL RED BLOOD CELL COUNT 4.47 3.80-5.10 Million/uL HEMOGLOBIN 11.2 11.7-15.5 g/dL HEMATOCRIT 36.9 35.0-45.0 % MCV 82.6 80.0-100.0 fL MCH 25.1 27.0-33.0 pg MCHC 30.4 32.0-36.0 g/dL For adults, a slight decrease in the calculated MCHC value (in the range of 30 to 32 g/dL) is most likely not clinically significant; however, it should be interpreted with caution in correlation with other red cell parameters and the patient's clinical condition. RDW 16.1 11.0-15.0 % PLATELET COUNT 189 140-400 Thousand/uL MPV 10.9 7.5-12.5 fL ABSOLUTE NEUTROPHILS 5216 1653-3354 cells/uL ABSOLUTE LYMPHOCYTES 418 660-7511 cells/uL ABSOLUTE MONOCYTES 469 200-950 cells/uL ABSOLUTE EOSINOPHILS 122 15-500 cells/uL ABSOLUTE BASOPHILS 41 0-200 cells/uL NEUTROPHILS 76.7 LYMPHOCYTES 14.0 MONOCYTES 6.9 EOSINOPHILS 1.8 BASOPHILS 0.6 T4, FREE Reviewed date:04/03/2024 07:39:08 PM Interpretation: Performing Lab:[facility], [address] [place], [address] Logan Perez MD Notes/Report: T4, FREE 0.9 0.8-1.8 ng/dL TSH Reviewed date:04/03/2024 07:38:49 PM Interpretation: Performing Lab:[facility], [address] [place], [address] Logan Perez MD Notes/Report: TSH 0.85 Reference Range > or = 20 Years 0.40-4.50 Ranges First trimester 0.26-2.66 Second trimester 0.55-2.73 Third trimester 0.43-2.91 COMPREHENSIVE METABOLIC PANE L (Not yet reviewed by provider) Interpretation: Performing Lab:[facility], [address], [place], [address] Logan Perez Notes/Report: FASTING:YES FASTING: YES GLUCOSE 89 65-99 mg/dL Fasting reference interval UREA NITROGEN (BUN) 14 7-25 mg/dL CREATININE 0.70 0.50-1.03 mg/dL EGFR 103 > OR = 60 mL/min/1.73m2 BUN/CREATININE RATIO SEE NOTE: 6-22 (calc) Not Reported: BUN and Creatinine are within reference range. SODIUM 138 135-146 mmol/L POTASSIUM 4.3 3.5-5.3 mmol/L CHLORIDE 101 98-110 mmol/L CARBON DIOXIDE 29 20-32 mmol/L CALCIUM 10.1 8.6-10.4 mg/dL PROTEIN, TOTAL 6.5 6.1-8.1 g/dL ALBUMIN 4.7 3.6-5.1 g/dL GLOBULIN 1.8 1.9-3.7 g/dL (calc) ALBUMIN/GLOBULIN RATIO 2.6 1.0-2.5 (calc) BILIRUBIN, TOTAL 0.9 0.2-1.2 mg/dL ALKALINE PHOSPHATASE 62 37-153 U/L AST 27 10-35 U/L ALT 41 6-29 U/L VITAMIN D, 25-HYDROXY, LC/MS /MS (Not yet reviewed by provider) Interpretation: Performing Lab:[facility], [facility], [address] [place], [address] Logan Perez MD Notes/Report: FASTING:YES FASTING: YES VITAMIN D,25-OH,TOTAL,IA 38 30-100 ng/mL Vitamin D Status 25-OH Vitamin D: Deficiency: <20 ng/mL Insufficiency: 20 - 29 ng/mL Optimal: > or = 30 ng/mL For 25-OH Vitamin D testing on patients on D2-supplementation and patients for whom quantitation of D2 and D3 fractions is required, the QuestAssureD(TM) 25-OH VIT D, (D2,D3), LC/MS/MS is recommended: order code 97192 (patients >2yrs). See Note 1 Note 1 For additional information, please refer to http://education.[employer].TwitJump/faq/XZK838 (This link is being provided for informational/ educational purposes only.) ACTH, PLASMA (Not yet review ed by provider) Interpretation: Performing Lab:[facility], [address], [place], [address] Carlos Santoro M.D.,PhD Notes/Report: FASTING:YES FASTING: YES T3, FREE (Not yet reviewed b y provider) Interpretation: Performing Lab:[facility], [address] [place], [address] Logan Perez MD Notes/Report: FASTING:YES FASTING: YES T3, FREE 3.5 2.3-4.2 pg/mL CORTISOL, TOTAL (Not yet rev iewed by provider) Interpretation: Performing Lab:[facility], [address] [place], [address] Logan Perez MD Notes/Report: FASTING:YES FASTING: YES CORTISOL, TOTAL 5.2 Reference Range: For 8 a.m.(7-9 a.m.) Specimen: 4.0-22.0 Reference Range: For 4 p.m.(3-5 p.m.) Specimen: 3.0-17.0 * Please interpret above results accordingly * HEMOGLOBIN A1c (Not yet revi ewed by provider) Interpretation: Performing Lab:[facility], [address], [place], [address] YaritzaMargaret Perez Notes/Report: FASTING:YES FASTING: YES HEMOGLOBIN A1c 5.2 <5.7 % of total Hgb For the purpose of screening for the presence of diabetes: <5.7% Consistent with the absence of diabetes 5.7-6.4% Consistent with increased risk for diabetes (prediabetes) > or =6.5% Consistent with diabetes This assay result is consistent with a decreased risk of diabetes. Currently, no consensus exists regarding use of hemoglobin A1c for diagnosis of diabetes in children. According to [place] Diabetes Association (ADA) guidelines, hemoglobin A1c <7.0% represents optimal control in non- diabetic patients. Different metrics may apply to specific patient populations. Standards of Medical Care in Diabetes(ADA). INSULIN (Not yet reviewed by provider) Interpretation: Performing Lab:[facility], [address] [place], [address] Logan Perez MD Notes/Report: FASTING:YES FASTING: YES INSULIN 14.0 Reference Range < or = 18.4 Risk: Optimal < or = 18.4 Moderate NA High >18.4 Adult cardiovascular event risk category cut points (optimal, moderate, high) are based on Insulin Reference Interval studies performed at [facility] in 2021. CBC (INCLUDES DIFF/PLT) (Not yet reviewed by provider) Interpretation: Performing Lab:[facility], [facility] [place], [address] YaritzaMargaret Perez Notes/Report: FASTING:YES FASTING: YES WHITE BLOOD CELL COUNT 5.0 3.8-10.8 Thousand/ uL RED BLOOD CELL COUNT 4.38 3.80-5.10 Million/uL HEMOGLOBIN 12.8 11.7-15.5 g/dL HEMATOCRIT 39.7 35.0-45.0 % MCV 90.6 80.0-100.0 fL MCH 29.2 27.0-33.0 pg MCHC 32.2 32.0-36.0 g/dL For adults, a slight decrease in the calculated MCHC value (in the range of 30 to 32 g/dL) is most likely not clinically significant; however, it should be interpreted with caution in correlation with other red cell parameters and the patient's clinical condition. RDW 15.4 11.0-15.0 % PLATELET COUNT 178 140-400 Thousand/uL MPV 11.5 7.5-12.5 fL ABSOLUTE NEUTROPHILS 3715 1029-7919 cells/uL ABSOLUTE LYMPHOCYTES 371 679-1402 cells/uL ABSOLUTE MONOCYTES 285 200-950 cells/uL ABSOLUTE EOSINOPHILS 60 15-500 cells/uL ABSOLUTE BASOPHILS 30 0-200 cells/uL NEUTROPHILS 74.3 LYMPHOCYTES 18.2 MONOCYTES 5.7 EOSINOPHILS 1.2 BASOPHILS 0.6 VITAMIN B12/FOLATE, SERUM PA ZEKE (Not yet reviewed by provider) Interpretation: Performing Lab:[facility], [address] [place], [address] YaritzaMargaret Perez MD Notes/Report: FASTING:YES FASTING: YES VITAMIN B12 241 920-5562 pg/mL FOLATE, SERUM 18.1 Reference Range Low: <3.4 Borderline: 3.4-5.4 Normal: >5.4 LIPID PANEL (Not yet reviewe d by provider) Interpretation: Performing Lab:[facility], [address] [place], [address] YaritzaMargaret Perez Notes/Report: FASTING:YES FASTING: YES CHOLESTEROL, TOTAL 149 <200 mg/dL HDL CHOLESTEROL 72 > OR = 50 mg/dL TRIGLYCERIDES 58 <150 mg/dL LDL-CHOLESTEROL 64 Reference range: <100 Desirable range <100 mg/dL for primary prevention; <70 mg/dL for patients with CHD or diabetic patients with > or = 2 CHD risk factors. LDL-C is now calculated using the Deonna calculation, which is a validated novel method providing better accuracy than the Friedewald equation in the estimation of LDL-C. Jero SS et al. MOUSTAPHA. 2013;310(85): 2179-0675 (http://[employer].eXpresso/faq/WNY287) CHOL/HDLC RATIO 2.1 <5.0 (calc) NON HDL CHOLESTEROL 77 <130 mg/dL (calc) For patients with diabetes plus 1 major ASCVD risk factor, treating to a non-HDL-C goal of <100 mg/dL (LDL-C of <70 mg/dL) is considered a therapeutic option. T4, FREE (Not yet reviewed b y provider) Interpretation: Performing Lab:, [facility], [facility] [place], [address] [facility] Notes/Report: FASTING:YES FASTING: YES T4, FREE 1.0 0.8-1.8 ng/dL TSH (Not yet reviewed by pro vider) Interpretation: Performing Lab:, [facility], [address] [place], [address] [facility] Notes/Report: FASTING:YES FASTING: YES TSH 0.82 Reference Range > or = 20 Years 0.40-4.50 Ranges First trimester 0.26-2.66 Second trimester 0.55-2.73 Third trimester 0.43-2.91 Reason For Referral No Information Medications Medication SIG (Take, Route, Frequency, Duration) Notes Start Date End Date Status Simvastatin 40 MG 1 tab(s) orally once a day (in the evening) 08/13/2023 Active Citalopram Hydrobromide 40 MG 1 tab(s) orally once a day 08/13/2023 Active predniSONE 2.5 MG 1 tab(s) orally once a day for 90 days To take with 5mg tablet to total 7.5mg PO daily 08/16/2023 Active GVOKE HYPOPEN TWO PACK 1 MG/0.2 ML INJECT 1 MG SUBCUTANEOUSLY ONCE NEEDED FOR SUGARS UNDER 50 MG/DL AND UNABLE TO TAKE GLUCOSE BY MOUTH for 1 DAYS *Please review for potential replacement for e-prescription and drug interaction check* 11/21/2023 Active predniSONE 5 MG 1 tab(s) orally once a day for 90 days To be given with 2.5mg dose to total daily dose of 7.5mg 08/16/2023 Active Ondansetron HCl 4 MG 1 tab(s) orally every 8 hours for 90 days 01/06/2024 Active traZODone HCl 100 MG as directed [...] 1 tab(s) orally once a day Active Octreotide Acetate 50 MCG/ML inject 1 ml subcutaneously 3 times a day for 30 days 01/06/2024 Unknown DILTIAZEM (EQV-CARDIZEM CD) 120 MG/24 HOURS 1 CAP(S) ORALLY ONCE A DAY *Please review for potential replacement for e-prescription and drug interaction check* Active LORazepam 1 MG TAKE 1 TABLET BY MOUTH THREE TIMES DAILY NEEDED for 30 Days Active Myrbetriq 50 MG TAKE 1 TABLET BY MOUTH EVERY DAY for 30 Days Active Problems Problem Type SNOMED Code ICD Code Onset Dates Problem Status W/U Status Risk Notes Problem Vitamin D deficiency (98119010) Vitamin D deficiency, unspecified (E55.9) Active confirmed Problem Hyperglycemia due to type 2 diabetes mellitus (198032397312570) Type 2 diabetes mellitus with hyperglycemia (E11.65) Active confirmed Problem Hyperlipidemia (75650139) Hyperlipidemia, unspecified (E78.5) Active confirmed Problem Type II diabetes mellitus without complication (388087143) Type 2 diabetes mellitus without complications (E11.9) Active confirmed Problem Hypothyroidism (68331680) Hypothyroidism, unspecified (E03.9) Active confirmed Problem Sarcoidosis of lung (44240615) Sarcoidosis of lung (D86.0) Active confirmed Problem Drug-induced diabetes mellitus (5969109) Drug or chemical induced diabetes mellitus with hyperglycemia (E09.65) Active confirmed Problem Hypoglycemia due to type 2 diabetes mellitus (253962571014284) Type 2 diabetes mellitus with hypoglycemia without coma (E11.649) Active confirmed Problem Hypoglycemia (204015444) Hypoglycemia, unspecified (E16.2) Active confirmed Problem Corticoadrenal insufficiency (127403607) Unspecified adrenocortical insufficiency (E27.40) Active confirmed Problem Menopause (080182478) Menopausal and female climacteric states (N95.1) Active confirmed Problem Hormone abnormality (21942389) Abnormal level of hormones in specimens from other organs, systems and tissues (R89.1) Active confirmed Vital Signs Heart Rate 82 /min 06/22/2024 Respiratory Rate 12 /min 06/22/2024 Blood pressure diastolic 80 mm Hg 06/22/2024 Height 61 in 06/22/2024 Blood pressure systolic 130 mm Hg 06/22/2024 Weight 182 lbs 06/22/2024 BMI 34.38 kg/m2 06/22/2024 Encounters Encounter Location Date Provider Diagnosis [facility], [facility] - [facility] [employer] [address] [place] [address] 03/18/2024 Jessie Barney Type 2 diabetes mellitus with hyperglycemia E11.65 ; Hypoglycemia, unspecified E16.2 and Type 2 diabetes mellitus with hypoglycemia without coma E11.649 [facility], [facility] [employer] [address] [place] [address] 11/21/2023 Jessie Barney Unspecified adrenocortical insufficiency E27.40 and Hypoglycemia, unspecified E16.2 [facility] [employer] [employer] [address] [place] [address] 01/06/2024 Jessie Barney Unspecified adrenocortical insufficiency E27.40 ; Hypoglycemia, unspecified E16.2 ; Nausea R11.0 and Iron deficiency E61.1 [facility] [place] [address] 05/02/2024 Provider Migration Type 2 diabetes mellitus with hyperglycemia E11.65 [facility], [facility] [employer] [address] [place] [address] 10/29/2023 Jessie Barney [facility], [facility] [employer] [address] [place] [address] 10/31/2023 Jessie Ector Type 2 diabetes mellitus with hypoglycemia without coma E11.649 [facility] [employer] [facility] [employer] [facility] [address] [place] [address] 02/26/2024 Jessie Ector [facility] [employer] [facility] [employer] [address] [place] [address] 05/26/2024 Jessie Ector [employer] [address] [place] [address] 06/22/2024 Jessie Ector [facility] [employer] [facility], [facility] [employer] [employer] [address] [place] [address] 04/06/2024 Jessie Ector Hypoglycemia, unspecified E16.2 ; Type 2 diabetes mellitus with hypoglycemia without coma E11.649 ; Unspecified adrenocortical insufficiency E27.40 and Type 2 diabetes mellitus with hyperglycemia E11.65 [facility] [employer] [facility] [employer] [facility] [id number] [place] [address] 06/22/2024 Jessie Ector Unspecified adrenocortical insufficiency E27.40 ; Type 2 diabetes mellitus with hypoglycemia without coma E11.649 ; Hyperlipidemia, unspecified E78.5 ; Vitamin D deficiency, unspecified E55.9 ; Hypoglycemia, unspecified E16.2 and Menopausal and female climacteric states N95.1 [facility] [employer] [facility] [employer] [facility] [address] [place] [address] 04/02/2024 Jessie Ector Assessments Encounter Date Diagnosis (ICD Code) Assessment Notes Treatment Notes Treatment Clinical Notes Section Notes 03/18/2024 Type 2 diabetes mellitus with hyperglycemia (ICD-10 - E11.65) 03/18/2024 Hypoglycemia, unspecified (ICD-10 - E16.2) 11/21/2023 Unspecified adrenocortical insufficiency (ICD-10 - E27.40) patient has chronic sarcoidosis and given chronic steroid therapy. 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 Patient has undergone great stressors and appropriately stress dosed for her hip surgery in September and advised to take up to 15 mg daily on stress days for stress dosing and continue at 7.5 mg for physiologic dosing. Her steroid dosing doesn't seem to affect her hypoglycemia and this seems to be directly related to her previous history of gastric bypass surgery. She was encouraged to please follow up with Dr. Velasco and discuss possibility for possible revision. 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 01/06/2024 Hypoglycemia, unspecified (ICD-10 - E16.2) Gastric bypass surgery provided 10 years ago for gastroparesis- however patient having more nausea and significant glucose dysmetabolism even on 30 days of acarbose therapy which is indicated in dumping syndrome. She went to Dr. Hilton and they did not recommend any surgical intervention or help at this time as she is high risk. Patient has gvoke for hypoglycemia emergencies. Based on her chronic medical conditions and bariatric/gastric bypass surgery that will be too high risk for intervention patient is aware she is high risk for mortality/fatality from her current hypoglycemia condition. She is running hypoglycemic 65% of the days even with high glucose intake and 6 meals per day/protein and high carb meals. Will inquire on octreotide as this too is indicated in dumping syndrome as we were not able to see a clinical improvement if we are not able to see a clinical improvement while on acarbose therapy. Patient has a eversense sensor placed last spring and due to have this removed and replaced in early March. She is aware to reach out if any concerns and given a comprehensive dumping syndrome diet as noted below. Per eversense readings/CGM readings she is under 100 mg/dL 65% of the time and in range only 30% of time. 01/06/2024 Unspecified adrenocortical insufficiency (ICD-10 - E27.40) Continue prednisone 7.5 mg daily for physiological dosing- she was on steroid therapy for 0ver 15 years due to hx of sarcoidosis. She is not able to wean off therapy. She is aware to stress dose during sick days, surgeries, interventions. She has medic alert bracelet with information of adrenal insufficiency. 10/31/2023 Type 2 diabetes mellitus with hypoglycemia without coma (ICD-10 - E11.649) 04/06/2024 Hypoglycemia, unspecified (ICD-10 - E16.2) 06/22/2024 Type 2 diabetes mellitus with hypoglycemia without coma (ICD-10 - E11.649) 06/22/2024 Unspecified adrenocortical insufficiency (ICD-10 - E27.40) 03/18/2024 Type 2 diabetes mellitus with hypoglycemia without coma (ICD-10 - E11.649) 11/21/2023 Hypoglycemia, unspecified (ICD-10 - E16.2) Continue with eversense CGM- she tolerated placement on 09/18 and has had daily hypoglycemia since her surgery ranging from 40-50 mg/dL- she is aware to stress dose her prednisone due to her chronic hx of iatrogenic adrenal insufficiency and to incorporate high protein 100 grams daily into her diet. Per CGM review running 100 mg/dL on average with SD of 40 mg/dL up to 100 mg/dL. Will send in Gvoke for hypoglycemia rescue and continue with eversense as this has been a very important clinical device that has prevented hospitalizations. She has instructions and recommendations to follow up with Dr. Velasco/bariatric surgeon to discuss potential revision of her gastric bypass surgery as this is likely contributing to over 70% of her hypoglycemia. Will trial on diazoxide 50 mg before meals to help with hypoglycemia as patient cannot tolerate acarbose due to GI upset/diarrhea, could not take metformin or trulicity due to hypoglycemia. 01/06/2024 Nausea (ICD-10 - R11.0) Provide zofran as needed. 04/06/2024 Type 2 diabetes mellitus with hypoglycemia without coma (ICD-10 - E11.649) 06/22/2024 Hyperlipidemia, unspecified (ICD-10 - E78.5) 01/06/2024 Iron deficiency (ICD-10 - E61.1) Referral to hematology provided by bariatric surgery- she will likely need iron infusions. 04/06/2024 Unspecified adrenocortical insufficiency (ICD-10 - E27.40) 06/22/2024 Vitamin D deficiency, unspecified (ICD-10 - E55.9) 05/02/2024 Type 2 diabetes mellitus with hyperglycemia (ICD-10 - E11.65) 04/06/2024 Type 2 diabetes mellitus with hyperglycemia (ICD-10 - E11.65) 06/22/2024 Hypoglycemia, unspecified (ICD-10 - E16.2) 06/22/2024 Menopausal and female climacteric states (ICD-10 - N95.1) 11/21/2023 Other Spent 25 minute s preparing to see the patient (ex review of tests/chart), obtaining and / or reviewing separately obtained history, performing a medically appropriate examination and/or evaluation, counseling and educating the patient/family/customer care agent, ordering medications, tests, or procedures, referring and communicating with other health healthcare consulting manager, documenting clinical information in the electronic or other health record, independently interpreting results and communicating results to the patient/family/customer care agent and care coordinating patient plan. 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 01/06/2024 Other Spent 40 minute s preparing to see the patient (ex review of tests/chart), obtaining and / or reviewing separately obtained history, performing a medically appropriate examination and/or evaluation, counseling and educating the patient/family/customer care agent, ordering medications, tests, or procedures, referring and communicating with other health healthcare consulting manager, documenting clinical information in the electronic or other health record, independently interpreting results and communicating results to the patient/family/customer care agent and care coordinating patient plan. Patient alert and oriented x 4 and aware of discussion noted above and in agreeance to plan in management of hypoglycemia, iatrogenic adrenal insufficiency, nausea and new finding of severe GIOVANNI. 04/06/2024 Other Assessment and Plan: 1. Adrenal recovery:- Patient reports no hypoglycemic episodes for 9 days and improved blood sugar levels.- Currently on 2.5 mg Prednisone daily with extra on hand for emergencies.Plan:- Gradually taper Prednisone: 2.5 mg every other day for a few weeks, then every third day, monitoring blood sugar levels closely.- Consider cortrosyn stim test 2 months after discontinuing Prednisone if patient remains stable. 2. Type 2 Diabetes:- A1c: 5.6, not in diabetes or prediabetes range.- Patient experiences high blood sugar levels after meals. Plan:- Prescribe Mounjaro: Start with 2.5 mg once a week for 4 weeks, then increase to 5 mg if tolerated without nausea or gastric issues.- Monitor blood sugar levels using Eversense CGM.- Follow up appointment in a couple of weeks to review medication effectiveness. 3. Gastrointestinal issues:- Patient takes fiber gummies daily and medication for constipation.Plan:- Encourage maintaining high protein and fiber intake to avoid constipation.- Continue current regimen for constipation management. 4. Nausea management:- Patient inquires about using Zofran if needed.Plan:- Approve use of Zofran for nausea related to food or medication side effects. 5. Hip pain:- Patient reports compensating for one hip, causing pain in both hips.- Anticipates needing another hip replacement in the future.Plan:- Monitor hip pain and consider referral to head orthopedic team physician if pain worsens or affects daily functioning.- Continue efforts to taper off steroids, as they may contribute to joint issues. Follow-up:- Schedule follow-up appointment in a couple of weeks to review Mounjaro effectiveness and overall progress.- Monitor blood sugar levels and adjust treatment plan as needed. Spent 25 minutes preparing to see the patient (ex review of tests/chart), obtaining and / or reviewing separately obtained history, performing a medically appropriate examination and/or evaluation, counseling and educating the patient/family/customer care agent, ordering medications, tests, or procedures, referring and communicating with other health healthcare consulting manager, documenting clinical information in the electronic or other health record, independently interpreting results and communicating results to the patient/family/customer care agent and care coordinating patient plan. Patient alert and oriented x 4 and aware of discussion noted above and in agreeance to plan in management of type 2 DM, secondary adrenal insufficiency. Due to the nature of telemedicine, the [...] were discussed and all questions were answered. 06/22/2024 Other Assessment and Plan: 1. Adrenal [...] examination and/or evaluation, counseling and educating the patient/family/customer care agent, ordering medications, tests, or procedures, referring and communicating with other health healthcare consulting manager, documenting clinical information in the electronic or other health record, independently interpreting results and communicating results to the patient/family/customer care agent and care coordinating patient plan. Patient alert [...] all questions were answered. Plan Of Treatment Pending Test Test Name Order Date Dexa Bone density 06/22/2024 COMPREHENSIVE METABOLIC PANEL 08/12/2024 COMPREHENSIVE METABOLIC PANEL 08/13/2023 VITAMIN D, 25-HYDROXY, LC/MS/MS 08/13/19 24 VITAMIN D, 25-HYDROXY, LC/MS/MS 08/12/19 25 ACTH, PLASMA 08/13/2023 ACTH, PLASMA 08/12/2024 T3, FREE 08/13/2023 T3, FREE 08/12/2024 CORTISOL, FREE, LC/MS/MS 08/13/2023 CORTISOL, TOTAL 08/13/2023 CORTISOL, TOTAL 08/12/2024 DHEA SULFATE 08/13/2023 HEMOGLOBIN A1c 08/13/2023 HEMOGLOBIN A1c 08/12/2024 INSULIN 08/12/2024 CBC (INCLUDES DIFF/PLT) 08/12/2024 CBC (INCLUDES DIFF/PLT) 08/13/2023 MICROALBUMIN, RANDOM URINE (W/CREATININE ) 08/13/2023 VITAMIN B12/FOLATE, SERUM PANEL 08/13/19 24 VITAMIN B12/FOLATE, SERUM PANEL 08/12/19 25 LIPID PANEL 08/12/2024 T4, FREE 08/12/2024 T4, FREE 08/13/2023 TSH 08/12/2024 TSH 08/13/2023 Insurance Providers Payer Name Payer Address Payer Phone Subscriber Number Group Number Insured Name Patient Relationship to Insured Coverage Start Date Coverage End Date [facility] [address] [address] [place] [address] [id number] GlynnJasbira Self - patient is the insured Medicaid [place] [address] [address] [place] [address] [id number] Leelee Maki Self - patient is the insured Medical (General) History Medical History History ICD Code 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
--- OUTSIDE RECORDS SUMMARY | 2024-10-21 08:05 | XMS_ITS ---
Author Organization [employer] [facility] Address [address] [place] [address] Care Team Providers Care Biology Professor Name Role Phone Jessie Barney Primary Care Provider [phone] REASON FOR VISIT eversence sensor Encounters Encounter Location Date Provider Diagnosis [facility] - Jessie Barney [address] [place] [address] 05/26/2024 Jessie Barney Plan Of Treatment No Information Progress Notes * Sukhwinder FELIZB:1970 (53 yo F)Acc No.[id number]:05/26/2024 Patient: Leelee MCCARTHY :1970 A ge:53 Y S ex:Female Address:[facility], [address] [address] * true * Date: Generated for Printi ng/Fakellyg/eTransmitting on: 0 10/21/2024 08:04 AM CDT
--- OUTSIDE RECORDS SUMMARY | 2024-10-21 08:06 | XMS_ITS | Clinical Summary ---
Author Organization [facility] [employer] Address [address] [place] [address] Care Team Providers Care Team Leader Surgery Name Role Phone Nacho Oglesby MD Primary Care Provider [phone] Source Comments [facility] [employer]non-owned Affiliates and Associated Physician Practices is amultiple site organization consisting of ambulatory clinics and hospital sitesin [place], [place], [place] and [place]. This disclosure is being madepursuant to the Care Everywhere program and may not contain all information available regarding this patient. Last updated 18.[facility] [employer] Allergies Active Allergy Reactions Criticality Noted Date Comments Ocuflox Other Low 02/12/2012 Nervous sweating could not sleep. Ofloxacin Other Low 03/26/2008 Reaction: shaky, sweaty Floxin Medications * Be aware that medications may not be up to date on this document. Alwaysverify current medications with the patient. aspirin EC (Ecotrin) 81 MG tablet Take 1 (one) tablet by mouth every morning Active azelastine (Astelin) 0.1 % nasal spray [place] 2 (two) sprays into each nostril 2 [...] mouth once daily 03/23/2022 Active vitamin B-12 (Cyanocobalamin ) 500 MCG tablet Take 1 (one) tablet by mouth at bedtime Active estradiol (Estrace) 0.5 MG tablet Take 1 (one) tablet by mouth once daily 02/25/2022 Active gabapentin (Neurontin) 300 MG capsule Take 1 (one) capsule by mouth 2 times daily 03/29/2022 Active HYDROcodone-opal taminophen (Mcdowell) 7.5-325 MG tablet Take 1 (one) tablet [...] daily as directed. 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 Chronic [...] diabetes mellitus without complications 0 06/23/2012 Overview (09/16/2024): IMO 09/16/2024 Essential (primary) hypertension 06/23/2012 Obesity 06/23/2012 Cataracts, [...] drink = 0.6 oz pur e alcohol) Comments No Sex and Gender Information Value Date Recorded Sex Assigned at Not on file Legal Sex Female 6:36 PM [employer] Gender Identity Not on file Sexual Orientation [...] 50+ (1 of 2 - PCV) 1989 DIABETES-SERUM CREATININE 06/23/2013 06/23/2012 ZOSTER VACCINE (1 of 2) 12/20/2019 DIABETES RETINOPATHY SCREENING 04/09/2022 02/12/2012, 02/12/2012 DIABETES-FOOT EXAM WITH MONOFILAMENT 04/09/2022 DIABETES-HGB A1C 04/09/2022 COVID-19 VACCINE (3 - 2023- season) 2024 09/08/2020, 08/18/2020 DEPRESSION SCREENING 06/17/2024 DIABETES - URINE PROTEIN SCREENING 06/17/2024 MEDICARE AWV CALENDAR YEAR 2024 INFLUENZA VACCINE (Season Ended) 2025 04/16/2021, 03/11/2020, 03/19/2018, Additional history exists HEPATITIS C SCREENING Completed 06/23/2012 HIB VACCINE Aged Out No longer eligi ble based on patient's age to complete this topic HPV VACCINE Aged Out No longer eligi ble based on patient's age to complete this topic MENINGOCOCCAL (Group B) VACCINE SHARED DECISION-MAKING Aged Out No longer eligible based on patient's age to complete this topic MENINGOCOCCAL GROUPS A/C/Y/W VACCINE Aged Out No longer eligible based on patient's age to complete this topic Procedures Procedure Name Priority Date/Time Associated Diagnosis Comments COMPREHENSIVE METABOLIC PANEL Routine 06/23/2012 11:32 AM WOOD CABINET[employer]ER HEPATITIS C ANTIBODY Routine 06/23/2012 11:32 AM WOOD CABINETMAKER from Last 3 Months or Most Recently Relevant to Health Maintenance Results * (ABNORMAL) COMPREHENSIVE METABOLIC PANEL (06/23/2012 11:32 AM WOOD CABINETMAKER) BUN 13 7 - 26 mg/dL [facility] Creatinine 0.6 0.6 - 1.2 mg/dL [facility] eGFR by MDRD > 60 ML/MIN [facility] Comment: Chronic kidney disease: <60 ml/min Kidney failure: <15 ml/min Based on BSA of 1.73m2. Sodium 139 136 - 145 mmol/L [facility] Potassium 4.1 3.5 - 4.5 mmol/L [facility] Chloride 102 98 - 107 mmol/L [facility] CO2 22 22 - 29 mmol/L [facility] Glucose 127(H) 70 - 115 mg/dL [facility] Calcium 9.4 8.4 - 10.2 mg/dL [facility] Protein Total 7.1 6.0 - 8.3 g/dL [facility] Albumin 4.2 3.4 - 5.0 g/dL [facility] Bilirubin Total 1.5(H) 0.2 - 1.2 mg/dL [facility] Alkaline Phosphatase 65 40 - 150 Units/L [facility] ALT 89(H) 0 - 55 Units/L [facility] AST 56(H) 5 - 34 Units/L [facility] Anion Gap 19(H) 8 - 18 [facility] BUN/Creatinine Ratio 21 7 - 23 [facility] Osmolality Calculation 275 270 - 300 mOsm/kg [facility] Albumin/Globulin Ratio 1.4 1.1 - 2.3 [facility] Serum 06/23/2012 11:3 2 AM [employer] CABINET[employer]ER 06/23/2012 12:18 PM WOOD CABINET[employer] us Gary Gilmore MD LAB - CHEMISTRY OR DERABLES Final Result Performing Organization Address [facility] Co de Phone Number [address] [phone] * HEPATITIS C ANTIBODY (06/23/2012 11:32 AM WOOD CABINETMAKER) Hepatitis C Antibody NONREACTIVE NONREACTIVE [facility] Comment: Anti-HCV screen indicates no serologic evidence of past or current infection with Hepatitis C Virus. Patients with unexplained liver disease who are immunocompromised or suspected of having acute Hepatitis C infection may benefit from Nucleic Acid Test (LIANNE) for Hepatitis C Viral RNA to confirm Hepatitis C status. 06/23/2012 11:3 2 AM WOOD CABINET[employer]KER 06/23/2012 12:19 PM WOOD CABINET[employer]KER us Gary Gilmore MD LAB - CHEMISTRY OR DERABLES Final Result [address] [phone] from Last 3 Months or Most Recently Relevant to Health Maintenance [place] [place] [address] [facility] MANAGED MEDICARE ADV Care Teams Team Leader Surgery Relationship Specialty Start Date End Date Nacho Oglesby MD [address] [place] [phone] PCP - General 01/25/12
--- OUTSIDE RECORDS SUMMARY | 2024-10-21 08:06 | XMS_ITS | Data Portability ---
Author Organization [facility] [employer], Main Office Address [address] [place] [address] Care Team Providers Care Cash Posting Representative Name Role Phone OGLESBYSHREYA Primary Care Provider SHREYA OGLESBY Referring Provider [phone] Assessment Encounter Date Assessment Date Assessment LastModified [...] [address], [place], [address], 16:09:44 Medication Orders None recorded. Patient TargetsNo targets recorded. Patient Instructions Encounter Date Encounter Id Patient Instructions Last Modified By Organization Details Last Modified Time 08/28/2023 [id number] Follow-up hypertension, adrenal cortical hypofunction, GERD, type [...] with voice recognition software. Occasional wrong-word or ppeaf-h-edge substitutions may have occurred due to the inherent limitations of voice recognition software. Read the chart carefully and recognize, using context, where substitutions have occurred. [email or web address] Not available 08/28/2023 12:33:27 01/01/2024 [id number] dementia rating scale-2* [email or web address] Not available 01/01/2024 12:36:34 alcohol misuse* [email or web address] Not available 01/01/2024 12:36:34 depression screening* [email or web address] Not available 01/01/2024 12:36:34 Timed Up and Go test (TUG)* [email or web address] Not available 01/01/2024 12:36:34 multi-dimensiona l health assessment questionnaire* [email or web address] Not available 01/01/2024 12:36:34 Personalized a lth Plan and Screening Recommendations Advance Directives - [...] Negative Active diagnosis, Continue current treatment plan [email or web address] Not available 01/01/2024 12:25:10 Medicare wellnes s [...] with voice recognition software. Occasional wrong-word or guqiy-m-kyod substitutions may have occurred due to the inherent limitations of voice recognition software. Read the chart carefully and recognize, using context, where substitutions have occurred. [email or web address] Not available 01/01/2024 12:36:14 05/04/2024 [id number] Follow-up essent ial hypertension, hypopituitarism, hyperlipidemia, type 2 diabetes, sarcoidosis and obesity all clinically stable. No need for additional blood work at this time since being followed by Endocrinology on a regular basis. Will continue on current Rx stay on medications the same way. Recheck back in four months Follow Up: 4 Months Approximate Date: 09/01/2024 [email or web address] Not available 05/04/2024 15:07:27 09/21/2024 [id number] Follow-up essent ial hypertension, hypopituitarism, type 2 diabetes diet controlled, hyperlipidemia, sarcoidosis obesity plan is to continue on current Rx follow-up in four months. The patient is being followed by endocrinology has blood work ordered. Will follow-up as mentioned. No change in medication otherwise. Follow Up: 4 Months Approximate Date: 01/19/2025 Portions of record are template driven. When necessary additional context will be provided. Additionally some portions have been created with voice recognition software. Occasional wrong-word or adqyg-u-uxjb substitutions may have occurred due to the inherent limitations of voice recognition software. Read the chart carefully and recognize, using context, where substitutions may have occurred. Created: Shreya Oglesby M.D. 09.21.2024 03:46 PM [email or web address] Not available 09/21/2024 16:46:14 Reason for Referral None Reported. Results Created Date Observation Date Name Description Value Unit Range Abnormal Flag Note LastModifiedBy Organization Detail LastModifiedTime 09/03/19 24 XR, hip + pelvi s, unila teral No observ ation record ed. [email or web address] [place] [address], [place], [address], 09/03/2023 15:42:32 09/17/19 24 09/17/2023 MRI, hip, w/wo contr ast No observ ation record ed. [address], [place], [address], 09/17/2023 14:31:03 09/19/19 24 09/17/2023 MRI, pitui tary, w/wo contr ast No observ ation record ed. [place] [address] [facility] [address], [place], [address], 09/20/2023 07:48:29 09/30/19 24 09/30/2023 XR, hip + pelvi s, unila teral No observ ation record ed. [address] [facility] [address], [place], [address], 09/30/2023 12:16:20 12/30/19 24 12/30/2023 DEXA, axial skele ton [facility] [address] [place] [address] Patien t Name: LEELEE MCCALL ion #: [id number] Sex: F : 1970 3 Dictat ed By: Laine Baer Attend ing Physic kevin: JAILENE OGLESBY CE Orderi Physic kevin: JAILENE OGLESBY Exam Date: 2023 [...] ity popula tion (used for Page 1 [facility] [address] [place] [address] Patien t Name: LEELEE MCCALL Access ion #: [id number] Sex: F : 1970 3 Dictat [...] at 2023 14:46: 11 PM Page [address] (Imaging) [address] [place] [address], [facility], 12/30/2023 17:50:12 12/30/19 24 12/30/2023 scree rip breas t sherry, bilat [facility] [address] 8[address] Patien t Name: LEELEE MCCALL Access ion #: [id number] Sex: F : 1970 3 Dictat ed By: Brooklyn Menon Attend ing Physic kevin: JAILENE OGLESBY Physic kevin: JAILENE OGLESBY Exam Date: 2023 [...] at 2023 15:14: 46 PM Page 1 [email or web address] [facility] (Imaging) [address] [place], [address], 12/30/2023 17:50:31 01/22/20 24 12/30/2023 DEXA, axial skele ton [facility] [place] [id number] Patien t Name: LEELEE MCCALL Access ion #: [id number] Sex: F : 1970 3 Dictat [...] to a young adult popula tion, lubna d for sex and ethnic ity (used for postme nopaus al women and men >50 years) and classi fied by WHO criter ia. -1.0: normal <-1.0 to >-2.5: osteop enia -2.5: osteop orosis Page 1 [facility] [place] [address] Patien t Name: LEELEE MCCALL Access ion #: [id number] Sex: F : 1970 3 Dictat ed By: Laine Baer Attend ing Physic kevin: RODRIGUEZ MEDEL [facility] Physic kevin: JAILENE OGLESBY Exam Date: [...] and a cause should be Page 2 [facility] [address] [address] Patien t Name: LEELEE MCCALL Access ion #: [id number] Sex: F : 1970 [id number] Dictat ed By: Laine Baer Attend ing Physic kevin: RODRIGUEZ MEDEL Physic kevin: JAILENE OGLESBY Exam Date: 2023 14:23 PM Exam Name: XR DEXA-H IPS PELVIS SPINE Admitt ing Diagno sis(es ): sought Electr onical ly Signed by: Laine Baer at 2023 11:54: 32 AM Page [address] (Imaging) [address] [place], [address], 01/22/2024 13:57:36 07/07/19 25 07/07/2024 XR, chest , 2 view No observ ation record ed. [address], [place], [address], 07/07/2024 16:53:59 07/24/19 25 07/24/2024 CT, chest , w/o contr ast No observ ation record ed. [address], [place], [address], 07/25/2024 01:45:10 09/22/19 25 09/21/2024 US, echoc ardio gram No observ ation record ed. [address] [facility] [address], [place], [address], 09/21/2024 13:49:51 Result Notes None recorded. Problems Name Problem SNOMED Code Status Onset Date Resolution Date Notes Provider Name and Address Organization Details Recorded Time Edema of lower extremity 805527794 Active 2021 Not Available [facility] 3 06:47:55 Renewal of prescript ion Active 2021 Not Available [facility] 3 06:47:55 Acute bronchiti s 14547914 Active Ann Dodge, KIAH [place] [facility] 4 11:35:03 Closed fracture of fifth metacarpa l bone of right hand 02215458380 694208 Active 2021 Ann Dar, CCM null[place] [facility] 4 11:35:03 Closed fracture of neck of fifth metacarpa l bone of right hand 10860471368 429213 Active 2021 Ann Dar, CCM [place] [facility] 4 11:35:03 Bilateral trochante brigitte bursitis 45595199574 213148 Active 2022 Not Available [facility] 3 06:47:55 Pain of bilateral hip joints 67983450980 720738 Active 2022 Ann Dar, CCM null[place] [facility] 4 11:36:42 Hyperchol esterolem ia 95799706 Active Not Available [facility] 3 06:47:55 Senile osteoporo sis 06175891 Active 2021 Ann Dar, CCM [place] [facility] 4 11:36:42 Asthma 629093938 Active Ann Dar, CCM [place] [facility] 4 11:36:42 Osteonecr osis of head of femur 689455472 Active 2022 Ann Dar, CCM [place] [facility] 4 11:36:42 Abdominal pain 92605099 Active 2022 Not Available [facility] 3 06:47:55 Gastroeso phageal reflux disease 556391591 Active 2016 Nan Dar, CCM [place] [facility] 4 11:36:42 Morbid obesity 817130703 Active Not Available [facility] 3 06:47:55 Glaucoma 75544498 Active Ann Dar, CCM [place] [facility] 4 11:36:42 Screening mammograp hy Active 2021 Not Available [facility] 3 06:47:55 Esophagea l reflux finding 712569116 Completed Not Available [facility] 3 02:53:31 Transient cerebral ischemia 177672717 Active Not Available [facility] 3 06:47:55 Gastroeso phageal reflux disease without esophagit is 083513013 Active 2021 Not Available [facility] 3 06:47:55 Petit's neuroma of right foot 84494245495 9108 Active 2019 Not Available [facility] 3 06:47:55 Petit's neuroma of left foot 30773166229 9105 Active 2019 Not Available [facility] 3 06:47:56 Sarcoidos is 40211626 Active 2018 Not Available [facility] 3 06:47:56 Pain in right foot 80267985561 9107 Active 2018 Not Available [facility] 3 06:47:56 Pain in right hand 67115424535 9109 Active 2021 Not Available [facility] 3 06:47:56 Depressiv e disorder 86206207 Active 2018 Ann Dodge CCM [place] [facility] 4 11:36:42 Sinusitis 12441498 Active 2017 Not Available [facility] 3 06:47:56 Chronic pain syndrome 602530539 Active 2019 Ann Dodge CCM [place] [employer] [employer] [facility] 4 11:36:42 Migraine 42867425 Active Not Available [facility] 3 06:47:56 Hypertens keke disorder 79153731 Completed Not Available [facility] 3 02:53:32 Chronic sinusitis 10350964 Active 2019 Ann Dodge CCM [place] [employer] [employer] 4 11:36:42 Obesity 669648732 Active Not Available [facility] 3 06:47:56 Insomnia with sleep apnea 91958925 Active 2018 Not Available [facility] 3 06:47:56 Type 2 diabetes mellitus 01837012 Active Not Available [facility] 3 06:47:56 Metabolic dysfuncti on-associ ated steatohep atitis 253060090 Active Not Available [facility] 3 06:47:56 Long-term current use of opiate analgesic drug 70316508283 4108 Active 2021 Ann Dodge, CCM [place] [facility] 4 11:36:42 Foot pain 32431322 Active 2021 Not Available [facility] 3 06:47:56 Anxiety 94136370 Active 2016 Annlisa Dodge, CCM [place] [facility] 4 11:36:42 Talipes planus 15648826 Active 2018 Not Available [facility] 3 06:47:56 Acute upper respirato ry infection 76864031 Active 2021 Ann Dodge, CCM [place] [facility] 4 11:35:03 Essential hypertens ion 69135859 Active Ann Dar, CCM [place] [facility] 4 11:36:42 Liver enzymes level above reference range 240977912 Active 2021 Not Available [facility] 3 06:47:56 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 24406811 Active 2021 Ann Dodge, CCM [place] [facility] 4 11:35:03 Diabetes mellitus 86262857 Active Annlisa Dodge, CCM [place] [facility] 4 11:36:42 Obstructi ve sleep apnea syndrome 56012480 Active 2018 Ann Dar, CCM [place] [facility] 4 11:36:42 Congestio n of nasal sinus 51797330 Active 2021 Not Available [facility] 3 06:47:56 Fatigue 79712571 Active Not Available [facility] 3 06:47:56 Cough 51925703 Active 2022 Ann Dar, CCM [place] [facility] 4 11:35:03 Trochante brigitte bursitis of right hip 93357145963 9100 Active 2022 Not Available [facility] 3 06:47:56 Hypoglyce padmini 781656699 Active 2022 Not Available [facility] 3 06:47:56 Type 2 diabetes mellitus without complicat ion 596555764 Active 2022 Not Available [facility] 3 06:47:56 Hypopitui tarism 86808149 Active 2022 Ann Dodge, CCM [place] [facility] 4 11:36:42 Acute adrenal insuffici ency 779448348 Active 2022 Not Available [facility] 3 06:47:56 Severe adrenal insuffici ency 91690508 Active 2022 Not Available [facility] 3 06:47:55 Adrenal cortical hypofunct ion 998386094 Active 2022 Ann Dodge, CCM [place] [facility] 4 11:36:42 Insomnia 255375490 Active 2022 Not Available [facility] 3 06:47:55 Iatrogeni c adrenal insuffici ency 200417216 Active 2022 Ann Dodge, CCM [place] [facility] 4 11:36:42 Pituitary function test outside reference range 540004559 Active 2022 Not Available [facility] 3 06:47:55 Reactive hypoglyce padmini 641377 Active 2022 Not Available [facility] 3 06:47:56 Skin lesion 51253542 Active 2022 Not Available [facility] 3 06:47:56 Epidermoi d cyst of skin of neck 239738012 Active 2022 Not Available [facility] 3 06:47:56 Sebaceous cyst of skin 930862687 Active 2022 Not Available [facility] 3 06:47:56 Epidermoi d cyst of skin 859849189 Active 2022 Not Available [facility] 3 06:47:56 Pituitary adenoma 029955365 Active 2022 Not Available [facility] 3 06:47:55 Osteoarth ritis of hip 792395603 Active 2022 Ann Dodge CCM null, [employer] 4 11:36:42 Acute sinusitis 16776788 Active 2024 Shreya Oglesby MD [address] [facility] [facility] [address], [place], [address] , [employer] 5 12:10:45 Notes:Some problems listed i n Documents: #[id number], #[id number] could not be added to this patient's chart. Please review these documents and add these problems to the patient's chart manually as needed. Problem Notes None recorded. Procedures Surgical History Date Name Laterality Status Provider Name and Address Organization Details Recorded Time 01/01/20 24 Medicare Wellness CPT Code, subsequent completed Antonella Clark RN [employer] 01/01/2024 12:17:16 12/26/19 23 Excision Cyst Multilayer completed Will pearl MD [address] [facility], [place], [address], [employer] 12/25/2022 13:34:53 12/21/19 23 Medicare Wellness CPT Code, subsequent completed Antonella Clark RN [employer] 12/20/2022 12:10:47 06/21/19 21 [email or web address] completed Not Available [facility] 08/15/2022 02:47:46 05/25/20 14 Most Recent Bone Density completed Not Available [facility] 08/15/2022 02:47:44 Imaging Results Imaging Date Name Status LastModified by Organization Details LastModified Time 09/03/2023 XR, hip + pelvis, unilateral completed [email or web address] [facility] [address], [place], [address], 09/03/2023 15:42:32 09/17/2023 MRI, hip, w/wo contrast completed [address], [address], 09/17/2023 14:31:03 09/17/2023 MRI, pituitary, w/wo contrast completed [address], [address], 09/20/2023 07:48:29 09/30/2023 XR, hip + pelvis, unilateral completed [address], [address], 09/30/2023 12:16:20 12/30/2023 DEXA, axial skeleton completed [address] (Imaging) [address] [place], [address], 12/30/2023 17:50:12 12/30/2023 screening breast sherry, bilat completed [address] (Imaging) [address] [place], [address], 12/30/2023 17:50:31 12/30/2023 DEXA, axial skeleton completed [address] (Imaging) [address] [place], [address], 01/22/2024 13:57:36 07/07/2024 XR, chest, 2 view completed [address], [address], 07/07/2024 16:53:59 07/24/2024 CT, chest, w/o contrast completed [address], [address], 07/25/2024 01:45:10 09/21/2024 US, echocardiogram completed [email or web address] [facility] [address], [place], [address], 09/21/2024 13:49:51 Procedure Notes None recorded. Medical Equipment None Reported. Allergies Allergen ID Allergen Name Allergen Category Reaction Reaction Severity Criticality Documentation Date Start Date Code Code System Note Provider Name and Address Organization Details Recorded Time 4797 Floxin medicatio n other Not available Not available 08/15/202270796 8 RxNorm Not Available [facility] 03:02:33 Medications Name Sig Start Date [...] Available amoxicill in 500 mg capsule TAKE 4 CAPSULES BY MOUTH 1 HOUR BEFORE DENTAL APPOINTM ENT active Not Available Not Available No t [...] Available Not Available No t Available trazodone 50 mg tablet TAKE 1 TABLET BY MOUTH EVERY DAY 11/29 completed Not Available Not Available Not Available azithromy marielena 250 mg tablet TAKE 2 TABLETS (500 MG) BY ORAL ROUTE ONCE DAILY FOR 1 DAY THEN 1 TABLET (250 MG) BY ORAL ROUTE ONCE DAILY FOR 4 DAYS 09/21 completed Not Available Not Available Not Available ofloxacin 0.3 % eye drops INSTILL 1 DROP INTO AFFECTED EYES TID UTD. BEGIN 2 DAYS PRIOR TO SURGERY 12/11 completed Not Available Not Available Not Available fluconazo le 150 mg tablet Take 1 tablet every day by oral route. active Not Available Not Available No t Available benzonata te 200 mg capsule TAKE 1 CAPSULE BY MOUTH THREE TIMES DAILY 09/21 completed Not Available Not Available Not Available ampicilli n 500 mg capsule TAKE [...] TABLET BY MOUTH THREE TIMES DAILY NEEDED FOR NAUSEA active Not Available Not Available No t Available prednison e 20 mg tablet TAKE 1 TABLET BY MOUTH TWICE DAILY FOR 5 DAYS 01/30 completed Not Available Not Available Not Available Prilosec 20 mg capsule,d elayed release qd active Not Available Not Available Not Available prednison e 5 mg tablet TAKE 1 TABLET BY MOUTH DAILY WITH FOOD OR MILK. TOTAL DAILY DOSE OF 7.5 MG. active Not Available Not Available No t [...] MOUTH EVERY 12 HOURS FOR 5 DAYS 09/21 completed Not Available Not Available Not Available hydrocodo ne 10 mg-acetam inophen 325 [...] completed Not Available Not Available Not Available [employer] Ultra Test strips TEST BLOOD SUGAR DAILY active Not Available Not Available No t Available Kenalog 10 mg/mL suspensio n for injection In office injectio n administ ered by the provider 12/20 completed [facility]: [id number] 4- Not Available Not Available Not Available benzonata [...] BY MOUTH DAILY WITH FOOD OR MILK active Not Available Not Available No t Available cephalexi n 500 mg capsule TAKE 1 CAPSULE BY MOUTH FOUR TIMES DAILY 04/25 completed Not Available Not Available Not Available trazodone 150 mg tablet Take 1 tablet every day by oral route at bedtime. 2024 active Not Available Not Available Not Avai lable oseltamiv ir 75 mg capsule TAKE 1 CAPSULE BY MOUTH EVERY DAY FOR 7 DAYS active Not Available Not Available No t Available metformin 1,000 mg tablet one twice a [...] Not Available levofloxa marielena 750 mg tablet 09/21 completed Not Available Not Available Not Available zolpidem [...] hours by oral route for 10 days. 09/21 completed Not Available Not Available Not Available fluticaso ne propionat e 50 mcg/actua [...] tablet TAKE 1 TABLET BY MOUTH DAILY 09/21 completed Not Available Not Available Not Available phentermi ne 37.5 mg capsule TK [...] clobetaso l-emollie nt 0.05 % topical cream 09/21 completed Not Available Not Available Not Available Spiriva [...] Not Available Vitamin D3 1 softgel daily 09/21 completed Not Available Not Available Not Available multivita min once daily 02/19 completed [...] completed Not Available Not Available Not Available lubiprost one 24 mcg capsule TAKE 1 CAPSULE BY MOUTH TWICE DAILY active Not Available Not Available No t Available OneTouch Ultra2 Meter kit 2022 active [...] 1 DROP IN BOTH EYES AT NIGHT active Not Available Not Available No [...] administ ered by the provider 12/20 completed [facility] [address]-48 09-15 Not Available Not Available Not Available [...] UNDER THE SKIN EVERY WEEK AT DINNER 09/21 completed Not Available Not Available Not Available Trulicity 0.75 mg/0.5 mL subcutane ous [...] Available Not Available Vitamin B12 1,000mcg tablets 09/21 completed Not Available Not Available Not Available OneTouch Ultra Blue Test Strip USE [...] UNDER THE SKIN 1 TIME A WEEK 09/21 completed Not Available Not Available Not Available Airsupra 90 mcg-80 mcg/actua tion HFA [...] Updated DateTime 4 160.02 cm 31.4 kg/m2 30097.8 5 g 94 /min 97 [degF] 96 % 96 % 124 mm[Hg] 84 mm[Hg] Elisha Shea [facility] [employer] 4 12:20:34 Date Recorded Body height Body mass index (BMI) Body weight Provider Name and Address Organization Details Last Updated DateTime 09/03/2023 154.94 cm 33.3 kg/m2 66582.26 g 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 [place] [facility] [employer] [facility] 09/03/2023 15:00:52 Date Recorded Body height Body mass index (BMI) Body weight Heart rate Body temperature Oxygen saturation Oxygen saturation in Arterial blood by Pulse oximetry Systolic blood pressure Diastolic blood pressure Provider Name and Address Organization Details Last Updated DateTime 4 160.02 cm 32.9 kg/m2 26350.1 8 g 78 /min 97.4 [degF] 97 % 97 % 120 mm[Hg] 80 mm[Hg] TRENA Meneses [facility] [employer] [facility] 4 12:11:01 Date Recorded Pain severity - 0-10 verbal numeric rating [Score] - Reported Provider Name and Address Organization Details Last Updated DateTime 01/01/2024 5 Antonella Clark RN [facility] 01/01/2024 12:17:34 Date Recorded Body height Body weight Heart rate Body temperature Oxygen saturation Oxygen saturation in Arterial blood by Pulse oximetry Systolic blood pressure Diastolic blood pressure Provider Name and Address Organization Details Last Updated DateTime 4 160.02 cm 16975.4 g 96 /min 97 [degF] 97 % 97 % 128 mm[Hg] 82 mm[Hg] TRENA [employer] [facility] 4 14:40:29 Date Recorded Body height Body mass index (BMI) Body weight Heart rate Body temperature Oxygen saturation Oxygen saturation in Arterial blood by Pulse oximetry Systolic blood pressure Diastolic blood pressure Provider Name and Address Organization Details Last Updated DateTime 5 160.02 cm 32.1 kg/m2 73751.2 2 g 79 /min 97 [degF] 96 % 96 % 120 mm[Hg] 64 mm[Hg] Elisha Shea [facility] 5 16:36:46 Social History Question Answer Notes LastModified by [employer] ion Details LastModified Time Tobacco Smoking Status Former Smoker Gabbi Terrell tim [facility] 05/02/2023 12:07:58 Do You Have An Advance Directive? No [id number] Information not available 08/15/2022 What Is Your Level Of Alcohol Consumption? None [id number] Information not available 08/15/2022 What Is Your Level Of Caffeine Consumption? Moderate [id number] Information not available 08/15/2022 How Much Tobacco Do You Chew? None [id number] Information not available 08/15/2022 In The 14 Days Before Symptom Onset, Have You Had Close Contact With A Laboratory-confir med COVID-19 While That Case Was Ill? No [email or web address] Information not available 05/02/2023 In The 14 Days Before Symptom Onset, Have You Had Close Contact With A Person Who Is Under Investigation For COVID-19 While That Person Was Ill? No [email or web address] Information not available 05/02/2023 What Type Of Diet Are You Following? DIABETIC [id number] Information not available 08/15/2022 Do You Or Have You Ever Used E-cigarettes Or Vape? Never Used Electronic Cigarettes [email or web address] Information not available 05/02/2023 Do You Have An Electrostatic Air Filter? No Information not available 05/02/2023 What Is Your Occupation? Disabled [email or web address] Information not available 05/02/2023 Have There Been Any Changes To Your Family Or Social Situation? No Information no t available 05/02/2023 What Is The Fluoride Status Of Your Home? Unknown [email or web address] Information not available 05/02/2023 When Did You Quit Smoking? 16+yearssincel astcigarette [email or web address] Information not available 05/02/2023 Are There Any Guns Present In Your Home? No [email or web address] Information not available 05/02/2023 Do You Have A Humidifier? No [email or web address] Information not available 05/02/2023 Do You Use Insect Repellent Routinely? Yes Information not available 05/02/2023 Where Do You Live? Apartment Sr Bldg [email or web address] Information not available 01/01/2024 Guns Present In The Home? No [email or web address] Information not available 12/20/2022 Are You Able To Care For Yourself? Yes [email or web address] Information not available 12/20/2022 Are You Blind Or Do Yo Have Difficulty Seeing? Yes [email or web address] Information not available 12/20/2022 Are You Deaf Or Do You Have Serious Difficulty Hearing? No [email or web address] Information not available 12/20/2022 Live Alone Of With Others? Alone [email or web address] Information not available 12/20/2022 Do You Have A Medical Power Of Work Station Support Specialist? No Information not available 05/02/2023 Do You Have Moisture Problems In Your Home? No Information not available 05/02/2023 What Was The Date Of Your Most Recent Tobacco Screening? 01/01/2024 [email or web address] Information not available 01/01/2024 How Many Children Do You Have? 2 [email or web address] Information not available 05/02/2023 Do You Have Any Pets? No [email or web address] Information not available 05/02/2023 Do You Use Your Seat Belt Or Car Seat Routinely? Yes [email or web address] Information not available 05/02/2023 Do You Have Smoke And Carbon Monoxide Detectors In Your Home? Yes [email or web address] Information not available 05/02/2023 At What Age Did You Start Smoking Tobacco? 15 [email or web address] Information not available 05/02/2023 Are You Passively Exposed To Smoke? No Information no t available 05/02/2023 Do You Or Have You Ever Used Smokeless Tobacco? Never Used Smokeless Tobacco [id number] Information not available 08/15/2022 Are There Any Smokers In Your House? No [email or web address] Information not available 05/02/2023 Do You Use Any Illicit Or Recreational Drugs? No [email or web address] Information not available 05/02/2023 Do You Use Sunscreen Routinely? Yes Information not available 05/02/2023 Have You Recently Traveled Abroad? No [email or web address] Information not available 05/02/2023 Do You Have Any Dietary Restrictions? Yes [email or web address] Information not available 05/02/2023 Sex: Female Functional Status Question Answer Note LastModified by Organization D etails LastModified Time What is your exercise level? None [email or web address] Information not available 01/01/2024 Mental Status None recorded. Family History Relationship Description Onset Age of this Age Resolved Age Notes LastModified by Organization Details LastModified Time Father No current problems or disability [email or web address] Not available 09/02 14:57:54 Father Family history of stroke [email or web address] Not available 2023 14:57:54 Father Heart disease [id number] Not available 08/15/2022 02:47:50 Father Hypertensive disorder [email or web address].181 [id number] Not available 08/15/2022 02:47:50 Mother No current problems or disability Mother Living 76 years old Father Deceas ed 64 years old 6 Sister s 6 Living Mother Hx HTN Father Hx CRF, ASHD, COPD, DM, HTN Sister Hx CRF (1) , DM (1) , HTN (2), MS [email or web address] Not available 09/03/2023 14:57:54 Mother Hypertensive disorder [id number] Not available 08/15/2022 02:47:50 Sister Diabetes mellitus [id number] [id number] Not available 08/15/2022 02:47:50 Medical History Condition Response NERVE DISEASE N BLINDNESS N RHEUMATIC FEVER N KIDNEY STONES N BLADDER PROBLEMS N MRSA N OTHER # 1 N POLIO N LUNG DISEASE/DISORDER N HISTORY OF DRUG ABUSE N RADIATION / CHEMOTHERAPY N COPD N Other # 2 N BLOOD DISEASES N SURGERY N EAR OR HEARING PROBLEMS N MUMPS N SHINGLES N DEPRESSION (INCLUDING POST ) N BOWEL PROBLEMS N STROKE/TIA Y ULCERS N BENIGN PROSTATIC HYPERPLASIA N MEASLES N HYPOTENSION N MYOCARDIAL INFARCTION N OBESITY N GERD/NAUSEA N ANEURYSM N URINARY/BLADDER/KIDNEY PROBLEMS N CORONARY ARTERY DISEASE (CAD) N ADDICTION CONCERNS N Impotence N ENDOMETRIOSIS N USE OF BLOOD THINNERS N SKIN [...] GLAUCOMA N FOOT PROBLEM N DIVERTICULITIS N SLEEP APNEA N CHICKENPOX N ALLERGIES/HAYFEVER N INFECTIOUS DISEASE N PROSTATE N HEART ARRHYTHMIA N INSOMNIA N HIGH CHOLESTEROL / HYPERLIPIDEMIA Y HYPERTHYROIDISM N EYE PROBLEMS N NEUROLOGICAL PROBLEMS N EDEMA N CHRONIC PAIN SYNDROME N HYPOTHYROIDISM N CONSTIPATION N CAROTID BLOCKAGE N BACK / NECK PROBLEMS N HAVE YOU BEEN HOSPITALIZED OR SEEN IN [facility] IN THE PAST YEAR ? N ATHEROSCLEROSIS [...] Brain Problems N HERPES N DEMENTIA N SEIZURES/EPILEPSY N HEADACHES/MIGRAINES N VASCULAR DISEASE N PACEMAKER N Blood Disorder N DIZZINESS N KIDNEY DISEASE N HEART DISEASE/HEART PROBLEMS N MULTIPLE SCLEROSIS N CARDIAC ARRHYTHMIA N CANCER: SPECIFY N ANESTHESIA COMPLICATIONS N Gall Stones N ATRIAL FIBRILLATION N PULMONARY EMBOLISM N AUTOIMMUNE DISEASE N Gynecological History Statement/Question Response Date of Last Mammogram 05/31/2021 Most Recent Bone Density 05/25/2014 Obstetrics History GPAL:G 0 P 0 0 0 0 Immunizations Vaccine Type Date Status Note Provider Nam e and Address Organization Details Recorded Time Pneumococcal conjugate PCV20, polysaccharide UVO386 conjugate, adjuvant, PF 5 completed ZUNILDA Jacobson - [facility] [employer] [facility] 09/23/2024 15:14:51 Influenza, split virus, trivalent, preservative 4 completed Not Available [facility] 05/23/2023 06:47:57 Influenza, split virus, trivalent, preservative 3 completed Not Available [facility] 05/23/2023 06:47:57 COVID-19, mRNA, LNP-S, PF, 30 mcg/0.3 mL dose 1 completed Not Available [facility] 05/23/2023 06:47:57 COVID-19, mRNA, LNP-S, PF, 30 mcg/0.3 mL dose 1 completed Not Available [facility] 05/23/2023 06:47:57 Influenza, split virus, quadrivalent, preservative 8 completed Not Available [facility] 05/23/2023 06:47:57 Influenza, split virus, quadrivalent, preservative 2 completed Not Available [facility] 05/23/2023 06:47:57 Influenza, split virus, quadrivalent, preservative 1 completed Not Available [facility] 05/23/2023 06:47:57 SARS-COV-2 (COVID-19) vaccine, UNSPECIFIED 1 completed Not Available [facility] 05/23/2023 06:47:57 pneumococcal polysaccharide PPV23 6 completed Not Available [facility] 05/23/2023 06:47:57 Influenza, split virus, quadrivalent, PF 7 completed Not Available [facility] 05/23/2023 06:47:57 pneumococcal polysaccharide PPV23 6 completed Not Available [facility] 05/23/2023 06:47:57 Influenza, split virus, quadrivalent, PF 6 completed Not Available [facility] 05/23/2023 06:47:57 Influenza, split virus, quadrivalent, preservative 8 completed Not Available [facility] 05/23/2023 06:47:57 Influenza, split virus, quadrivalent, preservative 5 completed Not Available [facility] 05/23/2023 06:47:57 Pneumococcal conjugate PCV 13 4 completed Not Available [facility] 05/23/2023 06:47:57 Influenza, split virus, quadrivalent, PF 3 completed ZUNILDA Jacobson - [facility] [employer] [facility] 05/02/2023 12:31:40 Past Encounters Encounter ID Performer Location Encounter Start Date Encounter Closed Date Diagnosis/Indication Diagnosis SNOMED-CT Code Diagnosis ICD10 Code Diagnosis Note [id number] Khoa Maravilla MD [facility] ENT [place] [address] [place] [address] 09/08/2020 00:00:00 09/08/2020 12:55:33 [id number] [facility] Pulmonolo gy [address] [address] 10/14/2020 00:00:00 10/14/2020 16:27:09 [id number] Shreya Oglesby MD S_[facility] Internal Med [facility] [address] [place] [address] 10/26/2020 00:00:00 10/26/2020 15:18:21 [id number] [facility] _ATHENA_M IGRATION_ DEFAULT_1 _1 , 12/02/2020 00:00:00 12/08/2020 09:42:26 [id number] [facility] Pulmonolo gy [place] [address] [facility], [address]nd [place] [address] 02/09/2021 00:00:00 02/09/2021 17:13:53 [id number] [facility] Podiatry [place] [address] [place] [address] 03/13/2021 00:00:00 03/13/2021 15:06:10 [id number] Shreya Oglesby MD [facility] Internal Med [facility] [address] [place] [address] 03/15/2021 00:00:00 03/15/2021 11:59:06 [id number] [facility] Pulmonolo gy [place] [address] [place] [address] 07/24/2021 00:00:00 07/24/2021 17:07:16 [id number] Shreya Oglesby MD [facility] Internal Med [facility] [address], [facility] [address] [place] [address] 08/09/2021 00:00:00 08/09/2021 15:03:24 [id number] [facility] Pulmonolo gy [place] [address] [facility] [address] [place] [address] 11/21/2021 00:00:00 11/21/2021 16:55:22 [id number] Shreya Oglesby MD [facility] Internal Med [facility] [address] [facility] [address] [place] [address] 12/06/2021 00:00:00 12/06/2021 15:27:21 [id number] [facility] Podiatry [place] [address] [facility] [address] [place] [address] 12/07/2021 00:00:00 12/07/2021 15:35:05 [id number] _ATHN_MIGR ATION_1 _ATHENA_M IGRATION_ DEFAULT_1 _1 , 12/27/2021 00:00:00 12/27/2021 12:18:10 [id number] Leroy Workman MD [facility] [address] [address] 01/30/2022 00:00:00 01/30/2022 10:10:47 [id number] Leroy Workman MD [facility] [address] [address] 02/06/2022 00:00:00 02/06/2022 10:09:48 [id number] Leroy Workman MD [facility] [address] [address] 02/20/2022 00:00:00 02/20/2022 11:26:33 [id number] Leroy Workman MD [facility] [address] [address] 03/06/2022 00:00:00 03/06/2022 10:38:13 [id number] Janey Ochoa, APPLICATION DEVELOPMENT SPECIALIST- [facility] Pulmonolo gy [place] [address] [place] [address] 03/23/2022 00:00:00 03/23/2022 16:36:53 [id number] Leroy Workman MD [facility] [address] [address] 03/27/2022 00:00:00 03/27/2022 09:50:13 [id number] Shreya Oglesby MD [facility] Internal Med [facility] [address] [address] 04/25/2022 00:00:00 04/25/2022 15:05:22 [id number] [facility] Podiatry [place] [address] [facility] [address] [place] [address] 04/26/2022 00:00:00 04/26/2022 11:46:55 [id number] Shreya Oglesby MD [facility] Internal Med [facility] [address] [address] 07/19/2022 00:00:00 07/19/2022 11:48:05 [id number] Leroy Workman MD [facility] [address] [address] 07/31/2022 00:00:00 07/31/2022 14:01:11 [id number] Leroy Workman MD [facility] Ortho [place] [address] [place] [address] 08/07/2022 00:00:00 08/07/2022 15:54:29 [id number] Leroy Workman MD [facility] [address] [address] 09/11/2022 09:25:15 09/11/2022 09:45:00 Trochanteric bursitis of right hip 5050651961 58851 M70.61 Osteonecro sis of head of femur 744773207 M87.859 [id number] Shreya Oglesby MD [facility] Internal Med [facility] [address] [address] 09/13/2022 10:56:55 09/13/2022 17:45:14 Abdominal pain 23372929 R10.0 Essential hypertension 31419149 I10 Sarcoidosis 20591644 D86 .9 Hypoglycemia 852152085 E 16.2 Hypercholesterolemia 136 44308 E78.00 [id number] Shreya Oglesby MD [facility] Internal Med [facility] 2043 [facility] [address] [place] [address] 10/17/2022 15:17:19 10/17/2022 15:55:42 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 Asthma 576401855 J45.90 9 Essential hypertension 84530768 I10 Hypercholesterolemia 136 76574 E78.00 Sarcoidosis 20944868 D86 .9 [id number] Janey Ochoa, [facility] Pulmonolo gy [place] [address] [place] [address] 11/02/2022 14:28:08 11/02/2022 16:25:41 Sarcoidosis 98907419 D86.9 On no prednisone PFT 09/2022 WNLCT chest results 03/23/21 with NADHas not repeatedSh e has the order and will scheduleYe oneal eye and cardiology exam, she is aware to schedule thisDiscus sed reportable signs and symptoms Obstructiv e sleep apnea syndrome 87678620 G47.33 Mild on home study with AHI 5.Does not qualify for Inspire.No need for CPAP use. Congestion of nasal sinus 17264945 R09.81 Continue Azelastine [id number] Jessie Barney MD [facility] Endo [place] [address] [place] [address] 11/07/2022 16:00:43 11/07/2022 17:02:44 Iatrogenic adrenal insufficiency 697995839 E27.3 Patient on prednisone for over 15 [...] crisis. Pituitary function test outside reference range 567433796 R94.7 Send for full pituitary panel to [...] in which at that point an insulin logistics director may be of benefit for patient. Spent [...] she chooses to go outside of the [facility] to obtain labwork she was [...] ing. Thank you for this consultati on. [id number] Shreya Oglesby MD [facility] Internal Med [facility] [address] [address] 12/20/2022 11:51:04 12/20/2022 12:32:02 Adult health examination 407244673 Z00.00 Screening for disorder 178028933 Z13.9 Acute adre nal insufficiency 648303433 E27.2 Essential hypertension 05765899 I10 Gastroesop hageal reflux disease 217695358 K21.9 Metabolic dysfunction-associate d steatohepatitis 971840805 K75.81 Sarcoidosis 72706889 D86 .9 [id number] Will gale MD [facility] General Surgery [address] [address] 12/20/2022 12:35:28 12/20/2022 15:27:09 Epidermoid cyst of skin of neck 903216432 L72.0 [id number] Will gale MD [facility] General Surgery [address] [place] [address] 12/25/2022 12:49:42 12/25/2022 14:28:24 Sebaceous cyst of skin 423628376 L72.3 post neck [id number] Will gale MD [facility] General Surgery [address] [place] [address] 01/01/2023 11:35:48 01/02/2023 15:25:00 Removal of suture 82821235 Z48.02 Epidermoid cyst of skin 594552592 L72.0 post neck [id number] Jessie Barney MD [facility] Endo [facility] [address] [place] [address] 01/29/2023 14:04:51 01/29/2023 14:54:21 Iatrogenic adrenal insufficiency 415236417 E27.3 Patient on prednisone for over 15 years for management of sarcoidosi s. Patient recently failed a cortrosyn stimulatio n test on 09/28 as she did not raise at all on cortisol and actually dropped at 60 minute lilian- this indicates overt adrenal insufficie ncy secondary to senior care glucocorti coid administra tion not addisons disease. [...] cortrosyn stimulatio n testing. Reactive hypoglycemia 31 5866 E16.1 Patient appears to be having an [...] in which at that point an insulin logistics director may be of benefit for patient. Spent [...] answered and refills necessary at visit today. [id number] Leroy Workman MD [facility] [address] [place] [address] 02/19/2023 09:50:16 02/19/2023 10:28:40 Trochanteric bursitis of right hip 5416692475 69676 M70.61 M70.62 Osteonecro sis of head of femur 282822972 M87.859 Osteoarthritis of hip 23 6062086 M16.0 M16.10 M16.11 M16.12 [id number] Janey Ochoa APPLICATION DEVELOPMENT SPECIALIST-[facility] Pulmonolo gy [place] [address] [place] [address] 04/05/2023 14:30:26 04/05/2023 15:37:04 Sarcoidosis 89276989 D86.9 correction prednisone , this is now managed by endocrinol ogyPFT 09/2022 WNLCT chest results 10/07/21 with NADHas not repeated, she has the order and will scheduleYe oneal eye and cardiology exam, she has had these appointmen tsJemima tao follow up as appropriat eDiscussed reportable signs and symptoms Obstructiv e sleep apnea syndrome 72982105 G47.33 Mild on home study with AHI 5.Does not qualify for Inspire.No need for CPAP use at that timeRecent weight gainEncour aged repeat study, she will consider. Congestion of nasal sinus 26733778 R09.81 Continue Azelastine Asthma 692124769 J45.90 9 Continue current inhaled therapyDis cussed reportable signs and symptoms [id number] Shreya Oglesby MD [facility] Internal Med [facility] [address] [address] 05/02/2023 12:07:20 05/02/2023 12:34:11 Administration of influenza vaccine 75880540 Z23 Adrenal co rtical hypofunction 225470931 E27.40 Diabetes mellitus 840200 09 E11.9 Essential hypertension 00071222 I10 Hypercholesterolemia 136 36247 E78.00 Sarcoidosis 04620038 D86 .9 [id number] Shreya Oglesby MD [facility] Internal Med [facility] [address] [address] 08/28/2023 12:08:37 08/28/2023 12:45:54 Essential hypertension 44217811 I10 Gastroesop hageal reflux disease without esophagitis 362712094 K21.9 Adrenal co rtical hypofunction 856076480 E27.40 Type 2 edwin betes mellitus 09035170 E11.9 Sarcoidosis 46646316 D86 .9 [id number] Rivera Osorio MD [facility] Ortho [place] [address] [place] [address] 09/03/2023 14:56:10 09/03/2023 16:09:43 Trochanteric bursitis of right hip 4159204051 16923 M70.61 M70.62 Osteonecro sis of head of femur 224590916 M87.859 bilateral right worse than left Osteoarthritis of hip 23 2882401 M16.0 M16.10 M16.11 M16.12 [id number] Shreya Oglesby MD [facility] Internal Med [facility] [address] [address] 01/01/2024 12:04:54 01/01/2024 12:38:09 Adult health examination 629727768 Z00.00 Screening for disorder 553928349 Z13.9 Essential hypertension 27173766 I10 Hypopituitarism 46319390 E23.0 Diabetes mellitus 058265 09 E11.9 Gastroesop hageal reflux disease 914762163 K21.9 [id number] Shreya Oglesby MD [facility] Internal Med [facility] [address] [address] 05/04/2024 14:29:00 05/04/2024 15:11:01 Essential hypertension 41104920 I10 Hypopituitarism 99019022 E23.0 Hypercholesterolemia 136 56935 E78.00 Type 2 edwin betes mellitus without complication 311953705 E11.9 Sarcoidosis 57393193 D86 .9 Obesity 022069030 E66.9 [id number] Shreya Oglesby MD [facility] Internal Med [facility] [address] [address] 09/21/2024 16:29:24 09/21/2024 16:59:30 Essential hypertension 10909463 I10 Hypopituitarism 43734104 E23.0 Diabetes mellitus 354826 09 E11.9 Sarcoidosis 65889815 D86 .9 Hypercholesterolemia 136 62680 E78.00 Obesity 957775689 E66.9 Health Concerns Section Related Observation LastModified by Organization Detai ls LastModified Time None Recorded Concern Status LastModified by Organization Details LastModified Time None Recorded Advance Directives Directive N: Payers Encounter Date Sequence Insurance Name Policy Number Policy Liang Covered Member ID Liang Member ID Guarantor Name 08/28/2023 1 [facility] (MEDICARE REPLACEMENT/AD VANTAGE - PPO) [id number] eLelee Maki [id number] Leelee Maki 08/28/2023 2 [place] [facility] Leelee Maki [id number] Leelee Maki 09/03/2023 1 [facility] (MEDICARE REPLACEMENT/AD VANTAGE - PPO) [id number] Leelee Alemany [id number] Leelee Hammond Glynn 09/03/2023 2 [place] Leelee Hammond Glynn [id number] Leelee Hammond Glynn 01/01/2024 1 [facility] (MEDICARE REPLACEMENT/AD VANTAGE - PPO) [id number] Leelee Hammond Glynn [id number] Leelee Hammond Glynn 05/04/2024 1 [facility] (MEDICARE REPLACEMENT/AD VANTAGE - PPO) [id number] Leelee Manish Maki [id number] Leelee Hammond Glynn 09/21/2024 1 [facility] (MEDICARE REPLACEMENT/AD VANTAGE - PPO) [id number] Leelee Hammond Glynn [id number] Leelee Hammond Glynn 09/21/2024 2 [facility] - DOS ON OR AFTER 20 (MEDICAID REPLACEMENT - HMO) Leelee Hammond Glynn [id number] Leelee Manish Maki Notes Date Note Type Note Provider Name and Address Organization Details Recorded Time 4 text/html Patient returns she is 52 [...] hip today. YOHAN Hernández [address], [facility] [address], [place], [address], [facility] [employer] 09/03/2023 15:43:32 4 text/html Patient Name: Leelee BurrowsMagedate Of Service: Saturday ( 01.01.2024 ): 1970 [...] Systemic Symptoms:none Medication Reconciliation: from medication list. Frylmxpfayu98/03/2023: CT scan of abdomen and pelvis.Postoperative changes [...] Adverse Drug Reactions ReviewedFloxin Anxiety Vaccination and Vqolvlvoapqf7300-97 Ucghogoyl1920-50 Covid Booster Tnjgwk1654-14 Covid Ueckwb2178-02 Rgab7185-18 Xurtghrcs9398-39 Prevnar 13 Gc Surgical Olschgd0526-25 Rt. EOA7487-31 Fat Apron Mirkzsp2913-12 Lap Tkvcwwyxlijzsad4110-12 Gastric Qdzddw9433-10 Left Ecrjlmbj1212-01 Renal Stone Hfptjju3028-49 Partial Ledzulzfvvxg7446-86 Tubal Ligation Preventative Eekqxwe7112/30/2023 MAMMOGRAM 5012/30/2023 DEXA SCAN07/19/2022 ALBUMIN 4.2 G/DL N001/01/2022 UPPER FCRWQGSNF05/18/2022 COLONOSCOPY ( 10 YEARS ) / HAIC08/01/2021 OGPXEUJZBDTLQ13/16/2019 MICRO ALBUMIN 6.4 MG/L N1 CT THORAX Social HistoryDoes not smoke cigarettes. 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 Mvsoouhxwwq73/03/2023: CT scan of abdomen and pelvis.Postoperative changes [...] lesions. The last HAIC was done by senior property manager. CGM: No. Average blood sugars 100-115 mg%. [...] offered to be evaluated and instructed by substance abuse therapist on weight loss diet. Active Medication ListAtivan [...] ) 2015-06 TDAP( ) 2020- COVID PFIZER(X) 2021-02 COVID BOOSTER PFIZER Surgical Nonfdpj0325-22 Rt. 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 [employer] 05/04/2024 15:07:44 5 text/html Patient Name: Leelee Hamiltonbrandi Of Service: Saturday ( 09.21.2024 ): 1970 Age: 53 There has been approximately a 2 lb weight loss since 05/04/2024. This represents approximately a 1.1% change in weight. Weight change attributable to lifestyle changes. Vital Signs:Blood Pressure: Sitting Rt. Arm 120/64Pulse: Sitting 79 /min and RegularRespiratory Rate: 16Height 63 in or 1.6 mWeight 181 lb or 82.1 kgBMI 32.1Temperature: 97 F or 36.1 CPulse Oximetry: 96 % at rest on no oxygen Chief Complaint: Addressed in HPI Problems or conditions discussed in the HPI were the only ones reviewed during the encounter.Only social and family history addressed in the HPI were reviewed during this encounter. Attendant(s): NoneConstitutional and Systemic Symptoms:none Medication Reconciliation: from medication list. Pgbzewfzcbv63/18/2023: CT scan of the abdomen pelvis revealed [...] SVE documented as couplets and isolated beats 07-24-2024: CT of the chest no significant mediastinal lymphadenopathy cardiac another silhouettes normal. 09-21-2024: Echocardiogram estimated ejection fraction 60%. Tricuspid valve is normal appearance and function. Physiological tricuspid valve regurgitation is noted. Estimated pulmonary arterial pressure estimated 25 mmHg. History of Present Illness #1. Essential Hypertension: [...] restriction and Aldactone and Cartia Xt. 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 Type II Diabetes: Has had no polyuria polyphagia or polydipsia. Has had no hypoglycemic like responses. No new history of any numbness, tingling, weakness or visual problems. No nausea, anorexia or other constitutional symptoms. There has been no foot problems or non healing lesions. The last HAIC was done by senior property manager. CGM: No. Average blood sugars unknown. Checking sugars : infrequently. Medication Types Include: diet Secondary complications include none. Macro-vascular complications include none. Therapy reviewed regarding diabetic management and include diet only Compliance: good Renal Protection: Calcium Deborah Lipid management: statins Urinary microalbumin: A1 . Ophthalmological: has seen eye doctor within the last year. Control: Done by endocrinology #4. Type II Hypercholesterolaemia: Currently taking medication and tolerating well. No interval complaints of any muscle pain or arthralgia. No significant liver changes with medications. Last lipid panel: fair control. Therapy reviewed regarding treatment of cholesterol management and include diet and Zocor. #5. Sarcoidosis: Hx of sarcoidosis. Involvement: lung, heart, kidney and brain There has been no interval [...] offered to be evaluated and instructed by substance abuse therapist on weight loss diet. Active Medication ListAtivan [...] Anxiety Vaccination and Immunization(X) 2022- INFLUENZA( ) 2014-04 PREVNAR 13 GC(X) 2015-06 PNEUMOVAX PREVNAR 20 Needed( ) 2015-06 TDAP( ) 2020-08 COVID PFIZER(X) 2021-02 COVID BOOSTER PFIZER Surgical Otwhize2313-18 Rt. EKZ7410-32 Fat Apron Izpnxpb7132-10 Lap Zoisdelvfnanytb1498-25 Gastric Jcxelk1743-90 Left Oenksbgs1476-97 Renal Stone Wbgxnnl9954-19 Partial Xhhzpoyynusb3157-16 Tubal Ligation Preventative Testing( ) 08/04/2024 Ophthalmology( ) 07/24/2024 CT Thorax( ) 12/30/2023 Mammogram 12/29/2024( ) 12/30/2023 DEXA Scan 12/29/2025( ) 07/19/2022 Albumin 4.2 G/DL N( ) 01/01/2022 Upper Endoscopy( ) 01/01/2022 Colonoscopy ( 10 Years ) 01/02/2032( ) 08/09/2021 HAIC( ) 10/30/2018 Micro Albumin 6.4 MG/L N Social HistoryDoes not smoke cigarettes. 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
--- OUTSIDE RECORDS SUMMARY | 2024-10-21 08:06 | XMS_ITS ---
[facility] Organization [facility] Address [address] [place] [address] Care Team Providers Care Campaign Management Senior Manager Name Role Phone Jessie Barney Primary Care Provider Encounters Encounter Location Date Provider Diagnosis [facility] [address] [place] [address] 06/22/2024 Jessie Barney Plan Of Treatment No Information Progress Notes * Sukhwinder FELIZB:1970 (53 yo F)Acc No.[id number]:06/22/2024 Patient: Leelee MCCARTHY :1970 A ge:53 Y S ex:Female Address:[facility] [facility], [address] [address] * true * Date: Generated for Montanai wendy/Mollyg/eTransmitting on: 0 10/21/2024 08:05 AM CDT
--- OUTSIDE RECORDS SUMMARY | 2024-10-21 08:06 | XMS_ITS | Continuity of Care Document ---
Author Organization [facility] Address [address] [place] [address] Phone Care Team Providers Care Wax Specialist Name Role Phone Nacho Coleman MD, FACS Unavailable Unavailab le Procedures Procedure Date Special Reports Or Forms Special Reports Or Forms Special Reports Or Forms Vision Svcs Frames Purchases SV Plastic Sph Nardin To +/- 4 0 Scratch Resistant Coating Eye Exam, New Patient Refraction Advance Directives Directive Yes / No Effective Date File Name No Information Encounters Encounter Description Practice Location Reason(s) For Visit Diagnoses Date Provider Providers Copied on Encounter [facility], [address], [place], [place], [id number], [place] tel:[phone] SEC Shannan Archer No Information 1 Jared Griffith. [address], [address], [place], [place], [address], [place]. tel:[phone] [facility], [address], [place], [place], [address], [place] tel:[phone] SEC [facility] No Information 1 Joao Gann. [address] , [address], [place], [address], [place]. tel:[phone] [facility], [address], [place], [place], [address], [place] tel:[phone] SEC [facility] No Information 1 Joao Gann. [address] [facility] , [address], [place], [address], . tel:[phone] [facility], [address], [place], [place], [address], [place] tel:[phone] SEC [facility] No Information 0 [facility] . [address] [facility], [address], [place], [place], [address], [place]. tel:[phone] Referring Provider: Azeem Marx, [address] [place], [place] [address], [place], [place], [facility]. tel:[phone] [facility], [address], [place], [place], [address], [place] tel:[phone] SEC [facility] No Information 0 Joao Gann. [address] [place] [address] , [address], [place], [address], . tel:[phone] Family History Family Member Type Diagnosis Age At Onset No Information Payers Payer name Insurance type Covered democrat ID Authoriza tion(s) No Information Social History [...]
[2024-10-21 08:21] LABS: Estimated Glomerular Filt Rate > 60
== END 2024-10-21 07:59 | disposition home or self-care (01) ==
PROVIDERS: PCP Internal Medicine; Visit Provider Nurse Practitioner Family
DX: R14.0 Abdominal distension (gaseous) (principal); K76.0 Fatty (change of) liver, not elsewhere classified; R11.0 Nausea
CPT/HCPCS: 74177; Q9967

== ENCOUNTER 2024-10-29 12:32 | Outpatient (CLI) | payer MEDICARE, MEDICAID, SELFPAY ==
--- NOTE | ~2024-10-29 | DEXA_ITS ---
Bone Density Report Name: JALEESA FELIZ Age: 53 Sex: Female Ethnicity: White Date of : 1970 Indication: postmenopausal; screening for osteoporosis; height loss; history of glucocorticoids; prior fracture; asthma or emphysema; hysterectomy; Referring Provider: PIO, SHANTAL Hammonds Study: Bone densitometry was performed. Exam Date: October 29, 2024 Accession number: [id number] Bone Density: Region BMD T-score Z-score Classification AP Spine(L1-L4) 0.883 -1.5 -0.4 Osteopenia Femoral Neck (Left) 0.635 -1.9 -0.9 Osteopenia Total Hip (Left) 0.809 -1.1 -0.4 Osteopenia World Health Organization criteria for BMD impression classify patients as: Normal (T-score at or above -1.0), Osteopenia (T-score between -1.0 and -2.5), or Osteoporosis (T-score at or below -2.5). 10-year Fracture Risk: FRAX not reported because: Prior hip or vertebral fracture Previous Exams: -- Region Exam Age BMD T-score BMD Change BMD Change Date g/cm2 vs Baseline vs Previous -- AP Spine (L1-L4) 10/29/2024 53 0.883 -1.5 -11.5%* -8.9%* 05/31/2021 50 0.970 -0.7 -2.9%* -2.9%* 09/18/2017 46 0.998 -0.4 Total Hip(Left) 10/29/2024 53 0.809 -1.1 -12.9%* -5.6%* 05/31/2021 50 0.857 -0.7 -7.7%* -7.7%* 09/18/2017 46 0.929 -0.1 -- *Denotes significance at 95% confidence level, LSC for AP Spine = 0.022 g/cm2, LSC for Total Hip = 0.027 g/cm2 Clinical Information Provided by Patient: Have had a previous hip or vertebral fracture Has had a low trauma fracture Has taken Glucocorticoids Has used the following medications: Vitamin D, Calcium Has the following medical conditions: Asthma or Emphysema, Hysterectomy Patient maximum height was 63 Menopause Age: 26 Drinks caffeinated beverages Onset of menses at age 11 Number of children 2 Impression: The patient has low bone mass, based on the Left Femoral Neck T-score. The patient has risk factors, including: previous fracture, history of glucocorticoid therapy. The BMD for the AP Spine (L1-L4) decreased, changing by -8.9% since the last DXA exam. The BMD for the Total Hip(Left) decreased, changing by -5.6% since the last DXA exam. Discussion: INCREASED RISK OF FRACTURE DUE TO HISTORY OF FRACTURE. The patient's previous fracture puts the patient at high risk of a future fracture. In untreated patients, the risk of osteoporotic fracture increases approximately two-fold for each 1.0 SD decrease in T-score. Low bone density is not the only risk factor for fracture; also consider factors such as patient's age, frailty or poor health, risk of falling, risk of injury, previous osteoporotic fracture, family history of osteoporosis, cigarette smoking, low body weight, etc. Not everyone with a low trauma fracture has osteoporosis; osteomalacia and other metabolic bone disorders should also be considered. Patients who have osteoporosis should be evaluated for specific diseases and conditions (secondary causes) that may cause or contribute to bone loss and fracture risk. National Osteoporosis Foundation (NOF) recommends pharmacologic intervention for patients with a prior hip or vertebral fracture regardless of BMD T-score. The patient should follow a healthful lifestyle (good nutrition with adequate calcium and vitamin D, and appropriate weight-bearing exercise). Follow-Up: Consider a repeat BMD and Vertebral Fracture Assessment (VFA) exam in 2 years or sooner if medically necessary, to reassess this patient's status. Reported by: OSCAR on 11/04/2024 8:43:00 AM. Reviewed, dictated and finalized at location A.
== END 2024-10-29 12:33 | disposition home or self-care (01) ==
PROVIDERS: PCP Internal Medicine; Visit Provider Internal Medicine Endocrinology, Diabetes & Metabolism
DX: M85.89 Other specified disorders of bone density and structure, multiple sites (principal); N95.1 Menopausal and female climacteric states
CPT/HCPCS: 77080

== ENCOUNTER 2024-12-08 00:44 | Day surgery (SDC) | payer MEDICARE, MEDICAID, SELFPAY ==
[2024-11-20 15:19] VITALS: BMI 35.4
[2024-12-08 06:51] VITALS: BP 123/84; PULSE 76; RESP 16; TEMP 36.1; O2SAT 100; BMI 33.7
[2024-12-08] MEDS: SIMETHICONE ORAL SUSPENSION 20 MG/0.3 ML 30 ML BOTTLE 1.8 ML PO (07:03)
[2024-12-08] MEDS: LACTATED RINGERS 1,000 ML 150 ML IV CONT (07:13)
[2024-12-08 07:15] LABS: Glucose Point of Care 80 mg/dl (65-105)
--- NOTE | 2024-12-08 07:40 | P.PNAN_ITS ---
Anes - Initial Pre Proc Eval Procedure: Operation Date: 12/08/24 08:00 Proposed Procedures p Esophagogastroduodenoscopy - Omar Mohr MD Date/Time: 12/08/24 07:40 Surgeon: Omar Mohr MD Pre Op Diagnosis: Nausea Patient Data Age: 53 Gender: F Height: 1.55 m Weight: 81 kg Last Vital Signs Temp 36.1 C L 12/08/24 06:51 Pulse 76 12/08/24 06:51 Resp 16 12/08/24 06:51 BP 123/84 12/08/24 06:51 Pulse Ox 100 12/08/24 06:51 O2 Del Method Room Air 12/08/24 06:51 Allergies Allergy/AdvReac Type Severity Reaction Status Date / Time cephalexin (From Keflex) Allergy FACIAL Verified 12/08/24 06:56 SWELLING ofloxacin (From Floxin) AdvReac Mild INSOMNIA, Verified 12/08/24 06:56 SWEATING, SHAKINESS Home Medications ?Medication ?Instructions ?Recorded ?Confirmed ?Type Vitamin B-12 1 tab-cap PO DAILY 06/16/21 12/08/24 History Vitamin D3 2,000 units PO DAILY 06/16/21 12/08/24 History Women's Daily Multivitamin 1 tablet PO DAILY 06/16/21 12/08/24 History albuterol sulfate 90 mcg/actuation 2 puff inhalation HS PRN Shortness 06/16/21 12/08/24 History aerosol inhaler Of Breath Or Wheezing bimatoprost 0.01 % eye drops 1 drp EACH EYE HS 06/16/21 12/08/24 History (Roz) citalopram 40 mg tablet 40 mg PO HS 06/16/21 12/08/24 History diltiazem HCl 120 mg 120 mg PO QAM 06/16/21 12/08/24 History capsule,extended release 24 hr estradiol 0.5 mg tablet 0.5 mg PO DAILY 06/16/21 12/08/24 History gabapentin 300 mg capsule 300 mg PO BID 06/16/21 12/08/24 History lorazepam 1 mg tablet 1 mg PO TID 06/16/21 12/08/24 History magnesium 500 mg tablet 500 mg PO DAILY 06/16/21 12/08/24 History montelukast 10 mg tablet 10 mg PO HS 06/16/21 12/08/24 History omeprazole 40 mg capsule,delayed 40 mg PO QAM 06/16/21 12/08/24 History release simvastatin 40 mg tablet 40 mg PO HS 06/16/21 12/08/24 History spironolactone 50 mg tablet 50 mg PO QAM 06/16/21 12/08/24 History flash glucose sensor (FreeStyle 05/23/23 10/12/24 History Caridad 2 Sensor kit) mirabegron 50 mg tablet,extended 50 mg PO DAILY 05/23/23 12/08/24 History release 24 hr (Myrbetriq) fluticasone 250 mcg-salmeterol 50 1 inh inhalation BID 09/11/23 12/08/24 History mcg/dose blistr powdr for inhalation (Advair Diskus) hydrocodone 10 mg-acetaminophen 1 tablet PO Q4H PRN Pain 09/11/23 11/20/24 History 325 mg tablet prednisone 5 mg tablet 5 mg PO DAILY 09/11/23 12/08/24 History trazodone 50 mg tablet 150 mg PO HS 09/11/23 12/08/24 History aspirin 81 mg tablet,delayed 81 mg PO DAILY 09/16/23 12/08/24 History release (Adult Low Dose Aspirin) azelastine 137 mcg (0.1 %) nasal 2 spray intranasal BID PRN Nasal 09/16/23 11/20/24 History spray Congestion fluticasone propionate 50 1 spray intranasal BID PRN Nasal 09/16/23 11/20/24 History mcg/actuation nasal Congestion spray,suspension ondansetron HCl 4 mg tablet 4 mg PO BID PRN Nausea And Vomiting 09/16/23 11/20/24 History lactulose 10 gram/15 mL oral 10 g (15 mL) PO BID #1,500 mL 11/03/24 12/08/24 Rx solution Laboratory Tests 12/08/24 07:05 POC Capillary Glucose 80 mg/dl (65-105) Patient hx anesthesia problems: none Family hx anesthesia problems: none Results Review: All pre-operative results and documents have been reviewed as part of the pre- operative evaluation. [facility] Past Medical History Medical History Adrenal insufficiency Glaucoma Petit neuroma Raynaud disease Sarcoidosis Stroke Osteoporosis Hypertension MORROW (nonalcoholic steatohepatitis) Migraine GERD (gastroesophageal reflux disease) Diabetes Arthritis Anxiety Asthma Surgical History Surgical History History of liver biopsy History of cholecystectomy History of surgical removal of skin lesion History of gastric bypass History of hemorrhoidectomy History of eye surgery History of breast biopsy History of partial hysterectomy History of tubal ligation History of dilatation and curettage Family History Family History Mother Depression Hypertension Sibling Depression Diabetes mellitus Hypertension Cerebrovascular accident Father Diabetes mellitus Hypertension Heart disease Cerebrovascular accident Grandparent Heart disease Depression Hypertension Other Family history of allergic disorder Social History Social History Smoking packs per day: 0.5 Smoking cigarettes per day: 10.0 Years smoked: 5 Smoking pack-years: 2.50 Smoking status: Former smoker Tobacco type: cigarettes Alcohol intake: never Substance use: never Substance use type: does not use Do You Feel Safe in your Home?: Yes Lack of Transportation: No Lack of Food: Never True Current Housing: I Have Housing Concerned About Future Housing: No Difficulty Paying Gas/Electric Bills: No Difficulty Paying for Meds: No Currently Unemployed: No Education: High School Diploma/GED Difficulty w/ Childcare or Family Care: No Living arrangements: alone Occupation/Education: unemployed Additional occupation/education comments: disabled Spiritual care concerns: No Agree to blood products: Yes Anes - Eval Final PreProcedure Day of Procedure 12/08/24 07:40 Patient weight: obese Heart: regular rate and rhythm Lungs: decreased breath sounds Airway: Mallampati scale class II Neurological: alert and oriented Last oral intake: >/= 8 hours ASA classification: IV Emergent: no Anesthetic plan: proceed Anesthesia type and monitoring: general GIVS and standard monitoring Results Review: All pre-operative results and documents have been reviewed as part of the pre- operative evaluation. Informed Consent: The patient's anesthetic plan and its attendant risks and benefits were discussed with the patient/family/POA. Questions were solicited and answers provided to the satisfaction of the patient/family/POA.
[2024-12-08] MEDS: HYDROCORTISONE SODIUM SUCCINATE 100 MG/2 ML VIAL IV PUSH (07:52)
--- NOTE | 2024-12-08 07:56 | PM.IMHP ---
H&P: HPI History of Present Illness Date/Time: 12/08/24 07:56 Chief Complaint: Nausea-GERD Narrative: the patient has been complaining of intermittent nausea requiring ondansetron for the past this occurs mainly postprandially. In addition she also complains of at least 2-3 times per week of heartburn. She is referred for EGD. There is no history of dysphagia. Review of Systems Review of Systems: All systems reviewed & are unremarkable except as noted in HPI and below PMFSH Past Medical History Medical History Adrenal insufficiency Glaucoma Petit neuroma Raynaud disease Sarcoidosis Stroke Osteoporosis Hypertension MORROW (nonalcoholic steatohepatitis) Migraine GERD (gastroesophageal reflux disease) Diabetes Arthritis Anxiety Asthma Surgical History Surgical History History of liver biopsy History of cholecystectomy History of surgical removal of skin lesion History of gastric bypass History of hemorrhoidectomy History of eye surgery History of breast biopsy History of partial hysterectomy History of tubal ligation History of dilatation and curettage Family History Family History Mother Depression Hypertension Sibling Depression Diabetes mellitus Hypertension Cerebrovascular accident Father Diabetes mellitus Hypertension Heart disease Cerebrovascular accident Grandparent Heart disease Depression Hypertension Other Family history of allergic disorder Social History Social History Smoking packs per day: 0.5 Smoking cigarettes per day: 10.0 Years smoked: 5 Smoking pack-years: 2.50 Smoking status: Former smoker Tobacco type: cigarettes Alcohol intake: never Substance use: never Substance use type: does not use Do You Feel Safe in your Home?: Yes Lack of Transportation: No Lack of Food: Never True Current Housing: I Have Housing Concerned About Future Housing: No Difficulty Paying Gas/Electric Bills: No Difficulty Paying for Meds: No Currently Unemployed: No Education: High School Diploma/GED Difficulty w/ Childcare or Family Care: No Living arrangements: alone Occupation/Education: unemployed Additional occupation/education comments: disabled Spiritual care concerns: No Agree to blood products: Yes Meds Home Medications and Allergies Home Medications ?Medication ?Instructions ?Recorded ?Confirmed ?Type Vitamin B-12 1 tab-cap PO DAILY 06/16/21 12/08/24 History Vitamin D3 2,000 units PO DAILY 06/16/21 12/08/24 History Women's Daily Multivitamin 1 tablet PO DAILY 06/16/21 12/08/24 History albuterol sulfate 90 mcg/actuation 2 puff inhalation HS PRN Shortness 06/16/21 12/08/24 History aerosol inhaler Of Breath Or Wheezing bimatoprost 0.01 % eye drops 1 drp EACH EYE HS 06/16/21 12/08/24 History (Roz) citalopram 40 mg tablet 40 mg PO HS 06/16/21 12/08/24 History diltiazem HCl 120 mg 120 mg PO QAM 06/16/21 12/08/24 History capsule,extended release 24 hr estradiol 0.5 mg tablet 0.5 mg PO DAILY 06/16/21 12/08/24 History gabapentin 300 mg capsule 300 mg PO BID 06/16/21 12/08/24 History lorazepam 1 mg tablet 1 mg PO TID 06/16/21 12/08/24 History magnesium 500 mg tablet 500 mg PO DAILY 06/16/21 12/08/24 History montelukast 10 mg tablet 10 mg PO HS 06/16/21 12/08/24 History omeprazole 40 mg capsule,delayed 40 mg PO QAM 06/16/21 12/08/24 History release simvastatin 40 mg tablet 40 mg PO HS 06/16/21 12/08/24 History spironolactone 50 mg tablet 50 mg PO QAM 06/16/21 12/08/24 History flash glucose sensor (FreeStyle 05/23/23 10/12/24 History Caridad 2 Sensor kit) mirabegron 50 mg tablet,extended 50 mg PO DAILY 05/23/23 12/08/24 History release 24 hr (Myrbetriq) fluticasone 250 mcg-salmeterol 50 1 inh inhalation BID 09/11/23 12/08/24 History mcg/dose blistr powdr for inhalation (Advair Diskus) hydrocodone 10 mg-acetaminophen 1 tablet PO Q4H PRN Pain 09/11/23 11/20/24 History 325 mg tablet prednisone 5 mg tablet 5 mg PO DAILY 09/11/23 12/08/24 History trazodone 50 mg tablet 150 mg PO HS 09/11/23 12/08/24 History aspirin 81 mg tablet,delayed 81 mg PO DAILY 09/16/23 12/08/24 History release (Adult Low Dose Aspirin) azelastine 137 mcg (0.1 %) nasal 2 spray intranasal BID PRN Nasal 09/16/23 11/20/24 History spray Congestion fluticasone propionate 50 1 spray intranasal BID PRN Nasal 09/16/23 11/20/24 History mcg/actuation nasal Congestion spray,suspension ondansetron HCl 4 mg tablet 4 mg PO BID PRN Nausea And Vomiting 09/16/23 11/20/24 History lactulose 10 gram/15 mL oral 10 g (15 mL) PO BID #1,500 mL 11/03/24 12/08/24 Rx solution Allergies Allergy/AdvReac Type Severity Reaction Status Date / Time cephalexin (From Keflex) Allergy FACIAL Verified 12/08/24 06:56 SWELLING ofloxacin (From Floxin) AdvReac Mild INSOMNIA, Verified 12/08/24 06:56 SWEATING, SHAKINESS Vital Signs Vital Signs - 24 hr 12/08/24 06:51 Temperature 96.9 F L Pulse Rate 76 Respiratory Rate 16 Blood Pressure 123/84 Pulse Oximetry 100 Oxygen Delivery Room Air Exam Const: General: cooperative and healthy appearing Resp: Effort & Inspection: normal respiratory effort and able to speak in complete sentences Auscultation: clear to auscultation bilaterally Cardio: Rate: regular rate Rhythm: regular rhythm GI: Inspection: normal to inspection GI Palp: No No hepatosplenomegaly present Auscultation: normal bowel sounds Rectal Exam: deferred Skin: General skin exam: normal color Psych: Appearance: grossly normal Mental Status: mental status grossly normal Assessment and Plan Assessment and plan (1) GERD (gastroesophageal reflux disease): Qualifiers: Esophagitis presence: without esophagitis Qualified Code(s): K21.9 - Gastro-esophageal reflux disease without esophagitis Code(s): K21.9 - Gastro-esophageal reflux disease without esophagitis Status: Acute Assessment and Plan: The patient is deemed a good candidate for the procedure. Consent signed. Will proceed.
[2024-12-08 08:12] VITALS: BP 108/80; PULSE 70; RESP 20; O2SAT 99
[2024-12-08 08:22] VITALS: BP 123/78; PULSE 66; RESP 15; O2SAT 100
[2024-12-08 08:32] VITALS: BP 116/75; PULSE 62; RESP 17; O2SAT 100
== END 2024-12-08 08:37 | disposition home or self-care (01) ==
PROVIDERS: PCP Internal Medicine; Referring Provider Nurse Practitioner Family; Visit Provider Internal Medicine Gastroenterology
PROC: 0DJ08ZZ Inspection of Upper Intestinal Tract, Via Natural or Artificial Opening Endoscopic (ICD-10-PCS; CPT 43235; principal; 2024-12-08 08:00)
DX: K21.9 Gastro-esophageal reflux disease without esophagitis (principal); I10 Essential (primary) hypertension; E11.9 Type 2 diabetes mellitus without complications; F41.9 Anxiety disorder, unspecified; J45.909 Unspecified asthma, uncomplicated; I73.00 Raynaud's syndrome without gangrene; M81.0 Age-related osteoporosis without current pathological fracture; E27.40 Unspecified adrenocortical insufficiency; D86.9 Sarcoidosis, unspecified; K75.81 Nonalcoholic steatohepatitis (NASH); M19.90 Unspecified osteoarthritis, unspecified site; E66.9 Obesity, unspecified; Z68.33 Body mass index [BMI] 33.0-33.9, adult; Z79.51 Long term (current) use of inhaled steroids; Z79.891 Long term (current) use of opiate analgesic; Z79.82 Long term (current) use of aspirin; Z79.52 Long term (current) use of systemic steroids; Z98.890 Other specified postprocedural states; Z90.49 Acquired absence of other specified parts of digestive tract; Z98.84 Bariatric surgery status; Z98.51 Tubal ligation status; Z87.891 Personal history of nicotine dependence; Z86.73 Personal history of transient ischemic attack (TIA), and cerebral infarction without residual deficits; Z82.49 Family history of ischemic heart disease and other diseases of the circulatory system
CPT/HCPCS: 43235; 82948; J1720; J2003; J2704; J7120